=== PATIENT | female | born 1945 | race Caucasian/White ===

== ENCOUNTER → 2017-08-27 09:22 | Outpatient (CLI) | payer MEDICARE, OTHER, SELFPAY ==
--- NOTE | 2017-08-27 09:33 | RAD_ITS ---
STUDY: XR SPINE ENTIRE THORACIC T LUMBAR (W SKULL, CERVICAL AND SACRAL SPINE IF PERFORMED) REASON FOR EXAM: Female, 72 years old. Scoliosis TECHNIQUE: Radiological exam, spine, entire thoracic and lumbar, including skull, cervical and sacral spine if performed (eg, scoliosis evaluation); 2 or 3 views. COMPARISON: None. FINDINGS: There is a 59.5 degree dextroscoliosis of the thoracic spine with the apex of the convexity at the T9 level. There is a 38 degree levo scoliosis of the lumbar spine with the apex of the convexity at the L3-4 level. Normal kyphosis of the thoracic spine. Normal thoracic vertebrae and endplates. Normal disc space heights of the thoracic spine. There are internal fixation rods of the thoracic to upper lumbar region. Normal lordosis of the lumbar spine. There are degenerative changes of the lumbar spine. Normal disc space heights of the lumbar spine. There are calcified plaques of the abdominal aorta. RAD/Scoliosis 1 view IMPRESSION: Thoracolumbar scoliosis as detailed above. Orthopedic fixation devices seen from the thoracic to upper lumbar region. Electronically Signed: Hector Gonzalez MD at 17:10 EDT , Service support ,
== END ==
PROVIDERS: Family Provider Family Medicine; PCP Family Medicine; Visit Provider Family Medicine
DX: M41.9 Scoliosis, unspecified (principal)
CPT/HCPCS: 72081

== ENCOUNTER → 2017-10-24 16:15 | Outpatient (CLI) | payer MEDICARE, OTHER, SELFPAY ==
--- NOTE | 2017-10-24 16:15 | DT_ITS ---
This patient was seen during an EMR downtime October 22, 2017 - October 29, 2017. This patient may have a combination of paper and electronic documentation or all paper documentation. All documentation is viewable within the e-chart portion of [facility] for each patient visit.
[2017-10-28 15:37] LABS: Anion Gap 8 (5-15); BUN 18 mg/dL (7-18); BUN/Creat Ratio 27.7 RATIO (10-20); Calcium,Total 8.1 mg/dL (8.5-10.1); Chloride 106 mmol/L (98-107); Cholesterol 162 mg/dL (200); Creatinine, Serum 0.65 mg/dL (0.55-1.02); EST Glomerular Filtration Rate 96 mL/min (>60); Est Glom Filt Rate - Afr Amer 116 mL/min (>60); Glucose 100 mg/dL (74-106); High Density Lipoprotein 62 mg/dL; Potassium 3.9 mmol/L (3.5-5.1); Sodium Level 143 mmol/L (136-145); Triglycerides 136 mg/dL; Very Low Density Lipoprotein 27 mg/dL (5-40)
[2017-10-29 12:17] LABS: Vitamin D,25 Hydroxy 22.5 ng/mL (29.95-100.01)
== END ==
PROVIDERS: Family Provider Family Medicine; PCP Family Medicine; Visit Provider Family Medicine
DX: M85.80 Other specified disorders of bone density and structure, unspecified site (principal); Z13.220 Encounter for screening for lipoid disorders
CPT/HCPCS: 36415; 80048; 80061; 82306

== ENCOUNTER → 2017-10-29 15:46 | Outpatient (CLI) | payer MEDICARE, OTHER, SELFPAY ==
--- NOTE | 2017-10-29 15:46 | DT_ITS ---
This patient was seen during an EMR downtime October 22, 2017 - October 29, 2017. This patient may have a combination of paper and electronic documentation or all paper documentation. All documentation is viewable within the e-chart portion of [facility] for each patient visit.
[2017-10-29 18:02] LABS: PTHIN 66.3 pg/mL (18.4-80.1)
== END ==
PROVIDERS: Family Provider Family Medicine; PCP Family Medicine; Visit Provider Family Medicine
DX: E83.51 Hypocalcemia (principal)
CPT/HCPCS: 36415; 82330; 83970

== ENCOUNTER → 2017-11-13 12:49 | Outpatient (CLI) | payer MEDICARE, OTHER, SELFPAY ==
--- NOTE | 2017-11-13 12:53 | BI_ITS ---
MAMMOGRAPHY - BILATERAL SCREENING REASON FOR EXAM: Female, 72 years old. Routine annual screening examination. PERTINENT HISTORY: Sister with breast cancer. Left breast tenderness for one month. TECHNIQUE: Digital bilateral breast henry (3D mammographic acquisition) in the CC and MLO projections. 2-D mediolateral oblique (MLO) and craniocaudad (CC) views of both breasts were obtained. CAD: Full Field Digital Mammography with Computer Added Detection was performed. COMPARISON: Comparison is made with prior study August 08, 2016 and December 10, 2013. FINDINGS: Breast Composition: There are scattered areas of fibroglandular density. There are no dominant masses or suspicious calcifications. No other significant abnormalities are identified. There has been no significant change since the prior study. BI/SCREENING MAMM (CAD), BILAT IMPRESSION: Stable bilateral screening mammogram. Yearly follow-up mammogram recommended. (A) ASSESSMENT CATEGORY: BIRADS Category 1: Negative. A letter regarding these results will be sent to the patient by the facility within 30 days. Approximately 10% of breast cancers are not detected by mammography. A normal mammogram should not delay biopsy of a clinically suspicious abnormality. [id number] Electronically Signed: Sabino Garcia MD at 14:15 EDT Tel [phone], Service support ,
== END ==
PROVIDERS: Family Provider Family Medicine; PCP Family Medicine; Visit Provider Obstetrics & Gynecology
DX: Z12.31 Encounter for screening mammogram for malignant neoplasm of breast (principal)
CPT/HCPCS: 77063; 77067

== ENCOUNTER → 2019-03-25 14:33 | Outpatient (CLI) | payer MEDICARE, OTHER, SELFPAY ==
--- NOTE | 2019-03-25 14:36 | BI_ITS ---
MAMMOGRAPHY - BILATERAL SCREENING REASON FOR EXAM: Female, 73 years old. Routine annual screening examination. PERTINENT HISTORY: Sister with breast cancer. TECHNIQUE: Digital bilateral breast mattie (3D mammographic acquisition) in the CC and MLO projections. 2-D mediolateral oblique (MLO) and craniocaudad (CC) views of both breasts were obtained. CAD: Full Field Digital Mammography with Computer Added Detection was performed. COMPARISON: Comparison is made with prior study dated November 13, 2017 and August 08, 2016. FINDINGS: Breast Composition: There are scattered areas of fibroglandular density. There are no dominant masses or suspicious calcifications. No other significant abnormalities are identified. There has been no significant change since the prior study. BI/SCREEN MAMM (CAD) W/MATTIE BILAT IMPRESSION: Stable bilateral screening mammogram. Yearly follow-up mammogram recommended. (A) ASSESSMENT CATEGORY: BIRADS Category 1: Negative. A letter regarding these results will be sent to the patient by the facility within 30 days. Approximately 10% of breast cancers are not detected by mammography. A normal mammogram should not delay biopsy of a clinically suspicious abnormality. [id number] Electronically Signed: Sabino Garcia, at 15:44 EST , Service support ,
--- NOTE | 2019-03-25 14:37 | BD_ITS ---
STUDY: DUAL ENERGY X-RAY ABSORPTIOMETRY / DXA REASON FOR EXAM: Female, 73 years old. The patient is postmenopausal. Loss of height. TECHNIQUE: Bone Mineral Density (BMD) measurements of left forearm and bilateral hips were obtained. History of prior Kaufman rods fixation for scoliosis. COMPARISON: Comparison is made with prior examination dated August 15, 2016. FINDINGS: Left Femur Total: g/cm2 (0.862) / T-score (-1.2) / Z-score (0.4) Left Femoral Neck: g/cm2 (0.804) / T-score (-1.7) / Z-score (0.1) Right Femur Total: g/cm2 (0.897) / T-score (-0.9) / Z-score (0.7) Right Femoral Neck: g/cm2 (0.866) / T-score (-1.2) / Z-score (0.5) Left Forearm: g/cm2 (0.813) / T-score (-0.7) / Z-score (1.2) The T-Scores on the most recent prior examination were: Left Femur Total: which represents a worsening of 3.9%. Right Femur Total: which represents an improvement of 3.1%. BD/Dexa Bone Density Study IMPRESSION: The patient is considered osteopenic as outlined below according to World [employer] Organization (WHO) criteria with a moderate fracture risk. There has been no change of bone density since the previous examination. Reference Information: The T-score is the number of standard deviations above or below the standard which is normal for young adults at their peak bone mineral density. The World Health Organization (WHO) interprets the T-scores as follows: Above -1 Normal bone density Between -1 and -2.5 Osteopenia Equal to / or below -2.5 Osteoporosis As a practical clinical guideline, osteopenia may be graded as follows: Mild -1 through -1.5 Moderate -1.6 through -2.0 Severe -2.1 through -2.4 The Z-score is the number of standard deviations above or below age-matched controls. A Z-score of less than -1.5 would be considered abnormal. References: 1. NIH Osteoporosis and Related Bone Diseases http://www.osteo.org 2. International Society for Clinical Densitometry http://www.iscd.org 3. National Osteoporosis Foundation http://www.nof.org Electronically Signed: Sabino Garcia, at 9:31 EST , Service support ,
== END ==
PROVIDERS: Family Provider Family Medicine; PCP Family Medicine; Referring Provider Family Medicine; Visit Provider Family Medicine
DX: Z12.31 Encounter for screening mammogram for malignant neoplasm of breast (principal); Z78.0 Asymptomatic menopausal state
CPT/HCPCS: 77063; 77067; 77080

== ENCOUNTER 2019-05-21 21:50 | Emergency (ER) | payer MEDICARE, OTHER, SELFPAY ==
[2019-05-21 21:51] VITALS: BP 156/92; PULSE 96; RESP 20; TEMP 37.4; O2SAT 95; BMI 35.2
--- NOTE | 2019-05-21 22:37 | ED.RN ---
per md pt is not septic.
--- NOTE | 2019-05-21 22:40 | ED.DCSUM_ITS ---
History of Present Illness Chief Complaint: Cough Informant: Patient Narrative: Stated for the last 2 days she has had a cough. It is been dry. She has had a runny nose. Denies any other symptoms. She has occasional wheezing. She has a history of asthma. Positive sick contacts. No fevers or chills. No flulike symptoms otherwise. She has been using Advair and started this just a few weeks ago for asthma. She does not have an albuterol inhaler. Currently she does not have any major abnormalities. She recently did start lisinopril. She is unsure if she is having RADHA inhibitor induced cough. Past Medical History - Allergies and Home Meds Allergies/Adverse Reactions: Allergies No Known Allergies Allergy (Verified 05/21/19 21:50) Primary Care Physician: Marquis Oneal MD [Primary Care Provider] - Prior records reviewed: Yes Past Medical History: - - Asthma Surgical History: noncontributory Lives: With Family Smoking Status: Never smoker Alcohol: None Drugs: None Review of Systems General: Denies: Chills, Fever, Sweats Eyes: Denies: Visual changes - bilaterally, Diplopia ENT: Reports: Rhinorrhea. Denies: Sore throat Cardiovascular: Denies: Chest pain, Palpitations Respiratory: Reports: Cough. Denies: Dyspnea, Dyspnea on exertion Gastrointestinal: Denies: Abdominal pain, Nausea, Vomiting, Diarrhea, Melena, Hematochezia Genitourinary: Denies: Dysuria, Hematuria, Frequency Musculoskeletal: Denies: Back pain, Extremity Pain Skin: Denies: Rash, Wounds Neurological: Denies: Headache, Weakness, Numbness Physical Exam Vital Signs/Narrative: Vital Signs Temp Pulse Resp BP Pulse Ox 05/21/19 21:51 99.4 F H 96 20 H 156/92 H 95 General: Well nourished, Well developed, No Acute Distress Head: Normocephalic, Atraumatic Eyes: Perrl, EOMI ENT: Moist mucous membranes, No rhinorrhea Neck: Supple, Nontender Cardiovascular: Regular rate, Regular rhythm, No murmurs Respiratory: No distress, CTA bilaterally, Chest nontender Abdomen: Soft, Nontender, Nondistended, Normal bowel sounds Back: Nontender, Normal Inspection Extremities: Nontender, No edema Skin: Normal color, No rash Neurological: Alert, Oriented x3, Cranial nerves II-XII grossly intact, Normal Strength, Normal Sensation Psychological: Normal affect, Normal Mood Diagnostic/Tx/Re-eval - Medical Decision Making Resting comfortably with a normal exam. She was given albuterol inhaler to use at home as needed. Given prednisone to use for suspected asthma exacerbation likely secondary to upper respiratory infection. I do not feel she has pneumonia or the flu or RSV. She is nontoxic. She will follow-up as an outpatient. ED Disposition - Plan for ED Patient: Disposition: Home or Assisted Living Diagnosis: Asthma Instructions: ASTHMA, Acute (Adult) Prescriptions: predniSONE tablet 40 mg PO DAILY #10 tab Transmission Status: Pending to [facility]/pharmacy #[id number] Referrals: Marquis Oneal MD [Primary Care Provider] -
[2019-05-21] MEDS: predniSONE 20 MG Tablet 40 MG PO (22:59)
[2019-05-21 23:18] VITALS: PULSE 95; RESP 18; O2SAT 99
== END 2019-05-21 23:18 | disposition home or self-care (01) ==
LOC: ED 22:54
PROVIDERS: Emergency Provider Emergency Medicine; Family Provider Family Medicine; PCP Family Medicine
DX: J45.909 Unspecified asthma, uncomplicated (principal); Z79.899 Other long term (current) drug therapy
CPT/HCPCS: 99283

== ENCOUNTER → 2019-12-09 11:31 | Outpatient (CLI) | payer MEDICARE, OTHER, SELFPAY ==
[2019-12-09 15:51] LABS: Anion Gap 3 (5-15); BUN 16 mg/dL (7-18); Calcium,Total 8.7 mg/dL (8.5-10.1); Chloride 108 mmol/L (98-107); Creatinine, Serum 0.67 mg/dL (0.55-1.02); EST Glomerular Filtration Rate 92 mL/min (>60); Est Glom Filt Rate - Afr Amer 112 mL/min (>60); Glucose 108 mg/dL (74-106); Potassium 4.1 mmol/L (3.5-5.1); Sodium Level 141 mmol/L (136-145)
== END ==
PROVIDERS: Nurse Practitioner Family; PCP Family Medicine; Referring Provider Family Medicine; Visit Provider Family Medicine
DX: I10 Essential (primary) hypertension (principal)
CPT/HCPCS: 36415; 80048

== ENCOUNTER → 2020-01-06 11:24 | Outpatient (CLI) | payer MEDICARE, OTHER, SELFPAY ==
[2020-01-06 13:22] LABS: Vitamin D,25 Hydroxy 38.2 ng/mL
[2020-01-06 13:25] LABS: Anion Gap 2 (5-15); BUN 15 mg/dL (7-18); BUN/Creat Ratio 19.8 RATIO (10-20); Chloride 108 mmol/L (98-107); Cholesterol 174 mg/dL (200); Creatinine, Serum 0.76 mg/dL (0.55-1.02); EST Glomerular Filtration Rate 80 mL/min (>60); Est Glom Filt Rate - Afr Amer 96 mL/min (>60); Glucose 99 mg/dL (74-106); High Density Lipoprotein 70 mg/dL; Potassium 3.9 mmol/L (3.5-5.1); Sodium Level 141 mmol/L (136-145); Thyroid Stim Hormone (TSH) 1.21 uIU/mL (0.358-3.74); Triglycerides 75 mg/dL; Very Low Density Lipoprotein 15 mg/dL (5-40)
== END ==
PROVIDERS: PCP Family Medicine; Referring Provider Family Medicine; Visit Provider Family Medicine
DX: I10 Essential (primary) hypertension (principal); M85.80 Other specified disorders of bone density and structure, unspecified site
CPT/HCPCS: 36415; 80048; 80061; 82306; 84443

== ENCOUNTER → 2020-02-17 10:50 | Outpatient (CLI) | payer MEDICARE, OTHER, SELFPAY | PROVIDERS: PCP Family Medicine; Referring Provider Internal Medicine Pulmonary Disease; Visit Provider Internal Medicine Pulmonary Disease | DX: R05 Cough (principal) | CPT/HCPCS: 87635; C9803; U0003 ==

== ENCOUNTER → 2020-03-08 10:22 | Outpatient (CLI) | payer MEDICARE, OTHER, SELFPAY ==
[2020-03-10 04:07] LABS: Alternaria alternata <0.10 kU/L (Class 0); Aspergillus fumigatus <0.10 kU/L (Class 0); Bahia Grass <0.10 kU/L (Class 0); Bermuda Grass <0.10 kU/L (Class 0); Bluegrass, Kentucky <0.10 kU/L (Class 0); Cat Hair/Dander, Standard <0.10 kU/L (Class 0); Cedar, Mountain <0.10 kU/L (Class 0); Cladosporium herbarum <0.10 kU/L (Class 0); Cockroach, American <0.10 kU/L (Class 0); D farinae Mite <0.10 kU/L (Class 0); D pteronyssinus <0.10 kU/L (Class 0); Dog Epithelia <0.10 kU/L (Class 0); Elm, American White <0.10 kU/L (Class 0); Hazelnut Tree <0.10 kU/L (Class 0); Hickory, White <0.10 kU/L (Class 0); Johnson Grass <0.10 kU/L (Class 0); Maple/Box Elder <0.10 kU/L (Class 0); Mucor racemosus <0.10 kU/L (Class 0); Mugwort <0.10 kU/L (Class 0); Mulberry, White <0.10 kU/L (Class 0); Oak, White <0.10 kU/L (Class 0); Penicillium chrysogen <0.10 kU/L (Class 0); Pigweed, Rough <0.10 kU/L (Class 0); Plantain, English <0.10 kU/L (Class 0); Ragweed, Short/Common <0.10 kU/L (Class 0); Sheep Sorrel(Dock) <0.10 kU/L (Class 0); Stemphylium herbarum <0.10 kU/L (Class 0); Sweet Gum <0.10 kU/L (Class 0); Sycamore, American <0.10 kU/L (Class 0)
[2020-03-10 12:21] LABS: Nettle <0.10 kU/L (Class 0)
== END ==
PROVIDERS: Internal Medicine Pulmonary Disease
DX: T78.40XA Allergy, unspecified, initial encounter (principal); J45.909 Unspecified asthma, uncomplicated
CPT/HCPCS: 36415; 86003

== ENCOUNTER → 2020-04-06 13:01 | Outpatient (CLI) | payer MEDICARE, OTHER, SELFPAY ==
[2020-03-08 09:08] VITALS: BMI 34.9
--- NOTE | 2020-04-06 13:03 | ECHOD_ITS ---
Reason For Study: SOB Procedure This was a 2D Doppler, Color Flow transthoracic echocardiogram. The study was technically difficult. Exam performed in department. Left Ventricle Normal LV size. Left ventricular systolic function is normal. The estimated ejection fraction is 65 %. Diastolic function is indeterminate. No regional wall motion abnormalities noted. Right Ventricle Normal RV size. Normal systolic function. Atria Normal left atrium. Normal right atrium. No doppler evidence for ASD. Mitral Valve There is no mitral annular calcification. Normal mitral valve. Trivial mitral valve insufficiency. Tricuspid Valve The tricuspid valve is not well visualized. Aortic Valve Trisinus/trileaflet aortic valve. Mild focal aortic valve calcification. Pulmonic Valve The pulmonic valve is not well visualized. Great Vessels Normal sized aortic root. Pericardium/Pleural No pericardial effusion. MMode/2D Measurements & Calculations LVIDd: 4.0 cm IVSd: 1.0 cm Ao root diam: 2.7 cm LVIDs: 2.3 cm LVPWd: 0.99 cm RVDd: 2.7 cm FS: 42.9 % LAV(MOD-bp): 43.0 ml LA A4 area: 17.0 cm2 LA dimension(2D): 3.5 cm LAV(MOD-bp) Indexed: 23.9 ml/m2 LAV(MOD-sp2): 43.2 ml LAV(MOD-sp4): 43.7 ml RA A4 area: 9.1 cm2 Time Measurements MV dec time: 0.28 sec Doppler Measurements & Calculations MV E max roberto: 59.8 cm/sec Lat Peak E' Roberto: 7.1 cm/sec Med Peak E' Roberto: 7.0 cm/sec MV A max roberto: 93.7 cm/sec E/E' lat: 8.5 E/E' med: 8.6 MV E/A: 0.64 Ao V2 max: 127.2 cm/sec LV V1 max: 119.0 cm/sec PA V2 max: 105.1 cm/sec Ao max P.5 mmHg LV V1 max P.7 mmHg Interpretation Summary The study was technically difficult. Left ventricular systolic function is normal. The estimated ejection fraction is 65 %. Trivial mitral valve insufficiency. Mild focal aortic valve calcification. Diastolic function is indeterminate. Ordering Physician: Marquis Oneal Referring Physician: Marquis Oneal Performed By: Cande Banegas, CORINE, RVT
== END ==
PROVIDERS: PCP Family Medicine; Referring Provider Family Medicine; Visit Provider Family Medicine
DX: R06.02 Shortness of breath (principal); R05 Cough
CPT/HCPCS: 93306

== ENCOUNTER → 2020-04-08 15:38 | Outpatient (CLI) | payer MEDICARE, OTHER, SELFPAY ==
[2020-03-08 09:08] VITALS: BMI 34.9
== END ==
PROVIDERS: PCP Family Medicine; Visit Provider Family Medicine
DX: Z20.828 Contact with and (suspected) exposure to other viral communicable diseases (principal)
CPT/HCPCS: 87635; U0003

== ENCOUNTER → 2020-04-09 10:49 | Outpatient (CLI) | payer MEDICARE, OTHER, SELFPAY ==
[2020-03-08 09:08] VITALS: BMI 34.9
--- NOTE | 2020-04-09 10:57 | RAD_ITS ---
STUDY: X-RAY CHEST REASON FOR EXAM: Female, 74 years old. COVID, SOB, COUGH TECHNIQUE: PA and lateral views of the chest. COMPARISON: Comparison is made with prior study dated 09/22/2013. FINDINGS: Focal infiltrate in the lingular segment of the left upper lobe. There is no demonstrated pleural abnormality. Normal size heart. Normal mediastinum and orestes. Normal visualized pulmonary arteries. Normal visualized aortic arch and descending thoracic aorta. There is a marked dextroscoliosis of the thoracic spine. Prior KAHN zulma fixation. Normal visualized ribs, clavicles, and shoulders. Status post cholecystectomy. RAD/Chest PA and Lateral IMPRESSION: Focal infiltrate in the lingular segment of the left upper lobe. Dextroscoliosis with KAHN zulma fixation. Electronically Signed: Sabino Garcia, at 11:10 EST , Service support ,
== END ==
LOC: RAD.FUTURE 10:54 → RAD 13:01
PROVIDERS: PCP Family Medicine; Referring Provider Internal Medicine Pulmonary Disease; Visit Provider Internal Medicine Pulmonary Disease
DX: U07.1 COVID-19 (principal)
CPT/HCPCS: 71046

== ENCOUNTER 2020-04-09 19:38 | Inpatient (IN) | payer MEDICARE, OTHER, SELFPAY ==
[2020-03-08 09:08] VITALS: BMI 34.9
[2020-04-09] VITALS (7 sets, daily range): BP systolic 116–148; BP diastolic 53–71; PULSE 85–95; RESP 18–34; TEMP 36.5–38.1; O2SAT 88–96; BMI 35.1; BMI 35.2
--- NOTE | 2020-04-09 20:08 | EKG12_ITS ---
Test Reason : DYSRHYTHMIA Blood Pressure : / mmHG Vent. Rate : 089 BPM Atrial Rate : 089 BPM P-R Int : 120 ms QRS Dur : 082 ms QT Int : 332 ms P-R-T Axes : 052 056 060 degrees QTc Int : 403 ms Normal sinus rhythm Possible Left atrial enlargement Borderline ECG Confirmed by JOSE MARTIN TINSLEY, DOUG ([id number]), editor department CAPRICE BENAVIDES ([id number]) on 04/12/2020 9:39:35 AM Referred By: TL Confirmed By:DOUG PHILIPPE MD
--- NOTE | 2020-04-09 20:40 | RAD_ITS ---
STUDY: X-RAY CHEST REASON FOR EXAM: Female, 74 years old. COUGH X 3 MONTHS,CHEST X-RAY AND COVID TEST.PT C/O PULSE 88 PERCENT AND INCREASED SOB AND FEVER 102.0 TECHNIQUE: Frontal view of the chest COMPARISON: Earlier same day FINDINGS: Allowing for differences in technique left lower lung zone pneumonia is stable.. There is no demonstrated pleural abnormality. Heart size cannot be reliably evaluated due to suboptimal patient positioning. Normal mediastinum and orestes. Normal visualized pulmonary arteries. Normal visualized aortic arch and descending thoracic aorta. There are long segment thoracic spinal fixation rods with laminar hooks and moderate dextroscoliosis. Otherwise skeletal structures are unremarkable. There is no demonstrated abnormality of the visualized soft tissue structures of the upper abdomen. Cholecystectomy clips are in place. RAD/Chest 1 View (Portable) IMPRESSION: Stable left lower lung pneumonia. Electronically Signed: Nelly Dahl, at 21:20 EST Tel , Service support ,
[2020-04-09 21:07] LABS: Absolute Lymphocyte Count 1.17 X10^3/uL (0.83-4.51); Absolute Neutrophil Count 6.4 X10^3/uL (2.0-7.7); Basophil# 0.01 X10^3/uL; Basophil% 0.1 % (0-1); Hematocrit 39.7 % (37-47); Hemoglobin 12.6 g/dL (12.0-15.0); Lymphocyte # 1.17 X10^3/ul (4.0); Lymphocyte % 13.6 % (19-41); Mean Corp Hgb Conc 31.7 g/dL (32-36); Mean Corpuscular Hgb 28.2 pg (27.0-32.0); Mean Corpuscular Volume 88.8 fL (81-99); Mean Platelet Vol. 10.7 fl (6.2-12.0); Monocyte% 11.7 % (0-10); NRBC Flagged by Analyzer 0 % (0-5); Neutrophil # 6.38 X10^3/uL (2.7-7.7); Neutrophil % 74.4 % (47-70); Platelet Count 237 K/mm3 (150-450); RBC Distribution Width CV 14.3 % (11.6-14.6); RBC Distribution Width SD 46.1 fl (35.1-43.9); Red Blood Count 4.47 M/mm3 (4.2-5.4); White Blood Count 8.6 K/mm3 (4.4-11.0)
[2020-04-09 21:09] LABS: Lactic Acid 1.3 mmol/L (0.4-1.9)
[2020-04-09 21:11] LABS: ALB/GLOB Ratio 0.9 RATIO (0.9-2.4); AST(SGOT) 25 U/L (15-37); Alanine Aminotransfer ALT/SGPT 31 U/L (13-56); Albumin, Serum 3.2 g/dL (3.2-5.0); Alkaline Phosphatase 85 U/L (45-117); Anion Gap 5 (5-15); BUN 19 mg/dL (7-18); Calcium,Total 8.2 mg/dL (8.5-10.1); Chloride 104 mmol/L (98-107); Creatinine, Serum 0.79 mg/dL (0.55-1.02); EST Glomerular Filtration Rate 76 mL/min (>60); Est Glom Filt Rate - Afr Amer 92 mL/min (>60); Estimated Creatinine Clearance 40.22 ml/min; Globulin 3.4 g/dL (2.2-4.2); Glucose 116 mg/dL (74-106); Potassium 4.4 mmol/L (3.5-5.1); Protein, Total 6.6 g/dL (6.4-8.2); Sodium Level 137 mmol/L (136-145)
--- NOTE | 2020-04-09 21:29 | ED.DCSUM_ITS ---
History of Present Illness Chief Complaint: Shortness of Breath Informant: Patient Onset: Weeks - 3 Narrative: Patient reports cough x3 months., last 2 days noted fevers myalgias. No loss of taste or smell. No vomiting or diarrhea. Increasing cough, she is followed by Dr. Hassan. She states she is being treated for asthma. She did finish steroids. She states had a outpatient chest x-ray this morning that noted pneumonia. She states antibiotics were called into the pharmacy that she has not picked up. Denies any tobacco history. Denies any Covid exposures. She states yesterday had outpatient Covid test that is pending. has similar symptoms. Prior similar symptoms: No Past Medical History - Allergies and Home Meds Allergies/Adverse Reactions: Allergies No Known Allergies Allergy (Verified 04/09/20 19:42) Primary Care Physician: Marquis Oneal MD [Primary Care Provider] - Past Medical History: - - Asthma, hypertension Surgical History: noncontributory Smoking Status: Never smoker Review of Systems General: Reports: Fever. Denies: Chills, Sweats Eyes: Denies: Visual changes - bilaterally, Diplopia ENT: Denies: Rhinorrhea, Sore throat Cardiovascular: Denies: Chest pain, Palpitations Respiratory: Reports: Dyspnea, Cough. Denies: Dyspnea on exertion Gastrointestinal: Denies: Abdominal pain, Nausea, Vomiting, Diarrhea, Melena, Hematochezia Genitourinary: Denies: Dysuria, Hematuria, Frequency Musculoskeletal: Denies: Back pain, Extremity Pain Skin: Denies: Rash, Wounds Neurological: Denies: Headache, Weakness, Numbness Physical Exam Vital Signs/Narrative: Vital Signs Temp Pulse Resp BP Pulse Ox 04/09/20 20:59 94 26 H 04/09/20 20:29 98.6 F 91 32 H 141/58 H 88 04/09/20 19:40 97.7 F L 93 18 148/71 H 93 Inital Vital Signs reviewed: Yes General: Well nourished, Well developed, - - Intermittent coughing during exam Head: Normocephalic, Atraumatic Eyes: Perrl, EOMI ENT: Moist mucous membranes, No rhinorrhea Neck: Supple, Nontender Cardiovascular: Regular rate, Regular rhythm, No murmurs Respiratory: No distress, Chest nontender, Decreased Air Movement Abdomen: Soft, Nontender, Nondistended, Normal bowel sounds Back: Nontender, Normal Inspection Extremities: Nontender, No edema Skin: Normal color, No rash Neurological: Alert, Oriented x3, Cranial nerves II-XII grossly intact, Normal Strength, Normal Sensation Psychological: Normal affect, Normal Mood Diagnostic/Tx/Re-eval Clinical Impression(s) from Imaging Studies Chest X-Ray 04/09/20 20:40 IMPRESSION: Stable left lower lung pneumonia. Electronically Signed: Nelly Dahl, at 21:20 EST Tel , Service support , Abnormal Lab Results 04/09/20 04/09/20 04/09/20 20:30 20:30 20:30 WBC 8.6 RBC 4.47 Hgb 12.6 Hct 39.7 MCV 88.8 MCH 28.2 MCHC 31.7 L RDW Std Deviation 46.1 H RDW Coeff of Sofía 14.3 Plt Count 237 MPV 10.7 Immature Gran % (Auto) 0.200 Neut % (Auto) 74.4 H Lymph % (Auto) 13.6 L Owen % (Auto) 11.7 H Eos % (Auto) 0.0 Baso % (Auto) 0.1 Absolute Neuts (auto) 6.4 Absolute Lymphs (auto) 1.17 Nucleated RBC % 0 Sodium 137 Potassium 4.4 Chloride 104 Carbon Dioxide 28.0 Anion Gap 5 BUN 19 H Creatinine 0.79 Estim Creat Clear Calc 40.22 Est GFR (MDRD) Af Amer 92 Est GFR (MDRD) Non-Af 76 BUN/Creatinine Ratio 24.0 H Glucose 116 H Lactic Acid 1.3 Calcium 8.2 L Total Bilirubin 0.30 AST 25 ALT 31 Alkaline Phosphatase 85 Total Protein 6.6 Albumin 3.2 Globulin 3.4 Albumin/Globulin Ratio 0.9 COVID-19 (ANGELINA) 04/09/20 20:51 WBC RBC Hgb Hct MCV MCH MCHC RDW Std Deviation RDW Coeff of Sofía Plt Count MPV Immature Gran % (Auto) Neut % (Auto) Lymph % (Auto) Owen % (Auto) Eos % (Auto) Baso % (Auto) Absolute Neuts (auto) Absolute Lymphs (auto) Nucleated RBC % Sodium Potassium Chloride Carbon Dioxide Anion Gap BUN Creatinine Estim Creat Clear Calc Est GFR (MDRD) Af Amer Est GFR (MDRD) Non-Af BUN/Creatinine Ratio Glucose Lactic Acid Calcium Total Bilirubin AST ALT Alkaline Phosphatase Total Protein Albumin Globulin Albumin/Globulin Ratio COVID-19 (ANGELINA) Positive - EKG Initial EKG Interpretation: Sinus Rhythm - Sinus rate of 89, no ST or T wave changes. - Medical Decision Making Patient nontoxic, 93% on room air on arrival. Reported pneumonia as an outpatient. Asthma history no tobacco history. Given MDI treatment in ED with improvement of symptoms. Chest x-ray confirms a stable pneumonia left base. White count normal. EKG sinus rhythm. During monitor her oxygen did go down to 88%. Awaiting Covid results at this time. She stable on oxygen. Cultures are in the lab. Her lactic acid was normal. Patient's Covid test returned positive. Healthy patient dy with asthma and hypertension. No tobacco history, she is currently on 3 L of oxygen. Given dexamethasone and Omnicef for treatment. [facility] protocol for approval oxygen due to positive Covid for home use along with outpatient treatment. First dose is given the ED. Prescriptions were written. Strict return precautions. Patient is being discharged under pandemic conditions under declared global, national and state disaster activation, with limited medical resources. Patient and community understands this. Results discussed in layman's terms to the patient satisfaction. All questions answered in layman's terms. Patient understands importance of follow-up care as directed. Patient has been instructed to return to the ED immediately if new symptoms, problems, or questi ons occur. We mutually agree with the plan of disposition. The patient understand that they may call or return with any questions or concerns at any time. ED Disposition - Plan for ED Patient: Disposition: Home or Assisted Living Diagnosis: COVID-19 virus infection, Pneumonia, Hypoxia Instructions: Treating Pneumonia, Coronavirus Disease 2019 (COVID-19) Prescriptions: Dexamethasone 6 mg PO DAILY #9 tab Transmission Status: Pending to [facility] Cefdinir [Omnicef [equiv]] 300 mg PO Q12H 7 Days #13 cap Transmission Status: Pending to [facility] Referrals: Marquis Oneal MD [Primary Care Provider] - Kingston Hassan MD [STAFF PHYSICIAN] - 1 Week
[2020-04-09 22:09] LABS: Probe Check PASS; Specimen Processing Control PASS
--- NOTE | 2020-04-09 22:38 | CM.ED ---
SOCIAL WORK Informant: Dr. Moon Reason for Consult: Discharge Planning/COVID-19 positive-home O2 Updated by Dr. Moon patient needing home O2 set up. Dr. Moon patient is COVID-19 positive with pneumonia. Spoke with patient to review home O2 check list. Patient stating does not really feel comfortable going home after speaking with . Dr. Moon and nurse updated. Dr. Moon to [facility] hospitalist. Plan: Anticipate admission aZk Sutton MSW, LIFESTYLE CONSULTANT
--- NOTE | 2020-04-09 22:53 | PCM.HP.STD ---
Problem List (1) COVID-19 virus infection Status: Acute (2) Pneumonia Status: Acute Qualifiers: Pneumonia type: due to unspecified organism Laterality: unspecified laterality Lung location: unspecified part of lung Qualified Code(s): J18.9 - Pneumonia, unspecified organism (3) Hypoxia Status: Acute (4) Seasonal allergies Status: Chronic (5) Scoliosis Status: Resolved Qualifiers: Scoliosis type: thoracogenic Spinal region: thoracolumbar Qualified Code(s): M41.35 - Thoracogenic scoliosis, thoracolumbar region (6) Asthma Status: Chronic Qualifiers: Asthma severity: moderate Asthma persistence: persistent Asthma complication type: uncomplicated Qualified Code(s): J45.40 - Moderate persistent asthma, uncomplicated (7) HTN (hypertension) Status: Chronic Qualifiers: Hypertension type: essential hypertension Qualified Code(s): I10 - Essential (primary) hypertension History of Present Illness Date of Admission: 04/09/20 Chief Complaint: Increased cough, dyspnea with hypoxia, febrile. The patient is a 74 y/o F w/ PMHx: Obesity, Moderate Persistent Asthma, HTN, Allergic Rhinitis who presents to the [facility] ED on 04/09/20 with history of fevers, body aches, cough and dyspnea x 2 days without nausea, emesis, diarrhea, alteration to sense of taste/smell with recent administration of steroid taper with recent outpatient CXR per her Pulmonary physician, not improving with no specific wheezing, primarily harsh ongoing coughing prompting ED evaluation. She notes that her had a fever, fatigue and headaches for 1 to 2 days but since has improved. Their son who lives with them had sore throat and fatigue x 2 days the week prior and lives with them. Work-up in the ED included T 99.2, heart rate 91, BP 141/58, respiratory rate 32, 88% on room air with improvement to 92% on 3 L nasal cannula with respiratory rate 31, CBC with WC 8.6, hemoglobin 12.6, platelet 237 without marked shift, CMP with BUN/creatinine 19/0.79, glucose 116, lactic acid 1.3, Covid positive, respiratory viral panel pending, blood culture x2 pending per ED, chest x-ray with stable left lower lung pneumonia. In the ED patient administered Decadron 6 mg p.o. x1 as well as Rocephin and azithromycin. Past Medical History Past Medical History (Chronic Problems): Chronic Problems (Last Updated 03/08/20 @ 09:09 by Miranda Blair) HTN (hypertension) (Chronic) Seasonal allergies (Chronic) Asthma (Chronic) Medical History: Medical History (Last Updated 03/08/20 @ 09:09 by Miranda Blair) Seasonal allergies (Acute) J30.2 Asthma (Acute) J45.909 Allergies No Known Allergies Allergy (Verified 04/09/20 19:42) Home Medications: Ambulatory Orders Medication Instructions Recorded albuterol sulfate 90 mcg/actuation 1 puff INHALATION Q6H 06/16/17 aerosol inhaler losartan 100 mg tablet 100 mg PO DAILY 03/08/20 montelukast 10 mg tablet 10 mg PO DAILY 03/08/20 triamcinolone acetonide 55 mcg 1 spray INTRANASAL BID ml 03/08/20 nasal spray aerosol Albuterol Aerosols [Ventolin 2.5 mg INHALATION BID 04/09/20 Aerosols] Budesonide Aerosol [Pulmicort 0.5 mg INHALATION BID 04/09/20 Aerosol] Cefdinir [Omnicef [equiv]] 300 mg PO Q12H 7 Days #13 cap 04/09/20 Dexamethasone 6 mg PO DAILY #9 tab 04/09/20 Prednisone 20 mg PO DAILY 04/09/20 Surgical History: Surgical History (Last Updated 03/08/20 @ 09:09 by Miranda Blair) History of appendectomy (Resolved) Z98.890, Z90.49 History of cholecystectomy (Resolved) Z98.890, Z90.49 Scoliosis (Resolved) M41.9 Surgical History: noncontributory, - - Intervention for scoliosis with Kaufman zulma, cholecystectomy, appendectomy. 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 Smoking Status: Never smoker Tobacco Use: Non-smoker Alcohol: Occasional Drugs: None - *Family History Maternal Family History: Family History (Last Reviewed 03/08/20 @ 09:10 by Miranda Blair) Sister Breast cancer Hypertension Brother Allergies Thyroid disorder Hypertension History Items: Pulmonary Disease - Patient with a maternal family history of chronic COPD with mother with significant tobacco use concurrent history. Paternal Family History: Family History (Last Reviewed 03/08/20 @ 09:10 by Miranda Blair) Sister Breast cancer Hypertension Brother Allergies Thyroid disorder Hypertension History Items: Heart Disease, - - Patient notes paternal family history of sudden at age 53, suspicious for cardiac disease etiology. Review of Systems Constitutional: Reports: Anorexia, Chills, Fever, Malaise, Weakness, Fatigue. Denies: Weight Change HEENT: Denies: Head Aches, Sinus Congestion, Sinus Drainage Cardiovascular: Denies: Chest Pain, Palpitations Respiratory: Reports: Cough, Shortness of Breath, Shortness of breath at rest, Shortness of breath upon exertion. Denies: Sputum production, Wheezing Gastrointestinal: Denies: Abdominal Pain, Nausea, Vomiting Genitourinary: Denies: Dysuria Musculoskeletal: Reports: Back Pain, Joint Pain. Denies: Joint Tenderness Skin: Denies: Rash, Wounds Neurological: Denies: Numbness, Tingling, Focal weakness Psychiatric: Denies: Anxiety, Depression, Homicidal Ideations, Suicidal Ideations Hematologic/ Lymphatic: Denies: Easy Bruising, Easy Bleeding VTE Information - Inpt Only VTE Present on Admission: No VTE Mechan Device Prophylaxis: SCD's VTE Pharm Prophylaxis ordered?: Yes Patient Problems: Active and Suspected Problems (Last Updated 03/08/20 @ 09:09 by Miranda Blair) COVID-19 virus infection (Acute) Pneumonia (Acute) Hypoxia (Acute) Subjective: Seated upright in the ED bed, fatigued appearing otherwise no obvious distress, with evaluation does have significant coughing. Objective: Physical Examination: General: awake, alert, oriented x 3 and cooperative, seated upright in the ED bed, fatigued and ill-appearing. Skin: normal color, turgor, no icterus, cyanosis. HEENT: AT/NC, EOMI, PERRLA, dry MM, no carotid bruits or JVD noted. Lungs: Diminished breath sounds, greater bases, left greater than right, mildly coarse at bases, no obvious rales, and occasional very distant end expiratory wheeze but only with coughing fits. Heart: Regular rate and rhythm; no gallop, rub audible. Abdomen: soft, obese, NTTP, ND, mildly hyperactive BS, no HSM. Extremities: no cyanosis, clubbing, or edema. Neurological: patient awake, alert, oriented as noted; cognitive function baseline intact; pupils equally reactive to light and accomodation; cranial nerves II-XII grossly normal, moving all 4 extremities, no focal deficits, strength moderately to severely globally decreased secondary to acute presentation. Psychiatric: affect appears fatigued, ill, no acute evidence of depressive or anxiety feelings. - Physical Exam Vitals/I&O's: Vital Signs Temp Pulse Resp BP Pulse Ox 99.2 F H 90 31 H 116/53 L 92 04/09/20 22:00 04/09/20 22:00 04/09/20 22:00 04/09/20 22:00 04/09/20 22:00 Oxygen Flow Rate (L/min) 3 Oxygen Delivery Method Nasal Cannula Weight: 192 lb Body Mass Index (BMI) 35.1 Laboratory Results 04/09/20 20:30: WBC 8.6, RBC 4.47, Hgb 12.6, Hct 39.7, MCV 88.8, MCH 28.2, MCHC 31.7 L, RDW Std Deviation 46.1 H, RDW Coeff of Sofía 14.3, Plt Count 237, MPV 10.7, Immature Gran % (Auto) 0.200, Neut % (Auto) 74.4 H, Lymph % (Auto) 13.6 L, Bee % (Auto) 11.7 H, Eos % (Auto) 0.0, Baso % (Auto) 0.1, Absolute Neuts (auto) 6.4, Absolute Lymphs (auto) 1.17, Nucleated RBC % 0 04/09/20 20:30: Sodium 137, Potassium 4.4, Chloride 104, Carbon Dioxide 28.0, Anion Gap 5, BUN 19 H, Creatinine 0.79, Estim Creat Clear Calc 40.22, Est GFR (MDRD) Af Amer 92, Est GFR (MDRD) Non-Af 76, BUN/Creatinine Ratio 24.0 H, Glucose 116 H, Calcium 8.2 L, Total Bilirubin 0.30, AST 25, ALT 31, Alkaline Phosphatase 85, Total Protein 6.6, Albumin 3.2, Globulin 3.4, Albumin/Globulin Ratio 0.9 04/09/20 20:30: Lactic Acid 1.3 04/09/20 20:51: COVID-19 (ANGELINA) Positive Current Medications Dexamethasone (Dexamethasone 4 Mg Tablet) 6 mg PO X1 ONE Stop: 04/10/20 22:25 Azithromycin 500 mg/ Dextrose 255 mls @ 250 mls/hr IV X1 ONE Stop: 04/09/20 23:43 Ceftriaxone Sodium (Rocephin) 1 gm in 50 mls @ 100 mls/hr IV X1 ONE Stop: 04/09/20 23:11 Assessment/Plan All Active Problems (Last Updated 03/08/20 @ 09:09 by Miranda Blair) COVID-19 virus infection (Acute) Pneumonia (Acute) Hypoxia (Acute) History of appendectomy (Resolved) History of cholecystectomy (Resolved) Scoliosis (Resolved) The patient is a 74 y/o F w/ PMHx: Obesity, Moderate Persistent Asthma, HTN, Allergic Rhinitis who presents to the [facility] ED on 04/09/20 with history of fevers, body aches, cough and dyspnea x 2 days without nausea, emesis, diarrhea, alteration to sense of taste/smell with recent administration of steroid taper with recent outpatient CXR per her Pulmonary physician, not improving with no specific wheezing, primarily harsh ongoing coughing. 1. Acute Dyspnea, Cough, Fever with Acute Hypoxia secondary to Pneumonia secondary to Suspected Acute Viral Syndrome, COVID-19: We will admit to the Covid unit, will maintain on oxygen with wean as tolerated to room air, continue home inhalers and as needed albuterol, HOB, IS parameters, pending respiratory viral panel per ED, will obtain procalcitonin, CRP, CPK, Ferritin, LDH, D-dimer, continue supportive care including q 2 hour turning including prone given no prone bed availability and judicious hydration, closely monitor for worsening status for ARDS and multiorgan failure, maintain on IV Decadron, infectious disease consulted. Given patient underlying history of asthma will consult Dr. Miranda per discussion with patient and family. Will obtain T+S. 2. Chronic moderate persistent asthma: We will continue patient scheduled albuterol and budesonide regimen. 3. Scoliosis: Patient with dextroscoliosis with prior intervention with Kaufman zulma fixation, encourage positional changes, fall precautions. 4. Allergic rhinitis: We will continue patient home montelukast and triamcinolone regimen. 5. Hypertension: Continue home regimen including losartan with hold parameters, PRN hydralazine. 6. Obesity: Weight loss and lifestyle changes encouraged. 7. DVT prophylaxis: SCDs, Lovenox. 8. CODE status: Patient HCPOA is her and living will is currently in place. Discussed CODE status at length including difference between FULL code, DNR-CCA and DNR-CC status. Following discussions about the differences in these status, requested Full Code status. Advanced Care Planning Face to Face Time: 16 minutes. Upon admission did discuss patient with her daughter per her request, Veronica Junior who is a therapist at the [facility]. Inpatient E&M: 83461 Init Hosp L3 Procedures: 88840 Advncd Care Plan 30 Min
[2020-04-09] MEDS: Ceftriaxone 1 GM/50 ML BAG IV (23:16)
[2020-04-09] MEDS: dexAMETHasone 4 MG Tablet 6 MG PO (23:33)
[2020-04-10] VITALS (9 sets, daily range): BP systolic 115–128; BP diastolic 57–64; PULSE 66–84; RESP 16–24; TEMP 35.6–37.1; O2SAT 94–95
--- NOTE | 2020-04-10 00:05 | ED.RN ---
QUEENIE sanders made aware that zithromax needed to be hung when the cipro finished. zithromax was given to rn.
[2020-04-10 00:53] LABS: BNP,B-Type NATRIURETIC PEPTIDE 42.9 pg/mL (0-100); Procalcitonin 0.15 ng/mL (0.00-0.09)
[2020-04-10 01:41] LABS: D-Dimer Quantitative (DVT/PE) 0.29 FEU/ug/m (0.27-0.49)
[2020-04-10 03:50] LABS: Ferritin 207 ng/mL (8-252); LDH 198 U/L (84-246); Magnesium 1.9 mg/dL (1.6-2.6)
[2020-04-10 07:48] LABS: Absolute Lymphocyte Count 0.65 X10^3/uL (0.83-4.51); Absolute Neutrophil Count 4.4 X10^3/uL (2.0-7.7); Basophil# 0.01 X10^3/uL; Basophil% 0.2 % (0-1); Hematocrit 38.7 % (37-47); Hemoglobin 12.1 g/dL (12.0-15.0); Lymphocyte # 0.65 X10^3/ul (4.0); Lymphocyte % 11.9 % (19-41); Mean Corp Hgb Conc 31.3 g/dL (32-36); Mean Corpuscular Hgb 27.9 pg (27.0-32.0); Mean Corpuscular Volume 89.4 fL (81-99); Mean Platelet Vol. 10.8 fl (6.2-12.0); Monocyte# 0.39 X10^3/uL; Monocyte% 7.1 % (0-10); NRBC Flagged by Analyzer 0 % (0-5); Neutrophil # 4.41 X10^3/uL (2.7-7.7); Neutrophil % 80.4 % (47-70); Platelet Count 216 K/mm3 (150-450); RBC Distribution Width CV 14.2 % (11.6-14.6); RBC Distribution Width SD 46.6 fl (35.1-43.9); Red Blood Count 4.33 M/mm3 (4.2-5.4); White Blood Count 5.5 K/mm3 (4.4-11.0)
--- NOTE | 2020-04-10 07:48 | CON.PCM_ITS ---
Reason for Consult Date of Consultation: 04/10/20 Reason for Consultation: Acute respiratory insufficiency secondary to COVID-19 pneumonia History of Present Illness: The patient is a 74-year-old female, with a history as outlined below, who presented to the emergency department on April 09 with worsening cough, fevers and myalgias. The patient is followed by Dr. Hassan due to a history of asthma. The patient has a longstanding history of a nonproductive cough of several years duration. The cough itself has not changed dramatically. The patient did report some fevers, chills and malaise, which initially began 3 days ago. The patient does report that her son was home last Sunday and did report feeling fatigued. Outside of this, the patient denies any sick contact exposures. She denies loss of taste or smell. On presentation to the emergency department, the patient was noted to be afebrile and hemodynamically stable. Laboratory evaluation revealed a normal white blood cell count. D-dimer was within normal limits. Chemistry profile was unremarkable. Liver function was normal. Lactate was within normal limits. Procalcitonin was 0.15. Coronavirus PCR was positive. Chest x-ray revealed a left lower lobe pneumonia. The patient was started on Decadron and admitted to the coronavirus cohort unit for further management. Past Medical History Past Medical History (Chronic Problems): Chronic Problems (Last Updated 03/08/20 @ 09:09 by Miranda Blair) HTN (hypertension) (Chronic) Seasonal allergies (Chronic) Asthma (Chronic) Medical History: Medical History (Last Updated 03/08/20 @ 09:09 by Miranda Blair) Seasonal allergies (Chronic) J30.2 Asthma (Chronic) J45.909 Allergies No Known Allergies Allergy (Verified 04/09/20 19:42) Home Medications: Ambulatory Orders Medication Instructions Recorded albuterol sulfate 90 mcg/actuation 1 puff INHALATION Q6H 06/16/17 aerosol inhaler losartan 100 mg tablet 100 mg PO DAILY 03/08/20 montelukast 10 mg tablet 10 mg PO DAILY 03/08/20 triamcinolone acetonide 55 mcg 1 spray INTRANASAL BID ml 03/08/20 nasal spray aerosol Albuterol Aerosols [Ventolin 2.5 mg INHALATION BID 04/09/20 Aerosols] Budesonide Aerosol [Pulmicort 0.5 mg INHALATION BID 04/09/20 Aerosol] Cefdinir [Omnicef [equiv]] 300 mg PO Q12H 7 Days #13 cap 04/09/20 Dexamethasone 6 mg PO DAILY #9 tab 04/09/20 Prednisone 20 mg PO DAILY 04/09/20 Surgical History: Surgical History (Last Updated 03/08/20 @ 09:09 by Miranda Blair) History of appendectomy (Resolved) Z98.890, Z90.49 History of cholecystectomy (Resolved) Z98.890, Z90.49 Scoliosis (Resolved) M41.9 Surgical History: noncontributory, - - Intervention for scoliosis with Kaufman zulma, cholecystectomy, appendectomy. 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 Smoking Status: Never smoker Tobacco Use: Non-smoker Alcohol: Occasional Drugs: None - *Family History Maternal Family History: Family History (Last Reviewed 03/08/20 @ 09:10 by Miranda Blair) Sister Breast cancer Hypertension Brother Allergies Thyroid disorder Hypertension History Items: Pulmonary Disease - Patient with a maternal family history of chronic COPD with mother with significant tobacco use concurrent history. Paternal Family History: Family History (Last Reviewed 03/08/20 @ 09:10 by Miranda Blair) Sister Breast cancer Hypertension Brother Allergies Thyroid disorder Hypertension History Items: Heart Disease, - - Patient notes paternal family history of sudden at age 53, suspicious for cardiac disease etiology. Review of Systems Constitutional: Reports: Chills, Fever, Malaise, Fatigue Eyes: Denies: Blurred vision, Double vision HEENT: Denies: Head Aches, Sinus Congestion, Sinus Drainage Cardiovascular: Denies: Chest Pain, Palpitations Respiratory: Reports: Cough Gastrointestinal: Denies: Abdominal Pain, Nausea, Vomiting Genitourinary: Denies: Dysuria Musculoskeletal: Denies: Joint Pain, Joint Tenderness Skin: Denies: Rash, Wounds Neurological: Denies: Numbness, Tingling, Focal weakness Psychiatric: Denies: Anxiety, Depression, Homicidal Ideations, Suicidal Ideations Hematologic/ Lymphatic: Denies: Easy Bruising, Easy Bleeding Patient Problems: Active and Suspected Problems (Last Updated 03/08/20 @ 09:09 by Miranda Blair) COVID-19 virus infection (Acute) Pneumonia (Acute) Hypoxia (Acute) Objective: The patient's most recent lab work, culture data and imaging studies have all been personally reviewed. Coronavirus PCR was positive on April 09. Strep and urine Legionella antigens were negative. Respiratory viral panel was negative. - Physical Exam Vitals/I&O's: Vital Signs Temp Pulse Resp BP Pulse Ox 98.6 F 76 16 117/57 L 94 04/10/20 05:28 04/10/20 05:28 04/10/20 05:28 04/10/20 05:28 04/10/20 05:28 Oxygen Flow Rate (L/min) 3 Oxygen Delivery Method Nasal Cannula Weight: 190 lb 14.725 oz Body Mass Index (BMI) 35.2 Intake and Output for Last 24 Hours 04/08/20 04/09/20 04/10/20 23:59 23:59 23:59 Intake Total 50 / 50 255 / 255 Output Total 0 / 0 Balance 50 / 50 255 / 255 General: Alert, Oriented x3, Cooperative, No apparent distress HEENT: Atraumatic, PERRLA, Normocephalic Oral: Moist Mucosa, No Gingival or Mucosal Lesions/ Ulcerations Neck: Supple, No Nodes, Trachea Midline Lungs: No rhonchi, No wheeze, No rales, - - Frequent paroxysms of coughing Cardiovascular: Regular rate, Regular Rhythm Abdomen: Bowel Sounds Present, Soft, Non Tender, Obese Extremities: No clubbing, No cyanosis, No edema Skin: No breakdown Musculoskeletal: No Tenderness to Palpation of Joints or Extremities, No Muscle Wasting Lymphatic: No Cervical, Supraclavicular, or Inguinal Adenopathy Neurological: Cranial nerves II-XII grossly intact, Neuro grossly intact Psych/Mental Status: Alert and oriented to time, place, person, mood and affect Labs (Last 48 Hours) 04/09/20 04/09/20 04/09/20 20:30 20:30 20:30 WBC 8.6 RBC 4.47 Hgb 12.6 Hct 39.7 MCV 88.8 MCH 28.2 MCHC 31.7 L RDW Std Deviation 46.1 H RDW Coeff of Sofía 14.3 Plt Count 237 MPV 10.7 Immature Gran % (Auto) 0.200 Neut % (Auto) 74.4 H Lymph % (Auto) 13.6 L [place] % (Auto) 11.7 H Eos % (Auto) 0.0 Baso % (Auto) 0.1 Absolute Neuts (auto) 6.4 Absolute Lymphs (auto) 1.17 Nucleated RBC % 0 D-Dimer Quant (PE/DVT) Sodium 137 Potassium 4.4 Chloride 104 Carbon Dioxide 28.0 Anion Gap 5 BUN 19 H Creatinine 0.79 Estim Creat Clear Calc 40.22 Est GFR (MDRD) Af Amer 92 Est GFR (MDRD) Non-Af 76 BUN/Creatinine Ratio 24.0 H Glucose 116 H Lactic Acid 1.3 Calcium 8.2 L Magnesium Ferritin Total Bilirubin 0.30 AST 25 ALT 31 Alkaline Phosphatase 85 Lactate Dehydrogenase C-React Prot Ext Range B-Natriuretic Peptide Total Protein 6.6 Albumin 3.2 Globulin 3.4 Albumin/Globulin Ratio 0.9 Procalcitonin COVID-19 (ANGELINA) Blood Type Antibody Screen 04/09/20 04/09/20 04/09/20 20:30 20:30 20:30 WBC RBC Hgb Hct MCV MCH MCHC RDW Std Deviation RDW Coeff of Sofía Plt Count MPV Immature Gran % (Auto) Neut % (Auto) Lymph % (Auto) [place] % (Auto) Eos % (Auto) Baso % (Auto) Absolute Neuts (auto) Absolute Lymphs (auto) Nucleated RBC % D-Dimer Quant (PE/DVT) Sodium Potassium Chloride Carbon Dioxide Anion Gap BUN Creatinine Estim Creat Clear Calc Est GFR (MDRD) Af Amer Est GFR (MDRD) Non-Af BUN/Creatinine Ratio Glucose Lactic Acid Calcium Magnesium 1.9 Ferritin 207 Total Bilirubin AST ALT Alkaline Phosphatase Lactate Dehydrogenase 198 C-React Prot Ext Range 63.50 H B-Natriuretic Peptide 42.9 Total Protein Albumin Globulin Albumin/Globulin Ratio Procalcitonin 0.15 H COVID-19 (ANGELINA) Blood Type Antibody Screen 04/09/20 04/10/20 04/10/20 20:51 00:50 00:50 WBC RBC Hgb Hct MCV MCH MCHC RDW Std Deviation RDW Coeff of Sofía Plt Count MPV Immature Gran % (Auto) Neut % (Auto) Lymph % (Auto) [place] % (Auto) Eos % (Auto) Baso % (Auto) Absolute Neuts (auto) Absolute Lymphs (auto) Nucleated RBC % D-Dimer Quant (PE/DVT) 0.29 Sodium Potassium Chloride Carbon Dioxide Anion Gap BUN Creatinine Estim Creat Clear Calc Est GFR (MDRD) Af Amer Est GFR (MDRD) Non-Af BUN/Creatinine Ratio Glucose Lactic Acid Calcium Magnesium Ferritin Total Bilirubin AST ALT Alkaline Phosphatase Lactate Dehydrogenase C-React Prot Ext Range B-Natriuretic Peptide Total Protein Albumin Globulin Albumin/Globulin Ratio Procalcitonin COVID-19 (ANGELINA) Positive Blood Type O POSITIVE Antibody Screen NEGATIVE 04/10/20 04/10/20 05:55 05:55 WBC 5.5 RBC 4.33 Hgb 12.1 Hct 38.7 MCV 89.4 MCH 27.9 MCHC 31.3 L RDW Std Deviation 46.6 H RDW Coeff of Sofía 14.2 Plt Count 216 MPV 10.8 Immature Gran % (Auto) 0.400 Neut % (Auto) 80.4 H Lymph % (Auto) 11.9 L [place] % (Auto) 7.1 Eos % (Auto) 0.0 Baso % (Auto) 0.2 Absolute Neuts (auto) 4.4 Absolute Lymphs (auto) 0.65 L Nucleated RBC % 0 D-Dimer Quant (PE/DVT) Sodium Pending Potassium Pending Chloride Pending Carbon Dioxide Pending Anion Gap Pending BUN Pending Creatinine Pending Estim Creat Clear Calc Est GFR (MDRD) Af Amer Pending Est GFR (MDRD) Non-Af Pending BUN/Creatinine Ratio Pending Glucose Pending Lactic Acid Calcium Pending Magnesium Ferritin Total Bilirubin Pending AST Pending ALT Pending Alkaline Phosphatase Pending Lactate Dehydrogenase C-React Prot Ext Range B-Natriuretic Peptide Total Protein Pending Albumin Pending Globulin Albumin/Globulin Ratio Procalcitonin COVID-19 (ANGELINA) Blood Type Antibody Screen Microbiology 04/10/20 05:58 Urine, Clean Catch Legionella Antigen - Final 04/10/20 05:58 Urine, Clean Catch Streptococcus pneumoniae Antigen (M - Final 04/09/20 20:51 Mucosa - Nose Respiratory Panel (PCR) - Final Clinical Impression(s) from Imaging Studies Chest X-Ray 04/09/20 20:40 IMPRESSION: Stable left lower lung pneumonia. Electronically Signed: Nelly Dahl, at 21:20 EST Tel , Service support , Current Medications Acetaminophen (Acetaminophen 325 Mg Tablet) 650 mg PO Q6H PRN PRN PRN Reason: Pain Score 1-10/Temp > 100.7 F Al Hydroxide/Mg Hydroxide (Mag Hydrox/Al Hydrox/Simeth 30 Ml Udc) 30 ml PO Q6H PRN PRN PRN Reason: Gastric Burning Albuterol Sulfate (Albuterol 2.5 Mg/3 Ml Vial.Neb.) 2.5 mg INHALATION BID REPLACED BY [facility] Albuterol Sulfate (Albuterol Ih 8.5 Gm (Proair) Inhaler (200 Puffs)) 2 puff INHALATION Q4H PRN PRN PRN Reason: dyspnea, wheezing Budesonide (Budesonide Respules 0.5 Mg/2 Ml Ampul.Neb.) 0.5 mg INHALATION BID REPLACED BY [facility] Dexamethasone (Dexamethasone 4 Mg Tablet) 6 mg PO X1 ONE Stop: 04/10/20 22:25 Last Admin: 04/09/20 23:33 Dose: 6 mg Documented by: Dexamethasone Sodium Phosphate (Dexamethasone 10 Mg/Ml Vial) 6 mg IV DAILY REPLACED BY [facility] Enoxaparin Sodium (Enoxaparin 30 Mg/0.3 Ml Syringe) 30 mg SC BID REPLACED BY [facility] Fluticasone Propionate (Fluticasone 0.05% 1 [place] Nasal.Sry) 1 spray NASAL BID REPLACED BY [facility] Guaifenesin (Guaifenesin 10 Ml Udc (200mg/10ml)) 20 ml PO Q4H PRN PRN PRN Reason: COUGH Hydralazine HCl (Hydralazine 20 Mg/Ml Vial) 10 mg IV Q4H PRN PRN PRN Reason: SBP > 160 Sodium Chloride () 250 mls @ 15 mls/hr IV .[id number] PRN PRN Reason: Saline Flush Losartan Potassium (Losartan Potassium 100 Mg Tablet) 100 mg PO DAILY REPLACED BY [facility] Magnesium Hydroxide (Magnesium Hydroxide 30 Ml Udc) 30 ml PO DAILY PRN PRN PRN Reason: Constipation Melatonin (Melatonin 3 Mg Tablet) 3 mg PO QHS PRN PRN PRN Reason: INSOMNIA Montelukast Sodium (Montelukast 10 Mg Tablet) 10 mg PO DAILY REPLACED BY [facility] Morphine Sulfate (Morphine 2 Mg/Ml Syringe) 2 mg IV Q3H PRN PRN PRN Reason: Pain Score 6-10 Nitroglycerin (Nitroglycerin (Inpatient Use) 0.4 Mg Tab.Subl) 0.4 mg SUBLINGUAL Q5M PRN PRN Reason: CARDIAC/CHEST PAIN Ondansetron HCl (Ondansetron 4 Mg/2 Ml Vial) 4 mg IV Q8H PRN PRN PRN Reason: NAUSEA/VOMITING Oxycodone HCl (Oxycodone 5 Mg Tablet) 5 mg PO Q4H PRN PRN PRN Reason: Pain Score 4-5 Prochlorperazine Edisylate (Prochlorperazine 10 Mg/2 Ml Vial) 5 mg IV Q4H PRN PRN PRN Reason: Breakthrough nausea/vomiting Psyllium Hydrophilic Mucilloid (Psyllium 1 Packet) 1 packet PO DAILY PRN PRN PRN Reason: Constipation Senna/Docusate Sodium (Senna/Docusate Sodium 1 Tablet) 2 tablet PO BID PRN PRN PRN Reason: Constipation Sodium Chloride (0.9% Saline Lock 10 Ml Syringe) 10 - 40 ml IV UD PRN PRN Reason: SALINE FLUSH Throat Lozenges (Benzocaine/Menthol 1 Lozenge) 1 lozenge MUCOUS MEM Q2H PRN PRN PRN Reason: SORE THROAT Assessment/Plan All Active Problems (Last Updated 03/08/20 @ 09:09 by Miranda Blair) COVID-19 virus infection (Acute) Pneumonia (Acute) Hypoxia (Acute) History of appendectomy (Resolved) History of cholecystectomy (Resolved) Scoliosis (Resolved) RECOMMENDATIONS: 1. Continue Decadron 6 mg daily x10 days. 2. Start remdesivir today and monitor liver/renal function daily. 3. Consent was obtained for convalescent plasma. 4. Wean supplemental oxygen to maintain saturations at or above 90%. 5. Encourage incentive spirometer use and mobilize patient as tolerated. 6. Continue bronchodilator therapy. IMPRESSIONS: 1. Acute hypoxemic respiratory insufficiency secondary to COVID-19 pneumonia Given that the patient's symptoms began 3 days ago, we will plan to start her on remdesivir and convalescent plasma. The patient will be continued on Decadron as ordered with plans to complete a 10-day treatment course. Supplemental oxygen will be weaned to maintain saturations at or above 90%. Encourage incentive spirometer use and mobilize patient as tolerated. Continue baseline bronchodilator therapy. Reviewed EUA and risks/benefits of convalescent plasma. Verbal consent was obtained from the patient. 2. Obesity/hypertension/asthma Complicates care, management, recovery and prognosis. Continue supportive measures as noted above. This note was generated with [email or web address] dictation software. It may contain incorrect words, spelling, and punctuation that were not noted in checking the note before signing. Inpatient E&M: 60814 Init Hosp L3
[2020-04-10 08:23] LABS: ALB/GLOB Ratio 0.8 RATIO (0.9-2.4); AST(SGOT) 20 U/L (15-37); Alanine Aminotransfer ALT/SGPT 28 U/L (13-56); Albumin, Serum 2.9 g/dL (3.2-5.0); Alkaline Phosphatase 75 U/L (45-117); Anion Gap 6 (5-15); BUN 15 mg/dL (7-18); BUN/Creat Ratio 23.5 RATIO (10-20); Calcium,Total 8.1 mg/dL (8.5-10.1); Chloride 103 mmol/L (98-107); Creatinine, Serum 0.64 mg/dL (0.55-1.02); EST Glomerular Filtration Rate 97 mL/min (>60); Est Glom Filt Rate - Afr Amer 117 mL/min (>60); Estimated Creatinine Clearance 40.22 ml/min; Globulin 3.6 g/dL (2.2-4.2); Glucose 176 mg/dL (74-106); Potassium 4.2 mmol/L (3.5-5.1); Protein, Total 6.5 g/dL (6.4-8.2); Sodium Level 137 mmol/L (136-145)
[2020-04-10] MEDS: Albuterol 2.5 MG/3 ML VIAL.NEB. INHALATION ×2 (10:00→19:31)
[2020-04-10] MEDS: Budesonide Respules 0.5 MG/2 ML AMPUL.NEB. INHALATION ×2 (10:00→19:31)
[2020-04-10] MEDS: Montelukast 10 MG Tablet PO (10:55)
[2020-04-10] MEDS: Enoxaparin 30 MG/0.3 ML Syringe SC ×2 (10:55→21:24)
[2020-04-10] MEDS: dexAMETHasone 10 MG/ML Vial 6 MG IV (10:56)
[2020-04-10] MEDS: Losartan Potassium 100 MG Tablet PO (10:56)
[2020-04-10] MEDS: Fluticasone 0.05% 1 SPRAY NASAL.SRY NASAL ×2 (10:56→21:24)
--- NOTE | 2020-04-10 14:43 | CM.UR ---
RN CM Assessment Spoke with patient via phone. Introduced role of RN CM to patient. Patient is alert, oriented and able to participate in RN CM Assessment. Care providers, pharmacy, and demographics verified. Admit Dx: Covid pneumonia Barriers/Issues: None PCP: Dr. Oneal Specialists: Dr. Hassan. Plans to change to Dr. Ott Preferred Pharmacy: [facility] Insurance: MCR/aetna suppl Rx Benefit: yes LNOK: , Maz[place]. LW/HPOA: states has both. Aware they are not on file. States Mazin is HPOA Living Arrangements: Lives with in 1 story home with 2 steps to enter. Denies problems with accessibility. ADL?s: Independent with ADLs in and out of home. Transportation: Patient drives self DME: States her [id number] lived with them for the last couple years she was alive. Still has all her medical equipment. Has a nebulizer from [facility]. Would like o2 from there, if necessary. HHC: None SNF: None Goal: Home DC PLAN: Home, possibly with oxygen. Domenico Tyler RN, CCM.
--- NOTE | 2020-04-10 15:00 | PN_ITS ---
Patient Problems: Active and Suspected Problems (Last Updated 03/08/20 @ 09:09 by Miranda Blair) COVID-19 virus infection (Acute) Pneumonia (Acute) Hypoxia (Acute) Subjective: Doing well, no issues overnight. Maintaining oxygen sats at 3 L Vitals/I&O's: Vital Signs Temp Pulse Resp BP Pulse Ox 98.7 F 66 18 125/59 H 95 04/10/20 12:57 04/10/20 12:57 04/10/20 12:57 04/10/20 12:57 04/10/20 12:57 Oxygen Flow Rate (L/min) 3 Oxygen Delivery Method Nasal Cannula Weight: 190 lb 14.725 oz Body Mass Index (BMI) 35.2 Intake and Output for Last 24 Hours 04/08/20 04/09/20 04/10/20 23:59 23:59 23:59 Intake Total 50 / 50 409 / 409 Output Total 0 / 0 Balance 50 / 50 409 / 409 General: Alert, Oriented x3, Cooperative, No apparent distress HEENT: Atraumatic, PERRLA, EOMI, Normocephalic Oral: Moist Mucosa Neck: Supple, No JVD Lungs: Normal air movement, No rhonchi, No wheeze, No rales, Diminished Cardiovascular: Regular rate, Regular Rhythm, Normal S1, Normal S2, No murmurs Abdomen: Soft, Non Tender, Non-Distended, No Hepato-splenomegaly Extremities: No edema, Capillary Refill Less than 3 Seconds Skin: No rashes, No breakdown Neurological: Neuro grossly intact, Sensory exam intact to light touch and pain Psych/Mental Status: Normal Affect, Appropriate Microbiology Past 72 Hours 04/10/20 05:58 Urine, Clean Catch Legionella Antigen - Final 04/10/20 05:58 Urine, Clean Catch Streptococcus pneumoniae Antigen (M - Final 04/09/20 20:51 Mucosa - Nose Respiratory Panel (PCR) - Final Laboratory Results 04/09/20 20:30: WBC 8.6, RBC 4.47, Hgb 12.6, Hct 39.7, MCV 88.8, MCH 28.2, MCHC 31.7 L, RDW Std Deviation 46.1 H, RDW Coeff of Sofía 14.3, Plt Count 237, MPV 10.7, Immature Gran % (Auto) 0.200, Neut % (Auto) 74.4 H, Lymph % (Auto) 13.6 L, [place] % (Auto) 11.7 H, Eos % (Auto) 0.0, Baso % (Auto) 0.1, Absolute Neuts (auto) 6.4, Absolute Lymphs (auto) 1.17, Nucleated RBC % 0 04/09/20 20:30: Sodium 137, Potassium 4.4, Chloride 104, Carbon Dioxide 28.0, Anion Gap 5, BUN 19 H, Creatinine 0.79, Estim Creat Clear Calc 40.22, Est GFR (MDRD) Af Amer 92, Est GFR (MDRD) Non-Af 76, BUN/Creatinine Ratio 24.0 H, Glucose 116 H, Calcium 8.2 L, Total Bilirubin 0.30, AST 25, ALT 31, Alkaline Phosphatase 85, Total Protein 6.6, Albumin 3.2, Globulin 3.4, Albumin/Globulin Ratio 0.9 04/09/20 20:30: Lactic Acid 1.3 04/09/20 20:30: Magnesium 1.9, Ferritin 207, Lactate Dehydrogenase 198, C-React Prot Ext Range 63.50 H 04/09/20 20:30: B-Natriuretic Peptide 42.9 04/09/20 20:30: Procalcitonin 0.15 H 04/09/20 20:51: COVID-19 (ANGELINA) Positive 04/10/20 00:50: D-Dimer Quant (PE/DVT) 0.29 04/10/20 00:50: Blood Type O POSITIVE, Antibody Screen NEGATIVE 04/10/20 05:55: WBC 5.5, RBC 4.33, Hgb 12.1, Hct 38.7, MCV 89.4, MCH 27.9, MCHC 31.3 L, RDW Std Deviation 46.6 H, RDW Coeff of Sofía 14.2, Plt Count 216, MPV 10.8, Immature Gran % (Auto) 0.400, Neut % (Auto) 80.4 H, Lymph % (Auto) 11.9 L, [place] % (Auto) 7.1, Eos % (Auto) 0.0, Baso % (Auto) 0.2, Absolute Neuts (auto) 4.4, Absolute Lymphs (auto) 0.65 L, Nucleated RBC % 0 04/10/20 05:55: Sodium 137, Potassium 4.2, Chloride 103, Carbon Dioxide 28.0, Anion Gap 6, BUN 15, Creatinine 0.64, Estim Creat Clear Calc 40.22, Est GFR (MDRD) Af Amer 117, Est GFR (MDRD) Non-Af 97, BUN/Creatinine Ratio 23.5 H, Glucose 176 H, Calcium 8.1 L, Total Bilirubin 0.20, AST 20, ALT 28, Alkaline Phosphatase 75, Total Protein 6.5, Albumin 2.9 L, Globulin 3.6, Albumin/Globulin Ratio 0.8 L 04/10/20 05:55: Alkaline Phosphatase Cancelled Current Medications Acetaminophen (Acetaminophen 325 Mg Tablet) 650 mg PO Q6H PRN PRN PRN Reason: Pain Score 1-10/Temp > 100.7 F Al Hydroxide/Mg Hydroxide (Mag Hydrox/Al Hydrox/Simeth 30 Ml Udc) 30 ml PO Q6H PRN PRN PRN Reason: Gastric Burning Albuterol Sulfate (Albuterol 2.5 Mg/3 Ml Vial.Neb.) 2.5 mg INHALATION BID [facility] Last Admin: 04/10/20 10:00 Dose: 2.5 mg Documented by: Albuterol Sulfate (Albuterol Ih 8.5 Gm (Proair) Inhaler (200 Puffs)) 2 puff INHALATION Q4H PRN PRN PRN Reason: dyspnea, wheezing Budesonide (Budesonide Respules 0.5 Mg/2 Ml Ampul.Neb.) 0.5 mg INHALATION BID [facility] Last Admin: 04/10/20 10:00 Dose: 0.5 mg Documented by: Dexamethasone (Dexamethasone 4 Mg Tablet) 6 mg PO X1 ONE Stop: 04/10/20 22:25 Last Admin: 04/09/20 23:33 Dose: 6 mg Documented by: Dexamethasone Sodium Phosphate (Dexamethasone 10 Mg/Ml Vial) 6 mg IV DAILY [facility] Last Admin: 04/10/20 10:56 Dose: 6 mg Documented by: Enoxaparin Sodium (Enoxaparin 30 Mg/0.3 Ml Syringe) 30 mg SC BID [facility] Last Admin: 04/10/20 10:55 Dose: 30 mg Documented by: Fluticasone Propionate (Fluticasone 0.05% 1 [place] Nasal.Sry) 1 spray NASAL BID [facility] Last Admin: 04/10/20 10:56 Dose: 1 spray Documented by: Guaifenesin (Guaifenesin 10 Ml Udc (200mg/10ml)) 20 ml PO Q4H PRN PRN PRN Reason: COUGH Hydralazine HCl (Hydralazine 20 Mg/Ml Vial) 10 mg IV Q4H PRN PRN PRN Reason: SBP > 160 Sodium Chloride () 250 mls @ 15 mls/hr IV .[id number] PRN PRN Reason: Saline Flush Remdesivir 100 mg/ Sodium (Chloride) 250 mls @ 125 mls/hr IV DAILY [facility] Stop: 04/14/20 11:59 Losartan Potassium (Losartan Potassium 100 Mg Tablet) 100 mg PO DAILY [facility] Last Admin: 04/10/20 10:56 Dose: 100 mg Documented by: Magnesium Hydroxide (Magnesium Hydroxide 30 Ml Udc) 30 ml PO DAILY PRN PRN PRN Reason: Constipation Melatonin (Melatonin 3 Mg Tablet) 3 mg PO QHS PRN PRN PRN Reason: INSOMNIA Montelukast Sodium (Montelukast 10 Mg Tablet) 10 mg PO DAILY [facility] Last Admin: 04/10/20 10:55 Dose: 10 mg Documented by: Nitroglycerin (Nitroglycerin (Inpatient Use) 0.4 Mg Tab.Subl) 0.4 mg SUBLINGUAL Q5M PRN PRN Reason: CARDIAC/CHEST PAIN Ondansetron HCl (Ondansetron 4 Mg/2 Ml Vial) 4 mg IV Q8H PRN PRN PRN Reason: NAUSEA/VOMITING Prochlorperazine Edisylate (Prochlorperazine 10 Mg/2 Ml Vial) 5 mg IV Q4H PRN PRN PRN Reason: Breakthrough nausea/vomiting Psyllium Hydrophilic Mucilloid (Psyllium 1 Packet) 1 packet PO DAILY PRN PRN PRN Reason: Constipation Senna/Docusate Sodium (Senna/Docusate Sodium 1 Tablet) 2 tablet PO BID PRN PRN PRN Reason: Constipation Sodium Chloride (0.9% Saline Lock 10 Ml Syringe) 10 - 40 ml IV UD PRN PRN Reason: SALINE FLUSH Throat Lozenges (Benzocaine/Menthol 1 Lozenge) 1 lozenge MUCOUS MEM Q2H PRN PRN PRN Reason: SORE THROAT STROKE Vital Signs/Narrative: Vital Signs Temp Pulse Resp BP Pulse Ox 04/10/20 12:57 98.7 F 66 18 125/59 H 95 04/10/20 12:42 96.1 F L 67 18 115/64 94 04/10/20 11:05 18 Medical Necessity - Tobacco Use Smoking Status: Never smoker Tobacco Use: Non-smoker Assessment/Plan All Active Problems (Last Updated 03/08/20 @ 09:09 by Miranda Blair) COVID-19 virus infection (Acute) Pneumonia (Acute) Hypoxia (Acute) History of appendectomy (Resolved) History of cholecystectomy (Resolved) Scoliosis (Resolved) 1. Acute hypoxic respiratory failure secondary to COVID-19 pneumonia/chronic moderate persistent asthma -She received her convalescent plasma today, will continue with remdesivir and Decadron -Encourage incentive spirometer -Continue with her albuterol and her Pulmicort -Appreciate pulmonology and ID assistance 2. HTN -Blood pressure is stable -Continue with her losartan DVT: Lovenox Inpatient E&M: 71086 Subs Hosp L2
[2020-04-11] VITALS (8 sets, daily range): BP systolic 122–144; BP diastolic 54–66; PULSE 67–77; RESP 18–22; TEMP 36.5–37.3; O2SAT 93–95
[2020-04-11] MEDS: guaiFENesin 10 ML UDC (200MG/10ML) 20 ML PO ×2 (03:05→21:19)
[2020-04-11] MEDS: BENZOCAINE/MENTHOL 1 LOZENGE MUCOUS MEM ×2 (03:05→21:19)
--- NOTE | 2020-04-11 05:56 | PCM.PN.PUL ---
Patient Problems: Active and Suspected Problems (Last Updated 03/08/20 @ 09:09 by Miranda Blair) COVID-19 virus infection (Acute) Pneumonia (Acute) Hypoxia (Acute) Subjective: The patient was seen and examined at the bedside this morning. Events from the last 24 hours have been reviewed. The patient is currently afebrile, hemodynamically stable and maintaining appropriate oxygen saturations on 3 L/min via nasal cannula. The patient did receive convalescent plasma last night. She remains on remdesivir and Decadron. The patient does report the continued presence of malaise and fatigue. She does continue to have a nonproductive cough. However, the cough is chronic in nature and preceded her Covid diagnosis. She did report to me this morning that it is her intention to permanently transition her pulmonary care to Dr. Ott for further work-up of her chronic cough complaints. Objective: The patient's most recent lab work, culture data and imaging studies have all been personally reviewed. Coronavirus PCR was positive on April 09. - Physical Exam Vitals/I&O's: Vital Signs Temp Pulse Resp BP Pulse Ox 98.1 F 67 18 122/66 H 93 04/11/20 03:12 04/11/20 03:12 04/11/20 03:12 04/11/20 03:12 04/11/20 03:12 Oxygen Flow Rate (L/min) 3 Oxygen Delivery Method Nasal Cannula Weight: 190 lb 14.725 oz Body Mass Index (BMI) 35.2 Intake and Output for Last 24 Hours 04/09/20 04/10/20 04/11/20 23:59 23:59 23:59 Intake Total 50 / 50 659 / 1009 350 / 350 Output Total 0 / 0 Balance 50 / 50 659 / 1009 350 / 350 General: Alert, Oriented x3, Cooperative, No apparent distress, - - Sitting in bedside recliner. HEENT: Atraumatic, PERRLA, Normocephalic Oral: No Gingival or Mucosal Lesions/ Ulcerations Neck: Supple, No Nodes, Trachea Midline Lungs: No rhonchi, No wheeze, No rales, Diminished, - - Frequent paroxysms of coughing. No conversational dyspnea. No accessory muscle use. Cardiovascular: Regular rate, Regular Rhythm, Normal S1, Normal S2, No murmurs Abdomen: Bowel Sounds Present, Soft, Non Tender, Obese Extremities: No clubbing, No cyanosis, No edema Skin: No breakdown Musculoskeletal: No Tenderness to Palpation of Joints or Extremities, No Muscle Wasting Lymphatic: No Cervical, Supraclavicular, or Inguinal Adenopathy Neurological: Cranial nerves II-XII grossly intact, Neuro grossly intact Psych/Mental Status: Alert and oriented to time, place, person, mood and affect Labs (Last 48 Hours) 04/09/20 04/09/20 04/09/20 20:30 20:30 20:30 WBC 8.6 RBC 4.47 Hgb 12.6 Hct 39.7 MCV 88.8 MCH 28.2 MCHC 31.7 L RDW Std Deviation 46.1 H RDW Coeff of Sofía 14.3 Plt Count 237 MPV 10.7 Immature Gran % (Auto) 0.200 Neut % (Auto) 74.4 H Lymph % (Auto) 13.6 L [place] % (Auto) 11.7 H Eos % (Auto) 0.0 Baso % (Auto) 0.1 Absolute Neuts (auto) 6.4 Absolute Lymphs (auto) 1.17 Nucleated RBC % 0 D-Dimer Quant (PE/DVT) Sodium 137 Potassium 4.4 Chloride 104 Carbon Dioxide 28.0 Anion Gap 5 BUN 19 H Creatinine 0.79 Estim Creat Clear Calc 40.22 Est GFR (MDRD) Af Amer 92 Est GFR (MDRD) Non-Af 76 BUN/Creatinine Ratio 24.0 H Glucose 116 H Lactic Acid 1.3 Calcium 8.2 L Magnesium Ferritin Total Bilirubin 0.30 AST 25 ALT 31 Alkaline Phosphatase 85 Lactate Dehydrogenase C-React Prot Ext Range B-Natriuretic Peptide Total Protein 6.6 Albumin 3.2 Globulin 3.4 Albumin/Globulin Ratio 0.9 Procalcitonin COVID-19 (ANGELINA) Blood Type Antibody Screen 04/09/20 04/09/20 04/09/20 20:30 20:30 20:30 WBC RBC Hgb Hct MCV MCH MCHC RDW Std Deviation RDW Coeff of Sofía Plt Count MPV Immature Gran % (Auto) Neut % (Auto) Lymph % (Auto) [place] % (Auto) Eos % (Auto) Baso % (Auto) Absolute Neuts (auto) Absolute Lymphs (auto) Nucleated RBC % D-Dimer Quant (PE/DVT) Sodium Potassium Chloride Carbon Dioxide Anion Gap BUN Creatinine Estim Creat Clear Calc Est GFR (MDRD) Af Amer Est GFR (MDRD) Non-Af BUN/Creatinine Ratio Glucose Lactic Acid Calcium Magnesium 1.9 Ferritin 207 Total Bilirubin AST ALT Alkaline Phosphatase Lactate Dehydrogenase 198 C-React Prot Ext Range 63.50 H B-Natriuretic Peptide 42.9 Total Protein Albumin Globulin Albumin/Globulin Ratio Procalcitonin 0.15 H COVID-19 (ANGELINA) Blood Type Antibody Screen 04/09/20 04/10/20 04/10/20 20:51 00:50 00:50 WBC RBC Hgb Hct MCV MCH MCHC RDW Std Deviation RDW Coeff of Sofía Plt Count MPV Immature Gran % (Auto) Neut % (Auto) Lymph % (Auto) [place] % (Auto) Eos % (Auto) Baso % (Auto) Absolute Neuts (auto) Absolute Lymphs (auto) Nucleated RBC % D-Dimer Quant (PE/DVT) 0.29 Sodium Potassium Chloride Carbon Dioxide Anion Gap BUN Creatinine Estim Creat Clear Calc Est GFR (MDRD) Af Amer Est GFR (MDRD) Non-Af BUN/Creatinine Ratio Glucose Lactic Acid Calcium Magnesium Ferritin Total Bilirubin AST ALT Alkaline Phosphatase Lactate Dehydrogenase C-React Prot Ext Range B-Natriuretic Peptide Total Protein Albumin Globulin Albumin/Globulin Ratio Procalcitonin COVID-19 (ANGELINA) Positive Blood Type O POSITIVE Antibody Screen NEGATIVE 04/10/20 04/10/20 04/10/20 05:55 05:55 05:55 WBC 5.5 RBC 4.33 Hgb 12.1 Hct 38.7 MCV 89.4 MCH 27.9 MCHC 31.3 L RDW Std Deviation 46.6 H RDW Coeff of Sofía 14.2 Plt Count 216 MPV 10.8 Immature Gran % (Auto) 0.400 Neut % (Auto) 80.4 H Lymph % (Auto) 11.9 L [place] % (Auto) 7.1 Eos % (Auto) 0.0 Baso % (Auto) 0.2 Absolute Neuts (auto) 4.4 Absolute Lymphs (auto) 0.65 L Nucleated RBC % 0 D-Dimer Quant (PE/DVT) Sodium 137 Potassium 4.2 Chloride 103 Carbon Dioxide 28.0 Anion Gap 6 BUN 15 Creatinine 0.64 Estim Creat Clear Calc 40.22 Est GFR (MDRD) Af Amer 117 Est GFR (MDRD) Non-Af 97 BUN/Creatinine Ratio 23.5 H Glucose 176 H Lactic Acid Calcium 8.1 L Magnesium Ferritin Total Bilirubin 0.20 AST 20 ALT 28 Alkaline Phosphatase 75 Cancelled Lactate Dehydrogenase C-React Prot Ext Range B-Natriuretic Peptide Total Protein 6.5 Albumin 2.9 L Globulin 3.6 Albumin/Globulin Ratio 0.8 L Procalcitonin COVID-19 (ANGELINA) Blood Type Antibody Screen 04/11/20 04/11/20 06:30 06:30 WBC 8.7 RBC 4.44 Hgb 12.5 Hct 39.5 MCV 89.0 MCH 28.2 MCHC 31.6 L RDW Std Deviation 45.7 H RDW Coeff of Sof[place] 14.0 Plt Count 216 MPV 10.4 Immature Gran % (Auto) Neut % (Auto) Lymph % (Auto) [place] % (Auto) Eos % (Auto) Baso % (Auto) Absolute Neuts (auto) Absolute Lymphs (auto) Nucleated RBC % D-Dimer Quant (PE/DVT) Sodium 140 Potassium 4.6 Chloride 106 Carbon Dioxide 30.0 Anion Gap 4 L BUN 17 Creatinine 0.67 Estim Creat Clear Calc 40.22 Est GFR (MDRD) Af Amer 111 Est GFR (MDRD) Non-Af 92 BUN/Creatinine Ratio 25.3 H Glucose 115 H Lactic Acid Calcium 8.4 L Magnesium Ferritin Total Bilirubin 0.20 AST 19 ALT 28 Alkaline Phosphatase 77 Lactate Dehydrogenase C-React Prot Ext Range B-Natriuretic Peptide Total Protein 7.0 Albumin 3.0 L Globulin 4.0 Albumin/Globulin Ratio 0.8 L Procalcitonin COVID-19 (ANGELINA) Blood Type Antibody Screen Microbiology 04/10/20 05:58 Urine, Clean Catch Legionella Antigen - Final 04/10/20 05:58 Urine, Clean Catch Streptococcus pneumoniae Antigen (M - Final 04/09/20 20:51 Mucosa - Nose Respiratory Panel (PCR) - Final Clinical Impression(s) from Imaging Studies Chest X-Ray 04/09/20 20:40 IMPRESSION: Stable left lower lung pneumonia. Electronically Signed: Nelly Dahl, at 21:20 EST Tel , Service support , Current Medications Acetaminophen (Acetaminophen 325 Mg Tablet) 650 mg PO Q6H PRN PRN PRN Reason: Pain Score 1-10/Temp > 100.7 F Al Hydroxide/Mg Hydroxide (Mag Hydrox/Al Hydrox/Simeth 30 Ml Udc) 30 ml PO Q6H PRN PRN PRN Reason: Gastric Burning Albuterol Sulfate (Albuterol 2.5 Mg/3 Ml Vial.Neb.) 2.5 mg INHALATION BID [facility] Last Admin: 04/10/20 19:31 Dose: 2.5 mg Documented by: Albuterol Sulfate (Albuterol Ih 8.5 Gm (Proair) Inhaler (200 Puffs)) 2 puff INHALATION Q4H PRN PRN PRN Reason: dyspnea, wheezing Budesonide (Budesonide Respules 0.5 Mg/2 Ml Ampul.Neb.) 0.5 mg INHALATION BID [facility] Last Admin: 04/10/20 19:31 Dose: 0.5 mg Documented by: Dexamethasone Sodium Phosphate (Dexamethasone 10 Mg/Ml Vial) 6 mg IV DAILY [facility] Last Admin: 04/10/20 10:56 Dose: 6 mg Documented by: Enoxaparin Sodium (Enoxaparin 30 Mg/0.3 Ml Syringe) 30 mg SC BID [facility] Last Admin: 04/10/20 21:24 Dose: 30 mg Documented by: Fluticasone Propionate (Fluticasone 0.05% 1 [place] Nasal.Sry) 1 spray NASAL BID [facility] Last Admin: 04/10/20 21:24 Dose: 1 spray Documented by: Guaifenesin (Guaifenesin 10 Ml Udc (200mg/10ml)) 20 ml PO Q4H PRN PRN PRN Reason: COUGH Last Admin: 04/11/20 03:05 Dose: 20 ml Documented by: Hydralazine HCl (Hydralazine 20 Mg/Ml Vial) 10 mg IV Q4H PRN PRN PRN Reason: SBP > 160 Sodium Chloride () 250 mls @ 15 mls/hr IV .[id number] PRN PRN Reason: Saline Flush Remdesivir 100 mg/ Sodium (Chloride) 250 mls @ 125 mls/hr IV DAILY [facility] Stop: 04/14/20 11:59 Losartan Potassium (Losartan Potassium 100 Mg Tablet) 100 mg PO DAILY [facility] Last Admin: 04/10/20 10:56 Dose: 100 mg Documented by: Magnesium Hydroxide (Magnesium Hydroxide 30 Ml Udc) 30 ml PO DAILY PRN PRN PRN Reason: Constipation Melatonin (Melatonin 3 Mg Tablet) 3 mg PO QHS PRN PRN PRN Reason: INSOMNIA Montelukast Sodium (Montelukast 10 Mg Tablet) 10 mg PO DAILY [facility] Last Admin: 04/10/20 10:55 Dose: 10 mg Documented by: Nitroglycerin (Nitroglycerin (Inpatient Use) 0.4 Mg Tab.Subl) 0.4 mg SUBLINGUAL Q5M PRN PRN Reason: CARDIAC/CHEST PAIN Ondansetron HCl (Ondansetron 4 Mg/2 Ml Vial) 4 mg IV Q8H PRN PRN PRN Reason: NAUSEA/VOMITING Prochlorperazine Edisylate (Prochlorperazine 10 Mg/2 Ml Vial) 5 mg IV Q4H PRN PRN PRN Reason: Breakthrough nausea/vomiting Psyllium Hydrophilic Mucilloid (Psyllium 1 Packet) 1 packet PO DAILY PRN PRN PRN Reason: Constipation Senna/Docusate Sodium (Senna/Docusate Sodium 1 Tablet) 2 tablet PO BID PRN PRN PRN Reason: Constipation Sodium Chloride (0.9% Saline Lock 10 Ml Syringe) 10 - 40 ml IV UD PRN PRN Reason: SALINE FLUSH Throat Lozenges (Benzocaine/Menthol 1 Lozenge) 1 lozenge MUCOUS MEM Q2H PRN PRN PRN Reason: SORE THROAT Last Admin: 04/11/20 03:05 Dose: 1 lozenge Documented by: Medical Necessity - Tobacco Use Smoking Status: Never smoker Tobacco Use: Non-smoker Assessment/Plan All Active Problems (Last Updated 03/08/20 @ 09:09 by Miranda Blair) COVID-19 virus infection (Acute) Pneumonia (Acute) Hypoxia (Acute) History of appendectomy (Resolved) History of cholecystectomy (Resolved) Scoliosis (Resolved) RECOMMENDATIONS: 1. Continue Decadron 6 mg daily x10 days. 2. Continue remdesivir and monitor liver/renal function closely. 3. Wean supplemental oxygen to maintain saturations at or above 90%. 4. Encourage incentive spirometer use and mobilize patient as tolerated. 5. Continue bronchodilator therapy. IMPRESSIONS: 1. Acute hypoxemic respiratory insufficiency secondary to COVID-19 pneumonia Given that the patient's symptoms began 3 days prior to presentation, she was treated with convalescent plasma and started on remdesivir. Liver and renal function are stable. Plan to continue Decadron 6 mg daily x10 days. D-dimer was within normal limits. Continue to wean supplemental oxygen to maintain saturations at or above 90%. Encourage incentive spirometer use and mobilize patient as tolerated. Continue baseline bronchodilator therapy. 2. Obesity/hypertension/asthma Complicates care, management, recovery and prognosis. Continue supportive measures as noted above. This note was generated with [employer] dictation software. It may contain incorrect words, spelling, and punctuation that were not noted in checking the note before signing. Inpatient E&M: 84411 Subs Hosp L2
[2020-04-11 06:59] LABS: Hematocrit 39.5 % (37-47); Hemoglobin 12.5 g/dL (12.0-15.0); Mean Corp Hgb Conc 31.6 g/dL (32-36); Mean Corpuscular Hgb 28.2 pg (27.0-32.0); Mean Platelet Vol. 10.4 fl (6.2-12.0); Platelet Count 216 K/mm3 (150-450); RBC Distribution Width SD 45.7 fl (35.1-43.9); Red Blood Count 4.44 M/mm3 (4.2-5.4); White Blood Count 8.7 K/mm3 (4.4-11.0)
[2020-04-11 07:31] LABS: ALB/GLOB Ratio 0.8 RATIO (0.9-2.4); AST(SGOT) 19 U/L (15-37); Alanine Aminotransfer ALT/SGPT 28 U/L (13-56); Alkaline Phosphatase 77 U/L (45-117); Anion Gap 4 (5-15); BUN 17 mg/dL (7-18); BUN/Creat Ratio 25.3 RATIO (10-20); Calcium,Total 8.4 mg/dL (8.5-10.1); Chloride 106 mmol/L (98-107); Creatinine, Serum 0.67 mg/dL (0.55-1.02); EST Glomerular Filtration Rate 92 mL/min (>60); Est Glom Filt Rate - Afr Amer 111 mL/min (>60); Estimated Creatinine Clearance 40.22 ml/min; Glucose 115 mg/dL (74-106); Potassium 4.6 mmol/L (3.5-5.1); Sodium Level 140 mmol/L (136-145)
[2020-04-11] MEDS: Albuterol 2.5 MG/3 ML VIAL.NEB. INHALATION ×2 (09:11→19:22)
[2020-04-11] MEDS: Budesonide Respules 0.5 MG/2 ML AMPUL.NEB. INHALATION ×2 (09:11→19:22)
[2020-04-11] MEDS: Enoxaparin 30 MG/0.3 ML Syringe SC ×2 (10:10→21:18)
[2020-04-11] MEDS: Fluticasone 0.05% 1 SPRAY NASAL.SRY NASAL ×2 (10:11→21:19)
[2020-04-11] MEDS: Montelukast 10 MG Tablet PO (10:11)
[2020-04-11] MEDS: dexAMETHasone 10 MG/ML Vial 6 MG IV (10:11)
[2020-04-11] MEDS: Losartan Potassium 100 MG Tablet PO (10:11)
--- NOTE | 2020-04-11 10:27 | PCM.PN.HOSP ---
Patient Problems: Active and Suspected Problems (Last Updated 03/08/20 @ 09:09 by Miranda Blair) COVID-19 virus infection (Acute) Pneumonia (Acute) Hypoxia (Acute) Subjective: She is worried about the fact that she has had a chronic cough and now that she has Covid and was can have when she goes home. She is doing okay with maintaining her oxygen sats on 3 L. She did receive convalescent plasma as well as remdesivir Vitals/I&O's: Vital Signs Temp Pulse Resp BP Pulse Ox 98.9 F 77 18 126/54 H 95 04/11/20 09:59 04/11/20 09:59 04/11/20 09:59 04/11/20 09:59 04/11/20 09:59 Oxygen Flow Rate (L/min) 3 Oxygen Delivery Method Nasal Cannula Weight: 186 lb 1 oz Body Mass Index (BMI) 35.2 Intake and Output for Last 24 Hours 04/09/20 04/10/20 04/11/20 23:59 23:59 23:59 Intake Total 50 / 50 659 / 1009 700 / 700 Output Total 0 / 0 Balance 50 / 50 659 / 1009 700 / 700 General: Alert, Oriented x3, Cooperative, No apparent distress HEENT: Atraumatic, PERRLA, EOMI, Normocephalic Oral: Moist Mucosa Neck: Supple, No JVD Lungs: Normal air movement, No rhonchi, No wheeze, No rales, Diminished Cardiovascular: Regular rate, Regular Rhythm, Normal S1, Normal S2, No murmurs Abdomen: Soft, Non Tender, Non-Distended, No Hepato-splenomegaly Extremities: No edema, Capillary Refill Less than 3 Seconds Skin: No rashes, No breakdown Neurological: Neuro grossly intact, Sensory exam intact to light touch and pain Psych/Mental Status: Normal Affect, Appropriate Microbiology Past 72 Hours 04/10/20 05:58 Urine, Clean Catch Legionella Antigen - Final 04/10/20 05:58 Urine, Clean Catch Streptococcus pneumoniae Antigen (M - Final 04/09/20 20:51 Mucosa - Nose Respiratory Panel (PCR) - Final Laboratory Results 04/10/20 05:55: Alkaline Phosphatase Cancelled 04/11/20 06:30: WBC 8.7, RBC 4.44, Hgb 12.5, Hct 39.5, MCV 89.0, MCH 28.2, MCHC 31.6 L, RDW Std Deviation 45.7 H, RDW Coeff of Sofía 14.0, Plt Count 216, MPV 10.4 04/11/20 06:30: Sodium 140, Potassium 4.6, Chloride 106, Carbon Dioxide 30.0, Anion Gap 4 L, BUN 17, Creatinine 0.67, Estim Creat Clear Calc 40.22, Est GFR (MDRD) Af Amer 111, Est GFR (MDRD) Non-Af 92, BUN/Creatinine Ratio 25.3 H, Glucose 115 H, Calcium 8.4 L, Total Bilirubin 0.20, AST 19, ALT 28, Alkaline Phosphatase 77, Total Protein 7.0, Albumin 3.0 L, Globulin 4.0, Albumin/Globulin Ratio 0.8 L Current Medications Acetaminophen (Acetaminophen 325 Mg Tablet) 650 mg PO Q6H PRN PRN PRN Reason: Pain Score 1-10/Temp > 100.7 F Al Hydroxide/Mg Hydroxide (Mag Hydrox/Al Hydrox/Simeth 30 Ml Udc) 30 ml PO Q6H PRN PRN PRN Reason: Gastric Burning Albuterol Sulfate (Albuterol 2.5 Mg/3 Ml Vial.Neb.) 2.5 mg INHALATION BID [facility] Last Admin: 04/11/20 09:11 Dose: 2.5 mg Documented by: Albuterol Sulfate (Albuterol Ih 8.5 Gm (Proair) Inhaler (200 Puffs)) 2 puff INHALATION Q4H PRN PRN PRN Reason: dyspnea, wheezing Budesonide (Budesonide Respules 0.5 Mg/2 Ml Ampul.Neb.) 0.5 mg INHALATION BID [facility] Last Admin: 04/11/20 09:11 Dose: 0.5 mg Documented by: Dexamethasone Sodium Phosphate (Dexamethasone 10 Mg/Ml Vial) 6 mg IV DAILY [facility] Last Admin: 04/11/20 10:11 Dose: 6 mg Documented by: Enoxaparin Sodium (Enoxaparin 30 Mg/0.3 Ml Syringe) 30 mg SC BID [facility] Last Admin: 04/11/20 10:10 Dose: 30 mg Documented by: Fluticasone Propionate (Fluticasone 0.05% 1 [place] Nasal.Sry) 1 spray NASAL BID [facility] Last Admin: 04/11/20 10:11 Dose: 1 spray Documented by: Guaifenesin (Guaifenesin 10 Ml Udc (200mg/10ml)) 20 ml PO Q4H PRN PRN PRN Reason: COUGH Last Admin: 04/11/20 03:05 Dose: 20 ml Documented by: Hydralazine HCl (Hydralazine 20 Mg/Ml Vial) 10 mg IV Q4H PRN PRN PRN Reason: SBP > 160 Sodium Chloride () 250 mls @ 15 mls/hr IV .[id number] PRN PRN Reason: Saline Flush Remdesivir 100 mg/ Sodium (Chloride) 250 mls @ 125 mls/hr IV DAILY [facility] Stop: 04/14/20 11:59 Last Admin: 04/11/20 10:10 Dose: 125 mls/hr Documented by: Losartan Potassium (Losartan Potassium 100 Mg Tablet) 100 mg PO DAILY [facility] Last Admin: 04/11/20 10:11 Dose: 100 mg Documented by: Magnesium Hydroxide (Magnesium Hydroxide 30 Ml Udc) 30 ml PO DAILY PRN PRN PRN Reason: Constipation Melatonin (Melatonin 3 Mg Tablet) 3 mg PO QHS PRN PRN PRN Reason: INSOMNIA Montelukast Sodium (Montelukast 10 Mg Tablet) 10 mg PO DAILY [facility] Last Admin: 04/11/20 10:11 Dose: 10 mg Documented by: Nitroglycerin (Nitroglycerin (Inpatient Use) 0.4 Mg Tab.Subl) 0.4 mg SUBLINGUAL Q5M PRN PRN Reason: CARDIAC/CHEST PAIN Ondansetron HCl (Ondansetron 4 Mg/2 Ml Vial) 4 mg IV Q8H PRN PRN PRN Reason: NAUSEA/VOMITING Prochlorperazine Edisylate (Prochlorperazine 10 Mg/2 Ml Vial) 5 mg IV Q4H PRN PRN PRN Reason: Breakthrough nausea/vomiting Psyllium Hydrophilic Mucilloid (Psyllium 1 Packet) 1 packet PO DAILY PRN PRN PRN Reason: Constipation Senna/Docusate Sodium (Senna/Docusate Sodium 1 Tablet) 2 tablet PO BID PRN PRN PRN Reason: Constipation Sodium Chloride (0.9% Saline Lock 10 Ml Syringe) 10 - 40 ml IV UD PRN PRN Reason: SALINE FLUSH Throat Lozenges (Benzocaine/Menthol 1 Lozenge) 1 lozenge MUCOUS MEM Q2H PRN PRN PRN Reason: SORE THROAT Last Admin: 04/11/20 03:05 Dose: 1 lozenge Documented by: STROKE Vital Signs/Narrative: Vital Signs Temp Pulse Resp BP Pulse Ox 04/11/20 09:59 98.9 F 77 18 126/54 H 95 04/11/20 09:12 75 20 H 04/11/20 08:03 93 Medical Necessity - Tobacco Use Smoking Status: Never smoker Tobacco Use: Non-smoker Assessment/Plan All Active Problems (Last Updated 03/08/20 @ 09:09 by Miranda Blair) COVID-19 virus infection (Acute) Pneumonia (Acute) Hypoxia (Acute) History of appendectomy (Resolved) History of cholecystectomy (Resolved) Scoliosis (Resolved) 1. Acute hypoxic respiratory failure secondary to COVID-19 pneumonia/chronic moderate persistent asthma -She received her convalescent plasma 04/11/2020, will continue with remdesivir and Decadron -Encourage incentive spirometer -Continue with her albuterol and her Pulmicort -Appreciate pulmonology and ID assistance 2. HTN -Blood pressure is stable -Continue with her losartan DVT: Lovenox Inpatient E&M: 64675 Subs Hosp L2
[2020-04-12] VITALS (9 sets, daily range): BP systolic 119–130; BP diastolic 56–64; PULSE 60–68; RESP 16–24; TEMP 36.4–37; O2SAT 92–96
[2020-04-12 06:37] LABS: ALB/GLOB Ratio 0.6 RATIO (0.9-2.4); AST(SGOT) 25 U/L (15-37); Alanine Aminotransfer ALT/SGPT 30 U/L (13-56); Albumin, Serum 2.4 g/dL (3.2-5.0); Alkaline Phosphatase 68 U/L (45-117); Anion Gap 6 (5-15); BUN 18 mg/dL (7-18); BUN/Creat Ratio 33.3 RATIO (10-20); Calcium,Total 8.1 mg/dL (8.5-10.1); Chloride 108 mmol/L (98-107); Creatinine, Serum 0.54 mg/dL (0.55-1.02); EST Glomerular Filtration Rate 118 mL/min (>60); Est Glom Filt Rate - Afr Amer 143 mL/min (>60); Estimated Creatinine Clearance 40.22 ml/min; Glucose 106 mg/dL (74-106); Potassium 4.2 mmol/L (3.5-5.1); Protein, Total 6.4 g/dL (6.4-8.2); Sodium Level 138 mmol/L (136-145)
[2020-04-12] MEDS: Albuterol 2.5 MG/3 ML VIAL.NEB. INHALATION ×2 (06:52→20:38)
[2020-04-12] MEDS: Budesonide Respules 0.5 MG/2 ML AMPUL.NEB. INHALATION ×2 (06:52→20:38)
[2020-04-12] MEDS: Losartan Potassium 100 MG Tablet PO (08:57)
[2020-04-12] MEDS: Montelukast 10 MG Tablet PO (08:57)
[2020-04-12] MEDS: Enoxaparin 30 MG/0.3 ML Syringe SC ×2 (08:57→21:01)
[2020-04-12] MEDS: Fluticasone 0.05% 1 SPRAY NASAL.SRY NASAL ×2 (08:57→21:00)
[2020-04-12] MEDS: 0.9% Saline Lock 10 ML Syringe IV ×2 (08:59→10:51)
[2020-04-12] MEDS: dexAMETHasone 10 MG/ML Vial 6 MG IV (08:59)
[2020-04-12] MEDS: BENZOCAINE/MENTHOL 1 LOZENGE MUCOUS MEM ×3 (10:53→16:51)
[2020-04-12] MEDS: guaiFENesin 10 ML UDC (200MG/10ML) 20 ML PO (10:53)
--- NOTE | 2020-04-12 15:56 | PN_ITS ---
Patient Problems: Active and Suspected Problems (Last Updated 03/08/20 @ 09:09 by Miranda Blair) COVID-19 virus infection (Acute) Pneumonia (Acute) Hypoxia (Acute) Subjective: Patient did well overnight. Patient continues to have a nonproductive cough, but feels this is much improved compared to previous. Patient has remained af ebrile, but is still requiring minimal nasal cannula oxygen to maintain saturations. Objective: Outside records from Dr. Hassan's office were reviewed. Patient had a negative RAST study. Patient also had pulmonary function test showing a mild restrictive ventilatory defect with significant reduction compared to February with a decrease in FVC by 16%, FEV1 by 16% and TLC by 13%. - Physical Exam Vitals/I&O's: Vital Signs Temp Pulse Resp BP Pulse Ox 36.4 C L 66 20 H 119/56 L 94 04/12/20 12:28 04/12/20 12:28 04/12/20 12:28 04/12/20 12:28 04/12/20 12:28 Oxygen Flow Rate (L/min) 2 Oxygen Delivery Method Nasal Cannula Weight: 86.319 kg Body Mass Index (BMI) 35.2 Intake and Output for Last 24 Hours 04/10/20 04/11/20 04/12/20 23:59 23:59 23:59 Intake Total 659 / 1009 950 / 950 1335 / 1335 Output Total 0 / 0 Balance 659 / 1009 950 / 950 1335 / 1335 General: Alert, Oriented x3, Cooperative, No apparent distress, Well developed, Well nourished HEENT: Atraumatic, PERRLA, EOMI, Normocephalic, - - No scleral icterus or i njection noted Oral: Moist Mucosa, No Gingival or Mucosal Lesions/ Ulcerations Neck: Supple, No JVD, No Nodes, Trachea Midline Lungs: No rhonchi, No wheeze, No rales, Diminished Cardiovascular: Regular rate, Regular Rhythm, Normal S1, Normal S2, No murmurs, No rub noted, No Gallop Abdomen: Bowel Sounds Present, Soft, Non Tender, Non-Distended Extremities: No clubbing, No cyanosis, Edema - Trace Skin: No rashes, No breakdown Musculoskeletal: No Tenderness to Palpation of Joints or Extremities Lymphatic: No Cervical, Supraclavicular, or Inguinal Adenopathy Neurological: Cranial nerves II-XII grossly intact, Neuro grossly intact, Motor Exam 5/5 strength throughout Psych/Mental Status: Alert and oriented to time, place, person, mood and affect Microbiology Past 72 Hours 04/11/20 03:05 Sputum, Expectorated/Coughed Gram Stain - Final 04/11/20 03:05 Sputum, Expectorated/Coughed Respiratory Culture - Final 04/10/20 05:58 Urine, Clean Catch Legionella Antigen - Final 04/10/20 05:58 Urine, Clean Catch Streptococcus pneumoniae Antigen (M - Final 04/09/20 20:51 Mucosa - Nose Respiratory Panel (PCR) - Final Laboratory Results 04/12/20 04:54: Sodium 138, Potassium 4.2, Chloride 108 H, Carbon Dioxide 24.0, Anion Gap 6, BUN 18, Creatinine 0.54 L, Estim Creat Clear Calc 40.22, Est GFR (MDRD) Af Amer 143, Est GFR (MDRD) Non-Af 118, BUN/Creatinine Ratio 33.3 H, Glucose 106, Calcium 8.1 L, Total Bilirubin 0.40, AST 25, ALT 30, Alkaline Phosphatase 68, Total Protein 6.4, Albumin 2.4 L, Globulin 4.0, Albumin/Globulin Ratio 0.6 L Current Medications Acetaminophen (Acetaminophen 325 Mg Tablet) 650 mg PO Q6H PRN PRN PRN Reason: Pain Score 1-10/Temp > 100.7 F Al Hydroxide/Mg Hydroxide (Mag Hydrox/Al Hydrox/Simeth 30 Ml Udc) 30 ml PO Q6H PRN PRN PRN Reason: Gastric Burning Albuterol Sulfate (Albuterol 2.5 Mg/3 Ml Vial.Neb.) 2.5 mg INHALATION BID [facility] Last Admin: 04/12/20 06:52 Dose: 2.5 mg Documented by: Albuterol Sulfate (Albuterol Ih 8.5 Gm (Proair) Inhaler (200 Puffs)) 2 puff INHALATION Q4H PRN PRN PRN Reason: dyspnea, wheezing Last Admin: 04/12/20 08:58 Dose: 2 puff Documented by: Budesonide (Budesonide Respules 0.5 Mg/2 Ml Ampul.Neb.) 0.5 mg INHALATION BID [facility] Last Admin: 04/12/20 06:52 Dose: 0.5 mg Documented by: Dexamethasone Sodium Phosphate (Dexamethasone 10 Mg/Ml Vial) 6 mg IV DAILY [facility] Last Admin: 04/12/20 08:59 Dose: 6 mg Documented by: Enoxaparin Sodium (Enoxaparin 30 Mg/0.3 Ml Syringe) 30 mg SC BID [facility] Last Admin: 04/12/20 08:57 Dose: 30 mg Documented by: Fluticasone Propionate (Fluticasone 0.05% 1 [place] Nasal.Sry) 1 spray NASAL BID [facility] Last Admin: 04/12/20 08:57 Dose: 1 spray Documented by: Guaifenesin (Guaifenesin 10 Ml Udc (200mg/10ml)) 20 ml PO Q4H PRN PRN PRN Reason: COUGH Last Admin: 04/12/20 10:53 Dose: 20 ml Documented by: Hydralazine HCl (Hydralazine 20 Mg/Ml Vial) 10 mg IV Q4H PRN PRN PRN Reason: SBP > 160 Sodium Chloride () 250 mls @ 15 mls/hr IV .[id number] PRN PRN Reason: Saline Flush Remdesivir 100 mg/ Sodium (Chloride) 250 mls @ 125 mls/hr IV DAILY [facility] Stop: 04/14/20 11:59 Last Infusion: 04/12/20 12:50 Dose: Infused Documented by: Losartan Potassium (Losartan Potassium 100 Mg Tablet) 100 mg PO DAILY [facility] Last Admin: 04/12/20 08:57 Dose: 100 mg Documented by: Magnesium Hydroxide (Magnesium Hydroxide 30 Ml Udc) 30 ml PO DAILY PRN PRN PRN Reason: Constipation Melatonin (Melatonin 3 Mg Tablet) 3 mg PO QHS PRN PRN PRN Reason: INSOMNIA Montelukast Sodium (Montelukast 10 Mg Tablet) 10 mg PO DAILY [facility] Last Admin: 04/12/20 08:57 Dose: 10 mg Documented by: Nitroglycerin (Nitroglycerin (Inpatient Use) 0.4 Mg Tab.Subl) 0.4 mg SUBLINGUAL Q5M PRN PRN Reason: CARDIAC/CHEST PAIN Ondansetron HCl (Ondansetron 4 Mg/2 Ml Vial) 4 mg IV Q8H PRN PRN PRN Reason: NAUSEA/VOMITING Prochlorperazine Edisylate (Prochlorperazine 10 Mg/2 Ml Vial) 5 mg IV Q4H PRN PRN PRN Reason: Breakthrough nausea/vomiting Psyllium Hydrophilic Mucilloid (Psyllium 1 Packet) 1 packet PO DAILY PRN PRN PRN Reason: Constipation Senna/Docusate Sodium (Senna/Docusate Sodium 1 Tablet) 2 tablet PO BID PRN PRN PRN Reason: Constipation Sodium Chloride (0.9% Saline Lock 10 Ml Syringe) 10 - 40 ml IV UD PRN PRN Reason: SALINE FLUSH Last Admin: 04/12/20 10:51 Dose: 10 ml Documented by: Throat Lozenges (Benzocaine/Menthol 1 Lozenge) 1 lozenge MUCOUS MEM Q2H PRN PRN PRN Reason: SORE THROAT Last Admin: 04/12/20 13:52 Dose: 1 lozenge Documented by: Medical Necessity - Tobacco Use Smoking Status: Never smoker Tobacco Use: Non-smoker Assessment/Plan All Active Problems (Last Updated 03/08/20 @ 09:09 by Miranda Blair) COVID-19 virus infection (Acute) Pneumonia (Acute) Hypoxia (Acute) History of appendectomy (Resolved) History of cholecystectomy (Resolved) Scoliosis (Resolved) RECOMMENDATIONS: 1. Continue Decadron 6 mg daily x10 days. 2. Continue remdesivir and monitor liver/renal function closely. 3. Wean supplemental oxygen to maintain saturations at or above 90%. Walking oximetry prior to discharge 4. Encourage incentive spirometer use and mobilize patient as tolerated. 5. Continue bronchodilator therapy. 6. Outpatient work-up for cough and shortness of breath IMPRESSIONS: 1. Acute hypoxemic respiratory insufficiency secondary to COVID-19 pneumonia Given that the patient's symptoms began 3 days prior to presentation, she was treated with convalescent plasma and started on remdesivir. Liver and renal function are stable. Plan to continue Decadron 6 mg daily x10 days. D-dimer was within normal limits. Continue to wean supplemental oxygen to maintain saturations at or above 90%. Encourage incentive spirometer use and mobilize patient as tolerated. Continue baseline bronchodilator therapy. Anticipate outpatient work-up for decreasing TLC. Differential would include interstitial lung disease, worsening kyphoscoliosis and tracheobronchomalacia. Patient's echocardiogram was not suggestive of an etiology. 2. Obesity/hypertension/asthma Complicates care, management, recovery and prognosis. Continue supportive measures as noted above. Inpatient E&M: 49357 Subs Hosp L2
--- NOTE | 2020-04-12 17:05 | PN_ITS ---
Patient Problems: Active and Suspected Problems (Last Updated 03/08/20 @ 09:09 by Miranda Blair) COVID-19 virus infection (Acute) Pneumonia (Acute) Hypoxia (Acute) Reason for Visit: COVID 19 Subjective: Has been having chronic cough for months. Was seeing Dr. Hassan as outpatient. States that she was never been formally diagnosed with dementia but when she recently started getting sick with Covid told her that she had severe asthma. Vitals/I&O's: Vital Signs Temp Pulse Resp BP Pulse Ox 37.0 C 65 18 130/64 H 92 04/12/20 16:49 04/12/20 16:49 04/12/20 16:49 04/12/20 16:49 04/12/20 16:49 Oxygen Flow Rate (L/min) 4 Oxygen Delivery Method Nasal Cannula Weight: 86.319 kg Body Mass Index (BMI) 35.2 Intake and Output for Last 24 Hours 04/10/20 04/11/20 04/12/20 23:59 23:59 23:59 Intake Total 659 / 1009 950 / 950 1335 / 1335 Output Total 0 / 0 Balance 659 / 1009 950 / 950 1335 / 1335 General: Alert, No apparent distress, - - paroxysms of cough. HEENT: Atraumatic, Normocephalic Oral: Moist Mucosa, No Gingival or Mucosal Lesions/ Ulcerations Neck: No Nodes, Thyroid Normal Size and Texture Lungs: Normal air movement, - - bibasilar crackles. Cardiovascular: Regular rate, Regular Rhythm, Normal S1, Normal S2, No murmurs Abdomen: Bowel Sounds Present, Soft, Non Tender, Non-Distended, No Hepato- splenomegaly Extremities: No edema, No Calf Tenderness Skin: No rashes, No breakdown Psych/Mental Status: Appropriate, Anxious Microbiology Past 72 Hours 04/11/20 03:05 Sputum, Expectorated/Coughed Gram Stain - Final 04/11/20 03:05 Sputum, Expectorated/Coughed Respiratory Culture - Final 04/10/20 05:58 Urine, Clean Catch Legionella Antigen - Final 04/10/20 05:58 Urine, Clean Catch Streptococcus pneumoniae Antigen (M - Final 04/09/20 20:51 Mucosa - Nose Respiratory Panel (PCR) - Final Laboratory Results 04/12/20 04:54: Sodium 138, Potassium 4.2, Chloride 108 H, Carbon Dioxide 24.0, Anion Gap 6, BUN 18, Creatinine 0.54 L, Estim Creat Clear Calc 40.22, Est GFR (MDRD) Af Amer 143, Est GFR (MDRD) Non-Af 118, BUN/Creatinine Ratio 33.3 H, Glucose 106, Calcium 8.1 L, Total Bilirubin 0.40, AST 25, ALT 30, Alkaline Phosphatase 68, Total Protein 6.4, Albumin 2.4 L, Globulin 4.0, Albumin/Globulin Ratio 0.6 L Current Medications Acetaminophen (Acetaminophen 325 Mg Tablet) 650 mg PO Q6H PRN PRN PRN Reason: Pain Score 1-10/Temp > 100.7 F Al Hydroxide/Mg Hydroxide (Mag Hydrox/Al Hydrox/Simeth 30 Ml Udc) 30 ml PO Q6H PRN PRN PRN Reason: Gastric Burning Albuterol Sulfate (Albuterol 2.5 Mg/3 Ml Vial.Neb.) 2.5 mg INHALATION BID [facility] Last Admin: 04/12/20 06:52 Dose: 2.5 mg Documented by: Albuterol Sulfate (Albuterol Ih 8.5 Gm (Proair) Inhaler (200 Puffs)) 2 puff INHALATION Q4H PRN PRN PRN Reason: dyspnea, wheezing Last Admin: 04/12/20 08:58 Dose: 2 puff Documented by: Budesonide (Budesonide Respules 0.5 Mg/2 Ml Ampul.Neb.) 0.5 mg INHALATION BID [facility] Last Admin: 04/12/20 06:52 Dose: 0.5 mg Documented by: Dexamethasone Sodium Phosphate (Dexamethasone 10 Mg/Ml Vial) 6 mg IV DAILY [facility] Last Admin: 04/12/20 08:59 Dose: 6 mg Documented by: Enoxaparin Sodium (Enoxaparin 30 Mg/0.3 Ml Syringe) 30 mg SC BID [facility] Last Admin: 04/12/20 08:57 Dose: 30 mg Documented by: Fluticasone Propionate (Fluticasone 0.05% 1 [place] Nasal.Sry) 1 spray NASAL BID [facility] Last Admin: 04/12/20 08:57 Dose: 1 spray Documented by: Guaifenesin (Guaifenesin 10 Ml Udc (200mg/10ml)) 20 ml PO Q4H PRN PRN PRN Reason: COUGH Last Admin: 04/12/20 10:53 Dose: 20 ml Documented by: Hydralazine HCl (Hydralazine 20 Mg/Ml Vial) 10 mg IV Q4H PRN PRN PRN Reason: SBP > 160 Sodium Chloride () 250 mls @ 15 mls/hr IV .[id number] PRN PRN Reason: Saline Flush Remdesivir 100 mg/ Sodium (Chloride) 250 mls @ 125 mls/hr IV DAILY [facility] Stop: 04/14/20 11:59 Last Infusion: 04/12/20 12:50 Dose: Infused Documented by: Losartan Potassium (Losartan Potassium 100 Mg Tablet) 100 mg PO DAILY [facility] Last Admin: 04/12/20 08:57 Dose: 100 mg Documented by: Magnesium Hydroxide (Magnesium Hydroxide 30 Ml Udc) 30 ml PO DAILY PRN PRN PRN Reason: Constipation Melatonin (Melatonin 3 Mg Tablet) 3 mg PO QHS PRN PRN PRN Reason: INSOMNIA Montelukast Sodium (Montelukast 10 Mg Tablet) 10 mg PO DAILY [facility] Last Admin: 04/12/20 08:57 Dose: 10 mg Documented by: Nitroglycerin (Nitroglycerin (Inpatient Use) 0.4 Mg Tab.Subl) 0.4 mg SUBLINGUAL Q5M PRN PRN Reason: CARDIAC/CHEST PAIN Ondansetron HCl (Ondansetron 4 Mg/2 Ml Vial) 4 mg IV Q8H PRN PRN PRN Reason: NAUSEA/VOMITING Prochlorperazine Edisylate (Prochlorperazine 10 Mg/2 Ml Vial) 5 mg IV Q4H PRN PRN PRN Reason: Breakthrough nausea/vomiting Psyllium Hydrophilic Mucilloid (Psyllium 1 Packet) 1 packet PO DAILY PRN PRN PRN Reason: Constipation Senna/Docusate Sodium (Senna/Docusate Sodium 1 Tablet) 2 tablet PO BID PRN PRN PRN Reason: Constipation Sodium Chloride (0.9% Saline Lock 10 Ml Syringe) 10 - 40 ml IV UD PRN PRN Reason: SALINE FLUSH Last Admin: 04/12/20 10:51 Dose: 10 ml Documented by: Throat Lozenges (Benzocaine/Menthol 1 Lozenge) 1 lozenge MUCOUS MEM Q2H PRN PRN PRN Reason: SORE THROAT Last Admin: 04/12/20 16:51 Dose: 1 lozenge Documented by: STROKE Vital Signs/Narrative: Vital Signs Temp Pulse Resp BP Pulse Ox 04/12/20 16:49 37.0 C 65 18 130/64 H 92 Medical Necessity - Tobacco Use Smoking Status: Never smoker Tobacco Use: Non-smoker Assessment/Plan All Active Problems (Last Updated 03/08/20 @ 09:09 by Miranda Blair) COVID-19 virus infection (Acute) Pneumonia (Acute) Hypoxia (Acute) History of appendectomy (Resolved) History of cholecystectomy (Resolved) Scoliosis (Resolved) 1. acute COVID-19 pneumonia on dexamethasone, remdesivir, convalescent plasma 2. chronic cough. has been ongoing for months. has been evaluated by pulm as outpt. pt to follow up with new pulmonologists as outpt. states that it is better now then previously. DC losartan (had been on lisinopril previously, but stopped due to cough) 3. HTN: stable now. Monitor off losartan. consider amlopidine if worse 4. VTE prophylaxis: enoxaparin. Inpatient E&M: 55930 Subs Hosp L2
--- NOTE | 2020-04-12 20:33 | PCM.HP.ID ---
Problem List (1) COVID-19 virus infection Status: Acute Reason for Consult: covid Consulted by: Dr. Castellano History of Present Illness: The patient is a 74 year old F with sx starting 04/06 with fever, chills, cough, change in taste/smell, mild headache. is also sick, covid (+). Came to ED 04/09, hypoxic, mild fever. Admitted on dex, remdesivir, and plasma given 04/10. Feeling better. Full ROS performed and neg except as noted above. - Medical History Past Medical History (Chronic Problems): Chronic Problems (Last Updated 03/08/20 @ 09:09 by Miranda Blair) HTN (hypertension) (Chronic) Seasonal allergies (Chronic) Asthma (Chronic) Allergies/Adverse Reactions: Allergies No Known Allergies Allergy (Verified 04/09/20 19:42) Home Medications: Ambulatory Orders Medication Instructions Recorded albuterol sulfate 90 mcg/actuation 1 puff INHALATION Q6H 06/16/17 aerosol inhaler losartan 100 mg tablet 100 mg PO DAILY 03/08/20 montelukast 10 mg tablet 10 mg PO DAILY 03/08/20 triamcinolone acetonide 55 mcg 1 spray INTRANASAL BID ml 03/08/20 nasal spray aerosol Albuterol Aerosols [Ventolin 2.5 mg INHALATION BID 04/09/20 Aerosols] Budesonide Aerosol [Pulmicort 0.5 mg INHALATION BID 04/09/20 Aerosol] Cefdinir [Omnicef [equiv]] 300 mg PO Q12H 7 Days #13 cap 04/09/20 Dexamethasone 6 mg PO DAILY #9 tab 04/09/20 Prednisone 20 mg PO DAILY 04/09/20 - Social History Tobacco Use: non-smoker Vital Signs Temp Pulse Resp BP Pulse Ox 98.6 F 65 18 130/64 H 92 04/12/20 16:49 04/12/20 16:49 04/12/20 16:49 04/12/20 16:49 04/12/20 16:49 Oxygen Flow Rate (L/min) 4 Oxygen Delivery Method Nasal Cannula Weight: 86.319 kg Body Mass Index (BMI) 35.2 Microbiology Past 72 Hours 04/11/20 03:05 Gram Stain - Final Sputum, Expectorated/Coughed Respiratory Culture - Final 04/10/20 05:58 Legionella Antigen - Final Urine, Clean Catch Streptococcus pneumoniae Antigen (M - Final 04/09/20 20:51 Respiratory Panel (PCR) - Final Mucosa - Nose Laboratory Tests Past 24 Hrs 04/12/20 04:54 Sodium 138 Potassium 4.2 Chloride 108 H Carbon Dioxide 24.0 Anion Gap 6 BUN 18 Creatinine 0.54 L Estim Creat Clear Calc 40.22 Est GFR (MDRD) Af Amer 143 Est GFR (MDRD) Non-Af 118 BUN/Creatinine Ratio 33.3 H Glucose 106 Calcium 8.1 L Total Bilirubin 0.40 AST 25 ALT 30 Alkaline Phosphatase 68 Total Protein 6.4 Albumin 2.4 L Globulin 4.0 Albumin/Globulin Ratio 0.6 L - Other Studies Radiology: [] reviewed Other Studies: [] Route of nutrition/ use of supplements: [] Nutritional Intake: [] IV Site: [] Jade Catheter: [] - Physical Exam General: Alert, Oriented x3, Cooperative, No apparent distress HEENT: Atraumatic, PERRLA, EOMI Neck: Supple, No Nodes Lungs: Clear to auscultation, Diminished Cardiovascular: Regular rate, Regular Rhythm Abdomen: Soft, Non Tender, Non-Distended Extremities: No edema Skin: No rashes IV Site: Peripheral, without redness Musculoskeletal: No Tenderness to Palpation of Joints or Extremities Neurological: Cranial nerves II-XII grossly intact - Assessment/Plan Antibiotics: [] Assessment/Plan: [] Active and Suspected Problems (Last Updated 03/08/20 @ 09:09 by Miranda Blair) COVID-19 virus infection (Acute) Pneumonia (Acute) Hypoxia (Acute) covid - on dex, will change to po. Cont remdesivir, following labs. Got plasma 04/10. Sx started 04/06. also with covid, at home. On 2L. Given improvement in symptoms and low O2 reqs, may be able to go home soon and quarantine for total 3 weeks from symptoms start. Will follow as needed, thank you, d/w Dr. Ott.
[2020-04-12] MEDS: MELATONIN 3 MG TABLET PO (23:38)
[2020-04-13] VITALS (12 sets, daily range): BP systolic 121–139; BP diastolic 59–70; PULSE 59–82; RESP 12–23; TEMP 36.2–37.2; O2SAT 92–97
[2020-04-13] MEDS: Acetaminophen 325 MG Tablet 650 MG PO (03:38)
[2020-04-13 06:57] LABS: Absolute Lymphocyte Count 1.69 X10^3/uL (0.83-4.51); Absolute Neutrophil Count 1.8 X10^3/uL (2.0-7.7); Basophil# 0.01 X10^3/uL; Basophil% 0.2 % (0-1); Hematocrit 37.6 % (37-47); Hemoglobin 11.7 g/dL (12.0-15.0); Lymphocyte # 1.69 X10^3/ul (4.0); Mean Corp Hgb Conc 31.1 g/dL (32-36); Mean Corpuscular Hgb 28.1 pg (27.0-32.0); Mean Corpuscular Volume 90.2 fL (81-99); Mean Platelet Vol. 10.8 fl (6.2-12.0); Monocyte# 0.66 X10^3/uL; Monocyte% 15.6 % (0-10); NRBC Flagged by Analyzer 0 % (0-5); Neutrophil # 1.82 X10^3/uL (2.7-7.7); Neutrophil % 43.3 % (47-70); Platelet Count 226 K/mm3 (150-450); RBC Distribution Width SD 46.6 fl (35.1-43.9); Red Blood Count 4.17 M/mm3 (4.2-5.4); White Blood Count 4.2 K/mm3 (4.4-11.0)
[2020-04-13] MEDS: Budesonide Respules 0.5 MG/2 ML AMPUL.NEB. INHALATION ×3 (07:12→19:17)
[2020-04-13] MEDS: Albuterol 2.5 MG/3 ML VIAL.NEB. INHALATION ×2 (07:16→19:17)
[2020-04-13 07:23] LABS: AST(SGOT) 22 U/L (15-37); Alanine Aminotransfer ALT/SGPT 45 U/L (13-56); Albumin, Serum 2.8 g/dL (3.2-5.0); Alkaline Phosphatase 69 U/L (45-117); Anion Gap 4 (5-15); BUN 23 mg/dL (7-18); BUN/Creat Ratio 36.7 RATIO (10-20); Chloride 108 mmol/L (98-107); Creatinine, Serum 0.63 mg/dL (0.55-1.02); EST Glomerular Filtration Rate 99 mL/min (>60); Est Glom Filt Rate - Afr Amer 120 mL/min (>60); Estimated Creatinine Clearance 40.22 ml/min; Globulin 2.9 g/dL (2.2-4.2); Glucose 112 mg/dL (74-106); Potassium 4.5 mmol/L (3.5-5.1); Protein, Total 5.7 g/dL (6.4-8.2); Sodium Level 142 mmol/L (136-145)
[2020-04-13] MEDS: Enoxaparin 30 MG/0.3 ML Syringe SC ×2 (08:30→21:17)
[2020-04-13] MEDS: Montelukast 10 MG Tablet PO (08:30)
[2020-04-13] MEDS: Fluticasone 0.05% 1 SPRAY NASAL.SRY NASAL ×2 (08:30→21:17)
--- NOTE | 2020-04-13 08:58 | PN_ITS ---
Patient Problems: Active and Suspected Problems (Last Updated 03/08/20 @ 09:09 by Miranda Blair) COVID-19 virus infection (Acute) Pneumonia (Acute) Hypoxia (Acute) Subjective: Patient did okay overnight. Patient did go as high as 4 to 5 L nasal cannula to maintain saturations. Patient reports a wet, but nonproductive cough. Patient is not reporting any chest pain and does have dyspnea on exertion. No fevers have been reported. Patient did have Cozaar discontinued, but reports no subjective change in cough. - Physical Exam Vitals/I&O's: Vital Signs Temp Pulse Resp BP Pulse Ox 37.2 C 61 16 128/68 H 92 04/13/20 08:28 04/13/20 08:28 04/13/20 08:28 04/13/20 08:28 04/13/20 08:28 Oxygen Flow Rate (L/min) 3 Oxygen Delivery Method Nasal Cannula Weight: 86.319 kg Body Mass Index (BMI) 35.2 Intake and Output for Last 24 Hours 04/11/20 04/12/20 04/13/20 23:59 23:59 23:59 Intake Total 950 / 950 1735 / 1735 300 / 300 Balance 950 / 950 1735 / 1735 300 / 300 General: Alert, Oriented x3, Cooperative, - - Slight conversational dyspnea. Obese. HEENT: Atraumatic, PERRLA, EOMI, Normocephalic, - - No scleral icterus or injection noted Oral: Moist Mucosa, No Gingival or Mucosal Lesions/ Ulcerations Neck: Supple, No JVD, No Nodes, Trachea Midline Lungs: No wheeze, No rales, Diminished, Rhonchi - Improved with coughing, - - No dullness to percussion Cardiovascular: Regular rate, Regular Rhythm, Normal S1, Normal S2, No murmurs, No rub noted, No Gallop Abdomen: Bowel Sounds Present, Soft, Non Tender, Non-Distended, Obese Extremities: No clubbing, No cyanosis, No edema, - - Legs elevated prior to evaluation Skin: - - No change compared to previous Musculoskeletal: No Tenderness to Palpation of Joints or Extremities Lymphatic: No Cervical, Supraclavicular, or Inguinal Adenopathy Neurological: Cranial nerves II-XII grossly intact, Neuro grossly intact, Motor Exam 5/5 strength throughout Psych/Mental Status: Alert and oriented to time, place, person, mood and affect Microbiology Past 72 Hours 04/09/20 20:30 Blood Culture (Wb) - Anticubital Left Blood Culture - Prelim inary No growth in 48 hours. 04/09/20 20:35 Blood Culture (Wb) - Anticubital Right Blood Culture - Preliminary No growth in 48 hours. 04/11/20 03:05 Sputum, Expectorated/Coughed Gram Stain - Final 04/11/20 03:05 Sputum, Expectorated/Coughed Respiratory Culture - Final 04/10/20 05:58 Urine, Clean Catch Legionella Antigen - Final 04/10/20 05:58 Urine, Clean Catch Streptococcus pneumoniae Antigen (M - Final Laboratory Results 04/13/20 06:26: WBC 4.2 L, RBC 4.17 L, Hgb 11.7 L, Hct 37.6, MCV 90.2, MCH 28.1, MCHC 31.1 L, RDW Std Deviation 46.6 H, RDW Coeff of Sofía 14.0, Plt Count 226, MPV 10.8, Immature Gran % (Auto) 0.900, Neut % (Auto) 43.3 L, Lymph % (Auto) 40.0, [place] % (Auto) 15.6 H, Eos % (Auto) 0.0, Baso % (Auto) 0.2, Absolute Neuts (auto) 1.8 L, Absolute Lymphs (auto) 1.69, Nucleated RBC % 0 04/13/20 06:26: Sodium 142, Potassium 4.5, Chloride 108 H, Carbon Dioxide 30.0, Anion Gap 4 L, BUN 23 H, Creatinine 0.63, Estim Creat Clear Calc 40.22, Est GFR (MDRD) Af Amer 120, Est GFR (MDRD) Non-Af 99, BUN/Creatinine Ratio 36.7 H, Glucose 112 H, Calcium 8.0 L, Total Bilirubin 0.20, AST 22, ALT 45, Alkaline Phosphatase 69, Total Protein 5.7 L, Albumin 2.8 L, Globulin 2.9, Albumin/Globulin Ratio 1.0 Current Medications Acetaminophen (Acetaminophen 325 Mg Tablet) 650 mg PO Q6H PRN PRN PRN Reason: Pain Score 1-10/Temp > 100.7 F Last Admin: 04/13/20 03:38 Dose: 650 mg Documented by: Al Hydroxide/Mg Hydroxide (Mag Hydrox/Al Hydrox/Simeth 30 Ml Udc) 30 ml PO Q6H PRN PRN PRN Reason: Gastric Burning Albuterol Sulfate (Albuterol Ih 8.5 Gm (Proair) Inhaler (200 Puffs)) 2 puff INHALATION Q4H PRN PRN PRN Reason: dyspnea, wheezing Last Admin: 04/13/20 08:31 Dose: 2 puff Documented by: Albuterol Sulfate (Albuterol 2.5 Mg/3 Ml Vial.Neb.) 2.5 mg INHALATION BID.RT [facility] Last Admin: 04/13/20 07:16 Dose: 2.5 mg Documented by: Budesonide (Budesonide Respules 0.5 Mg/2 Ml Ampul.Neb.) 0.5 mg INHALATION BID.RT [facility] Last Admin: 04/13/20 07:16 Dose: 0.5 mg Documented by: Dexamethasone Sodium Phosphate (Dexamethasone 10 Mg/Ml Vial) 6 mg IV DAILY [facility] Last Admin: 04/12/20 08:59 Dose: 6 mg Documented by: Enoxaparin Sodium (Enoxaparin 30 Mg/0.3 Ml Syringe) 30 mg SC BID [facility] Last Admin: 04/13/20 08:30 Dose: 30 mg Documented by: Fluticasone Propionate (Fluticasone 0.05% 1 [place] Nasal.Sry) 1 spray NASAL BID [facility] Last Admin: 04/13/20 08:30 Dose: 1 spray Documented by: Guaifenesin (Guaifenesin 10 Ml Udc (200mg/10ml)) 20 ml PO Q4H PRN PRN PRN Reason: COUGH Last Admin: 04/12/20 10:53 Dose: 20 ml Documented by: Hydralazine HCl (Hydralazine 20 Mg/Ml Vial) 10 mg IV Q4H PRN PRN PRN Reason: SBP > 160 Sodium Chloride () 250 mls @ 15 mls/hr IV .[id number] PRN PRN Reason: Saline Flush Remdesivir 100 mg/ Sodium (Chloride) 250 mls @ 125 mls/hr IV DAILY [facility] Stop: 04/14/20 11:59 Last Infusion: 04/12/20 12:50 Dose: Infused Documented by: Magnesium Hydroxide (Magnesium Hydroxide 30 Ml Udc) 30 ml PO DAILY PRN PRN PRN Reason: Constipation Melatonin (Melatonin 3 Mg Tablet) 3 mg PO QHS PRN PRN PRN Reason: INSOMNIA Last Admin: 04/12/20 23:38 Dose: 3 mg Documented by: Montelukast Sodium (Montelukast 10 Mg Tablet) 10 mg PO DAILY [facility] Last Admin: 04/13/20 08:30 Dose: 10 mg Documented by: Nitroglycerin (Nitroglycerin (Inpatient Use) 0.4 Mg Tab.Subl) 0.4 mg SUBLINGUAL Q5M PRN PRN Reason: CARDIAC/CHEST PAIN Ondansetron HCl (Ondansetron 4 Mg/2 Ml Vial) 4 mg IV Q8H PRN PRN PRN Reason: NAUSEA/VOMITING Prochlorperazine Edisylate (Prochlorperazine 10 Mg/2 Ml Vial) 5 mg IV Q4H PRN PRN PRN Reason: Breakthrough nausea/vomiting Psyllium Hydrophilic Mucilloid (Psyllium 1 Packet) 1 packet PO DAILY PRN PRN PRN Reason: Constipation Senna/Docusate Sodium (Senna/Docusate Sodium 1 Tablet) 2 tablet PO BID PRN PRN PRN Reason: Constipation Sodium Chloride (0.9% Saline Lock 10 Ml Syringe) 10 - 40 ml IV UD PRN PRN Reason: SALINE FLUSH Last Admin: 04/12/20 10:51 Dose: 10 ml Documented by: Throat Lozenges (Benzocaine/Menthol 1 Lozenge) 1 lozenge MUCOUS MEM Q2H PRN PRN PRN Reason: SORE THROAT Last Admin: 04/12/20 16:51 Dose: 1 lozenge Documented by: Medical Necessity - Tobacco Use Smoking Status: Never smoker Tobacco Use: Non-smoker Assessment/Plan All Active Problems (Last Updated 03/08/20 @ 09:09 by Miranda Blair) COVID-19 virus infection (Acute) Pneumonia (Acute) Hypoxia (Acute) History of appendectomy (Resolved) History of cholecystectomy (Resolved) Scoliosis (Resolved) RECOMMENDATIONS: 1. Continue Decadron 6 mg daily x10 days. 2. Continue remdesivir and monitor liver/renal function closely. 3. Wean supplemental oxygen to maintain saturations at or above 90%. Walking oximetry prior to discharge 4. Encourage incentive spirometer use and mobilize patient as tolerated. 5. Continue bronchodilator therapy. Add Acapella and scheduled mucolytic for pulmonary toileting 6. Outpatient work-up for cough and shortness of breath 7. Possibly add antihypertensive prior to discharge to replace Cozaar IMPRESSIONS: 1. Acute hypoxemic respiratory insufficiency secondary to COVID-19 pneumonia Given that the patient's symptoms began 3 days prior to presentation, she was treated with convalescent plasma and started on remdesivir. Liver and renal function are stable. Plan to continue Decadron 6 mg daily x10 days. D-dimer was within normal limits. Continue to wean supplemental oxygen to maintain saturations at or above 90%. Encourage incentive spirometer use and mobilize patient as tolerated. Continue baseline bronchodilator therapy. Anticipate outpatient work-up for decreasing TLC. Differential would include interstitial lung disease, worsening kyphoscoliosis and tracheobronchomalacia. Patient's echocardiogram was not suggestive of an etiology. Patient does appear to have significant secretions that may be leading to worsening oxygenation. Will i nitiate patient on aggressive pulmonary toileting protocol. 2. Obesity/hypertension/asthma Complicates care, management, recovery and prognosis. Continue supportive measures as noted above. Patient reports some concerns with discontinuation of Cozaar. Patient states that she does have highly variable blood pressures. Ensured the patient that we can monitor through the day and initiate a substitute medication if clinically indicated. Inpatient E&M: [id number] [facility] L[facility]
[2020-04-13] MEDS: guaiFENesin 600 MG Tablet PO ×2 (10:25→21:17)
[2020-04-13] MEDS: dexAMETHasone 10 MG/ML Vial 6 MG IV (10:25)
[2020-04-13] MEDS: 0.9% Saline Lock 10 ML Syringe IV (10:28)
--- NOTE | 2020-04-13 11:30 | PCM.PN.HOSP ---
Patient Problems: Active and Suspected Problems (Last Updated 03/08/20 @ 09:09 by Miranda Blair) COVID-19 virus infection (Acute) Pneumonia (Acute) Hypoxia (Acute) Reason for Visit: COVID-19 Subjective: Breathing well with oxygen. Still coughing. Vitals/I&O's: Vital Signs Temp Pulse Resp BP Pulse Ox 37.2 C 61 16 128/68 H 92 04/13/20 08:28 04/13/20 08:28 04/13/20 08:28 04/13/20 08:28 04/13/20 08:28 Oxygen Flow Rate (L/min) 3 Oxygen Delivery Method Nasal Cannula Weight: 86.319 kg Body Mass Index (BMI) 35.2 Intake and Output for Last 24 Hours 04/11/20 04/12/20 04/13/20 23:59 23:59 23:59 Intake Total 950 / 950 1735 / 1735 300 / 300 Balance 950 / 950 1735 / 1735 300 / 300 General: Alert, No apparent distress, - - decreased paroxysms of cough while I was in the room. HEENT: Atraumatic, Normocephalic Oral: Moist Mucosa, No Gingival or Mucosal Lesions/ Ulcerations Neck: No Nodes, Thyroid Normal Size and Texture Lungs: Clear to auscultation, Normal air movement, No rhonchi, No wheeze, No rales Cardiovascular: Regular rate, Regular Rhythm, Normal S1, Normal S2, No murmurs Abdomen: Bowel Sounds Present, Soft, Non Tender, Non-Distended, No Hepato-splenomegaly Extremities: No edema, No Calf Tenderness Skin: No rashes, No breakdown Psych/Mental Status: Normal Affect, Appropriate Microbiology Past 72 Hours 04/09/20 20:30 Blood Culture (Wb) - Anticubital Left Blood Culture - Preliminary No growth in 48 hours. 04/09/20 20:35 Blood Culture (Wb) - Anticubital Right Blood Culture - Preliminary No growth in 48 hours. 04/11/20 03:05 Sputum, Expectorated/Coughed Gram Stain - Final 04/11/20 03:05 Sputum, Expectorated/Coughed Respiratory Culture - Final 04/10/20 05:58 Urine, Clean Catch Legionella Antigen - Final 04/10/20 05:58 Urine, Clean Catch Streptococcus pneumoniae Antigen (M - Final Laboratory Results 04/13/20 06:26: WBC 4.2 L, RBC 4.17 L, Hgb 11.7 L, Hct 37.6, MCV 90.2, MCH 28.1, MCHC 31.1 L, RDW Std Deviation 46.6 H, RDW Coeff of Sofía 14.0, Plt Count 226, MPV 10.8, Immature Gran % (Auto) 0.900, Neut % (Auto) 43.3 L, Lymph % (Auto) 40.0, [place] % (Auto) 15.6 H, Eos % (Auto) 0.0, Baso % (Auto) 0.2, Absolute Neuts (auto) 1.8 L, Absolute Lymphs (auto) 1.69, Nucleated RBC % 0 04/13/20 06:26: Sodium 142, Potassium 4.5, Chloride 108 H, Carbon Dioxide 30.0, Anion Gap 4 L, BUN 23 H, Creatinine 0.63, Estim Creat Clear Calc 40.22, Est GFR (MDRD) Af Amer 120, Est GFR (MDRD) Non-Af 99, BUN/Creatinine Ratio 36.7 H, Glucose 112 H, Calcium 8.0 L, Total Bilirubin 0.20, AST 22, ALT 45, Alkaline Phosphatase 69, Total Protein 5.7 L, Albumin 2.8 L, Globulin 2.9, Albumin/Globulin Ratio 1.0 Current Medications Acetaminophen (Acetaminophen 325 Mg Tablet) 650 mg PO Q6H PRN PRN PRN Reason: Pain Score 1-10/Temp > 100.7 F Last Admin: 04/13/20 03:38 Dose: 650 mg Documented by: Al Hydroxide/Mg Hydroxide (Mag Hydrox/Al Hydrox/Simeth 30 Ml Udc) 30 ml PO Q6H PRN PRN PRN Reason: Gastric Burning Albuterol Sulfate (Albuterol Ih 8.5 Gm (Proair) Inhaler (200 Puffs)) 2 puff INHALATION Q4H PRN PRN PRN Reason: dyspnea, wheezing Last Admin: 04/13/20 08:31 Dose: 2 puff Documented by: Albuterol Sulfate (Albuterol 2.5 Mg/3 Ml Vial.Neb.) 2.5 mg INHALATION BID.RT [facility] Last Admin: 04/13/20 07:16 Dose: 2.5 mg Documented by: Budesonide (Budesonide Respules 0.5 Mg/2 Ml Ampul.Neb.) 0.5 mg INHALATION BID.RT [facility] Last Admin: 04/13/20 07:16 Dose: 0.5 mg Documented by: Dexamethasone Sodium Phosphate (Dexamethasone 10 Mg/Ml Vial) 6 mg IV DAILY [facility] Last Admin: 04/13/20 10:25 Dose: 6 mg Documented by: Enoxaparin Sodium (Enoxaparin 30 Mg/0.3 Ml Syringe) 30 mg SC BID [facility] Last Admin: 04/13/20 08:30 Dose: 30 mg Documented by: Fluticasone Propionate (Fluticasone 0.05% 1 [place] Nasal.Sry) 1 spray NASAL BID [facility] Last Admin: 04/13/20 08:30 Dose: 1 spray Documented by: Guaifenesin (Guaifenesin 600 Mg Tablet) 600 mg PO BID [facility] Last Admin: 04/13/20 10:25 Dose: 600 mg Documented by: Hydralazine HCl (Hydralazine 20 Mg/Ml Vial) 10 mg IV Q4H PRN PRN PRN Reason: SBP > 160 Sodium Chloride () 250 mls @ 15 mls/hr IV .[id number] PRN PRN Reason: Saline Flush Remdesivir 100 mg/ Sodium (Chloride) 250 mls @ 125 mls/hr IV DAILY [facility] Stop: 04/14/20 11:59 Last Admin: 04/13/20 10:24 Dose: 125 mls/hr Documented by: Magnesium Hydroxide (Magnesium Hydroxide 30 Ml Udc) 30 ml PO DAILY PRN PRN PRN Reason: Constipation Melatonin (Melatonin 3 Mg Tablet) 3 mg PO QHS PRN PRN PRN Reason: INSOMNIA Last Admin: 04/12/20 23:38 Dose: 3 mg Documented by: Nitroglycerin (Nitroglycerin (Inpatient Use) 0.4 Mg Tab.Subl) 0.4 mg SUBLINGUAL Q5M PRN PRN Reason: CARDIAC/CHEST PAIN Ondansetron HCl (Ondansetron 4 Mg/2 Ml Vial) 4 mg IV Q8H PRN PRN PRN Reason: NAUSEA/VOMITING Prochlorperazine Edisylate (Prochlorperazine 10 Mg/2 Ml Vial) 5 mg IV Q4H PRN PRN PRN Reason: Breakthrough nausea/vomiting Psyllium Hydrophilic Mucilloid (Psyllium 1 Packet) 1 packet PO DAILY PRN PRN PRN Reason: Constipation Senna/Docusate Sodium (Senna/Docusate Sodium 1 Tablet) 2 tablet PO BID PRN PRN PRN Reason: Constipation Sodium Chloride (0.9% Saline Lock 10 Ml Syringe) 10 - 40 ml IV UD PRN PRN Reason: SALINE FLUSH Last Admin: 04/13/20 10:28 Dose: 10 ml Documented by: Throat Lozenges (Benzocaine/Menthol 1 Lozenge) 1 lozenge MUCOUS MEM Q2H PRN PRN PRN Reason: SORE THROAT Last Admin: 04/12/20 16:51 Dose: 1 lozenge Documented by: STROKE Vital Signs/Narrative: Vital Signs Temp Pulse Resp BP Pulse Ox 04/13/20 08:28 37.2 C 61 16 128/68 H 92 Medical Necessity - Tobacco Use Smoking Status: Never smoker Tobacco Use: Non-smoker Assessment/Plan All Active Problems (Last Updated 03/08/20 @ 09:09 by Miranda Blair) COVID-19 virus infection (Acute) Pneumonia (Acute) Hypoxia (Acute) History of appendectomy (Resolved) History of cholecystectomy (Resolved) Scoliosis (Resolved) 1. acute COVID-19 pneumonia on dexamethasone, remdesivir, convalescent plasma 2. chronic cough. has been ongoing for months. has been evaluated by pulm as outpt. pt to follow up with new pulmonologists as outpt. states that it is better now then previously. DC losartan (had been on lisinopril previously, but stopped due to cough) 3. HTN: stable now. Monitor off losartan. consider amlopidine if worse 4. VTE prophylaxis: enoxaparin. Anticipate discharge in next 24-48h if improving. May need ambulatory pulse ox. Inpatient E&M: [id number] [facility]s Hosp L2
[2020-04-14] MEDS: MELATONIN 3 MG TABLET PO
[2020-04-14 00:02] VITALS: O2SAT 93
[2020-04-14 03:20] VITALS: BP 131/63; PULSE 56; RESP 18; TEMP 36.5; O2SAT 96
[2020-04-14] MEDS: 0.9% Saline Lock 10 ML Syringe IV ×3 (03:27→08:43)
[2020-04-14] MEDS: Budesonide Respules 0.5 MG/2 ML AMPUL.NEB. INHALATION (07:34)
[2020-04-14] MEDS: Albuterol 2.5 MG/3 ML VIAL.NEB. INHALATION (07:34)
[2020-04-14 07:35] VITALS: PULSE 75; RESP 18; O2SAT 97
[2020-04-14 07:41] LABS: Anion Gap 5 (5-15); BUN 19 mg/dL (7-18); BUN/Creat Ratio 32.3 RATIO (10-20); Calcium,Total 8.2 mg/dL (8.5-10.1); Chloride 107 mmol/L (98-107); Creatinine, Serum 0.59 mg/dL (0.55-1.02); EST Glomerular Filtration Rate 107 mL/min (>60); Est Glom Filt Rate - Afr Amer 129 mL/min (>60); Estimated Creatinine Clearance 40.22 ml/min; Glucose 122 mg/dL (74-106); Potassium 4.3 mmol/L (3.5-5.1); Sodium Level 141 mmol/L (136-145)
[2020-04-14] MEDS: dexAMETHasone 10 MG/ML Vial 6 MG IV (08:02)
[2020-04-14] MEDS: Enoxaparin 30 MG/0.3 ML Syringe SC (08:02)
[2020-04-14] MEDS: guaiFENesin 600 MG Tablet PO (08:02)
[2020-04-14] MEDS: Fluticasone 0.05% 1 SPRAY NASAL.SRY NASAL (08:03)
[2020-04-14 08:12] VITALS: O2SAT 88; O2SAT 90; O2SAT 92
[2020-04-14 08:15] VITALS: BP 131/61; PULSE 57; RESP 16; TEMP 36.8; O2SAT 94
[2020-04-14] MEDS: Furosemide 20 MG/2 ML VIAL IV (08:44)
--- NOTE | 2020-04-14 09:08 | PN_ITS ---
Patient Problems: Active and Suspected Problems (Last Updated 03/08/20 @ 09:09 by Miranda Blair) COVID-19 virus infection (Acute) Pneumonia (Acute) Hypoxia (Acute) Subjective: Patient is doing okay. Patient did report good response to initiation of pulmonary toileting measures. Patient did require increased oxygen overnight, but feels subjectively unchanged compared to previous. Objective: Patient noted to be 88% with ambulation and should be on 2 L nasal cannula with all exertion on discharge - Physical Exam Vitals/I&O's: Vital Signs Temp Pulse Resp BP Pulse Ox 36.8 C 57 L 16 131/61 H 94 04/14/20 08:15 04/14/20 08:15 04/14/20 08:15 04/14/20 08:15 04/14/20 08:15 Oxygen Flow Rate (L/min) [ 2 AMBULATION with Oxygen] Oxygen Flow Rate (L/min) 2 Oxygen Delivery Method Nasal Cannula Weight: 85.6 kg Body Mass Index (BMI) 35.2 Intake and Output for Last 24 Hours 04/12/20 04/13/20 04/14/20 23:59 23:59 23:59 Intake Total 1735 / 1735 1460 / 1460 400 / 400 Balance 1735 / 1735 1460 / 1460 400 / 400 General: Alert, Oriented x3, Cooperative, No apparent distress, - - Obese. Mild conversational dyspnea. Sporadic nonproductive, dry cough HEENT: Atraumatic, PERRLA, EOMI, Normocephalic, - - No scleral icterus or injection noted Oral: Moist Mucosa, No Gingival or Mucosal Lesions/ Ulcerations Neck: Supple, No JVD, No Nodes, Trachea Midline Lungs: No rhonchi, No wheeze, No rales, Diminished, - - Symmetric expansion. No dullness to percussion. Cardiovascular: Regular rate, Regular Rhythm, Normal S1, Normal S2, No murmurs, No rub noted, No Gallop Abdomen: Bowel Sounds Present, Soft, Non Tender, Non-Distended, Obese Extremities: No clubbing, No cyanosis, Edema - Trace lower extremity Skin: No rashes, No breakdown Musculoskeletal: No Tenderness to Palpation of Joints or Extremities Lymphatic: No Cervical, Supraclavicular, or Inguinal Adenopathy Neurological: Cranial nerves II-XII grossly intact, Neuro grossly intact, Motor Exam 5/5 strength throughout Psych/Mental Status: Alert and oriented to time, place, person, mood and affect Microbiology Past 72 Hours 04/09/20 20:30 Blood Culture (Wb) - Anticubital Left Blood Culture - Preliminary No growth in 48 hours. 04/09/20 20:35 Blood Culture (Wb) - Anticubital Right Blood Culture - Preliminary No growth in 48 hours. 04/11/20 03:05 Sputum, Expectorated/Coughed Gram Stain - Final 04/11/20 03:05 Sputum, Expectorated/Coughed Respiratory Culture - Final Laboratory Results 04/14/20 06:15: Sodium 141, Potassium 4.3, Chloride 107, Carbon Dioxide 29.0, Anion Gap 5, BUN 19 H, Creatinine 0.59, Estim Creat Clear Calc 40.22, Est GFR (MDRD) Af Amer 129, Est GFR (MDRD) Non-Af 107, BUN/Creatinine Ratio 32.3 H, Glucose 122 H, Calcium 8.2 L Current Medications Acetaminophen (Acetaminophen 325 Mg Tablet) 650 mg PO Q6H PRN PRN PRN Reason: Pain Score 1-10/Temp > 100.7 F Last Admin: 04/13/20 03:38 Dose: 650 mg Documented by: Al Hydroxide/Mg Hydroxide (Mag Hydrox/Al Hydrox/Simeth 30 Ml Udc) 30 ml PO Q6H PRN PRN PRN Reason: Gastric Burning Albuterol Sulfate (Albuterol Ih 8.5 Gm (Proair) Inhaler (200 Puffs)) 2 puff INHALATION Q4H PRN PRN PRN Reason: dyspnea, wheezing Last Admin: 04/13/20 08:31 Dose: 2 puff Documented by: Albuterol Sulfate (Albuterol 2.5 Mg/3 Ml Vial.Neb.) 2.5 mg INHALATION BID.RT [facility] Last Admin: 04/14/20 07:34 Dose: 2.5 mg Documented by: Budesonide (Budesonide Respules 0.5 Mg/2 Ml Ampul.Neb.) 0.5 mg INHALATION BID.RT [facility] Last Admin: 04/14/20 07:34 Dose: 0.5 mg Documented by: Dexamethasone Sodium Phosphate (Dexamethasone 10 Mg/Ml Vial) 6 mg IV DAILY [facility] Last Admin: 04/14/20 08:02 Dose: 6 mg Documented by: Enoxaparin Sodium (Enoxaparin 30 Mg/0.3 Ml Syringe) 30 mg SC BID [facility] Last Admin: 04/14/20 08:02 Dose: 30 mg Documented by: Fluticasone Propionate (Fluticasone 0.05% 1 [place] Nasal.Sry) 1 spray NASAL BID [facility] Last Admin: 04/14/20 08:03 Dose: 1 spray Documented by: Guaifenesin (Guaifenesin 600 Mg Tablet) 600 mg PO BID [facility] Last Admin: 04/14/20 08:02 Dose: 600 mg Documented by: Hydralazine HCl (Hydralazine 20 Mg/Ml Vial) 10 mg IV Q4H PRN PRN PRN Reason: SBP > 160 Sodium Chloride () 250 mls @ 15 mls/hr IV .[id number] PRN PRN Reason: Saline Flush Remdesivir 100 mg/ Sodium (Chloride) 250 mls @ 125 mls/hr IV DAILY [facility] Stop: 04/14/20 11:59 Last Infusion: 04/13/20 12:24 Dose: Infused Documented by: Magnesium Hydroxide (Magnesium Hydroxide 30 Ml Udc) 30 ml PO DAILY PRN PRN PRN Reason: Constipation Melatonin (Melatonin 3 Mg Tablet) 3 mg PO QHS PRN PRN PRN Reason: INSOMNIA Last Admin: 04/14/20 00:00 Dose: 3 mg Documented by: Nitroglycerin (Nitroglycerin (Inpatient Use) 0.4 Mg Tab.Subl) 0.4 mg SUBLINGUAL Q5M PRN PRN Reason: CARDIAC/CHEST PAIN Ondansetron HCl (Ondansetron 4 Mg/2 Ml Vial) 4 mg IV Q8H PRN PRN PRN Reason: NAUSEA/VOMITING Prochlorperazine Edisylate (Prochlorperazine 10 Mg/2 Ml Vial) 5 mg IV Q4H PRN PRN PRN Reason: Breakthrough nausea/vomiting Psyllium Hydrophilic Mucilloid (Psyllium 1 Packet) 1 packet PO DAILY PRN PRN PRN Reason: Constipation Senna/Docusate Sodium (Senna/Docusate Sodium 1 Tablet) 2 tablet PO BID PRN PRN PRN Reason: Constipation Sodium Chloride (0.9% Saline Lock 10 Ml Syringe) 10 - 40 ml IV UD PRN PRN Reason: SALINE FLUSH Last Admin: 04/14/20 08:43 Dose: 10 ml Documented by: Throat Lozenges (Benzocaine/Menthol 1 Lozenge) 1 lozenge MUCOUS MEM Q2H PRN PRN PRN Reason: SORE THROAT Last Admin: 04/12/20 16:51 Dose: 1 lozenge Documented by: Medical Necessity - Tobacco Use Smoking Status: Never smoker Tobacco Use: Non-smoker Assessment/Plan All Active Problems (Last Updated 03/08/20 @ 09:09 by Miranda Blair) COVID-19 virus infection (Acute) Pneumonia (Acute) Hypoxia (Acute) History of appendectomy (Resolved) History of cholecystectomy (Resolved) Scoliosis (Resolved) RECOMMENDATIONS: 1. Continue Decadron 6 mg daily x10 days. Remaining doses can be given p.o. if discharged 2. Complete remdesivir course today 3. Wean supplemental oxygen to maintain saturations at or above 90%. 4. Encourage incentive spirometer and Acapella use and mobilize patient as tolerated. 5. Continue bronchodilator therapy. Patient should continue Mucinex on discharge 6. Outpatient work-up for cough and shortness of breath 7. Consider initiation of hydrochlorothiazide for blood pressure control 8. Potential discharge later today after dosing of remdesivir IMPRESSIONS: 1. Acute hypoxemic respiratory insufficiency secondary to COVID-19 pneumonia Given that the patient's symptoms began 3 days prior to presentation, she was treated with convalescent plasma and started on remdesivir. Liver and renal function are stable. Plan to continue Decadron 6 mg daily x10 days. D-dimer was within normal limits. Continue to wean supplemental oxygen to maintain saturations at or above 90%. Encourage incentive spirometer use and mobilize patient as tolerated. Continue baseline bronchodilator therapy. Patient responded well to pulmonary toileting measures. Last dose of remdesivir should be today. Patient should complete 10 days of Decadron and this can be given p.o. if patient is discharged later today. Patient's oxygen is much improved, but she will still require this on discharge. Patient would need to follow-up in our office in 3 to 4 weeks for testing as previously described. Patient will be given a diuretic challenge today. Will reevaluate Pulmicort as an outpatient. 2. Obesity/hypertension/asthma Complicates care, management, recovery and prognosis. Continue supportive measures as noted above. Patient reports some concerns with discontinuation of Cozaar. Patient may benefit from initiation of hydrochlorothiazide for blood pressure control. Would avoid beta-bessie for now until respiratory status improves. Inpatient E&M: [id number] Subs Hosp L2
--- NOTE | 2020-04-14 11:24 | CASEMGMT ---
QUEENIE CM Note: home oxygen testing completed and patient will need home oxygen set up and portable tank delivered to [facility]. Call to [facility] to update and portable tank will be brought to hospital. -Call to patient's room and updated via phone. Her is home and can accept delivery, but he is covid positive so he is quarantining also. No other concerns re: dc. Patient has family/friends who can bring groceries, etc until isolation is complete. -Pharmacy meds to [facility]. Diana FANGN RN ACM
--- NOTE | 2020-04-14 11:50 | DCINST_ITS ---
- Discharge Diagnoses Current Active Problems: Current Active and Chronic Problems (Last Updated 03/08/20 @ 09:09 by Miranda Blair) COVID-19 virus infection (Acute) Pneumonia (Acute) Hypoxia (Acute) HTN (hypertension) (Chronic) Seasonal allergies (Chronic) Asthma (Chronic) You will use the following diet at home:: No restrictions Your food should be the consistency of: Regular Discharge Activity: Return to Normal Activity Call your doctor if you observe: Fever of 101 or Higher, Shortness of breath Instructions: Coronavirus Disease 2019 (COVID-19), Treating Pneumonia Additional Instructions: Self isolate for at least 21 days since symptoms began or the first postive COVID-19 test AND at least one day (24 hours) have passed since resolution of fever without the use of fever-reducing agents AND improvement of symptoms (e.g., cough, shortness of breath) When around people in the same room, wear a face mask. Individuals also in the room should wear a mask. If possible, use a different bathroom and bedroom. Perform adequate hand hygiene. Avoid sharing dishes, glasses, etc. Family members with close contact with you and/or postive for COVID-19 should follow these instructions. Allergies/Adverse Reactions: Allergies No Known Allergies Allergy (Verified 04/09/20 19:42) Medications to take at Discharge albuterol sulfate 90 mcg/actuation aerosol inhaler 1 puff INHALATION Q6H 06/16/17 losartan 100 mg tablet 100 mg PO DAILY 03/08/20 montelukast 10 mg tablet 10 mg PO DAILY 03/08/20 triamcinolone acetonide 55 mcg nasal spray aerosol 1 spray INTRANASAL BID ml 03/08/20 Albuterol Aerosols [Ventolin Aerosols] 2.5 mg INHALATION BID 04/09/20 Budesonide Aerosol [Pulmicort Respules] 0.5 mg INHALATION BID 04/09/20 Codeine Phosphate/Guaifenesin [Guaifenesin-Codeine Syrup] 10 ml PO Q6H PRN 7 Days #250 ml 04/14/20 Dexamethasone 6 mg PO DAILY #4 tab 04/14/20 Guaifenesin [Mucinex] 600 mg PO BID #14 tab 04/14/20 The following prescriptions were given: Dexamethasone 6 mg PO DAILY #4 tab Transmission Status: Pending to [facility] Codeine Phosphate/Guaifenesin [Guaifenesin-Codeine Syrup] 10 ml PO Q6H PRN 7 Days #250 ml PRN Reason: coughing fit Transmission Status: Sent to [facility] Guaifenesin [Mucinex] 600 mg PO BID #14 tab Transmission Status: Pending to [facility] Primary Care Physician: Marquis Oneal MD [Primary Care Provider] - Within 2 Weeks Test Results: Test results from this visit will be discussed in further detail at your follow- up appointment, if applicable. Please Follow Up With: Shawn Ott MD When: 4-6 weeks Proposed Discharge Date: 04/14/20
--- NOTE | 2020-04-14 11:51 | DS.PCM_ITS ---
Discharge Date and Diagnosis - Problem List Patient Problems: Active and Suspected Problems (Last Updated 03/08/20 @ 09:09 by Miranda Blair) COVID-19 virus infection (Acute) Hypoxia (Acute) Date of Admission: 04/09/20 Date of Discharge: 04/14/20 - Primary Discharge Diagnosis Acute Problems: Active Problems (Last Updated 03/08/20 @ 09:09 by Miranda Blair) COVID-19 virus infection (Acute) Pneumonia (Acute) Hypoxia (Acute) - Secondary Discharge Diagnosis Chronic Problems: Chronic Problems (Last Updated 03/08/20 @ 09:09 by Mirandaemily Blair) HTN (hypertension) (Chronic) Seasonal allergies (Chronic) Asthma (Chronic) Hospital Course and Treatment Imaging Results: Clinical Impression(s) from Imaging Studies Chest X-Ray 04/09/20 20:40 IMPRESSION: Stable left lower lung pneumonia. Electronically Signed: Nelly Hesham, at 21:20 EST Tel , Service support , Jose: JESSICA Ott: ARYAN Operations: None Procedures: None Summary of Care Provided: The patient is a 74 year old F presents with increased cough and shortness of breath. Patient was positive for COVID-19 and was started on dexamethasone. Factious disease was consulted and patient was subsequent started on remdesivir. Patient pleaded 5-day course of remdesivir in the hospital. Patient is completed 6 of 10 days of dexamethasone while in the hospital and will have 4 more days of oral dexamethasone upon discharge. Patient has had hypoxic respiratory insufficiency and she was initially 88% on room air when she presented. Today patient is 88% on room air with activity but 90% at rest. Patient will require oxygen with activity. Patient was given structures regards to quarantining and isolation from 3 weeks from the onset of her symptoms. Patient has been complaining of a chronic cough has been ongoing for months, prior to Covid. Patient was seen in consultation by Dr. Ott pulmonology and will follow up with him as outpatient in regards to further work-up for this cough. Because of the cough, patient was on losartan. Is unclear if that is a contributing factor but I told the patient that it is best to remove it as cough can be a side effect though unlikely with the medication. Patient also given prescription for guaifenesin with codeine to help with her coughing fits. Patient blood pressure has remained stable after discontinuing the losartan so no other antihypertensives has been started. Patient had been on lisinopril in the past but was stopped due to her cough. Lisinopril should not be resumed. [] Patient Problems: Active and Suspected Problems (Last Updated 03/08/20 @ 09:09 by Miranda Blair) COVID-19 virus infection (Acute) Hypoxia (Acute) - Physical Exam Vitals/I&O's: Vital Signs Temp Pulse Resp BP Pulse Ox 36.8 C 57 L 16 131/61 H 94 04/14/20 08:15 04/14/20 08:15 04/14/20 08:15 04/14/20 08:15 04/14/20 08:15 Oxygen Flow Rate (L/min) [ 2 AMBULATION with Oxygen] Oxygen Flow Rate (L/min) 2 Oxygen Delivery Method Nasal Cannula Weight: 85.6 kg Body Mass Index (BMI) 35.2 Intake and Output for Last 24 Hours 04/12/20 04/13/20 04/14/20 23:59 23:59 23:59 Intake Total 1735 / 1735 1460 / 1460 400 / 400 Balance 1735 / 1735 1460 / 1460 400 / 400 General: Alert, No apparent distress HEENT: Atraumatic, Normocephalic Oral: Moist Mucosa, No Gingival or Mucosal Lesions/ Ulcerations Neck: No Nodes, Thyroid Normal Size and Texture Lungs: - - bibasilar crackles Cardiovascular: Regular rate, Regular Rhythm, Normal S1, Normal S2, No murmurs Abdomen: Bowel Sounds Present, Soft, Non Tender, Non-Distended Extremities: No edema, No Calf Tenderness Psych/Mental Status: Normal Affect, Appropriate Microbiology Past 72 Hours 04/09/20 20:30 Blood Culture (Wb) - Anticubital Left Blood Culture - Preliminary No growth in 48 hours. 04/09/20 20:35 Blood Culture (Wb) - Anticubital Right Blood Culture - Preliminary No growth in 48 hours. 04/11/20 03:05 Sputum, Expectorated/Coughed Gram Stain - Final 04/11/20 03:05 Sputum, Expectorated/Coughed Respiratory Culture - Final Laboratory Results 04/14/20 06:15: Sodium 141, Potassium 4.3, Chloride 107, Carbon Dioxide 29.0, Anion Gap 5, BUN 19 H, Creatinine 0.59, Estim Creat Clear Calc 40.22, Est GFR (MDRD) Af Amer 129, Est GFR (MDRD) Non-Af 107, BUN/Creatinine Ratio 32.3 H, Glucose 122 H, Calcium 8.2 L Current Medications Acetaminophen (Acetaminophen 325 Mg Tablet) 650 mg PO Q6H PRN PRN PRN Reason: Pain Score 1-10/Temp > 100.7 F Last Admin: 04/13/20 03:38 Dose: 650 mg Documented by: Al Hydroxide/Mg Hydroxide (Mag Hydrox/Al Hydrox/Simeth 30 Ml Udc) 30 ml PO Q6H PRN PRN PRN Reason: Gastric Burning Albuterol Sulfate (Albuterol Ih 8.5 Gm (Proair) Inhaler (200 Puffs)) 2 puff INHALATION Q4H PRN PRN PRN Reason: dyspnea, wheezing Last Admin: 04/13/20 08:31 Dose: 2 puff Documented by: Albuterol Sulfate (Albuterol 2.5 Mg/3 Ml Vial.Neb.) 2.5 mg INHALATION BID.RT [facility] Last Admin: 04/14/20 07:34 Dose: 2.5 mg Documented by: Budesonide (Budesonide Respules 0.5 Mg/2 Ml Ampul.Neb.) 0.5 mg INHALATION BID.RT [facility] Last Admin: 04/14/20 07:34 Dose: 0.5 mg Documented by: Dexamethasone Sodium Phosphate (Dexamethasone 10 Mg/Ml Vial) 6 mg IV DAILY [facility] Last Admin: 04/14/20 08:02 Dose: 6 mg Documented by: Enoxaparin Sodium (Enoxaparin 30 Mg/0.3 Ml Syringe) 30 mg SC BID [facility] Last Admin: 04/14/20 08:02 Dose: 30 mg Documented by: Fluticasone Propionate (Fluticasone 0.05% 1 [place] Nasal.Sry) 1 spray NASAL BID [facility] Last Admin: 04/14/20 08:03 Dose: 1 spray Documented by: Guaifenesin (Guaifenesin 600 Mg Tablet) 600 mg PO BID [facility] Last Admin: 04/14/20 08:02 Dose: 600 mg Documented by: Hydralazine HCl (Hydralazine 20 Mg/Ml Vial) 10 mg IV Q4H PRN PRN PRN Reason: SBP > 160 Sodium Chloride () 250 mls @ 15 mls/hr IV .[id number] PRN PRN Reason: Saline Flush Remdesivir 100 mg/ Sodium (Chloride) 250 mls @ 125 mls/hr IV DAILY ELVA Stop: 04/14/20 11:59 Last Admin: 04/14/20 09:49 Dose: 125 mls/hr Documented by: Magnesium Hydroxide (Magnesium Hydroxide 30 Ml Udc) 30 ml PO DAILY PRN PRN PRN Reason: Constipation Melatonin (Melatonin 3 Mg Tablet) 3 mg PO QHS PRN PRN PRN Reason: INSOMNIA Last Admin: 04/14/20 00:00 Dose: 3 mg Documented by: Nitroglycerin (Nitroglycerin (Inpatient Use) 0.4 Mg Tab.Subl) 0.4 mg SUBLINGUAL Q5M PRN PRN Reason: CARDIAC/CHEST PAIN Ondansetron HCl (Ondansetron 4 Mg/2 Ml Vial) 4 mg IV Q8H PRN PRN PRN Reason: NAUSEA/VOMITING Prochlorperazine Edisylate (Prochlorperazine 10 Mg/2 Ml Vial) 5 mg IV Q4H PRN PRN PRN Reason: Breakthrough nausea/vomiting Psyllium Hydrophilic Mucilloid (Psyllium 1 Packet) 1 packet PO DAILY PRN PRN PRN Reason: Constipation Senna/Docusate Sodium (Senna/Docusate Sodium 1 Tablet) 2 tablet PO BID PRN PRN PRN Reason: Constipation Sodium Chloride (0.9% Saline Lock 10 Ml Syringe) 10 - 40 ml IV UD PRN PRN Reason: SALINE FLUSH Last Admin: 04/14/20 08:43 Dose: 10 ml Documented by: Throat Lozenges (Benzocaine/Menthol 1 Lozenge) 1 lozenge MUCOUS MEM Q2H PRN PRN PRN Reason: SORE THROAT Last Admin: 04/12/20 16:51 Dose: 1 lozenge Documented by: Discharge Diet: No Restrictions Discharge Activity: Return to Normal Activity Call your doctor if you observe: Fever of 101 or Higher, Shortness of breath Home Medications: Medications to take at Discharge albuterol sulfate 90 mcg/actuation aerosol inhaler 1 puff INHALATION Q6H 06/16/17 losartan 100 mg tablet 100 mg PO DAILY 03/08/20 montelukast 10 mg tablet 10 mg PO DAILY 03/08/20 triamcinolone acetonide 55 mcg nasal spray aerosol 1 spray INTRANASAL BID ml 03/08/20 Albuterol Aerosols [Ventolin Aerosols] 2.5 mg INHALATION BID 04/09/20 Budesonide Aerosol [Pulmicort Respules] 0.5 mg INHALATION BID 04/09/20 Codeine Phosphate/Guaifenesin [Guaifenesin-Codeine Syrup] 10 ml PO Q6H PRN 7 Days #250 ml 04/14/20 Dexamethasone 6 mg PO DAILY #4 tab 04/14/20 Guaifenesin [Mucinex] 600 mg PO BID #14 tab 04/14/20 Following Prescriptions Were Given to Patient: Dexamethasone 6 mg PO DAILY #4 tab Transmission Status: Pending to [facility] Codeine Phosphate/Guaifenesin [Guaifenesin-Codeine Syrup] 10 ml PO Q6H PRN 7 Days #250 ml PRN Reason: coughing fit Transmission Status: Sent to [facility] Guaifenesin [Mucinex] 600 mg PO BID #14 tab Transmission Status: Pending to [facility] Primary Care Physician: Marquis Oneal MD [Primary Care Provider] - Within 2 Weeks Please Follow Up With: Shawn Ott MD When: 4-6 weeks Patient Instructions: Coronavirus Disease 2019 (COVID-19), Treating Pneumonia Disposition: Home Minutes spent on discharge:: 32 Patient Condition:: Fair Medical Necessity - Tobacco Use Smoking Status: Never smoker Tobacco Use: Non-smoker Meaningful Use Info Meaningful Use Diagnoses (Choose all that apply): None applicable Inpatient E&M: 69688 Disch Hosp
--- NOTE | 2020-04-16 16:50 | CASEMGMT ---
QUEENIE JULIEN Discharge Follow-up Phone Call: BRIGHTSridevi: Raissa Strata: 3 Call Date: 04/16/20 Discharge Date: 04/14/20 Time of Call: 1650 Duration: 5 min Admitting Diagnosis: Covid QUEENIE JULIEN completed follow-up phone call after recent hospitalization. Patient states she is doing better everyday, continues to wear her oxygen and is isolating at home. Patient was able to fill prescriptions without any issues. Patient had no questions or concerns regarding discharge instructions. Patient states she has follow-up appts scheduled.
== END 2020-04-14 15:20 | disposition home or self-care (01) | DRG 177 ==
LOC: ED 23:22 → MS2 23:25
PROVIDERS: Family Medicine; Internal Medicine Critical Care Medicine; Admitting Provider Family Medicine; Emergency Provider Emergency Medicine; PCP Family Medicine
DX: U07.1 COVID-19 (principal); J12.89 Other viral pneumonia; I10 Essential (primary) hypertension; J45.40 Moderate persistent asthma, uncomplicated; E66.9 Obesity, unspecified; Z68.35 Body mass index [BMI] 35.0-35.9, adult; M41.35 Thoracogenic scoliosis, thoracolumbar region; R09.02 Hypoxemia
CPT/HCPCS: 36415; 71045; 71046; 80048; 80053; 82728; 83605; 83615; 83735; 83880; 84145; 85025; 85027; 85379; 86140; 86850; 86900; 86901; 87040; 87070; 87205; 87449; 87633; 87635; 93005; 93306; 94640; 94667; 94668; 94762; 97162; 97166; 97530; 99285; J7040; J7050; A4216; J1940; U0002; U0003

== ENCOUNTER → 2020-05-11 09:38 | Outpatient (CLI) | payer MEDICARE, OTHER, SELFPAY ==
[2020-05-11 10:40] LABS: CRP, High Sensitivity Cardiac 9.98 mg/L; Rheumatoid Factor < 10.0 IU/mL (<15)
[2020-05-12 16:21] LABS: ANTINUCLEAR ANTIBODIES DIRECT Negative (Negative)
[2020-05-13 03:07] LABS: Cytoplasmic Ab (C-ANCA) <1:20 titer (Neg:<1:20)
[2020-05-13 08:19] LABS: CCP IgG Antibodies 5 units (0-19); Perinuclear Ab (P-ANCA) <1:20 titer (Neg:<1:20)
== END ==
PROVIDERS: PCP Family Medicine; Referring Provider Nurse Practitioner Acute Care; Visit Provider Nurse Practitioner Acute Care
DX: R06.02 Shortness of breath (principal); I10 Essential (primary) hypertension
CPT/HCPCS: 36415; 86038; 86141; 86200; 86225; 86235; 86256; 86431

== ENCOUNTER → 2020-06-07 10:36 | Outpatient (CLI) | payer MEDICARE, OTHER, SELFPAY ==
--- NOTE | 2020-06-07 15:15 | PFTCOMP ---
COMPLETE PULMONARY FUNCTION TEST INTERPRETATION Brief HPI: Patient is a 74 year old female, currently under the care of myself, who presents to [facility] for complete pulmonary function tests secondary to diagnosis of asthma. Respiratory therapist reports good effort and reproducible results. Interpretation: Forced expiration spirometry shows a mild large airways obstructive ventilatory defect with an FEV1 of 78% predicted. There is no significant bronchodilator response by strict ATS criteria. Spirograms are of good quality and plateau normally. The respiratory flow volume loop shows a normal pattern. Lung volumes by body plethysmography show a normal total lung capacity at 4.11 L, 93% predicted. FRC and RV are elevated out of proportion. Lung volume measurements are consistent with air-trapping. Diffusion capacity by carbon monoxide is decreased at 61% predicted. The airway resistance is normal. No previous pulmonary function tests were available for review. Impression: Irreversible mild large airways obstructive ventilatory defect with a symmetric reduction diffusing capacity, resulting in air trapping.
== END ==
PROVIDERS: PCP Family Medicine; Referring Provider Nurse Practitioner Acute Care; Visit Provider Nurse Practitioner Acute Care
DX: J45.909 Unspecified asthma, uncomplicated (principal)
CPT/HCPCS: 94060; 94726; 94729

== ENCOUNTER → 2020-06-14 13:47 | Outpatient (CLI) | payer MEDICARE, OTHER, SELFPAY ==
[2020-04-09 23:43] VITALS: BMI 35.2
--- NOTE | 2020-06-14 13:49 | CT_ITS ---
STUDY: CT CHEST WITHOUT CONTRAST REASON FOR EXAM: Female, 74 years old. SOB, COUGH,X YRS. RADIATION DOSAGE (If Supplied By Facility): CTDIvol = ( 13.35 ) mGy, DLP = ( 468.29 ) mGycm TECHNIQUE: Transaxial imaging was performed without the administration of intravenous contrast material. Multiplanar coronal and sagittal images were reformatted. Individualized dose optimization techniques were used for this CT. COMPARISON: None. FINDINGS: There are multiple focal areas of groundglass appearance scattered throughout both the upper and lower lobes. If the patient has a history of Covid exposure, this may represent changes related to Covid 19.Clinical correlation is recommended. There is no demonstrated pleural abnormality. There are calcifications of the coronary arteries. There are multiple small lymph nodes within the mediastinum, which are normal in size and morphology most compatible with reactive lymph hyperplasia. Normal hilar regions. Normal unenhanced pulmonary arteries. Normal aorta arch and descending thoracic aorta. Moderate degree of dextroscoliosis. The patient is status post KAHN zulma fixation of the thoracic spine. Fatty infiltration of the liver. There is a 2.4 cm x 2.3 cm hypodense nodule in the right lobe of the liver suggestive of a cyst. The patient is status post cholecystectomy. CT/Chest without Contrast IMPRESSION: Multiple focal areas of groundglass appearance scattered throughout both the upper and lower lobes as described. This may represent changes secondary to Covid 19. Electronically Signed: Sabino Garcia MD at 14:41 EST , Service support ,
== END ==
PROVIDERS: PCP Family Medicine; Referring Provider Nurse Practitioner Acute Care; Visit Provider Nurse Practitioner Acute Care
DX: R06.02 Shortness of breath (principal); R05 Cough
CPT/HCPCS: 71250

== ENCOUNTER → 2020-07-27 11:43 | Outpatient (CLI) | payer MEDICARE, OTHER, SELFPAY ==
[2020-06-21 11:16] VITALS: BMI 34.7
[2020-07-27 11:56] LABS: Hemoglobin 13.4 g/dL (12.0-15.0); Mean Corp Hgb Conc 31.9 g/dL (32-36); Mean Corpuscular Hgb 28.3 pg (27.0-32.0); Mean Corpuscular Volume 88.6 fL (81-99); Mean Platelet Vol. 10.2 fl (6.2-12.0); Platelet Count 298 K/mm3 (150-450); RBC Distribution Width CV 13.6 % (11.6-14.6); RBC Distribution Width SD 43.9 fl (35.1-43.9); Red Blood Count 4.74 M/mm3 (4.2-5.4)
[2020-07-27 12:07] LABS: Anion Gap 5 (5-15); BUN 16 mg/dL (7-18); BUN/Creat Ratio 19.3 RATIO (10-20); Calcium,Total 9.1 mg/dL (8.5-10.1); Chloride 106 mmol/L (98-107); Creatinine, Serum 0.83 mg/dL (0.55-1.02); EST Glomerular Filtration Rate 72 mL/min (>60); Est Glom Filt Rate - Afr Amer 87 mL/min (>60); Glucose 127 mg/dL (74-106); Sodium Level 142 mmol/L (136-145)
[2020-07-27 12:09] LABS: BNP,B-Type NATRIURETIC PEPTIDE 42.5 pg/mL (0-100)
[2020-07-27 13:21] LABS: Absolute Lymphocyte Count 2.33 X10^3/uL (0.83-4.51); Absolute Neutrophil Count 3.6 X10^3/uL (2.0-7.7); Basophil# 0.09 X10^3/uL; Basophil% 1.3 % (0-1); Eosinophil# 0.18 X10^3/uL; Eosinophils% 2.5 % (0-5); Lymphocyte # 2.33 X10^3/ul (4.0); Monocyte# 0.81 X10^3/uL; Monocyte% 11.5 % (0-10); NRBC Flagged by Analyzer 0 % (0-5); Neutrophil # 3.63 X10^3/uL (2.7-7.7); Neutrophil % 51.4 % (47-70)
== END ==
PROVIDERS: PCP Family Medicine; Referring Provider Nurse Practitioner Acute Care; Visit Provider Nurse Practitioner Acute Care
DX: R05 Cough (principal); R06.02 Shortness of breath
CPT/HCPCS: 36415; 80048; 83880; 85025; 85027

== ENCOUNTER → 2020-08-16 12:19 | Outpatient (CLI) | payer MEDICARE, OTHER, SELFPAY ==
[2020-06-21 11:16] VITALS: BMI 34.7
--- NOTE | 2020-08-16 12:22 | BI_ITS ---
MAMMOGRAPHY - BILATERAL SCREENING REASON FOR EXAM: Female, 74 years old. Routine annual screening examination. PERTINENT HISTORY: Sister with breast cancer. TECHNIQUE: Digital bilateral breast mattie (3D mammographic acquisition) in the CC and MLO projections. 2-D mediolateral oblique (MLO) and craniocaudad (CC) views of both breasts were obtained. CAD: Full Field Digital Mammography with Computer Added Detection was performed. COMPARISON: Comparison is made with prior study dated 03/25/2019 and 11/13/2017. FINDINGS: Breast Composition: The breasts are almost entirely fatty. There are no dominant masses or suspicious calcifications. No other significant abnormalities are identified. There has been no significant change since the prior study. BI/SCRN MAMM (CAD)W/MATTIE BILAT IMPRESSION: Stable bilateral screening mammogram. Yearly follow-up mammogram recommended. (A) ASSESSMENT CATEGORY: BIRADS Category 1: Negative. A letter regarding these results will be sent to the patient by the facility within 30 days. Approximately 10% of breast cancers are not detected by mammography. A normal mammogram should not delay biopsy of a clinically suspicious abnormality. [id number] Electronically Signed: Sabino Garcia MD at 13:38 EDT , Service support ,
== END ==
PROVIDERS: PCP Family Medicine; Referring Provider Family Medicine; Visit Provider Family Medicine
DX: Z12.31 Encounter for screening mammogram for malignant neoplasm of breast (principal)
CPT/HCPCS: 77063; 77067

== ENCOUNTER → 2020-10-19 07:19 | Outpatient (CLI) | payer MEDICARE, OTHER, SELFPAY ==
[2020-06-21 11:16] VITALS: BMI 34.7
--- NOTE | 2020-10-19 07:22 | CT_ITS ---
STUDY: CT CHEST WITHOUT CONTRAST REASON FOR EXAM: Female, 75 years old. Follow up [facility] RADIATION DOSAGE (If Supplied By Facility): CTDIvol = ( 15.36 ) mGy, DLP = ( 479.66 ) mGycm TECHNIQUE: Transaxial imaging was performed without the administration of intravenous contrast material. Multiplanar coronal and sagittal images were reformatted. Individualized dose optimization techniques were used for this CT. COMPARISON: Comparison is made with prior examination dated 06/14/2020. FINDINGS: The previously seen areas of groundglass appearance have resolved. There is no demonstrated pleural abnormality. There are calcifications of the coronary arteries. There are multiple small lymph nodes within the mediastinum, which are normal in size and morphology most compatible with reactive lymph hyperplasia. Normal hilar regions. Normal unenhanced pulmonary arteries. Normal aorta arch and descending thoracic aorta. There are multi-level degenerative changes of the thoracic spine. Dextroconvex scoliosis. Multilevel KAHN zulma and screw fixation device. There is no demonstrated abnormality of the visualized upper abdomen. CT/Chest without Contrast IMPRESSION: The previously seen multiple areas of groundglass appearance involving both lungs has resolved. No new abnormality is seen. Electronically Signed: Sabino Garcia MD at 13:57 EDT , Service support ,
== END ==
PROVIDERS: PCP Family Medicine; Referring Provider Internal Medicine Critical Care Medicine; Visit Provider Internal Medicine Critical Care Medicine
DX: R91.8 Other nonspecific abnormal finding of lung field (principal)
CPT/HCPCS: 71250

== ENCOUNTER → 2021-02-15 06:32 | Outpatient (CLI) | payer MEDICARE, OTHER, SELFPAY ==
--- NOTE | 2021-02-15 19:46 | STRESSREP ---
Stress Test Report Date: 02-15-2021 Procedure: Exercise tolerance test/imaging study Indications: Cough: COVID-19: Hypertension: Family history of sudden cardiac Consent: Per the patient Procedure: The patient exercised on a Shawn protocol for 4 minutes and 30 completing Stage I and 1 minute and 30 seconds of Stage II achieving a peak heart rate of 120 bpm (85% predicted maximal heart rate) with a peak blood pressure 194/74 mmHg and a peak MET capacity of 7 METs. The baseline ECG demonstrated sinus rhythm. The peak exercise ECG demonstrated somatic/motion artifact with no obvious ECG changes. There was an isolated PVC during exercise. The functional capacity was considered decreased. There was no complaint of chest discomfort during exercise or recovery. The examination was discontinued secondary to dyspnea. Impression: 1. Technically adequate (percent predicted maximal heart rate greater than 85%) exercise tolerance test 2. Peak exercise ECG with somatic/motion artifact with no obvious ECG changes 3. There was an isolated PVC during exercise 4. Nuclear images pending Myocardial perfusion imaging study: Technique: The patient was injected with 11.6 mCi of technetium 99m Cardiolite and subsequently rest SPECT Cardiolite nuclear imaging was obtained in the horizontal long, vertical long, and short axis views. The patient exercised on a Shawn protocol for 4 minutes and 30 completing Stage I and 1 minute and 30 seconds of Stage II achieving a peak heart rate of 120 bpm (85% predicted maximal heart rate) with a peak blood pressure 194/74 mmHg and a peak MET capacity of 7 METs. The patient was injected with 33.0 mCi of technetium 99m Cardiolite and subsequently stress SPECT Cardiolite nuclear imaging was obtained in the horizontal long, vertical long, and short axis views. A gated Cardiolite study at peak stress was obtained. Interpretation: Rest and stress SPECT Cardiolite nuclear imaging status post realignment, normalization, and attenuation correction, demonstrates the appearance of relative uniform tracer uptake and myocardial perfusion appearing within normal limits. There is end systolic thickening and brightening. The gated Cardiolite study demonstrates myocardial thickening and inward wall motion. The reported LVEF is 86%. Impression: 1. Rest and stress SPECT Cardiolite nuclear imaging demonstrate relative uniform tracer uptake and myocardial perfusion appearing within normal limits. 2. The gated Cardiolite study reports an LVEF of 860%. This note was generated with [employer] software. It may contain incorrect words, spelling, and punctuation that were not noted in checking the note before signing.
== END ==
PROVIDERS: PCP Family Medicine; Referring Provider Internal Medicine Cardiovascular Disease; Visit Provider Internal Medicine Cardiovascular Disease
DX: I10 Essential (primary) hypertension (principal); R05 Cough; M41.35 Thoracogenic scoliosis, thoracolumbar region; Z82.41 Family history of sudden cardiac death; R06.09 Other forms of dyspnea
CPT/HCPCS: 78452; 93017; A9500; A4216

== ENCOUNTER → 2021-05-11 18:05 | Outpatient (CLI) | payer MEDICARE, OTHER, SELFPAY | PROVIDERS: PCP Family Medicine; Referring Provider Registered Nurse; Visit Provider Registered Nurse | DX: J98.8 Other specified respiratory disorders (principal) | CPT/HCPCS: 87633; 87635; U0005; U0003 ==

== ENCOUNTER 2021-05-15 10:03 | Emergency (ER) | payer MEDICARE, OTHER, SELFPAY ==
[2021-05-15 10:04] VITALS: BP 165/74; PULSE 87; RESP 14; TEMP 36.1; O2SAT 97; BMI 33.8
[2021-05-15 10:19] VITALS: BP 152/80; PULSE 80; RESP 19; RESP 24; TEMP 36.6; O2SAT 100; O2SAT 99
--- NOTE | 2021-05-15 10:21 | RAD_ITS ---
STUDY: X-RAY CHEST REASON FOR EXAM: Female, 75 years old. cough TECHNIQUE: Single AP portable view of the chest. COMPARISON: 04/09/2020 FINDINGS: The lungs are clear and expanded. There is no demonstrated pleural abnormality. Normal size heart. Normal mediastinum and orestes. Normal visualized pulmonary arteries. Normal visualized aortic arch and descending thoracic aorta. Severe dextroscoliosis of the thoracic spine with spinal rods. Normal visualized ribs, clavicles, and shoulders. There is no demonstrated abnormality of the visualized soft tissue structures of the upper abdomen. RAD/Chest 1 View (Portable) IMPRESSION: No active disease. Electronically Signed: Julian Novoa MD at 11:00 EST Tel , Service support ,
--- NOTE | 2021-05-15 10:23 | EX.ED.VIS.UR ---
HPI HPI - URI History of Present Illness Chief Complaint: Cough Informant: patient Onset/Context/Timing Onset: Today and Yesterday Context: Gradual Onset Timing: Continuous Current Severity: Mild Maximum Severity: Mild Associated Symptoms Associated Symptoms: Positive for Productive Cough; Negative for Nausea, Vomiting, Diarrhea, Shortness of Breath and Chest Pain Narrative Narrative: 75-year-old female who had Covid in 2019. Also has pneumonia that year. States for the last 2 years she has had a chronic cough that cannot determine why she has it. She was taken off an RADHA inhibitor and did not change her cough. Says I am last several days cough has become productive of clear sputum. No fever or chills. States she really did not feel bad. She had negative Covid test several days ago. Today she was seen at the urgent care who wanted her to have a chest x-ray and sent her into the emergency department. She denies any hemoptysis. She has a pulse ox at home and says her sats have been good and have not dropped below 90. Prior similar symptoms: Yes Recent Illness/Hospitalization: No ROS ROS ED ROS Narrative Cough. Review of Systems ROS Unobtainable: Denies due to encephalopathy Constitutional Constitutional ED: Denies chills or fever(s) Eyes Eyes: Denies change in vision ENT ENT ED: Denies ear pain or sore throat Cardiovascular Cardiovascular: Denies chest pain Respiratory/Chest Respiratory/Chest: Reports cough and sputum; Denies dyspnea Gastrointestinal Gastrointestinal: Denies abdominal pain, diarrhea, nausea or vomiting Genitourinary Genitourinary ED: Denies dysuria Musculoskeletal Musculoskeletal: Denies myalgias Integumentary Denies rash Neurologic Neurologic: Denies headache(s) Psychiatric Psychiatric: Denies depression Endocrine Endocrinology: Denies polyuria Hematologic/Lymphatic Hematologic/Lymphatic: Denies easy bruising Allergic/Immunologic Allergic/Immunologic ED: Denies urticaria PFSH PFSH Medical History Alcohol use Asthma Cardiology follow-up encounter Chronic cough COVID-19 virus infection (03/2020) Essential hypertension Family history of sudden cardiac GERD (gastroesophageal reflux disease) History of carcinoma History of echocardiogram History of stress test Hypertension Hypoxia Obesity Pneumonia Post-menopausal Scoliosis Seasonal allergies Wears glasses Home Medications triamcinolone acetonide 55 mcg nasal spray aerosol 1 spray INTRANASAL BID PRN ml 03/08/20 [History Last Taken Unknown] aspirin 81 mg tablet,delayed release 81 mg PO DAILY 05/11/20 [History Last Taken Unknown] brinzolamide 1 %-brimonidine 0.2 % eye drops,suspension 1 drp OPHTHALMIC BID ml 06/21/20 [History Last Taken Unknown] timolol maleate 0.5 % eye drops 1 drp OPHTHALMIC (EYE) BID ml 01/27/21 [History Last Taken Unknown] amlodipine 10 mg tablet 10 mg PO DAILY #90 tab 02/18/21 [Rx Last Taken Unknown] ascorbic acid (vitamin C) [Vitamin C] 500 mg PO DAILY 05/12/21 [History Last Taken Unknown] calcium carb-D3-mag ox-zinc ox [Robbie Mag Zinc Plus D3] 1 tab PO DAILY 05/12/21 [History Last Taken Unknown] cholecalciferol (vitamin D3) [Vitamin D3] 25 mcg PO DAILY 05/12/21 [History Last Taken Unknown] Allergy/AdvReac Type Severity Reaction Status Date / Time adhesive tape Allergy itching, Verified 05/15/21 10:04 redness Family History Sister Breast cancer Hypertension Brother Allergies Thyroid disorder Hypertension Father Sudden cardiac , Onset Age: 51 Surgical History History of appendectomy History of back surgery History of bunionectomy of both great toes History of cholecystectomy Social History Smoking Status: Never smoker alcohol intake: never EXAM Physical Exam Narrative Exam Narrative: 75-year-old female no acute distress vital signs stable afebrile. Pulse ox 97% on room air no signs hypoxia. HEENT exam unremarkable. Moist mucous membranes. Neck nontender no JVD. No lymphadenopathy. Lungs clear to auscultation. Heart regular rhythm. Abdomen soft nontender. Moving all 4 extremities nontender no edema. Const Vital Signs: 05/15/21 10:04 05/15/21 10:19 Temperature 97 F L 97.8 F Temperature Source Temporal Temporal Pulse Rate 87 80 Respiratory Rate 14 19 H Respiratory Effort Short of Breath Respiratory Pattern Normal Blood Pressure 165/74 H 152/80 H Blood Pressure Mean 104 104 Pulse Ox 97 99 Oxygen Delivery Method Room Air Room Air Positive well nourished and well developed; Negative for cachectic or contractures General Appearance ED: well developed and NAD; Negative for cachectic, contractures, cyanotic, diaphoretic or pallor Nutritional Appearance: Negative for cachectic HEENT Reports moist mucous membranes normocephalic and atraumatic External Ear: external ears normal Eyes PERRL and EOMs intact bilaterally Neck no lymphadenopathy, supple, no meningeal signs and no JVD General: Negative for anterior neck swelling Resp normal respiratory effort and clear to auscultation bilaterally Auscultation: Negative for rales, rhonchi or wheezes Cardio S1 normal heart sound, S2 normal heart sound and no murmurs Rate: regular rate Rhythm: regular rhythm GI non-tender, non-distended and no masses Auscultation: normoactive bowel sounds Palpation: soft; Negative for tender or guarding Back/Spine no CVA tenderness and normal ROM General Back: Negative for CVA tenderness Cervical Spine: Negative for cervical spine tenderness Extremity normal to inspection and full ROM General Extremety ED: Negative for cyanosis or tenderness General Extremity: Negative for cyanosis Neuro oriented x3 Sensorium / Orientation: alert, oriented to person, oriented to place and oriented to time; Negative for orientation impaired, lethargic or stuporous Motor Exam: strength 5/5 throughout; Negative for general weakness or strength abnormal Psych mental status grossly normal Mood & Affect: Negative for depressed or tearful Skin General Skin Exam: Negative for jaundice or pallor Lesions: no lesions Rashes: no rashes and No rashes noted MDM MDM MDM Narrative Medical decision making narrative: Sensory of how the cough rule out pneumonia chest x-ray being obtained. She already had a recent negative Covid test. Radiography Diagnostic Testing: Clinical Impression(s) from Imaging Studies Chest X-Ray 05/15/21 10:21 IMPRESSION: No active disease. Electronically Signed: Julian Novoa MD at 11:00 EST Tel , Service support , Chest x-ray, portable, single view interpreted myself shows no acute abnormality. Normal cardiac silhouette mediastinum. No infiltrates. Prior thoracic spine rods in place. Discharge Plan Triage Chief Complaint: Cough ED Provider: Micha Pacheco Dx/Rx/DC Orders Clinical Impression: Viral URI, Chronic coughing Instructions: ED URI, Viral, No Abx (Adult) Prescriptions: No Action triamcinolone acetonide [Nasacort] 55 mcg aerosol,spray 1 spray INTRANASAL BID PRN (Reason: ALLERGIES) RF: 0 aspirin [Adult Low Dose Aspirin] 81 mg tablet,delayed release (DR/EC) 81 mg PO DAILY RF: 0 Simbrinza 1-0.2 % drops,suspension 1 drp OPHTHALMIC BID RF: 0 timolol maleate 0.5 % drops 1 drp ophthalmic (eye) BID RF: 0 ascorbic acid (vitamin C) [Vitamin C] 500 mg Tablet 500 mg PO DAILY RF: 0 cholecalciferol (vitamin D3) [Vitamin D3] 25 mcg (1,000 unit) Capsule 25 mcg PO DAILY RF: 0 Robbie Mag Zinc Plus D3 333 mg-133 unit -133 mg-5 mg Tablet 1 tab PO DAILY RF: 0 amlodipine 10 mg tablet 10 mg PO DAILY Qty: 90 RF: 3 Primary Care Provider: Marquis Oneal Referrals: Marquis Oneal MD [Primary Care Provider] - 1 Week if not improving Activity Restrictions/Additional Instructions: Plenty of fluids and rest. Follow-up with your doctor if not improving. Return if feeling a lot worse. Disposition Disposition: Home, Self Care
[2021-05-15 11:21] VITALS: BP 137/56; PULSE 86; RESP 16; O2SAT 100
== END 2021-05-15 11:25 | disposition home or self-care (01) ==
LOC: ED 10:42
PROVIDERS: Emergency Provider Emergency Medicine; PCP Family Medicine
DX: J06.9 Acute upper respiratory infection, unspecified (principal); R05.9 Cough, unspecified; I10 Essential (primary) hypertension; Z79.82 Long term (current) use of aspirin; Z79.899 Other long term (current) drug therapy; Z86.16 Personal history of COVID-19
CPT/HCPCS: 71045; 99282

== ENCOUNTER 2021-05-27 06:21 | Day surgery (SDC) | payer MEDICARE, SELFPAY ==
[2021-05-27 06:48] VITALS: BP 135/50; PULSE 69; RESP 18; TEMP 36; O2SAT 99; BMI 32.8
[2021-05-27] MEDS: Lactated Ringers 1,000 ML 15 ML IV (07:00)
--- NOTE | 2021-05-27 07:22 | HP.PCM_ITS ---
HPI - General HPI Narrative MARITZA JOSEPH, is a 75 F who presents for screening colonoscopy. Patient had her last colonoscopy about 10 years ago and believes there were polyps. The patient reports no blood in her stool or abdominal pain. She denies family history of colon cancer. [facility], [facility] Medical History Alcohol use Asthma Cardiology follow-up encounter Chronic cough COVID-19 virus infection (03/2020) Essential hypertension Family history of sudden cardiac GERD (gastroesophageal reflux disease) History of carcinoma History of echocardiogram History of stress test Hypertension Hypoxia Obesity Pneumonia Post-menopausal Scoliosis Seasonal allergies Wears glasses Home Medications triamcinolone acetonide 55 mcg nasal spray aerosol 1 spray INTRANASAL BID PRN ml 03/08/20 [History Last Taken Unknown] aspirin 81 mg tablet,delayed release 81 mg PO DAILY 05/11/20 [History Last Taken 05/21/21] brinzolamide 1 %-brimonidine 0.2 % eye drops,suspension 1 drp OPHTHALMIC BID ml 06/21/20 [History Last Taken Unknown] timolol maleate 0.5 % eye drops 1 drp OPHTHALMIC (EYE) BID ml 01/27/21 [History Last Taken Unknown] ascorbic acid (vitamin C) [Vitamin C] 500 mg PO DAILY 05/12/21 [History Last Taken Unknown] calcium carb-D3-mag ox-zinc ox [Robbie Mag Zinc Plus D3] 1 tab PO DAILY 05/12/21 [History Last Taken Unknown] cholecalciferol (vitamin D3) [Vitamin D3] 25 mcg PO DAILY 05/12/21 [History Last Taken Unknown] amlodipine 10 mg PO QHS 05/27/21 [History Last Taken Unknown] Allergy/AdvReac Type Severity Reaction Status Date / Time adhesive tape Allergy itching, Verified 05/27/21 06:45 redness Family History Sister Breast cancer Hypertension Brother Allergies Thyroid disorder Hypertension Father Sudden cardiac , Onset Age: 51 Surgical History History of appendectomy History of back surgery History of bunionectomy of both great toes History of cholecystectomy Social History Smoking Status: Never smoker alcohol intake: never Past Medical/Surgical History Planned Operation Planned Operative Procedure/s: COLONOSCOPY Previous Hospitalizations/Surgeries HX Hospitalizations: Yes (03/2020 COVID) HX of Surgeries: appendectomy, cholecystectomy, zulma placement for scoliosis Any Problems With Anesthesia: No You/Your Family Experience Fever (Hyperthermia) With Anes: No Cholinesterase deficiency: No Cardiovascular Hx Chest Pain within Last 2 months: No Hx of Irregular Heartbeat and/or Afib: No Hx Heart Attack: No Hx Hypertension: Yes (CONTROLLED ON MED) Hx Cardiac Surgery/Stents/Etc.: No Hx Pain in Legs when Walking/Leg Cramps: No Respiratory Hx Chronic Obstructive Pulmonary Disease (COPD): No Hx Asthma: Yes Hx Emphysema: No Hx Sleep Apnea: No Hx Respiratory Tract Infection/Cold (presently): Yes (COLD, COUGH, NO FEVER) Do You Snore Loudly (louder than talking or can be heard): Yes Do You Often Feel Tired/ Fatigued/ Sleepy Dring Daytime?: No Has Anyone Observed You Stop Breathing During Sleep?: No Result (for STOP score): Positive Hx Smoking: No Smoking Status: Never smoker Gastrointestinal Hx Gastrointestinal Bleed: No Hx Ulcer: No Hx Unplanned Weight Loss of 20#: No Neurological Hx Seizures: No Hx Multiple Sclerosis: No Hx Parkinson's Disease: No Hx Back Injury/Pain: Yes (back surgury) Does patient have nerve stimulator: No Blood Disorder Hx Hepatitis: No Hx Cirrhosis: No Hx Anemia: No Hx Blood Disorders: No Genitourinary Hx Renal Disease: No Hx Dialysis: No Musculoskeletal Hx Arthritis: No Hx Rheumatoid Arthritis: No Endocrine Hx Diabetes: No Thyroid Disease: No Psycho/Social Hx Substance Use: No Hx Alcohol Use: No Hx Anxiety: No Hx Depression: No Hx Dementia: No Miscellaneous Hx Cancer: Yes (Squamous cell carcinoma Facial) Recent Exposure to Contagious Disease: No Allergies adhesive tape Allergy (Verified 05/27/21 06:45) itching, redness Maternal: Family History Sister Breast cancer Hypertension Brother Allergies Thyroid disorder Hypertension Father Sudden cardiac , Onset Age: 51 Pulmonary Disease (Patient with a maternal family history of chronic COPD with mother with significant tobacco use concurrent history.) Paternal: Family History Sister Breast cancer Hypertension Brother Allergies Thyroid disorder Hypertension Father Sudden cardiac , Onset Age: 51 Heart Disease and - (Patient notes paternal family history of sudden at age 53, suspicious for cardiac disease etiology.) Discharge Is Pt Admitted From a Fpc, or a Senior Living: No After D/C, Where Do you Plan to Go: Return Home From the PAT History Number of Risk Factors: 1 Vital Signs Vital Signs Vital Signs: 05/27/21 06:47 05/27/21 06:48 Temperature 96.8 F L Temperature Source Temporal Pulse Rate 69 Respiratory Rate 18 Respiratory Pattern Normal Blood Pressure 135/50 H Blood Pressure Mean 78 Blood Pressure Source Monitor Blood Pressure Position Semi-Fowlers Blood Pressure Location Right Arm Pulse Ox 99 Oxygen Delivery Method Room Air Weight Weight: 179 lb 6.4 oz Body Mass Index (BMI) 32.8 Physical Exam Const alert and oriented x3 Resp normal respiratory effort and normal air movement Cardio regular rate and regular rhythm GI soft to palpation, non-tender and non-distended Assessment & Plan Assessment/Plan (1) Screen for colon cancer: PLAN: I explained endoscopy in detail to the patient. I explained the risks including but not limited to stroke or heart attack with anesthesia, perforation of the GI tract, bleeding, infection. I explained that any of these could necessitate further emergency surgery. The patient understands and all questions were answered sufficiently. The patient wishes to proceed with procedure. Segun Cordova MD Pager: [facility] [address] [place] [address], [address] [place] [address] Office: Surgery Risks - Colonoscopy Risks Include but are not Limited To: Risks include but are not limited to: Bleeding, perforation requiring further surgery, inability to complete colonoscopy requiring barium enema.
[2021-05-27 07:50] VITALS: BP 103/47; BP 135/50; PULSE 69; RESP 14; TEMP 36.3; O2SAT 96
--- NOTE | 2021-05-27 07:53 | OP.COLON_ITS ---
Patient Name: Selma Linda Procedure Date: 05/27/2021 7:26 AM Date of : 1945 Age: 75 Procedure: Colonoscopy Indications: Screening for colorectal malignant neoplasm Providers: Segun Cordova MD Referring MD: Marquis Oneal Medicines: Monitored Anesthesia Care Patient Profile: This is a 75 year old female. Refer to note in patient chart for documentation of history and physical. Last Colonoscopy: 10 years ago. Complications: No immediate complications. Procedure: Pre-Anesthesia Assessment: - Prior to the procedure, a History and Physical was performed, and patient medications and allergies were reviewed. The patient's tolerance of previous anesthesia was also reviewed. The risks and benefits of the procedure and the sedation options and risks were discussed with the patient. All questions were answered, and informed consent was obtained. Prior Anticoagulants: The patient has taken no previous anticoagulant or antiplatelet agents. After reviewing the risks and benefits, the patient was deemed in satisfactory condition to undergo the procedure. After I obtained informed consent, the scope was passed under direct vision. Throughout the procedure, the patient's blood pressure, pulse, and oxygen saturations were monitored continuously. The Colonoscope was introduced through the anus and advanced to the cecum, identified by appendiceal orifice and ileocecal valve. The colonoscopy was performed without difficulty. The patient tolerated the procedure well. The quality of the bowel preparation was good. Scope In: 7:35:17 AM Scope Withdrawal Time 0 hours 6 minutes 45 seconds Scope Out: 7:47:28 AM Total Procedure Duration Time 0 hours 12 minutes 11 seconds Findings: The entire examined colon appeared normal on direct and retroflexion views. Impression: - The entire examined colon is normal on direct and retroflexion views. - No specimens collected. Recommendation: - Discharge patient to home. - Resume previous diet. - Continue present medications. - Repeat colonoscopy in 10 years for screening purposes. Procedure Code(s): --- Professional --- 45031, Colonoscopy, flexible; diagnostic, including collection of specimen(s) by brushing or washing, when performed (separate procedure) Diagnosis Code(s): --- Professional --- Z12.11, Encounter for screening for malignant neoplasm of colon CPT copyright 2017 [employer]. All rights reserved. The codes documented in this report are preliminary and upon mineral ore processing labourer review may be revised to meet current compliance requirements. Segun Cordova MD 05/27/2021 7:53:36 AM This report has been signed electronically. Number of Addenda: 0 Note Initiated On: 05/27/2021 7:26 AM
[2021-05-27 07:55] VITALS: BP 107/51; BP 135/50; PULSE 67; RESP 16; O2SAT 97
--- NOTE | 2021-05-27 07:55 | OP.CCLET_ITS ---
05/27/2021 Marquis Oneal [address] [place] [address] Re : Colonoscopy procedure for Selma Linda Dear Dr. Oneal This procedure was performed on Thursday, May 27, 2021. My impressions and recommendations are as follows: Impressions : - The entire examined colon is normal on direct and retroflexion views. - No specimens collected. Recommendations : - Discharge patient to home. - Resume previous diet. - Continue present medications. - Repeat colonoscopy in 10 years for screening purposes. My findings are described in the full procedure note, which is enclosed. If I can be of further assistance, please feel free to contact me at Doctor phone number(s): , Work: . Sincerely, Segun Cordova MD 05/27/2021 7:53:36 AM This report has been signed electronically.
[2021-05-27 08:00] VITALS: BP 118/52; BP 135/50; PULSE 74; RESP 16; O2SAT 97
[2021-05-27 08:08] VITALS: BP 116/58; BP 135/50; PULSE 65; RESP 16; TEMP 35.9; O2SAT 99
[2021-05-27 08:18] VITALS: BP 135/50
== END 2021-05-27 23:59 | disposition home or self-care (01) ==
LOC: EN 06:22 → AC 06:22
PROVIDERS: PCP Family Medicine; Referring Provider Family Medicine; Visit Provider Surgery
PROC: 0DJD8ZZ Inspection of Lower Intestinal Tract, Via Natural or Artificial Opening Endoscopic (ICD-10-PCS; CPT 45378; principal; 2021-05-27 07:25)
DX: Z12.11 Encounter for screening for malignant neoplasm of colon (principal); I10 Essential (primary) hypertension; J45.909 Unspecified asthma, uncomplicated; Z86.16 Personal history of COVID-19; K21.9 Gastro-esophageal reflux disease without esophagitis; Z87.01 Personal history of pneumonia (recurrent); M41.9 Scoliosis, unspecified; Z78.0 Asymptomatic menopausal state; E66.9 Obesity, unspecified; Z79.82 Long term (current) use of aspirin; Z79.899 Other long term (current) drug therapy; Z90.49 Acquired absence of other specified parts of digestive tract; Z68.32 Body mass index [BMI] 32.0-32.9, adult
CPT/HCPCS: 87426; C9803; J7120; J2405

== ENCOUNTER → 2022-01-20 | Outpatient (CLI) | payer MEDICARE, SELFPAY | END | disposition home or self-care (01) | LOC: LABSPEC 15:21 | PROVIDERS: PCP Family Medicine; Referring Provider Family Medicine; Visit Provider Family Medicine | DX: R93.89 Abnormal findings on diagnostic imaging of other specified body structures (principal); N39.0 Urinary tract infection, site not specified | CPT/HCPCS: 87077; 87086; 87088; 87186 ==

== ENCOUNTER → 2022-04-24 | Outpatient (CLI) | payer MEDICARE, SELFPAY ==
[2022-04-24 18:03] LABS: Vitamin D,25 Hydroxy 35.9 ng/mL
[2022-04-24 18:05] LABS: Anion Gap 6 (5-15); BUN 26 mg/dL (7-18); BUN/Creat Ratio 41.8 RATIO (10-20); Calcium,Total 8.9 mg/dL (8.5-10.1); Chloride 103 mmol/L (98-107); Creatinine, Serum 0.62 mg/dL (0.55-1.02); EST Glomerular Filtration Rate 100 mL/min (>60); Est Glom Filt Rate - Afr Amer 120 mL/min (>60); Glucose 84 mg/dL (74-106); Potassium 4.3 mmol/L (3.5-5.1); Sodium Level 139 mmol/L (136-145)
[2022-04-28 06:08] LABS: Beef <0.10 kU/L (Class 0); Corn <0.10 kU/L (Class 0); Egg, Whole <0.10 kU/L (Class 0); Milk (Cow) <0.10 kU/L (Class 0); Peanut <0.10 kU/L (Class 0); Pork <0.10 kU/L (Class 0); Soybean <0.10 kU/L (Class 0); Wheat <0.10 kU/L (Class 0)
[2022-04-28 13:35] LABS: Chocolate <0.10 kU/L (Class 0)
== END | disposition home or self-care (01) ==
LOC: MFPLAB 14:45
PROVIDERS: PCP Family Medicine; Visit Provider Family Medicine
DX: M85.80 Other specified disorders of bone density and structure, unspecified site (principal); R05.3 Chronic cough; T78.40XA Allergy, unspecified, initial encounter; I10 Essential (primary) hypertension
CPT/HCPCS: 36415; 80048; 82306; 86003; 86005

== ENCOUNTER → 2022-08-11 | Outpatient (CLI) | payer MEDICARE, SELFPAY ==
--- NOTE | 2022-08-11 13:56 | BI_ITS ---
MAMMOGRAPHY - BILATERAL SCREENING REASON FOR EXAM: Female, 76 years old. Routine annual screening examination. PERTINENT HISTORY: Sister with breast cancer. TECHNIQUE: Digital bilateral breast mattie (3D mammographic acquisition) in the CC and MLO projections. 2-D mediolateral oblique (MLO) and craniocaudad (CC) views of both breasts were obtained. CAD: Full Field Digital Mammography with Computer Added Detection was performed. COMPARISON: Comparison is made with prior study dated August 16, 2020 and March 25, 2019. FINDINGS: Breast Composition: The breasts are almost entirely fatty. There are no dominant masses or suspicious calcifications. No other significant abnormalities are identified. There has been no significant change since the prior study. BI/SCRN MAMM (CAD)W/MATTIE BILAT IMPRESSION: Stable bilateral screening mammogram. Yearly follow-up mammogram recommended. (A) ASSESSMENT CATEGORY: BIRADS Category 1: Negative. A letter regarding these results will be sent to the patient by the facility within 30 days. Approximately 10% of breast cancers are not detected by mammography. A normal mammogram should not delay biopsy of a clinically suspicious abnormality. [id number] Electronically Signed: Sabino Garcia MD at 15:31 EDT ,
== END | disposition home or self-care (01) ==
PROVIDERS: PCP Family Medicine; Referring Provider Family Medicine; Visit Provider Family Medicine
DX: Z12.31 Encounter for screening mammogram for malignant neoplasm of breast (principal)
CPT/HCPCS: 77063; 77067

== ENCOUNTER → 2023-01-23 | Outpatient (CLI) | payer MEDICARE, SELFPAY | END | disposition home or self-care (01) | LOC: LABSPEC 15:07 | PROVIDERS: PCP Family Medicine; Referring Provider Family Medicine; Visit Provider Family Medicine | DX: N39.0 Urinary tract infection, site not specified (principal) | CPT/HCPCS: 87077; 87086; 87088; 87186 ==

== ENCOUNTER → 2023-04-25 | Outpatient (CLI) | payer MEDICARE, SELFPAY ==
--- NOTE | 2023-04-25 14:51 | RAD_ITS ---
INDICATION: POST NASAL DRIP EXAMINATION/TECHNIQUE: X-RAY - XR Sinuses Paranasal Min 3 Views COMPARISON: No relevant prior comparison study available FINDINGS: There is no significant mucosal thickening. There are no air-fluid levels. The regional bones are grossly intact. RAD/Sinuses min 3 Views IMPRESSION: The paranasal sinuses appear clear. Electronically Signed: Nelson Gamboa MD at 16:46 EST ,
== END | disposition home or self-care (01) ==
PROVIDERS: PCP Family Medicine; Referring Provider Family Medicine; Visit Provider Family Medicine
DX: R09.82 Postnasal drip (principal)
CPT/HCPCS: 70220

== ENCOUNTER → 2023-04-30 | Outpatient (CLI) | payer MEDICARE, SELFPAY ==
[2023-04-30 12:35] LABS: Anion Gap 4 (5-15); BUN 22 mg/dL (7-18); BUN/Creat Ratio 31.2 RATIO (10-20); Calcium,Total 9.2 mg/dL (8.5-10.1); Chloride 108 mmol/L (98-107); Cholesterol 197 mg/dL (200); Creatinine, Serum 0.71 mg/dL (0.55-1.02); EST Glomerular Filtration Rate 86 mL/min (>60); Est Glom Filt Rate - Afr Amer 104 mL/min (>60); Glucose 109 mg/dL (74-106); High Density Lipoprotein 80 mg/dL; Sodium Level 142 mmol/L (136-145); Thyroid Stim Hormone (TSH) 1.48 uIU/mL (0.358-3.74); Triglycerides 95 mg/dL; Very Low Density Lipoprotein 19 mg/dL (5-40)
[2023-04-30 13:03] LABS: Hemoglobin A1c 5.6 % (3.8-5.6)
== END | disposition home or self-care (01) ==
LOC: MFPLAB 09:54
PROVIDERS: PCP Family Medicine; Visit Provider Family Medicine
DX: Z00.00 Encounter for general adult medical examination without abnormal findings (principal); M85.80 Other specified disorders of bone density and structure, unspecified site; I10 Essential (primary) hypertension; Z13.1 Encounter for screening for diabetes mellitus; Z79.899 Other long term (current) drug therapy
CPT/HCPCS: 36415; 80048; 80061; 83036; 84443

== ENCOUNTER → 2023-05-03 | Outpatient (CLI) | payer MEDICARE, SELFPAY ==
--- NOTE | 2023-05-03 13:00 | BD_ITS ---
STUDY: DUAL ENERGY X-RAY ABSORPTIOMETRY / DXA REASON FOR EXAM: Female, 77 years old. 627.8Menopausal postmenopausal BONE DENSITY REASON FOR EXAM TECHNIQUE: Bone Mineral Density (BMD) measurements of left forearm and bilateral hips were obtained. COMPARISON: Comparison is made with prior study dated March 25, 2019. FINDINGS: Left Femur Total: g/cm2 (0.821) / T-score (-1.0) / Z-score (0.8) Left Femoral Neck: g/cm2 (0.675) / T-score (-1.6) / Z-score (0.5) Right Femur Total: g/cm2 (0.767) / T-score (-1.4) / Z-score (0.4) Right Femoral Neck: g/cm2 (0.629) / T-score (-2.0) / Z-score (0.1) Left Forearm: g/cm2 (0.548) / T-score (-0.6) / Z-score (1.9) The T-Scores on the most recent prior examination were: Left Femur Total: which represents an improvement of 2.6%. Right Femur Total: which represents a worsening of 8%. BD/Dexa Bone Density Study IMPRESSION: The patient is considered osteopenic as outlined below according to World [employer] Organization (WHO) criteria with a moderate fracture risk. There has been worsening of bone density since the previous examination. Reference Information: The T-score is the number of standard deviations above or below the standard which is normal for young adults at their peak bone mineral density. The World Health Organization (WHO) interprets the T-scores as follows: Above -1 Normal bone density Between -1 and -2.5 Osteopenia Equal to / or below -2.5 Osteoporosis As a practical clinical guideline, osteopenia may be graded as follows: Mild -1 through -1.5 Moderate -1.6 through -2.0 Severe -2.1 through -2.4 The Z-score is the number of standard deviations above or below age-matched controls. A Z-score of less than -1.5 would be considered abnormal. References: 1. NIH Osteoporosis and Related Bone Diseases www osteo.org 2. International Society for Clinical Densitometry www iscd.org 3. National Osteoporosis Foundation www nof.org Electronically Signed: Sabino Garcia MD at 10:41 EST ,
== END | disposition home or self-care (01) ==
PROVIDERS: PCP Family Medicine; Referring Provider Family Medicine; Visit Provider Family Medicine
DX: M81.0 Age-related osteoporosis without current pathological fracture (principal)
CPT/HCPCS: 77080

== ENCOUNTER 2023-06-28 07:28 | Inpatient (IN) | payer MEDICARE, SELFPAY ==
[2023-06-28] VITALS (7 sets, daily range): BP systolic 134–160; BP diastolic 62–70; PULSE 56–62; RESP 16–18; TEMP 36.4–36.8; O2SAT 88–95; BMI 32.8; BMI 32.4
--- NOTE | 2023-06-28 07:53 | CT_ITS ---
STUDY: CTA CHEST REASON FOR EXAM: Female, 77 years old. Sob, hypoxia, nml CXR, recent covid - eval for PE RADIATION DOSAGE (If Supplied By Facility): CTDIvol = ( 10.90 ) mGy, DLP = ( 386.40 ) mGycm TECHNIQUE: The examination was performed with the intravenous administration of IV 100mL Isovue-370. Post-processing of the angiographic images was performed, with multiplanar reformation and 3D reconstruction. Individualized dose optimization techniques were used for this CT. COMPARISON: Comparison made with prior chest radiograph done earlier this morning as well as prior CT scan dated October 19, 2020. FINDINGS: Normal enhancement of the main pulmonary artery and right and left pulmonary arteries. Normal enhancement of the bilateral peripheral pulmonary arteries. There is no demonstrated pulmonary embolism. Normal thoracic aorta and visualized great vessels. There is no demonstrated aortic dissection. There are calcifications of the coronary arteries. Normal mediastinum. Normal hilar regions. Normal visualized trachea and bronchi. Volume loss in the right hemithorax. There is consolidation in the right lower lobe with the partial collapse. Follow-up is recommended. Normal pleura. Normal chest wall structures. Dextroscoliosis. The patient is status post aberrant and zulma fixation of the thoracic vertebrae. There is a 2.6 m cyst in the posterior right lobe of the liver. The patient is status post cholecystectomy. Small hiatal hernia. CT/CTA Chest W/WO Contrast IMPRESSION: Consolidation in the right lower lobe with volume loss in the right hemithorax. Hepatic cyst. Prior cholecystectomy. Electronically Signed: Sabino Garcia MD at 9:28 EST ,
--- NOTE | 2023-06-28 07:54 | EDS_ITS ---
HPI History of Present Illness Chief Complaint: Shortness of Breath Informant: patient Narrative Narrative: Patient has a chronic cough. She also has severe scoliosis. She has seen pulmonology and not given a good reason for the chronic cough, she thinks it is related to her thoracic scoliosis that was repaired when she was 17 years old with fusion and hardware. She states 3 weeks ago she had COVID, she states it was relatively mild and she recovered uneventfully. About a week ago she had a lot of postnasal drip and drainage without any facial pain or pressure or fever/chills, and her cough worsened and was very barky. She did a telehealth evaluation and was prescribed antibiotics and steroids and she states these really seem to help. However for the past 4 or 5 days she has been dyspneic with very light exertion, and some with lying down but without any edema and when she uses her 's oxygen she can lie down without any shortness of breath. She has been checking her pulse oximetry and she has been in the 80s at rest at times worse when she tries to walk. This led to her using the oxygen at home. She has had no leg pain or swelling, and has no history of DVT or PE and takes no anticoagulants, that she is here because of concern for pulmonary embolism since she had a chest x-ray yesterday that was negative for pneumonia. No chest pain, palpitations, syncope/near-syncope. [facility] Medical History Alcohol use Asthma Cardiology follow-up encounter Chronic cough COVID-19 virus infection (03/2020) Essential hypertension Family history of sudden cardiac GERD (gastroesophageal reflux disease) History of carcinoma History of echocardiogram History of stress test Hypertension Hypoxia Obesity Pneumonia Post-menopausal Scoliosis Seasonal allergies Wears glasses Home Medications triamcinolone acetonide 55 mcg nasal spray aerosol (Nasacort) 1 spray intranasal BID PRN ALLERGIES 03/08/20 [History Last Taken Unknown] aspirin 81 mg tablet,delayed release (Adult Low Dose Aspirin) 81 mg PO DAILY 05/11/20 [History Last Taken 05/21/21] brinzolamide 1 %-brimonidine 0.2 % eye drops,suspension (Simbrinza) 1 drp ophthalmic (eye) BID 06/21/20 [History Last Taken Unknown] timolol maleate 0.5 % eye drops 1 drp ophthalmic (eye) BID 01/27/21 [History Last Taken Unknown] ascorbic acid (vitamin C) 500 mg tablet (Vitamin C) 500 mg PO DAILY 05/12/21 [History Last Taken Unknown] calcium carb 333 mg-vit D3 133 unit-mag ox 133 mg-zinc oxide 5 mg tab (Robbie Mag Zinc Plus D3) 1 tab PO DAILY 05/12/21 [History Last Taken Unknown] cholecalciferol (vitamin D3) 25 mcg (1,000 unit) capsule (Vitamin D3) 25 mcg PO DAILY 05/12/21 [History Last Taken Unknown] amlodipine 10 mg tablet 10 mg PO QHS 05/27/21 [History Last Taken Unknown] Allergy/AdvReac Type Severity Reaction Status Date / Time adhesive tape Allergy itching, Verified 06/28/23 07:31 redness Family History Sister Breast cancer Hypertension Brother Allergies Thyroid disorder Hypertension Father Sudden cardiac , Onset Age: 51 Surgical History History of appendectomy History of back surgery History of bunionectomy of both great toes History of cholecystectomy Social History Smoking Status: Never smoker alcohol intake: never ROS ROS ED Constitutional Constitutional ED: Denies chills or fever(s) Eyes Eyes: Denies change in vision or diplopia ENT ENT ED: Denies rhinorrhea or sore throat Cardiovascular Cardiovascular: Denies chest pain, leg edema, leg ulcers or palpitations Respiratory/Chest Respiratory/Chest: Reports cough, dyspnea and sputum Gastrointestinal Gastrointestinal: Denies abdominal pain, diarrhea, nausea or vomiting Genitourinary Genitourinary ED: Denies dysuria or hematuria Musculoskeletal Musculoskeletal: Denies back pain or neck pain Integumentary Denies abscess or rash Neurologic Neurologic: Denies headache(s), paresthesias or weakness Psychiatric Psychiatric: Denies anxiety or suicidal thoughts EXAM Physical Exam Const Vital Signs: 06/28/23 07:29 06/28/23 07:33 06/28/23 07:29 Temperature 98.2 F Temperature Source Temporal Pulse Rate 58 L Respiratory Rate 18 Respiratory Effort Normal Respiratory Depth Normal Respiratory Pattern Normal Blood Pressure 160/68 H Blood Pressure Mean 98 Pulse Ox 88 92 Oxygen Delivery Method Room Air Room Air Room Air Oxygen Flow Rate (L/min) 06/28/23 08:15 Temperature Temperature Source Pulse Rate Respiratory Rate Respiratory Effort Respiratory Depth Respiratory Pattern Blood Pressure Blood Pressure Mean Pulse Ox Oxygen Delivery Method Nasal Cannula Oxygen Flow Rate (L/min) 2 Positive well nourished and well developed General Appearance ED: well developed and NAD HEENT Reports moist mucous membranes normocephalic and atraumatic Eyes PERRL and EOMs intact bilaterally Neck full ROM, supple and no JVD Chest Wall Chest Narrative: Nontender Resp normal respiratory effort and clear to auscultation bilaterally Resp Narrative: Lungs are clear and in no distress but somewhat limited by severity of her scoliosis. Cardio regular rate, regular rhythm and no murmurs GI non-tender and non-distended Auscultation: normoactive bowel sounds Palpation: soft Back/Spine no CVA tenderness Back/Spine Narrative: Severe thoracic scoliosis curve. Well-healed midline surgical incision. General Back: other FROM Extremity normal to inspection General Extremety ED: Negative for edema, pulses abnormal or tenderness General Extremity: Negative for edema or pulses abnormal Neuro oriented x3, CN's II-XII intact bilaterally and no sensory deficits noted Sensorium / Orientation: awake and alert Motor Exam: strength 5/5 throughout Skin no rashes or lesions noted and no wounds MDM MDM MDM Narrative Medical decision making narrative: Given high risk for PE here since she recently had COVID, CTA was performed skipping D-dimer. It shows no pulmonary embolus, but does show a right lower lobe consolidation/pneumonia that is likely responsible for her symptoms and hypoxemia. Antibiotic started, the rest of her labs noted and look good as do her EKG and cardiac enzymes and BNP ruling out acute decompensated congestive heart failure, and plan will be for admission. Lab Data Attestation: I reviewed the patient's lab results. Labs: Laboratory Results - last 24 hr 06/28/23 08:10 WBC 7.0 RBC 4.61 Hgb 13.3 Hct 40.0 MCV 86.8 MCH 28.9 MCHC 33.3 RDW Std Deviation 42.1 RDW Coeff of Sofía 13.2 Plt Count 256 MPV 10.6 Immature Gran % (Auto) 1.100 H Neut % (Auto) 55.8 Lymph % (Auto) 32.9 [place] % (Auto) 9.6 Eos % (Auto) 0.0 Baso % (Auto) 0.6 Absolute Neuts (auto) 3.9 Absolute Lymphs (auto) 2.29 Nucleated RBC % 0 Sodium 138 Potassium 4.2 Chloride 106 Carbon Dioxide 29.0 Anion Gap 3 L BUN 22 H Creatinine 0.67 Estim Creat Clear Calc 60.07 Est GFR (MDRD) Af Amer 109 Est GFR (MDRD) Non-Af 90 BUN/Creatinine Ratio 32.6 H Glucose 129 H Calcium 9.1 Troponin I High Sens 6 B-Natriuretic Peptide 40.9 Radiography Diagnostic Testing: Clinical Impression(s) from Imaging Studies Chest CTA 06/28/23 07:53 IMPRESSION: Consolidation in the right lower lobe with volume loss in the right hemithorax. Hepatic cyst. Prior cholecystectomy. Electronically Signed: Sabino Garcia MD at 9:28 EST , Rhythm Strip Rhythm Strip: Sinus Rhythm Rate: 62 Ectopy: None EKG Initial EKG: Attestation: I personally reviewed and interpreted this EKG as follows: Interpretation: Sinus Rhythm and No Acute Injury Pattern Comments: nml EKG Management Discussion w/another healthcare provider: Hospitalist Discharge Plan Triage Chief Complaint: Shortness of Breath ED Provider: Jake Carmona Dx/Rx/DC Orders Clinical Impression: Hypoxemia, Pneumonia Prescriptions: No Action triamcinolone acetonide [Nasacort] 55 mcg aerosol,spray 1 spray INTRANASAL BID PRN (Reason: ALLERGIES) Rx Instructions: administer into each nostril aspirin [Adult Low Dose Aspirin] 81 mg tablet,delayed release (DR/EC) 81 mg PO DAILY Simbrinza 1-0.2 % drops,suspension 1 drp OPHTHALMIC BID timolol maleate 0.5 % drops 1 drp ophthalmic (eye) BID Patient Comments: INSTILL 1 DROP INTO BOTH EYES TWICE A DAY ascorbic acid (vitamin C) [Vitamin C] 500 mg Tablet 500 mg PO DAILY cholecalciferol (vitamin D3) [Vitamin D3] 25 mcg (1,000 unit) Capsule 25 mcg PO DAILY Robbie Mag Zinc Plus D3 333 mg-133 unit -133 mg-5 mg Tablet 1 tab PO DAILY amlodipine 10 mg tablet 10 mg PO QHS Primary Care Provider: Marquis Oneal Referrals: Marquis Oneal MD [Primary Care Provider] - Disposition Disposition: Acute Care Hospital [facility]
[2023-06-28 08:20] LABS: Absolute Lymphocyte Count 2.29 X10^3/uL (0.83-4.51); Absolute Neutrophil Count 3.9 X10^3/uL (2.0-7.7); Basophil# 0.04 X10^3/uL; Basophil% 0.6 % (0-1); Hemoglobin 13.3 g/dL (12.0-15.0); Lymphocyte # 2.29 X10^3/ul (0.83-4.51); Lymphocyte % 32.9 % (19-41); Mean Corp Hgb Conc 33.3 g/dL (32-36); Mean Corpuscular Hgb 28.9 pg (27.0-32.0); Mean Corpuscular Volume 86.8 fL (81-99); Mean Platelet Vol. 10.6 fl (6.2-12.0); Monocyte# 0.67 X10^3/uL; Monocyte% 9.6 % (0-10); NRBC Flagged by Analyzer 0 % (0-5); Neutrophil # 3.89 X10^3/uL (2.7-7.7); Neutrophil % 55.8 % (47-70); POSITIVE MORPHOLOGY YES; Platelet Count 256 K/mm3 (150-450); RBC Distribution Width CV 13.2 % (11.6-14.6); RBC Distribution Width SD 42.1 fl (35.1-43.9); Red Blood Count 4.61 M/mm3 (4.2-5.4)
[2023-06-28 08:23] LABS: Differential Indicated SCAN CRITERIA MET
[2023-06-28 08:40] LABS: Anion Gap 3 (5-15); BUN 22 mg/dL (7-18); BUN/Creat Ratio 32.6 RATIO (10-20); Calcium,Total 9.1 mg/dL (8.5-10.1); Chloride 106 mmol/L (98-107); Creatinine, Serum 0.67 mg/dL (0.55-1.02); EST Glomerular Filtration Rate 90 mL/min (>60); Est Glom Filt Rate - Afr Amer 109 mL/min (>60); Estimated Creatinine Clearance 60.07 ml/min; Glucose 129 mg/dL (74-106); Potassium 4.2 mmol/L (3.5-5.1); Sodium Level 138 mmol/L (136-145); Troponin-I HS 6 pg/mL (3.0-54.0)
[2023-06-28 08:58] LABS: BNP,B-Type NATRIURETIC PEPTIDE 40.9 pg/mL (0-100)
[2023-06-28 09:47] LABS: Reactive Lymphocyte 1+
--- NOTE | 2023-06-28 09:52 | PCM.HP.STD ---
HPI - General General Date of Admission: 06/28/23 Date of Service: 06/28/23 Chief Complaint: Worsening shortness of breath HPI Narrative MARITZA JOSEPH, is a 77 F who presented to [facility] ED on 06/28/2023 with worsening shortness of breath. Patient seen at bedside on the floor shortly after arriving over from the ED. Patient was sitting up comfortably at the edge of the bed, conversing normally, no acute distress. She was breathing comfortably on 2 L nasal cannula. Patient states she began to have upper respiratory symptoms about 3 weeks ago and took a home COVID test at that time that was positive. She had fairly mild symptoms that resolved on their own initially. However, around 1 week ago she began to notice some upper airway tightness with wheezing. She was prescribed steroids, antibiotics and albuterol inhaler at that time and had fairly good relief of symptoms. However, she has noticed worsening shortness of breath with exertion over the past 3 to 4 days. Patient has had to wear oxygen in the past after a COVID infection about 2 to 3 years ago, but she only required oxygen for a few days after the admission and then was able to come off without issue. She has a pulse oximeter at home and noted that her oxygen saturations especially with exertion were dropping to the mid to low 80s. Her wears oxygen at night, and she wore her 's oxygen for a time and noticed that her oxygen saturations improved and she felt less shortness of breath with exertion. She had a chest x-ray done yesterday because she was concerned for pneumonia, and she was told that this was negative. However, her daughter who works in healthcare was concerned that she may have a PE due to her recent COVID, so patient came in for further evaluation. CTA chest was negative for PE but did show a possible right lower lobe pneumonia. Patient reports a fairly significant cough but states this is a dry cough. Denies any fevers or chills. Denies any significant upper respiratory symptoms. Denies any chest pain. Denies any abdominal pain or nausea/vomiting. She otherwise denies any other acute concerns this time. [facility] Medical History Alcohol use Asthma Cardiology follow-up encounter Chronic cough COVID-19 virus infection (03/2020) Essential hypertension Family history of sudden cardiac GERD (gastroesophageal reflux disease) History of carcinoma History of echocardiogram History of stress test Hypertension Hypoxia Obesity Pneumonia Post-menopausal Scoliosis Seasonal allergies Wears glasses Home Medications triamcinolone acetonide 55 mcg nasal spray aerosol (Nasacort) 1 spray intranasal BID PRN ALLERGIES 03/08/20 [History Last Taken Unknown] timolol maleate 0.5 % eye drops 1 drp ophthalmic (eye) BID GLAUCOMA 01/27/21 [History Last Taken 06/28/23] ascorbic acid (vitamin C) 500 mg tablet (Vitamin C) 500 mg PO DAILY SUPPLEMENT 05/12/21 [History Last Taken 06/27/23] calcium carb 333 mg-vit D3 133 unit-mag ox 133 mg-zinc oxide 5 mg tab (Robbie Mag Zinc Plus D3) 1 tab PO DAILY SUPPLEMENT 05/12/21 [History Last Taken 06/27/23] cholecalciferol (vitamin D3) 25 mcg (1,000 unit) capsule (Vitamin D3) 25 mcg PO DAILY SUPPLEMENT 05/12/21 [History Last Taken 06/27/23] amlodipine 10 mg tablet 10 mg PO QHS BLOOD PRESSURE 05/27/21 [History Last Taken 06/27/23] azithromycin 250 mg tablet 250 mg PO DAILY ANTIBIOTIC 06/28/23 [History Last Taken 06/27/23] budesonide-formoterol HFA 160 mcg-4.5 mcg/actuation aerosol inhaler 2 puff inhalation BID ASTHMA 06/28/23 [History Last Taken 06/27/23] dexamethasone 6 mg tablet 6 mg PO DAILY COUGH 06/28/23 [History Last Taken 06/27/23] ipratropium bromide 42 mcg (0.06 %) nasal spray 2 spray intranasal TID PRN RUNNY NOSE 06/28/23 [History Last Taken Unknown] Allergy/AdvReac Type Severity Reaction Status Date / Time adhesive tape Allergy itching, Verified 06/28/23 07:31 redness Family History Sister Breast cancer Hypertension Brother Allergies Thyroid disorder Hypertension Father Sudden cardiac , Onset Age: 51 Surgical History History of appendectomy History of back surgery History of bunionectomy of both great toes History of cholecystectomy Social History Smoking Status: Never smoker alcohol intake: never ROS Constitutional Constitutional: Denies change in weight, chills, fatigue, fever(s) or weakness Eyes Eyes: Denies change in vision ENT HEENT: Denies nasal congestion, nasal discharge, post nasal drip, sinus pressure or sore throat Cardiovascular Cardiovascular: Denies chest pain, edema, lightheadedness or palpitations Respiratory/Chest Respiratory/Chest: Reports cough and shortness of breath with exertion; Denies productive cough, shortness of breath at rest or wheezing Gastrointestinal Gastrointestinal: Denies abdominal pain, constipation, diarrhea, nausea or vomiting Genitourinary Genitourinary: Denies dysuria Musculoskeletal Musculoskeletal: Denies arthralgias or back pain Neurologic Neurologic: Denies dizziness, focal weakness or headache(s) Vital Signs Vital Signs Vital Signs: 06/28/23 07:29 06/28/23 07:33 06/28/23 07:29 Temperature 98.2 F Temperature Source Temporal Pulse Rate 58 L Respiratory Rate 18 Respiratory Effort Normal Respiratory Depth Normal Respiratory Pattern Normal Blood Pressure 160/68 H Blood Pressure Mean 98 Pulse Ox 88 92 Oxygen Delivery Method Room Air Room Air Room Air Oxygen Flow Rate (L/min) 06/28/23 08:15 Temperature Temperature Source Pulse Rate Respiratory Rate Respiratory Effort Respiratory Depth Respiratory Pattern Blood Pressure Blood Pressure Mean Pulse Ox Oxygen Delivery Method Nasal Cannula Oxygen Flow Rate (L/min) 2 Weight Weight: 81.4 kg Body Mass Index (BMI) 32.8 Physical Exam Const alert, oriented x3, no apparent distress and average body habitus Constitutional Narrative: Pleasant elderly female, obese, sitting up comfortably in bed, conversing normally, no acute distress. General Appearance: cooperative and comfortable HEENT normocephalic, head/scalp atraumatic, hearing grossly normal bilaterally, nasal mucous membranes and turbinates normal and moist oral mucous membranes Eyes PERRL, EOMs intact bilaterally and conjunctivae normal Neck full ROM, no lymphadenopathy and supple Lymph Lymphatic: no lymphadenopathy noted Chest inspection of chest normal Resp normal respiratory effort, normal air movement, no use of accessory muscles and clear to auscultation bilaterally Resp Narrative: Breathing comfortably on 2 L nasal cannula. Good air movement throughout in left lung, mildly diminished air movement in right lung but patient notably has significant scoliosis and lung sounds are shifted and somewhat difficult to auscultate. No wheezing or crackles noted. Cardio regular rate, regular rhythm, no murmurs and peripheral pulses 2+ throughout GI normal to inspection, nondistended, normoactive bowel sounds, soft to palpation, non-tender and non-distended Back/Spine Back/Spine Narrative: Severe scoliosis noted. Good range of motion throughout. No tenderness on palpation. Extremity normal to inspection, full ROM and no pedal edema Skin no rashes or lesions noted Neuro moves all extremities and no focal motor deficits Speech: speech normal Psych mental status grossly normal Results Lab / Micro Data 06/28/23 08:10 06/28/23 08:10 Labs: Laboratory Results - last 24 hr 06/28/23 08:10: WBC 7.0, RBC 4.61, Hgb 13.3, Hct 40.0, MCV 86.8, MCH 28.9, MCHC 33.3, RDW Std Deviation 42.1, RDW Coeff of Sofía 13.2, Plt Count 256, MPV 10.6, Immature Gran % (Auto) 1.100 H, Neut % (Auto) 55.8, Lymph % (Auto) 32.9, [place] % (Auto) 9.6, Eos % (Auto) 0.0, Baso % (Auto) 0.6, Absolute Neuts (auto) 3.9, Absolute Lymphs (auto) 2.29, Nucleated RBC % 0, Reactive Lymphocytes 1+, Sodium 138, Potassium 4.2, Chloride 106, Carbon Dioxide 29.0, Anion Gap 3 L, BUN 22 H, Creatinine 0.67, Estim Creat Clear Calc 60.07, Est GFR (MDRD) Af Amer 109, Est GFR (MDRD) Non-Af 90, BUN/Creatinine Ratio 32.6 H, Glucose 129 H, Calcium 9.1, Troponin I High Sens 6, B-Natriuretic Peptide 40.9 Rhythm Strip Rhythm Strip: Sinus Rhythm Rate: 62 Ectopy: None Imaging Radiology Impression Chest CTA 06/28/23 07:53 IMPRESSION: Consolidation in the right lower lobe with volume loss in the right hemithorax. Hepatic cyst. Prior cholecystectomy. Electronically Signed: Sabino Garcia MD at 9:28 EST , Assessment & Plan Assessment/Plan (1) Pneumonia: (2) Hypoxemia: (3) Scoliosis: QUALIFIERS: Scoliosis type: thoracogenic Spinal region: thoracolumbar Qualified Code(s): M41.35 - Thoracogenic scoliosis, thoracolumbar region PLAN: Plan Patient is a 77-year-old female who presented to [facility] ED on 06/28/2023 with worsening shortness of breath on exertion. 1. Suspected mild continued acquired pneumonia with unknown organism with mild hypoxia; suspected chronic restrictive lung disease secondary to severe scoliosis Hemodynamically stable, afebrile on admission. WBC count normal. Home COVID diagnosis 3 weeks ago, continued mild to moderate nonproductive cough. CTA chest on admit showed no PE, consolidation in the right lower lobe with volume loss in right hemithorax concerning for possible pneumonia; patient notably has severe scoliosis with diminished lung volumes, specifically on the right side. Urine antigens negative. Respiratory PCR panel pending. ? Admit under inpatient status to PCU. Pulmonology consulted per patient request, notably has seen Dr. Ott in the office in the past, last visit back in 2020. Will treat with Azithromycin and Zosyn for now. Wean supplemental oxygen as able. Will need home O2 evaluation prior to discharge. Chronic medical conditions: ? Obesity: BMI 32 on admit. Complicates hospital course, care and prognosis. ? Hypertension: Continue home amlodipine. ? Glaucoma: Continue home eyedrops. DVT prophylaxis: Lovenox CODE STATUS: Full code, verified Expected disposition: Home, 2 to 3 days Total clinical time spent by myself addressing the patient's medical issues, reviewing all the data, and collaborating with patient's care team: 55 minutes. Charges/Coding Visit Charges Inpatient E&M: 94530 Init Hosp L2
--- NOTE | 2023-06-28 10:52 | ED.RN ---
PT ANTIBIOTICS NOT HUN G DUE TO DEPATMENTAL ACTIVITY
[2023-06-28] MEDS: Piperacil/Tazobactam 4.5 GM in 0.9% Normal Saline (100mL MB+) 100 ML IV (11:50)
[2023-06-28] MEDS: Aspirin E.C. 81 MG Tablet PO (12:02)
[2023-06-28] MEDS: Azithromycin 500 MG in Dextrose 5%-Water (250mL Bag) 250 ML 250 MG IV (12:37)
[2023-06-28] MEDS: amLODIPine 10 MG Tablet PO (22:52)
[2023-06-28] MEDS: Timolol 0.5% 5ML OPTH.BTL 1 DRP OPHTHALMIC (22:53)
[2023-06-28] MEDS: MELATONIN 3 MG TABLET PO (22:53)
[2023-06-28] MEDS: Piperacil/Tazobactam 3.375 GM in 0.9% Normal Saline (50mL MB+) 50 ML IV (22:53)
[2023-06-29 04:30] VITALS: BP 133/66; PULSE 63; RESP 16; TEMP 36.7; O2SAT 95
[2023-06-29] MEDS: Piperacil/Tazobactam 3.375 GM in 0.9% Normal Saline (50mL MB+) 50 ML IV (06:10)
[2023-06-29 06:29] LABS: Hematocrit 38.6 % (37-47); Hemoglobin 12.8 g/dL (12.0-15.0); Mean Corp Hgb Conc 33.2 g/dL (32-36); Mean Corpuscular Hgb 28.8 pg (27.0-32.0); Mean Corpuscular Volume 86.7 fL (81-99); Mean Platelet Vol. 10.5 fl (6.2-12.0); Platelet Count 268 K/mm3 (150-450); RBC Distribution Width CV 13.2 % (11.6-14.6); Red Blood Count 4.45 M/mm3 (4.2-5.4); White Blood Count 8.6 K/mm3 (4.4-11.0)
--- NOTE | 2023-06-29 06:38 | EX.PCM.CONCC ---
Assessment & Plan Assessment/Plan (1) Hypoxemia: PLAN: Plan RECOMMENDATIONS: 1. Supplemental oxygen to maintain saturations at or above 90%. 2. Empiric antibiotics. Recommend transitioning to Levaquin to complete 7 days of therapy, at discharge. 3. Perform walking oximetry study prior to consideration for discharge home. 4. Continue aggressive bronchopulmonary hygiene. 5. Follow-up in the pulmonary medicine office in 2 weeks. Recommend follow-up chest imaging in 6 to 8 weeks. 6. Recommend outpatient ENT referral for chronic postnasal drip symptoms. 7. Will sign off. Please call with any additional questions. IMPRESSIONS: 1. Cough, shortness of breath and hypoxemia The patient was diagnosed with COVID-19 3 weeks ago and has had lingering symptoms with hypoxemia. Pulmonary embolism has been ruled out. It does appear that the patient has a right lower lobe consolidation with volume loss in the setting of significant scoliosis. At this time, I agree with continuing broad-spectrum empiric antibiotics to complete 7 days of therapy. Continue aggressive bronchopulmonary hygiene with PAP and incentive spirometry. Continue supplemental oxygen to maintain saturations at or above 90%. Perform walking oximetry study prior to consideration for discharge home. Ideally, the patient to be transition to Levaquin at discharge to complete her 7 days of therapy. I would recommend that she follow-up in the pulmonary medicine office in 2 weeks, with tentative plans to repeat imaging in 6 to 8 weeks to document resolution of the right lower lobe findings. 2. Obesity/hypertension/glaucoma/chronic cough Complicates care, management, recovery and prognosis. Continue home medications as indicated. This note was generated with WHOOP dictation software. It may contain incorrect words, spelling, and punctuation that were not noted in checking the note before signing. HPI Consult Data Date of Consult: 06/29/23 HPI Narrative Reason for Consultation: Hypoxemia HPI Narrative: The patient is a 77-year-old female, with a history as outlined below, who presented to the emergency department on June 28 with cough and hypoxemia. The patient was seen in the pulmonary medicine office in [address] Ott following a bout of COVID-19. The patient reported that approximately 3 weeks ago she was diagnosed with COVID-19, but never required hospitalization or Paxlovid. Approximately 1 week ago, she was placed on azithromycin and some prednisone over concerns for an underlying pneumonia by an outside provider. Despite this, the patient has continued to experience a barky cough and has been documenting low oxygen levels at home. On presentation to the emergency department, the patient was documented to be afebrile and hemodynamically stable. She was initially saturating 88% on room air. Initial laboratory evaluation revealed a normal white blood cell count. Chemistry profile was unrevealing. Sputum culture was obtained. Respiratory viral panel was negative. CTA chest showed no evidence for pulmonary embolism, but did reveal a right lower lobe consolidation with volume loss on account of her scoliosis. The patient was placed on antibiotics and supplemental oxygen. She was admitted to the progressive care unit for further management. Of note, the patient has been experiencing a chronic cough for nearly a decade. I suspect this is likely secondary to an upper airway cough syndrome in the setting of postnasal drip. I did recommend to the patient that she seek expert consultation from an ENT provider upon discharge from the hospital. [facility] Medical History Alcohol use Asthma Cardiology follow-up encounter Chronic cough COVID-19 virus infection (03/2020) Essential hypertension Family history of sudden cardiac GERD (gastroesophageal reflux disease) History of carcinoma History of echocardiogram History of stress test Hypertension Hypoxia Obesity Pneumonia Post-menopausal Scoliosis Seasonal allergies Wears glasses Home Medications triamcinolone acetonide 55 mcg nasal spray aerosol (Nasacort) 1 spray intranasal BID PRN ALLERGIES 03/08/20 [History Last Taken Unknown] timolol maleate 0.5 % eye drops 1 drp ophthalmic (eye) BID GLAUCOMA 01/27/21 [History Last Taken 06/28/23] ascorbic acid (vitamin C) 500 mg tablet (Vitamin C) 500 mg PO DAILY SUPPLEMENT 05/12/21 [History Last Taken 06/27/23] calcium carb 333 mg-vit D3 133 unit-mag ox 133 mg-zinc oxide 5 mg tab (Robbie Mag Zinc Plus D3) 1 tab PO DAILY SUPPLEMENT 05/12/21 [History Last Taken 06/27/23] cholecalciferol (vitamin D3) 25 mcg (1,000 unit) capsule (Vitamin D3) 25 mcg PO DAILY SUPPLEMENT 05/12/21 [History Last Taken 06/27/23] amlodipine 10 mg tablet 10 mg PO QHS BLOOD PRESSURE 05/27/21 [History Last Taken 06/27/23] azithromycin 250 mg tablet 250 mg PO DAILY ANTIBIOTIC 06/28/23 [History Last Taken 06/27/23] budesonide-formoterol HFA 160 mcg-4.5 mcg/actuation aerosol inhaler 2 puff inhalation BID ASTHMA 06/28/23 [History Last Taken 06/27/23] dexamethasone 6 mg tablet 6 mg PO DAILY COUGH 06/28/23 [History Last Taken 06/27/23] ipratropium bromide 42 mcg (0.06 %) nasal spray 2 spray intranasal TID PRN RUNNY NOSE 06/28/23 [History Last Taken Unknown] Allergy/AdvReac Type Severity Reaction Status Date / Time adhesive tape Allergy itching, Verified 06/28/23 07:31 redness Family History Sister Breast cancer Hypertension Brother Allergies Thyroid disorder Hypertension Father Sudden cardiac , Onset Age: 51 Surgical History History of appendectomy History of back surgery History of bunionectomy of both great toes History of cholecystectomy Social History Smoking Status: Never smoker alcohol intake: never ROS ROS Narrative 10 systems were reviewed with pertinent positives as noted in the HPI above. Physical Exam Const alert and no apparent distress General Appearance: cooperative HEENT normocephalic, head/scalp atraumatic and moist oral mucous membranes Eyes PERRL, EOMs intact bilaterally and conjunctivae normal Neck supple General: trachea midline Chest inspection of chest normal Resp normal respiratory effort Resp Narrative: Diminished air movement the right lung base. Cardio regular rate and regular rhythm GI normal to inspection, nondistended, normoactive bowel sounds Back/Spine Back/Spine Narrative: Kyphoscoliosis noted. Extremity no clubbing, cyanosis or edema Skin no rashes or lesions noted Neuro CN's II-XII intact bilaterally, moves all extremities and no focal motor deficits Psych cooperative and affect normal Lab / Micro Data 06/29/23 06:10 06/29/23 06:10 Labs: Laboratory Results - last 24 hr 06/28/23 08:10: WBC 7.0, RBC 4.61, Hgb 13.3, Hct 40.0, MCV 86.8, MCH 28.9, MCHC 33.3, RDW Std Deviation 42.1, RDW Coeff of Sofía 13.2, Plt Count 256, MPV 10.6, Immature Gran % (Auto) 1.100 H, Neut % (Auto) 55.8, Lymph % (Auto) 32.9, [place] % (Auto) 9.6, Eos % (Auto) 0.0, Baso % (Auto) 0.6, Absolute Neuts (auto) 3.9, Absolute Lymphs (auto) 2.29, Nucleated RBC % 0, Reactive Lymphocytes 1+, Sodium 138, Potassium 4.2, Chloride 106, Carbon Dioxide 29.0, Anion Gap 3 L, BUN 22 H, Creatinine 0.67, Estim Creat Clear Calc 60.07, Est GFR (MDRD) Af Amer 109, Est GFR (MDRD) Non-Af 90, BUN/Creatinine Ratio 32.6 H, Glucose 129 H, Calcium 9.1, Troponin I High Sens 6, B-Natriuretic Peptide 40.9 06/29/23 06:10: WBC 8.6, RBC 4.45, Hgb 12.8, Hct 38.6, MCV 86.7, MCH 28.8, MCHC 33.2, RDW Std Deviation 42.0, RDW Coeff of Sofía 13.2, Plt Count 268, MPV 10.5 Micro: Microbiology 06/28/23 11:15 Mucosa - Nasopharyngeal Respiratory Panel (PCR) - Final 06/28/23 14:16 Urine, Clean Catch Streptococcus pneumoniae Antigen (M - Final 06/28/23 14:16 Urine, Clean Catch Legionella Antigen - Final Rhythm Strip Rhythm Strip: Sinus Rhythm Rate: 62 Ectopy: None Imaging Radiology Impression Chest CTA 06/28/23 07:53 IMPRESSION: Consolidation in the right lower lobe with volume loss in the right hemithorax. Hepatic cyst. Prior cholecystectomy. Electronically Signed: Sabino Garcia MD at 9:28 EST , Charges/Coding Visit Charges Inpatient E&M: 36934 Init Hosp L3
[2023-06-29 07:16] LABS: Anion Gap 5 (5-15); BUN 16 mg/dL (7-18); BUN/Creat Ratio 22.3 RATIO (10-20); Calcium,Total 8.6 mg/dL (8.5-10.1); Chloride 107 mmol/L (98-107); Creatinine, Serum 0.72 mg/dL (0.55-1.02); EST Glomerular Filtration Rate 84 mL/min (>60); Est Glom Filt Rate - Afr Amer 102 mL/min (>60); Estimated Creatinine Clearance 59.72 ml/min; Glucose 101 mg/dL (74-106); Potassium 4.2 mmol/L (3.5-5.1); Sodium Level 141 mmol/L (136-145)
[2023-06-29 08:47] VITALS: O2SAT 96
[2023-06-29 09:41] VITALS: BP 117/52; PULSE 65; RESP 16; TEMP 36.6; O2SAT 93
[2023-06-29] MEDS: Aspirin E.C. 81 MG Tablet PO (09:47)
[2023-06-29] MEDS: Timolol 0.5% 5ML OPTH.BTL 1 DRP OPHTHALMIC (09:47)
[2023-06-29] MEDS: Enoxaparin 40 MG/0.4 ML Syringe SC (09:47)
--- NOTE | 2023-06-29 10:00 | CASEMGMT ---
Addendum entered by Precious Gaona 06/29/23 12:59: Pt qualifies for 2L of oxygen with exertion. Referral sent to [facility] [place] via careport at this time. Original Note: QUEENIE JULIEN Assessment: Face to Face with pt for initial transition planning/care coordination assessment. QUEENIE JULIEN introduced self and role at [facility], pt voices understanding and consents to assessment. Pt is A&O x4 and answers all questions appropriately at this time. Pt sitting up in chair with oxygen on in no distress. Care providers, pharmacy, and demographics verified/updated. Admitting Dx:CAP with hypoxia PCP:Kimmy Specialists:Tru, pulm; Gita, eyes; Santos, derm; Art, OR; Mary Ellen, retina specialist Preferred Pharmacy:[facility] Insurance:[employer] [facility] Prescription Benefit: yes LNOK:Mazin Linda, ; Faviola Junior, dtr Living Arrangements: Pt lives with in a single story home with 2 steps to enter. Pt reports she is I in ADL's and denies concerns at home. Transportation: Pt drives self and denies concerns with transportation. DME:Pt does not use AD but has walkers, BSC available to her. She has a pox. HHC/SNF:Denies hx of Pt states no concerns with going home at time of dc. Discussed should pt need oxygen upon dc who she would prefer for her company. Provided pt with a local in network list of DME companies, pt chose [employer]. Green sheet on chart for oxygen. Pt did ask if massages are covered by insurances, she is aware that typically this is not. Pt states no further concerns/needs. CM to follow. Advised pt to ask CM if any further question/concerns/needs arise, voices understanding. Pt Goal:Home Plan:Home, green sheet for oxygen
[2023-06-29] MEDS: Azithromycin 500 MG in Dextrose 5%-Water (250mL Bag) 250 ML 250 MG IV (11:15)
--- NOTE | 2023-06-29 12:27 | DCINST_ITS ---
Discharge Instructions Diet Discharge Diet: No restrictions Activity Discharge Activity: No Restrictions Weight Bearing Status: Full weight bearing Follow Up Care Test Results: Test results from this visit will be discussed in further detail at your follow- up appointment, if applicable. Discharge Plan Admission Admit Date/Time: 06/28/23 09:58 Primary Reason for Your Visit: shortness of breath Attending Provider: Thomas Champagne Primary Care Provider: Marquis Oneal Instructions Additional Instructions / Restrictions: Please take 5 more days of Levaquin to complete a 7-day course of antibiotics. Use the rescue albuterol inhaler as needed. Follow-up with the lung doctor as discussed with him. Discharge Orders/Prescriptions Prescriptions: New levofloxacin 750 mg tablet 750 mg PO DAILY 5 Days Qty: 5 0RF albuterol sulfate 90 mcg/actuation HFA aerosol inhaler 1 inh inhalation Q6H PRN (Reason: shortness of breath or wheezing) Qty: 8.5 1RF Continued triamcinolone acetonide [Nasacort] 55 mcg aerosol,spray 1 spray INTRANASAL BID PRN (Reason: ALLERGIES) timolol maleate 0.5 % drops 1 drp ophthalmic (eye) BID Rx Instructions: INSTILL 1 DROP INTO BOTH EYES TWICE A DAY ascorbic acid (vitamin C) [Vitamin C] 500 mg Tablet 500 mg PO DAILY cholecalciferol (vitamin D3) [Vitamin D3] 25 mcg (1,000 unit) Capsule 25 mcg PO DAILY Robbie Mag Zinc Plus D3 333 mg-133 unit -133 mg-5 mg Tablet 1 tab PO DAILY amlodipine 10 mg tablet 10 mg PO QHS budesonide-formoterol 160-4.5 mcg/actuation HFA aerosol inhaler 2 puff INHALATION BID ipratropium bromide 42 mcg (0.06 %) spray,non-aerosol 2 spray INTRANASAL TID PRN (Reason: RUNNY NOSE ) Discontinued azithromycin 250 mg tablet 250 mg PO DAILY Patient Comments: PT HAS TWO DAYS LEFT OF THIS ANTIBIOTIC (06/28/23 AND 06/29/23) Rx Instructions: TAKE TWO TABLETS BY MOUTH (500MG) ON DAY ONE THEN TAKE ONE TABLET ONCE DAILY THEREAFTER FOR FOUR DAYS. START DATE: 06/25/23 END DATE: 06/29/23 dexamethasone 6 mg tablet 6 mg PO DAILY Patient Comments: PT HAS TWO DAYS LEFT OF THIS ANTIBIOTIC (06/28/23 AND 06/29/23) Rx Instructions: TAKR ONE TABLET BY MOUTH ONCE DAILY FOR SIX DAYS. START DATE: 06/24/23 END DATE: 06/29/23 Referrals / Follow Up: Marquis Oneal MD [Primary Care Provider] - Disposition Disposition (needs filled in before D/C Order can be placed): Home, Self Care
--- NOTE | 2023-06-29 12:33 | DS.PCM_ITS ---
Providers Date of Admission: 06/28/23 Date of Discharge: 06/29/23 Primary Care Physician: Dr. Marquis Oneal MD Consultations 06/28/23 15:10 Consult: [employer] Team Lead / Pulmonary Medicine Routine Consulting Provider: Intensivists/Pulmonary Med Reason for Consult: per pt request; severe scoliosis, px w/ SOB and hypoxia w/ possible pna EMERGENT Consult: No MD Notified: Yes Date Notified: 06/28/23 Time Notified: 15:10 Method of Notification: Text Reason For Visit: CAP WITH HYPOXIA Diagnosis Discharge Diagnosis (1) Hypoxemia: Status: Acute Code(s): R09.02 - Hypoxemia Medications at Discharge Home Medications triamcinolone acetonide 55 mcg nasal spray aerosol (Nasacort) 1 spray intranasal BID PRN ALLERGIES 03/08/20 timolol maleate 0.5 % eye drops 1 drp ophthalmic (eye) BID GLAUCOMA 01/27/21 ascorbic acid (vitamin C) 500 mg tablet (Vitamin C) 500 mg PO DAILY SUPPLEMENT 05/12/21 calcium carb 333 mg-vit D3 133 unit-mag ox 133 mg-zinc oxide 5 mg tab (Robbie Mag Zinc Plus D3) 1 tab PO DAILY SUPPLEMENT 05/12/21 cholecalciferol (vitamin D3) 25 mcg (1,000 unit) capsule (Vitamin D3) 25 mcg PO DAILY SUPPLEMENT 05/12/21 amlodipine 10 mg tablet 10 mg PO QHS BLOOD PRESSURE 05/27/21 budesonide-formoterol HFA 160 mcg-4.5 mcg/actuation aerosol inhaler 2 puff inhalation BID ASTHMA 06/28/23 ipratropium bromide 42 mcg (0.06 %) nasal spray 2 spray intranasal TID PRN RUNNY NOSE 06/28/23 albuterol sulfate 90 mcg/actuation aerosol inhaler 1 inh inhalation Q6H PRN shortness of breath or wheezing #8.5 grams 06/29/23 levofloxacin 750 mg tablet 750 mg PO DAILY 5 days #5 tabs 06/29/23 Hospital Course Operations None Procedures - (Chest x-ray, CTA chest) Summary of Care Provided Minutes Spent on Discharge: 35 Hospital Course: Patient is a 77-year-old female who presented to [facility] [place] ED on 06/28/2023 with worsening shortness of breath on exertion. Short hospital course as noted below. Patient discharged home in stable condition on 2/9. 1. Suspected mild continued acquired pneumonia with unknown organism with mild hypoxia; suspected chronic restrictive lung disease secondary to severe scoliosis Hemodynamically stable, afebrile on admission. WBC count normal. Home COVID diagnosis 3 weeks ago, continued mild to moderate nonproductive cough. CTA chest on admit showed no PE, consolidation in the right lower lobe with volume loss in right hemithorax concerning for possible pneumonia; patient notably has severe scoliosis with diminished lung volumes, specifically on the right side. Urine antigens negative. Respiratory PCR panel negative. ? Pulmonology evaluated. Agreed with CT scan interpretation of right lower lobe consolidation concerning for pneumonia. Treated with IV vancomycin and Zosyn while inpatient, discharged on p.o. Levaquin with plan to complete 7-day course of antibiotics. Also treated with aggressive bronchopulmonary hygiene with Incentive spirometry while inpatient. Patient qualified for 2 L home O2 prior to discharge. Notably, patient is ambulatory at home and in the community. Patient also was admitted under inpatient care but achieved a quicker than expected recovery from her pneumonia and was stable for discharge home with supplemental oxygen on hospital day 2. Will plan to follow-up with pulmonary medicine in the office about 2 weeks after discharge. Chronic medical conditions: ? Obesity: BMI 32 on admit. Complicates hospital course, care and prognosis. ? Hypertension: Continue home amlodipine. ? Glaucoma: Continue home eyedrops. Total clinical time spent by myself addressing the patient's discharge needs: 35 minutes. Physical Exam Const alert, oriented x3, no apparent distress and average body habitus Constitutional Narrative: Pleasant elderly female, obese, sitting up comfortably in bed, conversing normally, no acute distress. General Appearance: cooperative and comfortable HEENT normocephalic, head/scalp atraumatic, hearing grossly normal bilaterally, nasal mucous membranes and turbinates normal and moist oral mucous membranes Eyes PERRL, EOMs intact bilaterally and conjunctivae normal Neck full ROM, no lymphadenopathy and supple Lymph Lymphatic: no lymphadenopathy noted Chest inspection of chest normal Resp normal respiratory effort, normal air movement, no use of accessory muscles and clear to auscultation bilaterally Resp Narrative: Breathing comfortably on 2 L nasal cannula. Good air movement throughout in left lung, mildly diminished air movement in right lung but patient notably has significant scoliosis and lung sounds are shifted and somewhat difficult to auscultate. No wheezing or crackles noted. Cardio regular rate, regular rhythm, no murmurs and peripheral pulses 2+ throughout GI normal to inspection, nondistended, normoactive bowel sounds, soft to palpation, non-tender and non-distended Back/Spine Back/Spine Narrative: Severe scoliosis noted. Good range of motion throughout. No tenderness on palpation. Extremity normal to inspection, full ROM and no pedal edema Skin no rashes or lesions noted Neuro moves all extremities and no focal motor deficits Speech: speech normal Psych mental status grossly normal Weight / BMI Weight Weight: 80.513 kg Body Mass Index (BMI) 32.4 ABG / Lab / Microbiology Data 06/29/23 06:10 06/29/23 06:10 Laboratory: Laboratory Results - last 24 hr 06/29/23 06:10: WBC 8.6, RBC 4.45, Hgb 12.8, Hct 38.6, MCV 86.7, MCH 28.8, MCHC 33.2, RDW Std Deviation 42.0, RDW Coeff of Sofía 13.2, Plt Count 268, MPV 10.5, Sodium 141, Potassium 4.2, Chloride 107, Carbon Dioxide 29.0, Anion Gap 5, BUN 16, Creatinine 0.72, Estim Creat Clear Calc 59.72, Est GFR (MDRD) Af Amer 102, Est GFR (MDRD) Non-Af 84, BUN/Creatinine Ratio 22.3 H, Glucose 101, Calcium 8.6 Microbiology: Microbiology 06/29/23 03:00 Sputum, Expectorated/Coughed Gram Stain - Final 06/28/23 11:15 Mucosa - Nasopharyngeal Respiratory Panel (PCR) - Final 06/28/23 14:16 Urine, Clean Catch Streptococcus pneumoniae Antigen (M - Final 06/28/23 14:16 Urine, Clean Catch Legionella Antigen - Final D/C Instructions Discharge Diet: No restrictions Weight Bearing Status: Full weight bearing Meaningful Use Info Meaningful Use Diagnoses (Choose all that apply): None applicable Discharge Plan Admission Admit Date/Time: 06/28/23 09:58 Primary Reason for Your Visit: shortness of breath Attending Provider: Thomas Champagne Primary Care Provider: Marquis Oneal Instructions Additional Instructions / Restrictions: Please take 5 more days of Levaquin to complete a 7-day course of antibiotics. Use the rescue albuterol inhaler as needed. Follow-up with the lung doctor as discussed with him. Discharge Orders/Prescriptions Prescriptions: New levofloxacin 750 mg tablet 750 mg PO DAILY 5 Days Qty: 5 0RF albuterol sulfate 90 mcg/actuation HFA aerosol inhaler 1 inh inhalation Q6H PRN (Reason: shortness of breath or wheezing) Qty: 8.5 1RF Continued triamcinolone acetonide [Nasacort] 55 mcg aerosol,spray 1 spray INTRANASAL BID PRN (Reason: ALLERGIES) timolol maleate 0.5 % drops 1 drp ophthalmic (eye) BID Rx Instructions: INSTILL 1 DROP INTO BOTH EYES TWICE A DAY ascorbic acid (vitamin C) [Vitamin C] 500 mg Tablet 500 mg PO DAILY cholecalciferol (vitamin D3) [Vitamin D3] 25 mcg (1,000 unit) Capsule 25 mcg PO DAILY Robbie Mag Zinc Plus D3 333 mg-133 unit -133 mg-5 mg Tablet 1 tab PO DAILY amlodipine 10 mg tablet 10 mg PO QHS budesonide-formoterol 160-4.5 mcg/actuation HFA aerosol inhaler 2 puff INHALATION BID ipratropium bromide 42 mcg (0.06 %) spray,non-aerosol 2 spray INTRANASAL TID PRN (Reason: RUNNY NOSE ) Discontinued azithromycin 250 mg tablet 250 mg PO DAILY Patient Comments: PT HAS TWO DAYS LEFT OF THIS ANTIBIOTIC (06/28/23 AND 06/29/23) Rx Instructions: TAKE TWO TABLETS BY MOUTH (500MG) ON DAY ONE THEN TAKE ONE TABLET ONCE DAILY THEREAFTER FOR FOUR DAYS. START DATE: 06/25/23 END DATE: 06/29/23 dexamethasone 6 mg tablet 6 mg PO DAILY Patient Comments: PT HAS TWO DAYS LEFT OF THIS ANTIBIOTIC (06/28/23 AND 06/29/23) Rx Instructions: TAKR ONE TABLET BY MOUTH ONCE DAILY FOR SIX DAYS. START DATE: 06/24/23 END DATE: 06/29/23 Referrals / Follow Up: Marquis Oneal MD [Primary Care Provider] - Disposition Disposition (needs filled in before D/C Order can be placed): Home, Self Care Charges/Coding Visit Charges Inpatient E&M: 46222 Disch Hosp >30min
[2023-06-29 12:37] VITALS: O2SAT 86; O2SAT 89; O2SAT 91
[2023-06-29 13:23] VITALS: BP 127/61; PULSE 65; RESP 16; TEMP 36.5; O2SAT 93
--- NOTE | 2023-06-29 15:44 | CHAPLAIN ---
Type of Pastoral Visit _x__ Initial Visit ___ Follow-up Visit ___ On-call Visit ___ General Patient Visit ___ Spiritual Assessment ___ Family Conference ___ Bereavement ___ Rapid Response ___ Code Blue ___ Other (describe below) Pastoral Care Referral From _x__ Patient ___ Family ___ Nurse ___ Physician ___ [employer] Worker ___ Health Promotion Manager ___ Other (describe below) Sacrament/Intervention ___ Active listening ___ Anointing ___ Voodoo ___ Bereavement ___ Communion ___ Salima exploration ___ ___ Life review ___ Prayer ___ Reconciliation ___ Sacrament of Sick __x_ Supportive presence ___ Wedding ___ Other (describe below) Pastoral Comments entering the room this vegetable canner discovered that patient was being discharged; brief offer of presence and support; pt is pleased to be going home and indicates no further concerns of needs for support; spouse is with her at this time
== END 2023-06-29 13:57 | disposition home or self-care (01) | DRG 195 ==
LOC: ED 10:06 → PCU 10:15
PROVIDERS: Admitting Provider Hospitalist; Emergency Provider Emergency Medicine; PCP Family Medicine; Visit Provider Hospitalist
DX: J18.9 Pneumonia, unspecified organism (principal); M41.35 Thoracogenic scoliosis, thoracolumbar region; I10 Essential (primary) hypertension; E66.9 Obesity, unspecified; Z68.32 Body mass index [BMI] 32.0-32.9, adult; R09.02 Hypoxemia; H40.9 Unspecified glaucoma; Z86.16 Personal history of COVID-19; Z79.899 Other long term (current) drug therapy
CPT/HCPCS: 36415; 71275; 80048; 83880; 84484; 85025; 85027; 87070; 87205; 87449; 87633; 93005; 94668; 94762; 99285; Q9967; A4216

== ENCOUNTER 2023-07-01 08:52 | Emergency (ER) | payer MEDICARE, SELFPAY ==
[2023-07-01 08:53] VITALS: BP 151/127; PULSE 105; RESP 22; TEMP 519.4; TEMP 967; O2SAT 92; BMI 32.7
--- NOTE | 2023-07-01 09:00 | EKG12_ITS ---
Test Reason : SOB Blood Pressure : / mmHG Vent. Rate : 089 BPM Atrial Rate : 089 BPM P-R Int : 120 ms QRS Dur : 074 ms QT Int : 342 ms P-R-T Axes : 064 065 054 degrees QTc Int : 416 ms Normal sinus rhythm Baseline artifact Probably Normal Confirmed by Allan Whitlock ([id number]), television news video editor CAPRICE BENAVIDES ([id number]) on 07/03/2023 9:19:29 AM Referred By: Confirmed By:Allan Whitlock
[2023-07-01 09:23] VITALS: BP 160/64
--- NOTE | 2023-07-01 09:25 | EX.ED.VIS.UR ---
HPI HPI - URI History of Present Illness Chief Complaint: Shortness of Breath Detail of Chief Complaint: Acute on chronic cough. Being treated for pneumonia. Informant: patient, spouse/S.O. and family Onset/Context/Timing Onset: Days Context: Gradual Onset Timing: Continuous Current Severity: Moderate Maximum Severity: Moderate Narrative Narrative: 77-year-old female history of hypertension. Was diagnosed on [place] was admitted to the hospital last week with right lower lobe pneumonia. No overnight Had been on Zithromax was changed to relieve chest x-ray was unremarkable CTA showed no pneumonia. Currently she is still on Levaquin. She has a history of chronic cough its gotten worse over the last few days. She has had for 10 years without any specific cause. There is a questionable history of whether or not she has asthma or just bronchospasm. Prior similar symptoms: Yes Recent Illness/Hospitalization: Yes ROS ROS ED ROS Narrative Acute on chronic cough. History of asthma. No hemoptysis. No chest pain. Review of Systems ROS Unobtainable: Denies due to encephalopathy Constitutional Constitutional ED: Denies chills or fever(s) Eyes Eyes: Denies blurry vision ENT ENT ED: Denies ear pain Cardiovascular Cardiovascular: Denies chest pain Respiratory/Chest Respiratory/Chest: Reports cough and dyspnea Gastrointestinal Gastrointestinal: Denies abdominal pain, constipation, diarrhea, melena, nausea or vomiting Genitourinary Genitourinary ED: Denies dysuria or hematuria Musculoskeletal Musculoskeletal: Denies arthralgias Integumentary Denies abscess Neurologic Neurologic: Denies headache(s) Psychiatric Psychiatric: Denies anxiety Endocrine Endocrinology: Denies cold intolerance Hematologic/Lymphatic Hematologic/Lymphatic: Denies easy bleeding Allergic/Immunologic Allergic/Immunologic ED: Denies mouth swelling, tongue swelling or urticaria [facility] Medical History Alcohol use Asthma Cardiology follow-up encounter Chronic cough COVID-19 virus infection (03/2020) Essential hypertension Family history of sudden cardiac GERD (gastroesophageal reflux disease) History of carcinoma History of echocardiogram History of stress test Hypertension Hypoxia Obesity Pneumonia Post-menopausal Scoliosis Seasonal allergies Wears glasses Home Medications triamcinolone acetonide 55 mcg nasal spray aerosol (Nasacort) 1 spray intranasal BID PRN ALLERGIES 03/08/20 [History Last Taken Unknown] timolol maleate 0.5 % eye drops 1 drp ophthalmic (eye) BID GLAUCOMA 01/27/21 [History Last Taken 06/28/23] ascorbic acid (vitamin C) 500 mg tablet (Vitamin C) 500 mg PO DAILY SUPPLEMENT 05/12/21 [History Last Taken 06/27/23] calcium carb 333 mg-vit D3 133 unit-mag ox 133 mg-zinc oxide 5 mg tab (Robbie Mag Zinc Plus D3) 1 tab PO DAILY SUPPLEMENT 05/12/21 [History Last Taken 06/27/23] cholecalciferol (vitamin D3) 25 mcg (1,000 unit) capsule (Vitamin D3) 25 mcg PO DAILY SUPPLEMENT 05/12/21 [History Last Taken 06/27/23] amlodipine 10 mg tablet 10 mg PO QHS BLOOD PRESSURE 05/27/21 [History Last Taken 06/27/23] budesonide-formoterol HFA 160 mcg-4.5 mcg/actuation aerosol inhaler 2 puff inhalation BID ASTHMA 06/28/23 [History Last Taken 06/27/23] ipratropium bromide 42 mcg (0.06 %) nasal spray 2 spray intranasal TID PRN RUNNY NOSE 06/28/23 [History Last Taken Unknown] albuterol sulfate 90 mcg/actuation aerosol inhaler 1 inh inhalation Q6H PRN shortness of breath or wheezing #8.5 grams 06/29/23 [Rx Last Taken Unknown] levofloxacin 750 mg tablet 750 mg PO DAILY 5 days #5 tabs 06/29/23 [Rx Last Taken Unknown] albuterol sulfate 2.5 mg/3 mL (0.083 %) solution for nebulization 2.5 mg (3 mL) inhalation Q4H PRN #25 vials 07/01/23 [Rx Last Taken Unknown] hydrocodone-homatropine 5 mg-1.5 mg/5 mL (5 mL) oral syrup (Hycodan) 5 ml PO Q6H 5 days #100 mL 07/01/23 [Rx Last Taken Unknown] prednisone 20 mg tablet 40 mg (2 x 20 mg) PO DAILY 7 days #14 tabs 07/01/23 [Rx Last Taken Unknown] Allergy/AdvReac Type Severity Reaction Status Date / Time adhesive tape Allergy itching, Verified 07/01/23 08:53 redness Family History Sister Breast cancer Hypertension Brother Allergies Thyroid disorder Hypertension Father Sudden cardiac , Onset Age: 51 Surgical History History of appendectomy History of back surgery History of bunionectomy of both great toes History of cholecystectomy Social History Smoking Status: Never smoker alcohol intake: never EXAM Physical Exam Narrative Exam Narrative: Well-appearing 77-year-old female. Vital signs stable afebrile. Initial blood pressure elevated 151/127 that will be rechecked I did that secondary to all her coughing. HEENT exam unremarkable. Moist with members. Neck nontender no lymphadenopathy. Lungs coarse breath sounds bilaterally. No rales or rhonchi. Few scattered wheezes. Heart regular rhythm rate about 100 no murmur. Chest wall nontender. Abdomen soft nontender. Moving all 4 extremities. Calves are nontender without edema or cords. Neurologically she is awake and alert with no focal motor deficits. Normal motor strength both upper and lower extremities. Answering questions and following commands. Const Vital Signs: 07/01/23 08:53 07/01/23 09:23 07/01/23 09:31 Temperature 967 F H Temperature Source Temporal Pulse Rate 105 H Respiratory Rate 22 H Respiratory Effort Short of Breath Respiratory Pattern Normal Blood Pressure 151/127 H 160/64 H Blood Pressure Mean 135 96 Pulse Ox 92 Oxygen Delivery Method Nasal Cannula Nasal Cannula Oxygen Flow Rate (L/min) 2 2 07/01/23 09:30 07/01/23 10:00 Temperature Temperature Source Pulse Rate 75 68 Respiratory Rate 16 16 Respiratory Effort Respiratory Pattern Blood Pressure 132/65 H Blood Pressure Mean 87 Pulse Ox 98 Oxygen Delivery Method Room Air Oxygen Flow Rate (L/min) Positive well nourished and well developed; Negative for cachectic or contractures General Appearance ED: well developed and NAD; Negative for cachectic, contractures, cyanotic, diaphoretic or pallor Nutritional Appearance: Negative for cachectic HEENT Reports moist mucous membranes; Denies dry mucous membranes normocephalic and atraumatic; Negative for scalp tenderness Mouth ED: No dry mucous membranes Mouth: No dry mucous membranes Teeth and Gingiva: Negative for caries Throat: posterior oropharynx normal Eyes PERRL and EOMs intact bilaterally General Eye ED: Negative for pale conjunctiva or scleral icterus Neck no lymphadenopathy, supple, no meningeal signs and no JVD General: Negative for anterior neck swelling or lymphadenopathy Resp normal respiratory effort and No clear to auscultation bilaterally Auscultation: wheezes; Negative for rales or rhonchi Cardio S1 normal heart sound, S2 normal heart sound and no murmurs Rate: regular rate; Negative for bradycardia or tachycardic Rhythm: regular rhythm; Negative for abnormal rhythm GI non-tender, non-distended and no masses Inspection: Negative for abdominal distention Auscultation: normoactive bowel sounds Palpation: soft; Negative for tender or guarding Back/Spine no CVA tenderness and normal ROM General Back: Negative for CVA tenderness Cervical Spine: Negative for cervical spine tenderness Thoracic Spine / Upper Back: Negative for thoracic spinal tenderness Lumbar Spine / Lower Back: Negative for lumbar spinal tenderness Sacrum: Negative for tenderness Extremity normal to inspection and full ROM General Extremety ED: Negative for cyanosis, tenderness or other findings General Extremity: Negative for cyanosis or other findings Neuro oriented x3 and CN's II-XII intact bilaterally Sensorium / Orientation: alert, oriented to person, oriented to place and oriented to time; Negative for orientation impaired or lethargic Motor Exam: strength 5/5 throughout Psych mental status grossly normal Appearance: Negative for other Attitude: No agitated Mood & Affect: Negative for depressed, anxious or tearful Skin General Skin Exam: Negative for jaundice or pallor Lesions: no lesions Rashes: no rashes Trauma: Negative for abrasion or laceration MDM MDM MDM Narrative Medical decision making narrative: 77-year-old female recent pneumonia and hospitalization overnight. On Levaquin. Acute on chronic cough that she has had for years. She will be treated with a DuoNeb aerosol for her wheezing also p.o. prednisone. Codeine cough syrup for the cough. Number to obtain a chest x-ray to see if there is any significant change in the pneumonia or any development of any pleural effusion. She had recent labs are unremarkable. I do not think she needs any lab work today. Repeat exam patient is doing much better 10:55 AM. She will be discharged home. Prescription for prednisone. Continue her Levaquin. Prescription for a nebulizer with albuterol and Hycodan cough syrup. History & Record Review Discussion w/independent historian: Patient Additional record(s) reviewed:: Prior inpatient record, Prior outpatient record, Prior ED visit and Prior labs Radiography Chest X-Ray - ED: 2 View, Read by ED Physician, Normal, Heart, Mediastinum, Bony Structures and Right Infiltrate Diagnostic Testing: Clinical Impression(s) from Imaging Studies Chest X-Ray 07/01/23 09:45 IMPRESSION: Mildly decreased right lower lobe pneumonia. Electronically Signed: Rosie Ramos MD at 10:17 EST , Chest x-ray portable single view interpreted by myself and the radiologist shows streaky infiltrate in right lower lobe consistent with right lower lobe pneumonia. There is no effusion. It looks similar to yesterday's chest x-ray. She also has large thoracic rods in her spine. There is a chronic. Rhythm Strip Rhythm Strip: Sinus Rhythm Rate: 89 Ectopy: None EKG Initial EKG: Attestation: I personally reviewed and interpreted this EKG as follows: Interpretation: Sinus Rhythm and No Acute Injury Pattern Comments: Normal sinus rhythm rate of 89 no acute signs of TX or ischemia. Discharge Plan Triage Chief Complaint: Shortness of Breath ED Provider: Micha Pacheco Dx/Rx/DC Orders Clinical Impression: Bronchospasm, Cough, Pneumonia Instructions: ED Pneumonia (Adult) Prescriptions: New albuterol sulfate 2.5 mg /3 mL (0.083 %) solution for nebulization 2.5 mg inhalation Q4H PRN Qty: 25 0RF Rx Instructions: Use q4 hours and PRN for wheezing prednisone 20 mg tablet 40 mg PO DAILY 7 Days Qty: 14 0RF hydrocodone-homatropine [Hycodan] 5-1.5 mg/5 mL (5 mL) syrup 5 ml PO Q6H 5 Days Qty: 100 0RF No Action triamcinolone acetonide [Nasacort] 55 mcg aerosol,spray 1 spray INTRANASAL BID PRN (Reason: ALLERGIES) timolol maleate 0.5 % drops 1 drp ophthalmic (eye) BID Rx Instructions: INSTILL 1 DROP INTO BOTH EYES TWICE A DAY ascorbic acid (vitamin C) [Vitamin C] 500 mg Tablet 500 mg PO DAILY cholecalciferol (vitamin D3) [Vitamin D3] 25 mcg (1,000 unit) Capsule 25 mcg PO DAILY Robbie Mag Zinc Plus D3 333 mg-133 unit -133 mg-5 mg Tablet 1 tab PO DAILY amlodipine 10 mg tablet 10 mg PO QHS budesonide-formoterol 160-4.5 mcg/actuation HFA aerosol inhaler 2 puff INHALATION BID ipratropium bromide 42 mcg (0.06 %) spray,non-aerosol 2 spray INTRANASAL TID PRN (Reason: RUNNY NOSE ) levofloxacin 750 mg tablet 750 mg PO DAILY 5 Days Qty: 5 0RF albuterol sulfate 90 mcg/actuation HFA aerosol inhaler 1 inh inhalation Q6H PRN (Reason: shortness of breath or wheezing) Qty: 8.5 1RF Primary Care Provider: Marquis Oneal Referrals: Marquis Oneal MD [Primary Care Provider] - 1 Week if not improving Activity Restrictions/Additional Instructions: Prednisone 40 mg a day for the next 7 days. Hycodan cough syrup to help with the cough. Do not drive with it. It does have codeine in it. Nebulizer with albuterol. As needed. Follow-up with your doctor to ensure you are improving. Plenty of fluids and rest. Finish your antibiotic prescription of Levaquin. Disposition Disposition: Home, Self Care
[2023-07-01] MEDS: predniSONE 20 MG Tablet 40 MG PO (09:28)
[2023-07-01] MEDS: Ipratropium/Albuterol Sulfate 3 ML AMPUL.NEB INHALATION (09:28)
[2023-07-01 09:30] VITALS: PULSE 75; RESP 16
--- NOTE | 2023-07-01 09:45 | RAD_ITS ---
HISTORY: cough. RLL Pneumonia hx. TECHNIQUE: XR Chest 2 Views. COMPARISON: 06/27/2023. FINDINGS: CARDIOMEDIASTINAL BORDERS: Cardiac silhouette within normal limits in size. Tortuosity and calcification of the aorta again noted. LUNGS: Decreased right basilar opacity. PLEURA: Trace right pleural effusion again seen. OSSEOUS STRUCTURES: Moderate scoliosis with spinal fixation hardware. RAD/Chest PA and Lateral IMPRESSION: Mildly decreased right lower lobe pneumonia. Electronically Signed: Rosie Ramos MD at 10:17 EST ,
[2023-07-01 10:00] VITALS: BP 132/65; PULSE 68; RESP 16; O2SAT 98
[2023-07-01] MEDS: Albuterol 2.5 MG/3 ML VIAL.NEB. INHALATION (11:05)
[2023-07-01 11:10] VITALS: PULSE 70; RESP 18
[2023-07-01 11:31] VITALS: BP 127/69; PULSE 70; RESP 18; TEMP 36.6; O2SAT 96
== END 2023-07-01 11:32 | disposition home or self-care (01) ==
PROVIDERS: Emergency Provider Emergency Medicine; PCP Family Medicine; Visit Provider Emergency Medicine
DX: J18.9 Pneumonia, unspecified organism (principal); Z86.16 Personal history of COVID-19
CPT/HCPCS: 71046; 93005; 94640; 99282; A4216

== ENCOUNTER → 2023-08-13 | Outpatient (CLI) | payer MEDICARE, SELFPAY ==
--- NOTE | 2023-08-13 13:03 | BI_ITS ---
MAMMOGRAPHY - BILATERAL SCREENING REASON FOR EXAM: Female, 77 years old. Routine annual screening examination. PERTINENT HISTORY: Sister with breast cancer. TECHNIQUE: Digital bilateral breast mattie (3D mammographic acquisition) in the CC and MLO projections. 2-D mediolateral oblique (MLO) and craniocaudad (CC) views of both breasts were obtained. CAD: Full Field Digital Mammography with Computer Added Detection was performed. COMPARISON: Comparison is made with prior study dated August 11, 2022 and August 16, 2020. FINDINGS: Breast Composition: The breasts are almost entirely fatty. There are no dominant masses or suspicious calcifications. No other significant abnormalities are identified. There has been no significant change since the prior study. BI/SCRN MAMM (CAD)W/MATTIE BILAT IMPRESSION: Stable bilateral screening mammogram. Yearly follow-up mammogram recommended. (A) ASSESSMENT CATEGORY: BIRADS Category 1: Negative. A letter regarding these results will be sent to the patient by the facility within 30 days. Approximately 10% of breast cancers are not detected by mammography. A normal mammogram should not delay biopsy of a clinically suspicious abnormality. [id number] Electronically Signed: Sabino Garcia MD at 15:02 EDT ,
== END | disposition home or self-care (01) ==
LOC: OPBI 13:03
PROVIDERS: PCP Family Medicine; Referring Provider Family Medicine; Visit Provider Family Medicine
DX: Z12.31 Encounter for screening mammogram for malignant neoplasm of breast (principal)
CPT/HCPCS: 77063; 77067

== ENCOUNTER → 2023-11-05 | Outpatient (CLI) | payer MEDICARE, SELFPAY ==
--- NOTE | 2023-11-05 13:01 | US_ITS ---
STUDY: THYROID ULTRASOUND REASON FOR EXAM: Female, 78 years old. Nodule noted on recent CT TECHNIQUE: Ultrasound evaluation of the thyroid was performed with real-time and static tirado-scale imaging. COMPARISON: No prior thyroid imaging FINDINGS: RIGHT LOBE: The right lobe of the thyroid gland measures 4.3 x 1.8 x 1.7 cm. There is a homogeneous echotexture. There is a solid hypoechoic 0.5 cm nodule This nodule is solid or almost completely solid, hypoechoic, [id number], smoothly marginated and contains no echogenic foci. TI-RADS points: 4. TI-RADS category: TR4. This nodule is moderately suspicious but no FNA or follow-up is necessary given the small size of this nodule. LEFT LOBE: The left lobe of the thyroid gland measures 4.3 x 2.1 x 2.5 cm. There is a homogeneous echotexture. There is a solid/cystic complex 2.4 x 1.2 x 1.2 cm nodule corresponding to the finding on CT. This nodule is mixed cystic and solid, hypoechoic, [id number], smoothly marginated and contains no echogenic foci. TI-RADS points: 3. 2 TI-RADS category: TR3. This nodule is mildly suspicious. Recommend follow-up thyroid ultrasounds at 1, 3 and 5 years. ISTHMUS: The isthmus measures 2 mm. The regional lymph nodes are normal largest measures 0.5 cm in short axis dimension. US/Thyroid IMPRESSION: Normal-sized thyroid gland with bilateral nodules. Categorization and follow-up as described above Electronically Signed: Derick Benson MD at 11:00 EDT ,
== END | disposition home or self-care (01) ==
PROVIDERS: PCP Family Medicine; Referring Provider Family Medicine; Visit Provider Family Medicine
DX: E04.1 Nontoxic single thyroid nodule (principal)
CPT/HCPCS: 76536

== ENCOUNTER → 2024-05-07 | Outpatient (CLI) | payer MEDICARE, SELFPAY ==
[2024-05-07 12:42] LABS: ALB/GLOB Ratio 0.9 RATIO (0.9-2.4); AST(SGOT) 20 U/L (15-37); Alanine Aminotransfer ALT/SGPT 29 U/L (13-56); Albumin, Serum 3.6 g/dL (3.2-5.0); Alkaline Phosphatase 98 U/L (45-117); Anion Gap 4 (5-15); BUN 16 mg/dL (7-18); BUN/Creat Ratio 22.4 RATIO (10-20); Calcium,Total 8.9 mg/dL (8.5-10.1); Chloride 108 mmol/L (98-107); Cholesterol 184 mg/dL (200); Creatinine, Serum 0.71 mg/dL (0.55-1.02); EST Glomerular Filtration Rate 85 mL/min (>60); Est Glom Filt Rate - Afr Amer 102 mL/min (>60); Globulin 3.8 g/dL (2.2-4.2); Glucose 108 mg/dL (74-106); High Density Lipoprotein 86 mg/dL; Potassium 3.6 mmol/L (3.5-5.1); Protein, Total 7.4 g/dL (6.4-8.2); Sodium Level 140 mmol/L (136-145); Triglycerides 84 mg/dL; Very Low Density Lipoprotein 17 mg/dL (5-40)
[2024-05-08 00:35] LABS: Vitamin D,25 Hydroxy 45.5 ng/mL
== END | disposition home or self-care (01) ==
LOC: MFPLAB 10:54
PROVIDERS: PCP Family Medicine; Referring Provider Family Medicine; Visit Provider Family Medicine
DX: Z00.00 Encounter for general adult medical examination without abnormal findings (principal); I10 Essential (primary) hypertension; M85.80 Other specified disorders of bone density and structure, unspecified site
CPT/HCPCS: 36415; 80053; 80061; 82306; 84443

== ENCOUNTER → 2024-06-19 | Outpatient (CLI) | payer MEDICARE, SELFPAY | END | disposition home or self-care (01) | PROVIDERS: PCP Family Medicine; Referring Provider Nurse Practitioner Family; Visit Provider Nurse Practitioner Family | DX: N39.0 Urinary tract infection, site not specified (principal) | CPT/HCPCS: 87077; 87086; 87088; 87186 ==

== ENCOUNTER → 2024-10-03 | Outpatient (CLI) | payer MEDICARE, SELFPAY ==
--- NOTE | 2024-10-03 09:02 | VDLE_ITS ---
Reason For Study Reason For Study: Venous insufficiency RIGHT LEFT CFV is compressible, spontaneous, phasic, competent CFV is compressible, spontaneous, phasic, competent, and demonstrates normal augmentation. and demonstrates normal augmentation. FV is compressible, spontaneous, phasic, competent FV is compressible, spontaneous, phasic, competent and demonstrates normal augmentation. and demonstrates normal augmentation. POP V is compressible, spontaneous, phasic, competent POP V is compressible, spontaneous, phasic, competent and demonstrates normal augmentation. and demonstrates normal augmentation. T/P Trunk is compressible. T/P Trunk is compressible. PTV is compressible. PTV is compressible. RT PerV is compressible. LT PerV is compressible. SFJ is competent and measures 0.46 cm. SFJ is competent and measures 0.45 cm. GSV proximal thigh measures 0.35 x 0.36 cm. GSV proximal thigh measures 0.29 x 0.29 cm. GSV above knee is competent. GSV above knee is competent. GSV at knee measures 0.32 x 0.34 cm. GSV at knee measures 0.19 x 0.21 cm. GSV below knee is INCOMPETENT for greater than 0.5 GSV below knee is INCOMPETENT for greater than 0.5 seconds. seconds. ASV proximal calf is INCOMPETENT for greater than 0.5 ASV proximal thigh is INCOMPETENT for greater than seconds and measures 0.13 x 0.14 cm. 0.5 seconds and measures 0.24 x 0.28 cm. SSV mid calf is competent and measures 0.18 x 0.14 SSV at junction is competent and measures 0.26 x 0.2 cm. cm. Procedure This is a venous duplex using B-mode, color flow and spectral Doppler. Exam performed in department. Patient was scanned in reverse Trendelenburg position during reflux assessment. VL/Venous Duplex US - Eduard Extrem Interpretation Summary Deep veins of the bilateral lower extremities are patent and compressible segme ntally. There is no evidence of bilateral lower extremities deep vein thrombosis. The bilateral great saphenous veins sanjay ear patent and compressible segmentally. Positive for reflux in the right great saphenous vein below the knee, accessory saphenous vein in calf. Positive for reflux in the left great saphenous vein below the knee, accessory saphenous vein in the thigh. Ordering Physician: Gus Spencer Referring Physician: Itz Oneal MD Performed By: Lora Arredondo RVT
== END | disposition home or self-care (01) ==
LOC: CVS 08:59
PROVIDERS: PCP Family Medicine; Referring Provider Podiatrist; Visit Provider Podiatrist
DX: I87.2 Venous insufficiency (chronic) (peripheral) (principal); M79.661 Pain in right lower leg; M79.662 Pain in left lower leg
CPT/HCPCS: 93970

== ENCOUNTER → 2024-10-08 | Outpatient (CLI) | payer MEDICARE, SELFPAY ==
--- NOTE | 2024-10-08 09:57 | NEURO ---
NCS and/or EMG Patient Report Ordering Doctor: Gus Spencer DATE OF SERVICE: 10/08/24 Selma presents with complaints of left ankle swelling and weakness. She also reports pain in the left buttock. Electrodiagnostic findings: Peroneal motor nerve demonstrates normal distal latency, amplitude and conduction velocity bilaterally. Normal tibial motor response bilaterally. Sensory responses are within normal limits. Normal peroneal and tibial F?waves. Normal H?reflex bilaterally. Needle EMG testing was performed the lower limbs. All muscles tested showed no evidence of denervation with normal motor unit action potentials. Electrodiagnostic impression: This is a normal electrodiagnostic study of the lower limbs. There is no electrodiagnostic evidence for peripheral neuropathy or lumbosacral radiculopathy. Multi Select Codes Neurology Neurology Interp Codes: 10409-46 Musc test done w/n test comp (interp) (2) and 19813-41 Nrv cndj test 9-10 studies (interp)
== END | disposition home or self-care (01) ==
LOC: PSN 07:02
PROVIDERS: PCP Family Medicine; Referring Provider Podiatrist; Visit Provider Podiatrist
DX: G62.9 Polyneuropathy, unspecified (principal); M25.372 Other instability, left ankle; M54.17 Radiculopathy, lumbosacral region
CPT/HCPCS: 95886; 95911

== ENCOUNTER → 2024-11-17 | Outpatient (CLI) | payer MEDICARE, SELFPAY ==
--- NOTE | 2024-11-17 16:20 | US_ITS ---
PROCEDURE: THYROID 11/17/2024 REASON FOR EXAM: L THYROID NODULE FU. INITIALLY SEEN ON CT AT [facility] 11/11. TECHNIQUE: THYROID COMPARISON: Thyroid ultrasound on 11/05/2023 FINDINGS: Right thyroid lobe size: 3.9 x 1.6 x 1.6 cm Left thyroid lobe size: 4.5 x 1.9 x 2.2 cm Isthmus: 0.3 cm Background parenchymal echotexture is heterogeneous Nodules: 1. Lobe: Right, Location: Mid, Size: 0.4 x 0.4 x 0.7 cm, Stability: Stable Composition: Solid or almost completely solid (+2) Echogenicity: Hypoechoic (+2) Margin: Ill-defined (+0) Shape: Wider than tall (+0) Echogenic Foci: None (+0) TI-RADS: 4 2. Lobe: Left, Location: Mid to upper, Size: 2.8 x 1.5 x 2.1 cm, Stability: Significant increase in size (a 20% or greater increase in at least two nodule dimensions and a minimum increase of 2 mm, or a 50% or greater increase in volume) Composition: Mixed cystic and solid (+1) Echogenicity: Hypoechoic (+2) Margin: Ill-defined (+0) Shape: Wider than tall (+0) Echogenic Foci: None (+0) TI-RADS: 3 3. Lobe: Isthmus, Location: N/a, Size: 0.8 x 0.4 x 0.7 cm, Stability: New Composition: Solid or almost completely solid (+2) Echogenicity: Hyper to Isoechoic (+1) Margin: Smooth (+0) Shape: Wider than tall (+0) Echogenic Foci: None (+0) TI-RADS: 3 US/Thyroid IMPRESSION: Multinodular thyroid, as detailed above. Consider FNA of the left thyroid lobe nodule (#2) per ACR TI-RADS guidelines. Reading Location: [facility]
== END | disposition home or self-care (01) ==
LOC: US 16:18
PROVIDERS: PCP Family Medicine; Referring Provider Family Medicine; Visit Provider Family Medicine
DX: E04.1 Nontoxic single thyroid nodule (principal)
CPT/HCPCS: 76536

== ENCOUNTER → 2025-01-27 | Outpatient (CLI) | payer MEDICARE, SELFPAY ==
[2025-01-27 19:19] LABS: Free T3 2.7 pg/mL (2.18-3.98)
--- OUTSIDE RECORDS SUMMARY | 2025-01-27 22:07 | XMS RPT_ITS | CCD ---
Author Organization [facility] Care Team Providers Care Property Administrator Name Role Phone Dr. Marquis Oneal Primary Care Provider Dr. Brock Valderrama Attending Provider [phone] Jake Carmona Emergency Provider Dr. Thomas Champagne Admit Provider Dr. Thomas Champagne Other Provider Dr. Charli Gonzalez Other Provider Dr. Shawn Osorio Other Provider Dr. Cecilio Miranda Attending Provider Dr. Cecilio Miranda Other Provider Dr. Sj Patel Other Provider [phone] Dr. Antonieta Lester Other Provider [phone] Dr. Eran Blancas Other Provider Dr. Lula Malcolm Other Provider Dr. Susie Steel Other Provider Unavailable Dr. Gallo Hays Other Provider Dr. Montrell Heredia Other Provider Dr. Ritesh Lassiter Other Provider Dr. Rd Mcgee Other Provider [phone] Dr. Thomas Champagne Attending Provider Dr. Marquis Oneal Primary Care Provider Dr. Brock Valderrama Attending Provider Dr. Jake Carmona Emergency Provider Dr. Thomas Champagne Admit Provider Dr. Thomas Champagne Referring Provider Dr. Thomas Champagne Other Provider Dr. Charli Gonzalez Other Provider [phone] Shawn Osorio Other Provider Dr. Cecilio Miranda Attending Provider Dr. Cecilio Miranda Other Provider Dr. Sj Patel Other Provider Dr. Antonieta Lester Other Provider [phone] Dr. Eran Blancas Other Provider Dr. Lula Malcolm Other Provider Dr. Susie Steel Other Provider Unavailable Dr. Gallo Hays Other Provider Dr. Montrell Heredia Other Provider Dr. Ritesh Lassiter Other Provider Dr. Rd Mcgee Other Provider Dr. Thomas Champagne Attending Provider Itz Oneal Primary Care Provider [facility] marielle PROVIDER, UNKNOWN Referring Unavailable Elva Goodman MD Unavailable Dr. Itz Oneal MD Primary Care Provider Debbie RECTANGULAR TANK COOPER-C, Erika Attending Provider Debbie RECTANGULAR TANK COOPER-C, Erika Referring Provider Tj PIERRE, Dr. Weber Attending Provider Tj PIERRE, Dr. Weber Referring Provider Dr. Navid Taylor MD Attending Provider Tj PIERRE, Dr. Weber Other Provider Jd TINSLEY, Dr. Brock Attending Provider LEANO, LADONNA Referring Unavailable LEANO, LADONNA Attending Unavailable SEABOLD, DENIA Referring Unavailable MINNIE UNGER Attending Unavailable SEABOLD, DENIA Referring Unavailable SEABOLD, DENIA Referring Unavailable SEABOLD, DENIA Referring Unavailable SEABOLD, DENIA Referring Unavailable SEABOLD, DENIA Referring Unavailable SEABOLD, DENIA Attending Unavailable LEANO, LADONAN Referring Unavailable MAYNOR GARAY Attending Unavailable LEANO, LADONNA Referring Unavailable LEANO, ELVA DOLL Attending Unavailable LEANO, LADONNA Attending Unavailable LEANO, LADONNA Referring Unavailable Kimmy TINSLEY, Dr. Mobley Primary Care Provider Kimmy TINSLEY, Dr. Mobley Attending Provider Kimmy TINSLEY, Dr. Mobley Referring Provider Itz Oneal Primary Care Unavailable Papanning, Gsu Referring Unavailable Papanning, Gus Attending Unavailable Itz Oneal Primary Care Unavailable Papanning, Gus Referring Unavailable Papanning, Gus Attending Unavailable Kimmy, Itz Attending Unavailable Kimmy, Itz Referring Unavailable Kimmy, Itz Primary Care Unavailable Kimmy, Itz Primary Care Unavailable Kimmy, Itz Attending Unavailable Kimmy, Itz Referring Unavailable Wunning, Gus Referring Unavailable Navid Taylor Attending Unavailable Kimmy, Itz Primary Care Unavailable Delmy Miles Attending Unavailable Itz Oneal Primary Care Unavailable Wunning, Gus Consulting Unavailable Wunning, Gus Referring Unavailable Sid Lewisin Attending Unavailable Debbie Erika Referring Unavailable Itz Oneal Primary Care Unavailable Allergies Allergy Classification Reported Allergen(s) Allergy Type Date of Onset Reaction(s) Facility (4 sources) Adhesive Tape; Translations: [adhesive tape] Allergy to substance 2 itching, redness [facility] (9 sources) Adhesive Tape-Silicones; Translations: [ADHESIVE TAPE-SILICONES] Drug Allergy 1 Itching [facility] Medications Current Medications Medication Drug Class(es) Dates Sig (Normalized) Sig (Original) albuterol 0.83 mg/ml inhalation solution (20 sources) beta2-Adrenergic Agonist Start: 07-01-2023 take 2.5 mg by inhalation every four hours as needed for wheezing Albuterol Sulfate 2.5 mg /3 mL (0.083 %) solution for nebulization Active 2.5 mg INHALATION EVERY 4 HOURS NEEDED 25 0 July 01, 2023 1:00am Use q4 hours and PRN for wheezing Start: 06-29-2023 Albuterol Sulf ate 90 mcg/actuation HFA aerosol inhaler Active 1 NMA INHALATION EVERY 6 HOURS as needed for shortness of breath or wheezing 8.5 1 June 29, 2023 1:00am Start: 06-29-2023 Albuterol Sulf ate Active 1 INH INHALATION EVERY 6 HOURS 8.June 29, 2023 1:00am Start: 04-09-2020 End: 01-26-2021 take 2.5 mg by inhalation twice daily Albuterol Sulfate 2.5 mg /3 mL (0.083 %) solution for nebulization Discontinued 2.5 mg INHALATION TWICE A DAY 180 6 May 11, 2020 11:57am January 26, 2021 7:42am COVID-19 Pneumonia, unspecified organism Moderate persistent asthma, uncomplicated Hypoxemia U07.1- COVID-19 J18.9 Pneumonia J45.40 Moderate Persistent Asthma R09.02 Hypoxemia Start: 06-16-2017 End: 01-26-2021 Albuterol Sulfate (Ventolin Hfa) 90 mcg/actuation HFA aerosol inhaler Discontinued 1 NMA INHALATION EVERY 6 HOURS June 16, 2017 1:00am January 26, 2021 7:42am Start: 06-16-2017 End: 01-26-2021 take 1 puff(s) by inhalation every six hours Albuterol Sulfate (Ventolin Hfa) 90 mcg/actuation HFA aerosol inhaler Discontinued 1 PUFF INHALATION EVERY 6 HOURS June 16, 2017 1:00am January 26, 2021 7:42am ascorbic acid 500 mg oral tablet (20 sources) Vitamin C Start: 05-12-2021 take 1 tablet by mouth once daily Ascorbic Acid (Vitamin C) (Vitamin C) 500 mg Tablet Active 500 mg PO DAILY May 12, 2021 1:00am SUPPLEMENT End: 04-08-2024 ascorbic acid-ascorbate sodi um 500 mg chew Take by mouth. 04/08/2024 Discontinued Budesonide-Formoterol (17 sources) Corticosteroid, beta2-Adrenergic Agonist Start: 06-28-2023 Budesonide-Formoterol 160-4.5 mcg/actuation HFA aerosol inhaler Active 2 NMA INHALATION TWICE A DAY June 28, 2023 1:00am ASTHMA Start: 06-28-2023 Budesonide-For moterol 160-4.5 mcg/actuation HFA aerosol inhaler Active 2 NMA INHALATION TWICE A DAY June 28, 2023 1:00am Start: 06-28-2023 take 1 puff(s) by in halation twice daily Budesonide-Formoterol Active 2 PUFF INHALATION TWICE A DAY June 28, 2023 1:00am Start: 06-28-2023 take 1 puff(s) by in halation twice daily Budesonide-Formoterol Active 2 PUFF INHALATION TWICE A DAY June 28, 2023 12:00am End: 04-08-2024 take 2 puff(s) by inhalation twice daily budesonide-formoterol (SYMBICORT) 160-4.5 mcg/actuation inhaler Inhale 2 Puffs as instructed two times a day. 04/08/2024 Discontinued take 2 puff(s) by in halation twice daily budesonide-formoterol (SYMBICORT) 160-4.5 mcg/actuation inhaler Inhale 2 Puffs as instructed two times a day. Active take 2 puff(s) by in halation twice daily budesonide-formoterol (SYMBICORT) 160-4.5 mcg/actuation inhaler Inhale 2 Puffs as instructed two times a day. 0 Active 120 actuat budesonide 0.16 mg/actuat / formoterol fumarate 0.0048 mg/actuat / glycopyrrolate 0.009 mg/actuat metered dose inhaler (18 sources) Corticosteroid, beta2-Adrenergic Agonist Start: 04-01-2024 take 2 puff(s) by inhalation twice daily svahkpfmqx-whjqddib-kaofpcjkhk (BREZTRI AEROSPHERE) 160-9-4.8 mcg/actuation HFA aerosol inhaler Indications: Persistent asthma without complication, unspecified asthma severity (HCC) , Chronic cough Inhale 2 Puffs as instructed two times a day. 1 Each 04/01/2024 Active calcium carb,gluc/mag gluc,ox (CALCIUM MAGNESIUM ORAL) (3 sources) take 1 tablet by mouth once daily calcium carb,gluc/mag gluc,ox (CALCIUM MAGNESIUM ORAL) Take 1 tablet by mouth once daily. 400MG Active Calcium Carb-D3-Mag Ox-Zinc Ox (13 sources) Vitamin D Start: 05-12-2021 Calcium Carb-D3-Mag Ox-Zinc Ox (Robbie Mag Zinc Plus D3) 333 mg-133 unit -133 mg-5 mg Tablet Active 1 {tbl} PO DAILY May 12, 2021 1:00am SUPPLEMENT Start: 05-12-2021 Calcium Carb-D 3-Mag Ox-Zinc Ox (Robbie Mag Zinc Plus D3) 333 mg-133 unit -133 mg-5 mg Tablet Active 1 {tbl} PO DAILY May 12, 2021 1:00am Start: 05-12-2021 take 1 tablet by phuong th once daily Calcium Carb-D3-Mag Ox-Zinc Ox (Robbie Mag Zinc Plus D3) 333 mg-133 unit -133 mg-5 mg Tablet Active 1 TABLET PO DAILY May 12, 2021 12:00am Start: 05-12-2021 take 1 tablet by phuong th once daily Calcium Carb-D3-Mag Ox-Zinc Ox (Robbie Mag Zinc Plus D3) 333 mg-133 unit -133 mg-5 mg Tablet Active 1 TABLET PO DAILY May 12, 2021 1:00am cetirizine hydrochloride 1 mg/ml oral solution (15 sources) Histamine-1 Receptor Antagonist cetirizine (ALLERGY RELIEF, CETIRIZINE,) 1 mg/mL syrup Take by mouth once daily. Active cholecalciferol 0.025 mg oral capsule (20 sources) Vitamin D Start: 021 take 1 capsule by mouth once daily Cholecalciferol (Vitamin D3) (Vitamin D3) 25 mcg (1,000 unit) Capsule Active 25 ug PO DAILY May 12, 2021 1:00am SUPPLEMENT take 1 tablet by mouth twice aguila ly Cholecalciferol, Vitamin D3, (VITAMIN D-3) 25 mcg (1,000 unit) chew Take 25 tablets by mouth two times a day. Active Hydrocodone-Homatropine (Hycodan) 5-1.5 mg/5 mL (5 mL) syrup (5 sources) Start: 07-01-2023 Hydrocodone-Ho matropine (Hycodan) 5-1.5 mg/5 mL (5 mL) syrup Active 5 mL PO EVERY 6 HOURS 100 5 0 July 01, 2023 Pneumonia Cough Pneumonia, unspecified organism Cough, unspecified Start: 07-01-2023 Hydrocodone-Ho matropine (Hycodan) 5-1.5 mg/5 mL (5 mL) syrup Active 5 mL PO EVERY 6 HOURS 100 5 July 01, 2023 Start: 07-01-2023 Hydrocodone-Ho matropine (Hycodan) 5-1.5 mg/5 mL (5 mL) syrup Active 5 ML PO EVERY 6 HOURS 100 5 July 01, 2023 ipratropium bromide 0.042 mg/actuat metered dose nasal spray (20 sources) Anticholinergic Start: 06-28-2023 Ipratropium Br omide 42 mcg (0.06 %) spray,non-aerosol Active 2 NMA INTRANASAL THREE TIMES A DAY as needed for RUNNY NOSE June 28, 2023 1:00am Start: 06-28-2023 Ipratropium Br omide Active 2 SPRAY INTRANASAL THREE TIMES A DAY June 28, 2023 1:00am Ipratropium Brom karen (ATROVENT) 21 mcg (0.03 %) nasal spray Indications: Chronic cough Use 2 Sprays in the nose every 12 hours. Active latanoprost 0.05 mg/ml ophthalmic solution (20 sources) Prostaglandin Analog Start: 04-15-2024 take 1 drop(s) into the eye(s) once daily latanoprost (XALATAN) 0.005 % ophthalmic solution Instill 1 drop into both eyes once a day 04/15/2024 Active Start: 05-11-2020 End: 06-21-2020 Latanoprost 0.005 % drops Di scontinued 1 NMA OPHTHALMIC DAILY May 11, 2020 1:00am June 21, 2020 12:09pm latanoprost 0.05 mg/ml / timolol 5 mg/ml ophthalmic solution (20 sources) Prostaglandin Analog, beta-Adrenergic Peterson timolol maleate/comfort noprost/PF (TIMOLOL-LATANOPROST,PF,) 0.5-0.005 % drop Use 1 Drop in eyes once daily. Active levoFLOXacin 750 mg oral tablet (5 sources) Quinolone Antimicrobial Start : 06-29 take 1 tablet by mouth once daily Levofloxacin 750 mg tablet Active 750 mg PO DAILY 5 5 0 June 29, 2023 1:00am Miscellaneous Medical Supply (2 sources) Start : 07-01 Miscellaneous Medical Supply Active 0 .Route 1 July 01, 2023 1:00am As directed Start: 07-01-2023 Miscellaneous Medical Supply Active 0 .Route 1 July 01, 2023 12:00am As directed Miscellaneous Medical Supply misc (3 sources) Start: 07-01-2023 Miscellaneous Medical Supply misc Active 0 .Route 1 0 July 01, 2023 1:00am Bronchospasm Acute bronchospasm As directed Start: 07-01-2023 Miscellaneous Medical Supply misc Active 0 .Route 1 July 01, 2023 1:00am As directed montelukast 10 mg oral tablet (20 sources) Leukotriene Receptor Antagonist Start: 10-12-2023 End: 09-29-2024 take 1 tablet by mouth once daily montelukast (SINGULAIR) 10 mg tablet Indications: Chronic cough , Persistent asthma without complication, unspecified asthma severity (HCC) , Allergic rhinitis, unspecified seasonality, unspecified trigger TAKE 1 TABLET BY MOUTH EVERY DAY 30 tablet 09/29/2024 Active Start: 03-08-2020 End: 05-11-2020 take 1 tablet by mouth once daily Montelukast (Singulair) 10 mg tablet Discontinued 10 mg PO DAILY March 08, 2020 12:00am May 11, 2020 9:55am Nebulizer Accessories ([employer] Choice Neb Kit-Adult) misc (5 sources) Start: 07-01-2023 Nebulizer Acce ssories ([place] Choice Neb Kit-Adult) misc Active 0 .Route 1 0 July 01, 2023 1:00am Bronchospasm Acute bronchospasm As directed Start: 07-01-2023 Nebulizer Acce ssories ([place] Choice Neb Kit-Adult) misc Active 0 .Route 1 July 01, 2023 1:00am As directed Start: 07-01-2023 Nebulizer Acce ssories ([place] Choice Neb Kit-Adult) misc Active 0 .Route July 01, 2023 12:00am As directed pantoprazole 40 mg delayed release oral tablet (15 sources) Proton Pump Inhibitor Start: 05-02-2024 End: 12-30-2024 take 1 tablet by mouth once daily at mealtime pantoprazole DR (PROTONIX) 40 mg tablet Indications: Chronic cough , Gastroesophageal reflux disease, unspecified whether esophagitis present TAKE 1 TABLET BY MOUTH EVERY DAY 30 to 60 minutes prior to first meal 30 tablet 12/30/2024 Active phenylephrine/diph enhydramine (ALLERGY AND SINUS RELIEF ORAL) (15 sources) take 1 tablet by mouth once daily phenylephrine/diphenhy dramine (ALLERGY AND SINUS RELIEF ORAL) Take 10 mg by mouth once daily. Curist Allergy Relief - Loratadine Tablets Active predniSONE 20 mg oral tablet (20 sources) Start: 07-01-2023 take 2 tablets by mouth once daily Prednisone 20 mg tablet Active 40 mg PO DAILY 14 7 0 July 01, 2023 1:00am Start: 07-01-2023 take 40 mg by mouth once daily Prednisone Active 40 MG PO DAILY 14 7 July 01, 2023 1:00am Start: 04-09-2020 End: 04-14-2020 take 1 tablet by mouth once daily Prednisone 20 MG tablet Discontinued 20 mg PO DAILY April 09, 2020 1:00am April 14, 2020 12:45pm Start: 05-21-2019 End: 03-08-2020 take 2 tablets by mouth once daily Prednisone 20 MG tablet Discontinued 40 mg PO DAILY 10 May 21, 2019 1:00am March 08, 2020 9:13am Start: 05-21-2019 End: 03-08-2020 take 40 mg by mouth once daily Prednisone Discontinued 40 MG PO DAILY May 21, 2019 1:00am March 08, 2020 9:13am Timolol Maleate (13 sources) beta-Adrenergic Peterson Start: 01-27-2021 take 1 drop(s) into the eye(s) twice daily Timolol Maleate 0.5 % drops Active 1 NMA OPHTHALMIC TWICE A DAY January 27, 2021 12:00am GLAUCOMA INSTILL 1 DROP INTO BOTH EYES TWICE A DAY Start: 01-27-2021 take 1 drop(s) into the eye(s) twice daily Timolol Maleate 0.5 % drops Active 1 NMA OPHTHALMIC TWICE A DAY January 27, 2021 12:00am INSTILL 1 DROP INTO BOTH EYES TWICE A DAY Start: 01-27-2021 take 1 drop(s) into the eye(s) twice daily Timolol Maleate Active 1 DRP OPHTHALMIC TWICE A DAY January 27, 2021 12:00am INSTILL 1 DROP INTO BOTH EYES TWICE A DAY Start: 01-27-2021 take 1 drop(s) into the eye(s) twice daily Timolol Maleate Active 1 DRP OPHTHALMIC TWICE A DAY January 26, 2021 11:00pm INSTILL 1 DROP INTO BOTH EYES TWICE A DAY Start: 01-27-2021 Timolol Maleat e Active 1 DRP OPHTHALMIC TWICE A DAY January 26, 2021 11:00pm triamcinolone acetonide 0.055 mg/actuat metered dose nasal spray (20 sources) Corticosteroid Start: 03-08-2020 Triamcinolone Acetonide (Nasacort) 55 mcg aerosol,spray Active 1 NMA INTRANASAL TWICE A DAY as needed for ALLERGIES March 08, 2020 12:00am Start: 03-08-2020 Triamcinolone Acetonide (Nasacort) 55 mcg aerosol,spray Active 1 SPRAY INTRANASAL TWICE A DAY March 08, 2020 12:00am triamcinolone ac etonide (NASACORT ALLERGY NASAL) Indications: Persistent asthma without complication, unspecified asthma severity (HCC) Use in the nose once daily. Active triamcinolone ac etonide (NASACORT ALLERGY NASAL) Indications: Persistent asthma without complication, unspecified asthma severity Use in the nose once daily. Active Completed/Discontinued Medications Medication Drug Class(es) Dates Sig (Normalized) Sig (Original) amLODIPine 10 mg oral tablet (20 sources) Dihydropyridine Calcium Channel Peterson Start: 02-02-2021 End: 05-27-2021 take 1 tablet by mouth once daily Amlodipine 10 mg tablet Discontinued 10 mg PO DAILY 90 3 February 18, 2021 1:50pm May 27, 2021 7:46am Start: 01-27-2021 End: 02-02-2021 take 1 tablet by mouth once daily Amlodipine 5 mg tablet Discontinued 5 mg PO DAILY 30 3 January 27, 2021 12:00am February 02, 2021 9:43am aspirin 81 mg delayed release oral tablet (13 sources) Platelet Aggregation Inhibitor, Nonsteroidal Anti-inflammatory Drug Start: 05-11-2020 End: 06-28-2023 Aspirin (Adult Low Dose Aspirin) 81 mg tablet,delayed release (DR/EC) Discontinued 81 mg PO DAILY May 11, 2020 1:00am June 28, 2023 11:06am [facility] azithromycin 250 mg oral tablet (6 sources) Macrolide Antimicrobial Start: 06-28-2023 End: 06-29-2023 Azithromycin 250 mg tablet Discontinued 250 mg PO DAILY June 28, 2023 1:00am June 29, 2023 1:28pm ANTIBIOTIC TAKE TWO TABLETS BY MOUTH (500MG) ON DAY ONE THEN TAKE ONE TABLET ONCE DAILY THEREAFTER FOR FOUR DAYS. START DATE: 06/25/23 END DATE: 06/29/23 brimonidine tartrate 2 mg/ml / brinzolamide 10 mg/ml ophthalmic suspension (13 sources) Carbonic Anhydrase Inhibitor, alpha-Adrenergic Agonist Start: 06-21-2020 End: 06-28-2023 Brinzolamide-Brimonid ine (Simbrinza) 1-0.2 % drops,suspension Discontinued 1 NMA OPHTHALMIC TWICE A DAY June 21, 2020 1:00am June 28, 2023 11:08am GLAUCOMA Start: 06-21-2020 End: 06-28-2023 Brinzolamide-Brimonidine (Si mbrinza) 1-0.2 % drops,suspension Discontinued 1 DRP OPHTHALMIC TWICE A DAY June 21, 2020 1:00am June 28, 2023 11:08am budesonide 0.25 mg/ml inhalation suspension (13 sources) Corticosteroid Start: 04-09-2020 End: 01-26-2021 take 0.5 mg by inhalation twice daily Budesonide 0.5 MG/2 ML suspension for nebulization Discontinued 0.5 mg INHALATION TWICE A DAY April 09, 2020 1:00am January 26, 2021 7:42am codeine phosphate 2 mg/ml / guaiFENesin 20 mg/ml oral solution (13 sources) Opioid Agonist Start: 04-14-2020 End: 04-21-2020 take 1 mL by mouth every six hours as needed Codeine-Guaifenesi n 473 ML liquid Discontinued 10 mL PO EVERY 6 HOURS as needed for coughing fit 250 7 0 April 14, 2020 12:45pm April 20, 2020 1:00am April 21, 2020 1:03am Start: 04-14-2020 End: 04-21-2020 take 1 mL by mouth every six hours Codeine-Guaifenesin Discontinued 10 ML PO EVERY 6 HOURS 250 April 14, 2020 12:45pm April 21, 2020 1:03am dexamethasone 6 mg oral tablet (19 sources) Corticosteroid Start: 06-28-2023 End: 06-29-2023 take 1 tablet by mouth once daily Dexamethasone 6 mg tablet Discontinued 6 mg PO DAILY June 28, 2023 1:00am June 29, 2023 1:28pm COUGH TAKR ONE TABLET BY MOUTH ONCE DAILY FOR SIX DAYS. START DATE: 06/24/23 END DATE: 06/29/23 Start: 04-14-2020 End: 01-26-2021 take 1 tablet by mouth once daily Dexamethasone 6 MG tablet Discontinued 6 mg PO DAILY 4 April 14, 2020 1:00am January 26, 2021 7:42am diphenhydrAMINE (3 sources) Histamine-1 Receptor Antagonist End: 05-02-2024 diphenhydramine HCl (ALLERGY RELIEF ORAL) Take by mouth. 05/02/2024 Discontinued (Course of therapy completed) diphenhydramine HCl (ALLERGY RELIEF ORAL) Take by mouth. Active 30 actuat fluticasone furoate 0.2 mg/actuat dry powder inhaler (10 sources) Corticosteroid Start: 10-12-2023 End: 05-02-2024 take 1 puff(s) by inhalation once daily fluticasone furoate (ARNUITY ELLIPTA) 200 mcg/actuation inhaler Indications: Chronic cough , Persistent asthma without complication, unspecified asthma severity , Allergic rhinitis, unspecified seasonality, unspecified trigger Inhale 1 Puff as instructed once daily. 1 Each 10/12/2023 05/02/2024 Discontinued (Course of therapy completed) 12 hr guaiFENesin 600 mg extended release oral tablet (13 sources) Start: 04-14-2020 End: 01-26-2021 take 1 tablet by mouth twice daily Guaifenesin 600 MG tablet Discontinued 600 mg PO TWICE A DAY 14 0 April 14, 2020 1:00am January 26, 2021 7:42am lisinopril 5 mg oral tablet (13 sources) Angiotensin Converting Enzyme Inhibitor Start: 05-21-2019 End: 03-08-2020 take 1 tablet by mouth once daily Lisinopril 5 MG tablet Discontinued 5 mg PO DAILY May 21, 2019 1:00am March 08, 2020 9:13am losartan potassium 100 mg oral tablet (20 sources) Angiotensin 2 Receptor Peterson Start: 01-27-2021 End: 03-11-2021 take 2 tablets by mouth once daily Losartan 100 mg tablet Discontinued 200 mg PO DAILY January 27, 2021 11:42am March 11, 2021 9:34am On Hold: Order Changed Start: 01-27-2021 End: 03-11-2021 take 200 mg by mouth once daily Losartan Discontinued 200 MG PO DAILY January 27, 2021 11:42am March 11, 2021 9:34am On Hold: Order Changed Start: 03-08-2020 End: 01-27-2021 take 1 tablet by mouth once daily Losartan 100 mg tablet Discontinued 100 mg PO DAILY March 08, 2020 12:00am January 27, 2021 11:42am Magnesium (6 sources) Start: 06-28-2023 End: 06-28-2023 take 2 tablets by mouth once daily Magnesium 200 mg tablet Discontinued 400 mg PO DAILY June 28, 2023 1:00am June 28, 2023 11:09am supplement Start: 06-28-2023 End: 06-28-2023 take 2 tablets by mouth once daily Magnesium 200 mg tablet Discontinued 400 mg PO DAILY June 28, 2023 1:00am June 28, 2023 11:09am Start: 06-28-2023 End: 06-28-2023 take 400 mg by mouth once daily Magnesium Discontinued 400 MG PO DAILY June 28, 2023 1:00am June 28, 2023 11:09am Start: 06-28-2023 End: 06-28-2023 take 400 mg by mouth once daily Magnesium Discontinued 400 MG PO DAILY June 28, 2023 12:00am June 28, 2023 10:09am Nebulizers (Aeroneb Go Nebulizer) misc (13 sources) Start: 06-16-2017 End: 06-18-2017 Nebulizers (Aeroneb Go Nebulizer) misc Discontinued 0 .ROUTE .MEDSUPPLY 1 June 16, 2017 1:00am June 18, 2017 11:01am As directed Start: 06-16-2017 End: 06-18-2017 Nebulizers (Aeroneb Go Nebul izer) misc Discontinued 0 .ROUTE .MEDSUPPLY June 16, 2017 12:00am June 18, 2017 10:01am As directed Start: 06-16-2017 End: 06-18-2017 Nebulizers (Aeroneb Go Nebul izer) mis Discontinued 0 .ROUTE .MEDSUPPLY June 16, 2017 1:00am June 18, 2017 11:01am As directed phenylephrine/acetaminophn/c pm (ALLERGY RELIEF,CHLORPHEN-ACET, ORAL) (3 sources) End: 05-02-2024 phenylephrine/acetaminophn/c pm (ALLERGY RELIEF,CHLORPHEN-ACET, ORAL) Take by mouth. 05/02/2024 Discontinued (Course of therapy completed) phenylephrine/ac etaminophn/cpm (ALLERGY RELIEF,CHLORPHEN-ACET, ORAL) Take by mouth. Active Problems Active Problems Problem Classification Problem Date Documented Date Episodic/Chronic Asthma (20 sources) Asthma; Translations: [Unspecified asthma, uncomplicated] Onset: 04-01-2024 05-12-2021 Chronic Comment on above: DR. OSORIO CLEARED P ER PT SHE DOESN'T HAVE, NO INHALERS Esophageal disorders (20 sources) Gastroesophageal reflux disease; Translations: [Gastro-esophageal reflux disease without esophagitis] Onset: 04-08-2024 Resolved: 04-08-2024 01-27-2021 Chronic Essential hypertension (20 sources) Essential hypertension; Translations: [Essential (primary) hypertension] Onset: 04-08-2024 Resolved: 04-08-2024 01-18-2021 Chronic Glaucoma (15 sources) Glaucoma; Translations: [Unspecified glaucoma] Onset: 04-08-2024 04-08-2024 Chronic Osteoporosis (15 sources) Osteoporosis; Translations: [Age-related osteoporosis without current pathological fracture] Onset: 05-08-2023 04-08-2024 Chronic Other acquired deformities (1 source) Scoliosis, unspecified; Translations: [Scoliosis [and kyphoscoliosis], idiopathic] 06-29-2023 Chronic Other acquired deformities (1 source) Scoliosis of cervical spine; Translations: [Scoliosis, unspecified] 09-18-2023 Chronic Other bone disease and musculoskeletal deformities (15 sources) Idiopathic kyphoscoliosis; Translations: [Other idiopathic scoliosis, site unspecified] Onset: 09-05-2005 04-08-2024 Chronic Other diseases of veins and lymphatics (1 source) Venous insufficiency (chronic) (peripheral); Translations: [Venous insufficiency (chronic) (peripheral)] Onset: 10-06-2024 Episodic Other ear and sense organ disorders (1 source) Impacted cerumen of bilateral ears; Translations: [Impacted cerumen, bilateral] 06-02-2024 Episodic Other lower respiratory disease (20 sources) Chronic cough; Translations: [Chronic cough] Onset: 10-04-2023 05-11-2020 Episodic Other lower respiratory disease (13 sources) Hypoxia; Translations: [Hypoxemia] 01-26-2021 Episodic Other lower respiratory disease (3 sources) Hypoxemia; Translations: [Hypoxemia] 06-28-2023 Episodic Other lower respiratory disease (5 sources) Cough; Translations: [Cough] 07-01-2023 Episodic Other lower respiratory disease (2 sources) Solitary nodule of lung; Translations: [Solitary pulmonary nodule] 10-18-2023 Episodic Other lower respiratory disease (3 sources) Nodule of lung; Translations: [Solitary pulmonary nodule] 05-01-2024 Episodic Other lower respiratory disease (2 sources) Solitary pulmonary nodule; Translations: [Solitary pulmonary nodule] Onset: 05-02-2024 Episodic Other nervous system disorders (1 source) Other hereditary and idiopathic neuropathies; Translations: [Other hereditary and idiopathic neuropathies] Onset: 11-17-2024 Chronic Other nervous system disorders (1 source) Polyneuropathy, unspecified; Translations: [Polyneuropathy, unspecified] Onset: 11-17-2024 Chronic Other screening for suspected conditions (not mental disorders or infectious disease) (20 sources) Patient encounter status; Translations: [Encounter for screening for malignant neoplasm of colon] 04-25-2021 Episodic Other upper respiratory disease (13 sources) Seasonal allergy; Translations: [Other seasonal allergic rhinitis] 04-09-2020 Chronic Other upper respiratory disease (3 sources) Allergic rhinitis; Translations: [Allergic rhinitis, unspecified] 10-12-2023 Chronic Other upper respiratory disease (1 source) Allergic rhinitis due to house dust mite; Translations: [Other allergic rhinitis] 06-17-2024 Chronic Other upper respiratory disease (1 source) Allergic rhinitis, unspecified; Translations: [Allergic rhinitis, unspecified seasonality, unspecified trigger] Onset: 04-08-2024 Chronic Other upper respiratory disease (2 sources) Dysphonia; Translations: [Dysphonia] 04-08-2024 Episodic Other upper respiratory disease (1 source) Change in voice; Translations: [Unspecified voice and resonance disorder] 05-02-2024 Episodic Other upper respiratory infections (14 sources) Viral upper respiratory tract infection; Translations: [Acute upper respiratory infection, unspecified] 05-23-2021 Episodic Spondylosis; intervertebral disc disorders; other back problems (1 source) Radiculopathy, lumbosacral region; Translations: [Radiculopathy, lumbosacral region] Onset: 11-17-2024 Episodic Thyroid disorders (16 sources) Non-toxic uninodular goiter; Translations: [Nontoxic single thyroid nodule] Onset: 11-13-2023 04-08-2024 Chronic Past or Other Problems Problem Classification Problem Date Documented Da te Episodic/Chronic Other acquired deformities (20 sources) Scoliosis deformity of spine; Translations: [Scoliosis, unspecified] Onset: 04-08-2024 Resolved: 04-08-2024 01-27-2021 Chronic Other acquired deformities (15 sources) Postural kyphosis; Translations: [Postural kyphosis, site unspecified] Onset: 09-05-2005 Resolved: 04-08-2024 04-08-2024 Chronic Other lower respiratory disease (20 sources) H/O: pneumonia; Translations: [Personal history of pneumonia (recurrent)] Onset: 04-08-2024 Resolved: 04-09-2024 05-15-2021 Episodic Other lower respiratory disease (20 sources) Hypoxemia; Translations: [Hypoxemia] Onset: 07-10-2023 Resolved: 04-08-2024 06-28-2023 Episodic Other lower respiratory disease (1 source) Shortness of breath; Translations: [SOB (shortness of breath)] Onset: 04-01-2024 Episodic Other non-traumatic joint disorders (15 sources) Arthralgia of the pelvic region and thigh; Translations: [Pain in unspecified hip] Onset: 09-05-2005 04-08-2024 Episodic Other upper respiratory disease (20 sources) Bronchospasm; Translations: [Acute bronchospasm] Onset: 04-08-2024 Resolved: 04-08-2024 07-01-2023 Episodic Other upper respiratory disease (1 source) Unspecified voice and resonance disorder; Translations: [Change in voice] Onset: 06-02-2024 Episodic Pneumonia (except that caused by tuberculosis or sexually transmitted disease) (20 sources) Pneumonia; Translations: [Pneumonia, unspecified organism] Onset: 07-10-2023 Resolved: 04-08-2024 06-28-2023 Episodic Residual codes; unclassified (20 sources) Family history of sudden cardiac ; Translations: [Family history of sudden cardiac ] Onset: 04-08-2024 01-27-2021 Episodic Urinary tract infections (1 source) Urinary tract infection, site not specified; Translations: [Urinary tract infection, site not specified] Onset: 07-08-2024 Episodic Viral infection (13 sources) Disease caused by 2019-nCoV; Translations: [COVID-19] Onset: 03-21-2020 01-27-2021 Episodic Results Test Name Value Interpretation Reference Range Facility Thyroidon 11-17-2024 [facility] [address] [place] [address] [id number] Thyroid MR#: [id number] Acct: [id number] Name: MARITZA LINDA Rep #: [id number] : 1945 F 79 From: Jerald Nolasco MD PCP: Dr. Itz Oneal MD Status: REG CLI Study: Thyroid Date of Exam: 11/17/24 Exam# [id number] Ordering Dr: Itz Oneal PROCEDURE: THYROID 11/17/2024 REASON FOR EXAM: L THYROID NODULE FU. INITIALLY SEEN ON CT AT [facility] 11/11. TECHNIQUE: THYROID COMPARISON: Thyroid ultrasound on 11/05/2023 FINDINGS: Right thyroid lobe size: 3.9 x 1.6 x 1.6 cm Left thyroid lobe size: 4.5 x 1.9 x 2.2 cm Isthmus: 0.3 cm Background parenchymal echotexture is heterogeneous Nodules: 1. Lobe: Right, Location: Mid, Size: 0.4 x 0.4 x 0.7 cm, Stability: Stable Composition: Solid or almost completely solid (+2) Echogenicity: Hypoechoic (+2) Margin: Ill-defined (+0) Shape: Wider than tall (+0) Echogenic Foci: None (+0) TI-RADS: 4 2. Lobe: Left, Location: Mid to upper, Size: 2.8 x 1.5 x 2.1 cm, Stability: Significant increase in size (a 20% or greater increase in at least two nodule dimensions and a minimum increase of 2 mm, or a 50% or greater increase in volume) Composition: Mixed cystic and solid (+1) Echogenicity: Hypoechoic (+2) Margin: Ill-defined (+0) Shape: Wider than tall (+0) Echogenic Foci: None (+0) TI-RADS: 3 3. Lobe: Isthmus, Location: N/a, Size: 0.8 x 0.4 x 0.7 cm, Stability: New Composition: Solid or almost completely solid (+2) Echogenicity: Hyper to Isoechoic (+1) Margin: Smooth (+0) Shape: Wider than tall (+0) Echogenic Foci: None (+0) TI-RADS: 3 US/Thyroid IMPRESSION: Multinodular thyroid, as detailed above. Consider FNA of the left thyroid lobe nodule (#2) per ACR TI-RADS guidelines. Reading Location: [id number] CC: Dr. Itz Oneal MD Filbert Grower: Signed [facility] 10-16-2024 [facility] Telephone ([facility]) ALEXEIMARITZA Vesta ([id number]) 1945 F Date Time Provider Department 10/16/24 ELVA GOODMAN [facility] During your visit today, we recorded the following information about you: Elva Goodman MD 10/16/2024 8:06 AM Signed Please call pt and let her know her 10/08/[address] showed pulmonary nodule is stable. On this Chest CT the radiologist also reported a thyroid nodule. She should follow up with primary care doctor with this finding. Yvonne Zavaleta RN 10/16/2024 10:57 AM Signed Spoke with patient to review results. Patient stated she will contact her PCP. All questions answered. Yvonne Zavaleta RN Allergies As of Date: 10/16/2024 Noted Allergy Reaction ADHESIVE TAPE-SILICONES 04/25/2021 9 - Itching Date Reviewed: 10/14/2024 Reviewed by: Nevaeh Cruz OCCA - Fully Assessed Reason for Visit: Results [95] Prescriptions as of 10/16/2024 - calcium carb,gluc/mag gluc,ox (CALCIUM MAGNESIUM ORAL) Take 1 tablet by mouth once daily. 400MG - montelukast (SINGULAIR) 10 mg tablet TAKE 1 TABLET BY MOUTH EVERY DAY - pantoprazole DR (PROTONIX) 40 mg tablet Take 1 tablet by mouth once daily. Please take 30-60 minutes prior to your first meal. - latanoprost (XALATAN) 0.005 % ophthalmic solution Instill 1 drop into both eyes once a day - cetirizine (ALLERGY RELIEF, CETIRIZINE,) 1 mg/mL syrup Take by mouth once daily. - phenylephrine/diphenh ydramine (ALLERGY AND SINUS RELIEF ORAL) Take 10 mg by mouth once daily. Curist Allergy Relief - Loratadine Tablets - triamcinolone acetonide (NASACORT ALLERGY NASAL) Use in the nose once daily. - bifreyxasc-fwbnbeww-g ormoterol (BREZTRI AEROSPHERE) 160-9-4.8 mcg/actuation HFA aerosol inhaler Inhale 2 Puffs as instructed two times a day. - amLODIPine (NORVASC) 10 mg tablet Take 10 mg by mouth once daily. - Ipratropium [place] (ATROVENT) 21 mcg (0.03 %) nasal spray Use 2 Sprays in the nose every 12 hours. - Cholecalciferol, Vitamin D3, (VITAMIN D-3) 25 mcg (1,000 unit) chew Take 25 tablets by mouth two times a day. - timolol maleate/latanoprost/P F (TIMOLOL-LATANOPROST, PF,) 0.5-0.005 % drop Use 1 Drop in eyes once daily. Problem List As Of Date 10/16/2024 Noted Resolved Osteoporosis [M81.0] 05/08/2023 Glaucoma [H40.9] 04/08/2024 History of pneumonia [Z87.01] 04/08/2024 04/09/2024 Hypoxemia [R09.02] 07/10/2023 04/08/2024 Idiopathic scoliosis and kyphoscoliosis [M41.20]09/05/2005 Kyphosis (acquired) (postural) [M40.00] 09/05/2005 04/08/2024 Pain in joint, pelvic region and thigh [M25.559]09/05/2005 Scoliosis [M41.9] 04/08/2024 04/08/2024 Pneumonia [J18.9] 07/10/2023 04/08/2024 Gastroesophageal reflux disease [K21.9] 04/08/2024 04/08/2024 Family history of sudden cardiac (SCD) [Z*04/08/2024 High blood pressure [I10] 04/08/2024 04/08/2024 Essential (primary) hypertension [I10] 04/08/2024 Chronic cough [R05.3] 04/08/2024 Bronchospasm [J98.01] 04/08/2024 04/08/2024 Asthma [J45.909] 04/08/2024 Nontoxic single thyroid nodule [E04.1] 11/13/2023 Encounter Status:Closed by ELVA GOODMAN on 10/16/24 [facility] 10-14-2024 [facility] Office [facility] MARITZA LINDA ([id number]) 1945 F Date Time Provider Department 10/14/24 10:00 AM ELVA GOODMAN [facility] During your visit today, we recorded the following information about you: Temperature Pulse Respiration Blood pressure 97 degrees 73/minute 17/minute 134/76 Weight Height 82.5 kg 1.588 m Elva Goodman MD 10/14/2024 1:40 PM Signed Pulmonary Patient Name: Maritza Linda DATE: 10/14/2024 CHIEF COMPLAINT: Follow up for SOB, chronic cough, asthma HISTORY OF PRESENT ILLNESS: Maritza Linda is a 79 year old female, past medical history significant for seasonal allergies, asthma and scoliosis. Also had COVID 19 infection which required hospital admission in March 2020. ZEE 06/17/2024 changed her from Arnuity to Breztri inhaler because her asthma/ chronic cough was not quite controlled. I also ordered Nasacort nasal spray. She was to continue Atrovent nasal spray and montelukast. She saw our spring winder on 04/08/2024 . Allergy testing that was unremarkable, skin testing was deferred. She also contemplated the patient could have cough hypersensitivity syndrome. Discussed pathophysiology and potential trial of neuromodulator like gabapentin or amitriptyline in the future. She also suggested that timolol/latanoprost could also be contributing to her chronic cough.Pt states her eye doctor did change her eye gtts but she is still coughing. She suggested to potentially consider methacholine challenge test to clarify the diagnosis of asthma and to check sputum for consideration nonasthmatic eosinophilic bronchitis. She saw ENT May 2024 and she had an Upper endoscopy. ENT saw some but changes that suggested acid reflux. She started pantoprazole which eliminated the cough for awhile but in the last 2 months ago the cough started coming back. She is coughing every day. It is a dry cough. She is taking the Breztri but only 1 puff twice a day. ASTHMA CONTROL TEST Date: 10/14/2024 In the last 4 weeks, how much of the time did your asthma keep you from getting as much done at work or home that you wanted to do? None of the time (5) In the last 4 weeks, how often have you had shortness of breath? Not at all (5) In the last 4 weeks, how often did your asthma symptoms (wheezing, coughing, shortness of breath, chest tightness or pain) wake you up at night or earlier than usual? Once or twice (4) In the last 4 weeks, how often have you used your rescue inhaler or nebulizer medication (such as Albuterol, Proventil, Ventolin, Maxair, Xoponex, or Primatene Mist)? Not at all (5) In the last 4 weeks, how would you rate your asthma control? Somewhat controlled (3) Total: 06/17/2024 ACT: 09/22/2023 ACT: 09/18/2023 ACT total: 24 PAST MEDICAL HISTORY Diagnosis Date Asthma (HCC) BMI 32.0-32.9,adult Essential hypertension Gastroesophageal reflux disease 04/08/2024 Glaucoma Hypoxemia 07/10/2023 Pneumonia 07/10/2023 Scoliosis Seasonal allergies PAST SURGICAL HISTORY Procedure Laterality Date APPENDECTOMY REMOVAL GALLBLADDER FAMILY HISTORY Problem Relation Age of Onset Breast Cancer Sister Hypertension Sister Hypertension Brother other (Environmental allergies) Brother Social History Tobacco Use Smoking status: Never Smokeless tobacco: Never Vaping Use Vaping status: Never Used Substance Use Topics Alcohol use: Yes Comment: occasionally Drug use: Never and lives with her 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 No pets. 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 ALLERGIES: ALLERGIES Allergen Reactions Adhesive Tape-Silic* Itching CURRENT OUTPATIENT MEDICATIONS: calcium carb,gluc/mag gluc,ox (CALCIUM MAGNESIUM ORAL) Take 1 tablet by mouth once daily. 400MG montelukast (SINGULAIR) 10 mg tablet TAKE 1 TABLET BY MOUTH EVERY DAY pantoprazole DR (PROTONIX) 40 mg tablet Take 1 tablet by mouth once daily. Please take 30-60 minutes prior to your first meal. latanoprost (XALATAN) 0.005 % ophthalmic solution Instill 1 drop into both eyes once a day triamcinolone acetonide (NASACORT ALLERGY NASAL) Use in the nose once daily. dqgteoegnx-qrmsilcw-z ormoterol (BREZTRI AEROSPHERE) 160-9-4.8 mcg/actuation HFA aerosol inhaler Inhale 2 Puffs as instructed two times a day. amLODIPine (NORVASC) 10 mg tablet Take 10 mg by mouth once daily. Cholecalciferol, Vitamin D3, (VITAMIN D-3) 25 mcg (1,000 unit) chew Take 25 tablets by mouth two times a day. cetirizine (ALLERGY RELIEF, CETIRIZINE,) 1 mg/mL syrup Take by mouth once daily. (Patient not taking: Reported on 04/08/2024) phenylephrine/diphenh ydramine (ALLERGY AND SINUS RELIEF ORAL) Take 10 mg by mouth once daily. Curist Allergy Relief - Loratadine Tablets (Patient not taking: Reported on 10/14/2024) Ipratropium [place] (ATROVENT) 21 mc (more content not included)... Normal [facility] CT CHEST WO IVCONon 10-09-[address] CHEST WO IVCON * * *Final Report* * * DATE OF EXAM: Oct 08 2024 2:30PM [facility] 0541 - CT CHEST WO IVCON / PROCEDURE REASON: Solitary pulmonary nodule * * * * Physician Interpretation * * * * EXAMINATION: CHEST CT WITHOUT CONTRAST CLINICAL HISTORY: Pulmonary nodule Technique: Spiral CT acquisition of the chest from the thoracic inlet to the upper abdomen without contrast. MQ: [id number] CT Radiation dose: Integrated Dose-length product (DLP) for this visit = 218 mGy*cm CT Dose Reduction Employed: Automated exposure control(AEC) and iterative recon Comparison: 10/04/2023 CT RESULT: Limitations: None. Lines, tubes, and devices: None. Lung parenchyma and airways: 4 mm left lung nodule on image 86. Stable. No consolidation. No developing or suspicious pulmonary nodule. The central airways are patent. Pleural space: No pleural effusion. No pleural thickening. Lower neck, lymph nodes, and mediastinum: Enlarged left thyroid lobe is again seen. No lymphadenopathy in the supraclavicular, axillary, mediastinal, or hilar regions. Heart, pericardium, and thoracic vessels: The thoracic aorta and main pulmonary artery are normal in caliber. The cardiac chambers are normal in size. Coronary artery atherosclerotic calcifications are noted, although the study is not optimized for coronary assessment. No pericardial effusion or thickening. Bones and soft tissues: Degenerative and postoperative change. Significant scoliosis. Grossly stable. Upper abdomen: Incidental right hepatic lobe cyst Localizer images: No additional findings. IMPRESSION: Left thyroid nodule. Further evaluation sonographically recommended No developing mass or adenopathy in the chest Significant scoliosis Filbert Grower: JONNY Transcribe Date/Time: Oct 15 2024 9:52A Dictated by : ELMO WEBER MD This examination was interpreted and the report reviewed and electronically signed by: ELMO WEBER MD on Oct 15 2024 9:57AM EST [id number] Normal [facility] NCS and/or EMG Patienton NCS and/or EMG Patient [facility] Pulmonary Services/Neurology [address] [place] [address] MR#: [id number] Acct: [id number] Name: MARITZA LINDA Rep #: [id number] : 1945 79 From: Delmy Miles MD Referring Dr: Gus Spencer DPNaz Status: REG C LI Location: PSN Date: 10/08/24 Sex: F C NCS and/or EMG Patient Report Ordering Doctor: Gus Spencer DATE OF SERVICE: 10/08/24 Maritza presents with complaints of left ankle swelling and weakness. She also reports pain in the left buttock. Electrodiagnostic findings: Peroneal motor nerve demonstrates normal distal latency, amplitude and conduction velocity bilaterally. Normal tibial motor response bilaterally. Sensory responses are within normal limits. Normal peroneal and tibial F???waves. Normal H???reflex bilaterally. Needle EMG testing was performed the lower limbs. All muscles tested showed no evidence of denervation with normal motor unit action potentials. Electrodiagnostic impression: This is a normal electrodiagnostic study of the lower limbs. There is no electrodiagnostic evidence for peripheral neuropathy or lumbosacral radiculopathy. Multi Select Codes Neurology Neurology Interp Codes: 24977-65 Musc test done w/n test comp (interp) (2) and 60712-38 Nrv cndj test 9-10 studies (interp) 10/08/24 1001 Date Delmy Miles MD CC: DPNaz Spencer; Dr. Delmy Miles MD; Dr. Itz Oneal MD Date Dictated: 10/08/2457 Date Transcribed: 10/08/24956 Filbert Grower: AA Signed Normal [facility] Venous duplex ultrasound rep ortOrdered By: Navid Taylor on 10-06-2024 US Vein [facility] Services [address] [place] [address] Venous Duplex US - Eduard Extrem 10/03/2407 MR#: [id number] Acct: [id number] Name: MARITZA LINDA Rep #:[id number] : 1945 79 From: Navid Singh Attending Dr: Dr. Gus Spencer, DPM Status: REG CLI Ordering Dr: Gus Spencer DPM Date: 10/03/24 Location: CVS Sex: F C Admitted: Reason For Study Reason For Study: Venous insufficiency RIGHT LEFT CFV is compressible, spontaneous, phasic, competent CFV is compressible, spontaneous, phasic, competent, and demonstrates normal augmentation. and demonstrates normal augmentation. FV is compressible, spontaneous, phasic, competent FV is compressible, spontaneous, phasic, competent and demonstrates normal augmentation. and demonstrates normal augmentation. POP V is compressible, spontaneous, phasic, competent POP V is compressible, spontaneous, phasic, competent and demonstrates normal augmentation. and demonstrates normal augmentation. T/P Trunk is compressible. T/P Trunk is compressible. PTV is compressible. PTV is compressible. RT PerV is compressible. LT PerV is compressible. SFJ is competent and measures 0.46 cm. SFJ is competent and measures 0.45 cm. GSV proximal thigh measures 0.35 x 0.36 cm. GSV proximal thigh measures 0.29 x 0.29 cm. GSV above knee is competent. GSV above kneeis competent. GSV at knee measures 0.32 x 0.34 cm. GSV at knee measures 0.19 x 0.21 cm. GSV below knee is INCOMPETENT for greater than 0.5 GSV below kneeis INCOMPETENT for greater than 0.5 seconds. seconds. ASV proximal calf is INCOMPETENT for greater than 0.5 ASV proximal thigh is INCOMPETENT for greater than seconds and measures 0.13 x 0.14 cm. 0.5 seconds and measures 0.24 x 0.28 cm. SSV mid calf is competent and measures 0.18 x 0.14 SSV at junction is competent and measures 0.26 x 0.2 cm. cm. Procedure This is a venous duplex using B-mode, color flow and spectral Doppler. Exam performed in department. Patient was scanned in reverse Trendelenburg position during reflux assessment. VL/Venous Duplex US - Eduard Extrem Interpretation Summary Deep veins of the bilateral lower extremities are patent and compressible segmentally. There is no evidence of bilateral lower extremities deep vein thrombosis. The bilateral great saphenous veins appear patent and compressible segmentally. Positive for reflux in the right great saphenous vein below the knee, accessory saphenous vein in calf. Positive for reflux in the left great saphenous vein below the knee, accessory saphenous vein in the thigh. Ordering Physician: Gus Spencer Referring Physician: Itz Oneal MD Performed By: Lora Arredondo RVT 10/06/24 1048 Date _ Navid Taylor MD CC: DPM Dr. Gus Spencer; Dr. Itz Oneal MD ~ Date Dictated: 10/03/24906 Date Transcribed: 10/06/241047 Filbert Grower: Signed [facility] Work Phone: Venous Duplex US - Eduard Extre [facility] 10-03-2024 Venous Duplex US - Eduard Extrem [facility] Cardiovascular Services [address] [place] [address] Venous Duplex US - Eduard Extrem 10/03/24906 MR#: [id number] Acct: [id number] Name: MARITZA LINDA Rep #: [id number] : 1945 79 From: Navid Taylor MD Attending Dr: Dr. Gus Spencer DPM Status: REG CLI Ordering Dr: Gus Spencer DPNaz Date: 10/03/24 Location: CVS Sex: F C Admitted: Reason For Study Reason For Study: Venous insufficiency RIGHT LEFT CFV is compressible, spontaneous, phasic, competent CFV is compressible, spontaneous, phasic, competent, and demonstrates normal augmentation. and demonstrates normal augmentation. FV is compressible, spontaneous, phasic, competent FV is compressible, spontaneous, phasic, competent and demonstrates normal augmentation. and demonstrates normal augmentation. POP V is compressible, spontaneous, phasic, competent POP V is compressible, spontaneous, phasic, competent and demonstrates normal augmentation. and demonstrates normal augmentation. T/P Trunk is compressible. T/P Trunk is compressible. PTV is compressible. PTV is compressible. RT PerV is compressible. LT PerV is compressible. SFJ is competent and measures 0.46 cm. SFJ is competent and measures 0.45 cm. GSV proximal thigh measures 0.35 x 0.36 cm. GSV proximal thigh measures 0.29 x 0.29 cm. GSV above knee is competent. GSV above knee is competent. GSV at knee measures 0.32 x 0.34 cm. GSV at knee measures 0.19 x 0.21 cm. GSV below knee is INCOMPETENT for greater than 0.5 GSV below knee is INCOMPETENT for greater than 0.5 seconds. seconds. ASV proximal calf is INCOMPETENT for greater than 0.5 ASV proximal thigh is INCOMPETENT for greater than seconds and measures 0.13 x 0.14 cm. 0.5 seconds and measures 0.24 x 0.28 cm. SSV mid calf is competent and measures 0.18 x 0.14 SSV at junction is competent and measures 0.26 x 0.2 cm. cm. Procedure This is a venous duplex using B-mode, color flow and spectral Doppler. Exam performed in department. Patient was scanned in reverse Trendelenburg position during reflux assessment. VL/Venous Duplex US - Eduard Extrem Interpretation Summary Deep veins of the bilateral lower extremities are patent and compressible segmentally. There is no evidence of bilateral lower extremities deep vein thrombosis. The bilateral great saphenous veins appear patent and compressible segmentally. Positive for reflux in the right great saphenous vein below the knee, accessory saphenous vein in calf. Positive for reflux in the left great saphenous vein below the knee, accessory saphenous vein in the thigh. Ordering Physician: Gus Spencer Referring Physician: Itz Oneal MD Performed By: Lroa Arredondo RVT 10/06/24 1048 Date Navid Taylor MD CC: DPM Dr. Gus Spencer; Dr. Itz Oneal MD Date Dictated: 10/03/24906 Date Transcribed: 10/06/24 104 Filbert Grower: Soren [facility] 07-30-2024 [facility] Telephone ([facility]) MARITZA LINDA ([id number]) 1945 F Date Time Provider Department 07/30/24 ELVA GOODMAN [facility] During your visit today, we recorded the following information about you: Allergies As of Date: 07/30/2024 Noted Allergy Reaction ADHESIVE TAPE-SILICONES 04/25/2021 9 - Itching Date Reviewed: 06/26/2024 Reviewed by: Denia Nicholas APRN.[facility] - Fully Assessed Prescriptions as of 07/30/2024 - pantoprazole DR (PROTONIX) 40 mg tablet Take 1 tablet by mouth once daily. Please take 30-60 minutes prior to your first meal. - latanoprost (XALATAN) 0.005 % ophthalmic solution Instill 1 drop into both eyes once a day - cetirizine (ALLERGY RELIEF, CETIRIZINE,) 1 mg/mL syrup Take by mouth once daily. - phenylephrine/diphenh ydramine (ALLERGY AND SINUS RELIEF ORAL) Take 10 mg by mouth once daily. Curist Allergy Relief - Loratadine Tablets - triamcinolone acetonide (NASACORT ALLERGY NASAL) Use in the nose once daily. - oraizhrbbr-urueysbv-q ormoterol (BREZTRI AEROSPHERE) 160-9-4.8 mcg/actuation HFA aerosol inhaler Inhale 2 Puffs as instructed two times a day. - montelukast (SINGULAIR) 10 mg tablet Take 1 tablet by mouth once daily. - amLODIPine (NORVASC) 10 mg tablet Take 10 mg by mouth once daily. - Ipratropium [place] (ATROVENT) 21 mcg (0.03 %) nasal spray Use 2 Sprays in the nose every 12 hours. - Cholecalciferol, Vitamin D3, (VITAMIN D-3) 25 mcg (1,000 unit) chew Take 25 tablets by mouth two times a day. - timolol maleate/latanoprost/P F (TIMOLOL-LATANOPROST, PF,) 0.5-0.005 % drop Use 1 Drop in eyes once daily. Problem List As Of Date 07/30/2024 Noted Resolved Osteoporosis [M81.0] 05/08/2023 Glaucoma [H40.9] 04/08/2024 History of pneumonia [Z87.01] 04/08/2024 04/09/2024 Hypoxemia [R09.02] 07/10/2023 04/08/2024 Idiopathic scoliosis and kyphoscoliosis [M41.20]09/05/2005 Kyphosis (acquired) (postural) [M40.00] 09/05/2005 04/08/2024 Pain in joint, pelvic region and thigh [M25.559]09/05/2005 Scoliosis [M41.9] 04/08/2024 04/08/2024 Pneumonia [J18.9] 07/10/2023 04/08/2024 Gastroesophageal reflux disease [K21.9] 04/08/2024 04/08/2024 Family history of sudden cardiac (SCD) [Z*04/08/2024 High blood pressure [I10] 04/08/2024 04/08/2024 Essential (primary) hypertension [I10] 04/08/2024 Chronic cough [R05.3] 04/08/2024 Bronchospasm [J98.01] 04/08/2024 04/08/2024 Asthma [J45.909] 04/08/2024 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 Enterococcus faecalis Eunice Count 50,000-80,000 GNR lactose senior bi developer GNR lactose senior bi developer Enterococcus faecalis: REACTION Ampicillin Islt EVGENY <=2 S Gentamicin Synergy Susc Islt SYN-R Linezolid Islt EVGENY 2 S Streptomycin High Pot Susc Islt SYN-S S Vancomycin Islt EVGENY 1 S Normal [facility] Comment on above: Performed By: #### M [id number] #### [facility] [address] [place] [address]. [place], [address] Urine cultureOrdered By: Megan Lewis on 06-19-2024 Bacteria identified Cx Nom (U) Enterococcus faecalis Abnormal [facility] Bacteria identified Cx Nom (U) GNR lactose senior bi developer Abnormal [facility] CNOVon 06-17-2024 [facility] MARITZA LINDA ([id number]) 1945 F Date Time Provider Department 06/17/24 10:00 AM ELVA GOODMAN [facility] During your visit today, we recorded the following information about you: Temperature Pulse Respiration Blood pressure 97.4 degrees 71/minute 18/minute 125/74 Weight Height 82.8 kg 1.543 m Elva Goodman MD 06/17/2024 11:00 AM Signed Chief complaint patient is Pulmonary Consult Patient Name: Maritza Linda DATE: 06/17/2024 CHIEF COMPLAINT: Follow up for SOB, chronic cough, asthma HISTORY OF PRESENT ILLNESS: Maritza Linda is a 78 year old female, past medical history significant for seasonal allergies, asthma and scoliosis. Also had COVID 19 infection which required hospital admission in March 2020. ZEE 04/01/2024 I changed her from Arnuity and montelukast to Breztri inhaler because her asthma/ cough was not quite controlled. I also ordered Nasacort nasal spray. She was to continue Atrovent nasal spray and montelukast. Since the patient complained of seasonal/environmenta l allergies I put in referral to allergy/immunology. She saw Dr Garay in Asthma. She started Protonix in May. Now that she is on protonix and Breztri she is improved. She's not convinced the Breztri is the major reason , she thinks it's the protonix. Saw allergy who recommends she see a speech therapist for chronic cough. Daughter is a speech pathologist. Voice is more hoarse. More of an effort to talk. ASTHMA CONTROL TEST Date: 06/17/2024 In the last 4 weeks, how much of the time did your asthma keep you from getting as much done at work or home that you wanted to do? None of the time (5) In the last 4 weeks, how often have you had shortness of breath? Not at all (5) In the last 4 weeks, how often did your asthma symptoms (wheezing, coughing, shortness of breath, chest tightness or pain) wake you up at night or earlier than usual? 2 or 3 nights per week (2) In the last 4 weeks, how often have you used your rescue inhaler or nebulizer medication (such as Albuterol, Proventil, Ventolin, Maxair, Xoponex, or Primatene Mist)? Once a week or less (4) In the last 4 weeks, how would you rate your asthma control? Somewhat controlled (3) Total: 09/22/2023 ACT: 22 09/18/2023 ACT total: 24 PAST MEDICAL HISTORY Diagnosis Date Asthma BMI 32.0-32.9,adult Essential hypertension Gastroesophageal reflux disease 04/08/2024 Glaucoma Hypoxemia 07/10/2023 Pneumonia 07/10/2023 Scoliosis Seasonal allergies PAST SURGICAL HISTORY Procedure Laterality Date APPENDECTOMY REMOVAL GALLBLADDER FAMILY HISTORY Problem Relation Age of Onset Breast Cancer Sister Hypertension Sister Hypertension Brother other (Environmental allergies) Brother Social History Tobacco Use Smoking status: Never Smokeless tobacco: Never Vaping Use Vaping status: Never Used Substance Use Topics Alcohol use: Yes Comment: occasionally Drug use: Never and lives with her 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 ALLERGIES: ALLERGIES Allergen Reactions Adhesive Tape-Silic* Itching CURRENT OUTPATIENT MEDICATIONS: latanoprost (XALATAN) 0.005 % ophthalmic solution Instill 1 drop into both eyes once a day pantoprazole DR (PROTONIX) 40 mg tablet Take 1 tablet by mouth once daily. Take 30-60 minutes prior to your first meal triamcinolone acetonide (NASACORT ALLERGY NASAL) Use in the nose once daily. gwhmoqauqe-oyxbtonk-q ormoterol (BREZTRI AEROSPHERE) 160-9-4.8 mcg/actuation HFA aerosol inhaler Inhale 2 Puffs as instructed two times a day. montelukast (SINGULAIR) 10 mg tablet Take 1 tablet by mouth once daily. amLODIPine (NORVASC) 10 mg tablet Take 10 mg by mouth once daily. Cholecalciferol, Vitamin D3, (VITAMIN D-3) 25 mcg (1,000 unit) chew Take 25 tablets by mouth two times a day. cetirizine (ALLERGY RELIEF, CETIRIZINE,) 1 mg/mL syrup Take by mouth once daily. (Patient not taking: Reported on 04/08/2024) phenylephrine/diphenh ydramine (ALLERGY AND SINUS RELIEF ORAL) Take 10 mg by mouth once daily. Curist Allergy Relief - Loratadine Tablets Ipratropium [place] (ATROVENT) 21 mcg (0.03 %) nasal spray Use 2 Sprays in the nose every 12 hours. (Patient not taking: Reported on 04/01/2024) timolol maleate/latanoprost/P F (TIMOLOL-LATANOPROST, PF,) 0.5-0.005 % drop Use 1 Drop in eyes once daily. (Patient not taking: Reported on 05/02/2024) REVIEW OF SYSTEMS: HEENT: Positive for postnasal drip RESPIRATORY: See HPI and ACT scores CONSTITUTIONAL: No acute distress. Denies F/C/S. Denies wt loss. CARDIOVASCULAR: Negative for chest pain, leg swelling or palpitations. GASTROINTESTINAL: Negative for abdominal discomfort, No blood in stools or black stools. Negative for GERD MU (more content not included)... Normal [facility] CNOVon 06-02-2024 CNOV Office Visit ([facility] ) MARITZA LINDA ([id number]) 1945 F Date Time Provider Department 06/02/24 11:45 AM [facility] your visit today, we recorded the following information about you: Pulse Respiration 65/minute 16/minute Minnie Unger PA-C 06/02/2024 12:28 PM Signed Continue the protonix once daily for trial of 90 days I will reach out to Laryngology for their opinion and will MyChart message you Keep appointment with Pulmonology ~~~~~~~~~~~~~~~~~~~~~ ~~~~~~~~~~~~~~~~~~~~~ ~~~~~ [facility] [place] LARYNGOPHARYNGEAL REFLUX (LPR) OR SILENT REFLUX A common cause of hoarseness or voice changes is gastroesophageal reflux disease (GERD). GERD occurs when stomach acid flows back up into the esophagus (swallowing tube). When the acid reaches the throat, it is called laryngopharyngeal reflux (LPR) or silent reflux. It is called silent because most people with LPR have no heartburn or stomach upset. Possible Signs and Symptoms: Hoarseness Chronic cough Sensation of lump in the throat Vocal fold swelling and irritation Frequent throat clearing Vocal fold lesions or ulcerations Mucous sticking in the throat Worsening of asthma Low grade sore throat Worsening of sinus drainage Lifestyle changes If you are overweight, talk with your health care provider about losing weight. If you smoke, quit! Your health care provider may have ideas to help you quit. Dietary guidelines Eat smaller, more frequent meals rather than large one. Avoid food or liquids for 2-3 hours before lying down (no bedtime snacks!) Avoid or limit the following: Caffeinated products: coffee, tea, sodas, chocolate Red sauces and salsa Fatty, fried, or greasy foods Citric juices: orange, grapefruit Spicy foods Mints: peppermint, spearmint Alcohol Physical measures Elevate the head of the bed 6 inches by placing blocks under the legs of the head of the bed. Using extra pillows is NOT a good alternative. Avoid lifting heavy objects. Avoid bending forward at the waist. Avoid wearing tight fitting clothing. PPI medications (Nexium, Prilosec, Omeprazole, etc) need to be taken on an empty stomach, 45 minutes before meals. These medications act by preventing acid production, not by neutralizing acid already present in the stomach. Minnie Unger PA-C 06/02/2024 3:35 PM Signed CC: Maritza Linda is 78 year old female who is seen at the request of Denia Nicholas for evaluation of chronic cough and dysphonia. My findings and recommendations will be communicated to the referring provider via the shared electronic medical record. Assessment and Plan: (R05.3) Chronic cough (primary encounter diagnosis) (R49.0) Dysphonia (H61.23) Bilateral impacted cerumen ~removed impacted cerumen from both ears ~flexible laryngoscopy reveals erythema/edema of arytenoids and interarytenoid mucosa. Vocal folds move normally. 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 The cough has been present since before 2018. Describes mixed episodes of intractable coughing or a few coughs at a time. Mixed wet and dry. Currently in care of Pulmonology for presumed asthma - inhalers not helpful. Seen by Allergy/Immunology with negative allergy testing. She does have significant scoliosis. Initiated on pantoprazole 2 weeks ago - takes on empty stomach. Tried nasacort for 1 month without benefit. Hoarseness started 1-2 years ago. Struggles to sing. Her voice will also become breathier and raspier intermittently. Denies fevers, unexplained weight loss, nasal congestion, rhinorrhea, dysphagia, sore throat, odynophagia, globus, or heartburn. +chronic throat clearing. ALLERGIES Allergen Reactions Adhesive Tape-Silic* Itching Current Outpatient Medications Medication Sig latanoprost (XALATAN) 0.005 % ophthalmic solution Instill 1 drop into both eyes once a day pantoprazole DR (PROTONIX) 40 mg tablet Take 1 tablet by mouth once daily. Take 30-60 minutes prior to your first meal triamcinolone acetonide (NASACORT ALLERGY NASAL) Use in the nose once daily. lnbdgdqzpg-esyikoyv-x ormoterol (BREZTRI AEROSPHERE) 160-9-4.8 mcg/actuation HFA aerosol inhaler Inhale 2 Puffs as instructed two times a day. montelukast (SINGULAIR) 10 mg tablet Take 1 tablet by mouth once daily. amLODIPine (NORVASC) 10 mg tablet Take 10 mg by mouth once daily. cetirizine (ALLERGY RELIEF, CETIRIZINE,) 1 mg/mL syrup Take by mouth once daily. (Patient not taking: Reported on 04/08/2024) phenylephrine/diphenh ydramine (ALLERGY AND SINUS RELIEF ORAL) Take 10 mg by mouth once daily. Curist Allergy Relief - Lo (more content not included)... Normal [facility] NITRIC OXIDE, EXHALEDon 12-1 Roderick Campbell RPF T 05/08/2024 11:29 AM RESPIRATORY THERAPY ORAL EXHALED NITRIC OXIDE SERVICE DATE: 05/08/2024 SERVICE TIME: 11:28 AM Oral Exhaled Nitric Oxide measurement: 10.0 (ppb) Normal: Adult <25 ppb, pediatric (<12 years) <20 ppb High Normal / Increased: Adult 25-50 ppb, pediatric (<12 years) 20-35 ppb Moderately raised exhaled Nitric Oxide may indicate underlying inflammation, but note that: Cold and influenza can raise exhaled Nitric Oxide and some patients have higher baseline exhaled Nitric Oxide levels than others. High: Adult >50 ppb, pediatric (<12 years) >35 ppb Indicative of ongoing eosinophilic inflammation. Symptomatic patient likely to respond to steroids. Possible causes (if already on steroids): Poor compliance, recent allergen exposure, steroid dose inadequate, and steroid resistance. Note that not all patients with high exhaled nitric oxide levels display symptoms. 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 No contraindications or sensitivities were noted. Meds taken: Breztri 2.5 hours before testing. 2 puffs Albuterol (180 mcg) delivered by MDI via holding chamber. HR pre = 72 /min, HR post = 72/min. PRE-BRONCHODILATOR: Current ATS/ERS acceptability and repeatability standards for spirometry met. Start of test and EOFE criteria met. Current ATS/ERS acceptability and repeatability standards for lung volumes met. Current ATS/ERS acceptability and repeatability standards for DLCO met with 2 acceptable maneuvers. POST-BRONCHODILATOR: The two largest FVCs were repeatable. The two largest FEV1s were repeatable. Cough in 1st second despite repeated efforts IMPRESSION: Spirometry indicates no obstruction. The reduced FVC could indicate restriction, recommend lung volumes for definitive determination. Negative bronchodilator response. Decrease in TLC indicates restriction. The diffusion capacity (uncorrected for hemoglobin) is normal. Electronically Signed On 05-08-2024 15:00:48 EST by Oralia Miranda MD ID: [id number] Name: MARITZA LINDA Race: White Ht: 60.75 in Wt: 181.00 lbs Age: 78 Gender: Female : 1945 Dx: Moderate persistent asthma, uncomplicated Smoking Hx: Non-smoker Doctor: DENIA NICHOLAS Test Date: 05/08/2024 Site: Tech: [facility] PRE-BRONCH POST-BRONCH Pre LLN Pred ULN %Pred Post %Pred %Chg SPIROMETRY FVC (L) 1.90 1.59 2.28 3.00 83 1.94 84 1 FEV1 (L) 1.61 1.21 1.77 2.30 90 1.61 91 0 FEV1/FVC 0.85 0.65 0.79 0.90 107 0.83 105 -1 PEF L/s (L/sec) 4.42 3.07 4.61 6.15 95 4.11 89 -6 FEF50 (L/sec) 2.68 1.07 2.68 4.28 100 2.02 75 -24 FIF50 (L/sec) 2.45 3.42 39 FEF50/FIF50 1.09 90-100 0.59 -45 FIVC (L) 1.77 1.92 8 RNS14-80 (L/sec) 2.03 0.66 1.53 2.82 132 1.84 120 -9 Time (sec) 4.26 4.27 0 FET PEF (sec) 0.10 0.08 -19 VIGNESH (L) 0.07 0.06 -17 Vol Extrap % (%) 4 3 -19 LUNG VOLUMES TGV (L) 2.00 1.75 2.61 3.47 76 ERV (L) 0.36 0.76 47 RV (Pleth) (L) 1.58 1.53 2.16 2.79 73 SVC (L) 2.00 1.59 2.28 3.00 87 IC (L) 1.64 1.52 107 TLC (Pleth) (L) 3.44 3.68 4.57 5.45 75 RV/TLC (Pleth) (%) 46 37 46 55 99 LUNG DIFFUSION DLCOunc (ml/min/mmHg) 15.32 12.28 18.45 24.62 83 VA (L) 3.16 3.43 4.53 5.63 69 DLunc/VA (ml/min/mmHg/L) 4.85 3.02 4.33 5.65 111 BHT (sec) 11.03 IVC (L) 1.92 Comments: Medications and Allergies were reviewed for possible drug interactions per policy. No contraindications or sensitivities were noted. Meds taken: Breztri 2.5 hours before testing. 2 puffs Albuterol (180 mcg) delivered by MDI via holding chamber. HR pre = 72 /min, HR post = 72/min. PRE-BRONCHODILATOR: Current ATS/ERS acceptability and repeatability standards for spirometry met. Start of test and EOFE criteria met. Current ATS/ERS acceptability and repeatability standards for lung volumes met. Current ATS/ERS acceptability and repeatability standards for DLCO met with 2 acceptable maneuvers. POST-BRONCHODILATOR: The t (more content not included)... PULMONARY FUNCTION LAB [facility] SPIROMETRY - BASELINE AND PO [facility] 05-08-2024 DLCO (ml/min/mmHg) 15.32 ml/min/mmHg [facility] DLCO LLN (ml/min/mmHg) 12.28 ml/min/mmHg [facility] DLCO PREDICTED (ml/min/mmHg) 18.45 ml/min/mmHg [facility] DLCO ULN (ml/min/mmHg) 24.62 ml/min/mmHg [facility] DLCO/VA (ml/min/mmHg/L) 4.85 ml/min/mmHg/ L [facility] DLCO/VA PREDICTED (ml/min/mmHg/L) 4.33 ml/min/mmHg/ L [facility] DLCOcor PREDICTED (ml/min/mmHg) 18.45 ml/min/mmHg [facility] ERV BOX (L) 0.36 L [facility] ERV PREDICTED (L) 0.76 L/S [facility] FEF25% POST (L/S) 3.54 L/S [facility] FEF25% PRE (L/S) 3.85 [facility] KHA20-57% LLN (L/S) 0.66 L/S [facility] RQO67-42% POST (L/S) 1.84 [facility]S [facility] JFV55-19% PRE (L/S) 2.03 L/S [facility] LYB57-04% PREDICTED (L/S) 1.53 L/S [facility] FEF75% LLN (L/S) 0.12 L/S [facility] FEF75% POST (L/S) 0.95 L/S [facility] FEF75% PRE (L/S0 0.80 L/S [facility] FEF75% PREDICTED (L/S) 0.34 L/S [facility] FEF75% ULN (L/S) 0.96 L/S [facility] FET POST (S) 4.27 S [facility] FET PRE (S) 4.26 S [facility] FEV1 LLN (L) 1.21 L [facility] FEV1 PRE (L) 1.61 L [facility] FEV1 PREDICTED (L) 1.77 L [facility] FEV1 ULN (L) 2.30 L [facility] FEV1/FVC LLN (%) 65 % [facility] FEV1/FVC POST (%) 83 % [facility] FEV1/FVC PRE (%) 85 % [facility] FEV1/FVC PREDICTED (%) 79 % [facility] FEV1_POST (L) 1.61 L [facility] FRC Box (L) 2.00 L [facility] FVC LLN (L) 1.59 L [facility] FVC POST (L) 1.94 L [facility] FVC PRE (L) 1.90 L [facility] FVC PREDICTED (L) 2.28 L [facility] FVC ULN (L) 3.00 L [facility] IC BOX (L) 1.64 L [facility] IC PREDICTED (L) 1.52 L/S [facility] PEF LLN (L/S) 3.07 L/S [facility] PEF POST (L/S) 4.11 L/S [facility] PEF PRE (L/S) 4.42 L/S [facility] PEF ULN (L/S) 6.15 L/S [facility] RV Box (L) 1.58 L [facility] RV Box PREDICTED (L) 2.16 L [facility] RV/TLC Box (%) 46 % [facility] RV/TLC Box PREDICTED (%) 46 % [facility] SVC LLN (L) 1.59 L/S [facility] SVC PREDICTED (L) 2.28 L/S [facility] SVC ULN (L) 3.00 L/S [facility] TLC Box (L) 3.44 L [facility] TLC Box PREDICTED (L) 4.57 L [facility] VA (L) 3.16 L [facility] VA PREDICTED (L) 4.53 L [facility] VC (L) BOX 2.00 L [facility] Vitamin D,25 Hydroxyon 05-08 Vitamin D 25-OH 45.5 ng/mL Normal [facility] Comment on above: Result Comment: Lindsay min D 25(OH) Status Range Deficiency <20 ng/mL (50nmol/L) Insufficiency 20 - 30 ng/mL (50 - 75 nmol/L) Sufficiency 30 - 100 ng/mL (75 - 250 nmol/L) Toxicity >100 ng/mL (>250 nmol/L) Performed By: #### L [id number], L506.1000, L500.4050, L500.4100 #### [facility] [address] [place], [address] Comprehensive Metabolic Prof ilon 05-07-2024 Albumin [Mass/Vol] 3.6 g/dL Normal 3.2-5.0 [facility] Comment on above: Performed By: #### L [id number], L506.1000, L500.4050, L500.4100 #### [facility] [address] [place], [address] Albumin/Globulin [Mass ratio] 0.9 {ratio} Normal 0.9-2.4 [facility] Comment on above: Performed By: #### L [id number], L506.1000, L500.4050, L500.4100 #### [facility] [address] [place], [address] ALK P 98 U/L Normal 45-117 [facility] Comment on above: Performed By: #### L [id number], L506.1000, L500.4050, L500.4100 #### [facility] [address] [place], [address] ALT [Catalytic activity/Vol] 29 U/L Normal 13-56 [facility] Comment on above: Performed By: #### L [id number], L506.1000, L500.4050, L500.4100 #### [facility] [address] [place], [address] AST [Catalytic activity/Vol] 20 U/L Normal 15-37 [facility] Comment on above: Performed By: #### L [id number], L506.1000, L500.4050, L500.4100 #### [facility] [address] [place], [address] Bilirubin [Mass/Vol] 0.60 mg/dL Normal 0.20-1.00 [facility] Comment on above: Result Comment: For patients on eltrombopag therapy, use of Dimension [place] TBIL is not recommended. Performed By: #### L [id number], L506.1000, L500.4050, L500.4100 #### [facility] [address] [place], [address] BUN/CRE 22.4 RATIO High 10-20 [facility] Comment on above: Performed By: #### L [id number], L506.1000, L500.4050, L500.4100 #### [facility] [address] [place], [address] CA,Total 8.9 mg/dL Normal 8.5-10.1 [facility] Comment on above: Performed By: #### L 501.9520, L506.1000, L500.4050, L500.4100 #### [facility] [address] [place], [address] Chloride [Moles/Vol] 108 mmol/L High 98-107 [facility] Comment on above: Performed By: #### L [id number], L506.1000, L500.4050, L500.4100 #### [facility] [address] [place], [address] CO2 [Moles/Vol] 29.0 mmol/L Normal 21.0-32.0 [facility] Comment on above: Performed By: #### L [id number], L506.1000, L500.4050, L500.4100 #### [facility] [address] [place], [address] Creatinine [Mass/Vol] 0.71 mg/dL Normal 0.55-1.02 [facility] Comment on above: Result Comment: The validity of the calculated GFR GFRAA in patients over 70 years has not been determined. Clinical correlation is essential. Performed By: #### L [id number], L506.1000, L500.4050, L500.4100 #### [facility] [address] [place], [address] EST GFR - AA 102 mL/min Normal >60 [facility] Comment on above: Result Comment: Afri can [place] GFR Calc Performed By: #### L 501.9520, L506.1000, L500.4050, L500.4100 #### [facility] [address] [place], [address] GAP 4 Low 5-15 [facility] Comment on above: Performed By: #### L 501.9520, L506.1000, L500.4050, L500.4100 #### [facility] [address] [place], [address] GFR/1.73 sq M.predicted among non-blacks MDRD (S/P/Bld) [Vol rate/Area] 85 mL/min/{1.73_m2} Normal >60 [facility] Comment on above: Result Comment: Non- GFR Calc Performed By: #### L 501.9520, L506.1000, L500.4050, L500.4100 #### [facility] [address] [place], [address] Globulin (S) [Mass/Vol] 3.8 g/dL Normal 2.2-4.2 [facility] Comment on above: Performed By: #### L 501.9520, L506.1000, L500.4050, L500.4100 #### [facility] [address] [place], [address] Glucose [Mass/Vol] 108 mg/dL High 74-106 [facility] Comment on above: Result Comment: Fast ing Glucose result from 100 to 125 mg/dL suggests IMPAIRED HOMEOSTASIS per A.D.A. criteria. Performed By: #### L 501.9520, L506.1000, L500.4050, L500.4100 #### [facility] [address] [place], [address] Potassium [Moles/Vol] 3.6 mmol/L Normal 3.5-5.1 [facility] Comment on above: Performed By: #### L 501.9520, L506.1000, L500.4050, L500.4100 #### [facility] [address] [place], [address] Sodium [Moles/Vol] 140 mmol/L Normal 136-145 [facility] Comment on above: Performed By: #### L 501.9520, L506.1000, L500.4050, L500.4100 #### [facility] [address] [place], [address] T PROT 7.4 g/dL Normal 6.4-8.2 [facility] Comment on above: Performed By: #### L 501.9520, L506.1000, L500.4050, L500.4100 #### [facility] [address] [place], [address] Urea nitrogen [Mass/Vol] 16 mg/dL Normal 7-18 [facility] Comment on above: Performed By: #### L 501.9520, L506.1000, L500.4050, L500.4100 #### [facility] [address] [place], [address] Lipid Profileon 05-07-2024 Cholesterol [Mass/Vol] 184 mg/dL Normal 200 [facility] Comment on above: Result Comment: <200 mg/dL Desirable 200-240 mg/dL Borderline >240 mg/dL High Risk Performed By: #### L 501.9520, L506.1000, L500.4050, L500.4100 #### [facility] [address] [place], [address] Cholesterol in HDL [Mass/Vol] 86 mg/dL Normal [facility] Comment on above: Result Comment: The drugs N-Acetylcysteine and Metamizole may falsely depress this assay. Reference Range HDL <40 mg/dL Low HDL Cholesterol HDL >or= 60 mg/dL High HDL Cholesterol Performed By: #### L 501.9520, L506.1000, L500.4050, L500.4100 #### [facility] [address] [place], [address] Cholesterol in LDL [Mass/Vol] 81 mg/dL Normal 0-130 [facility] Comment on above: Performed By: #### L 501.9520, L506.1000, L500.4050, L500.4100 #### [facility] [address] [place], [address] Cholesterol in VLDL [Mass/Vol] 17 mg/dL Normal 5-40 [facility] Comment on above: Performed By: #### L 501.9520, L506.1000, L500.4050, L500.4100 #### [facility] [address] [place], [address] Triglyceride [Mass/Vol] 84 mg/dL Normal [facility] Comment on above: Result Comment: The drugs N-Acetylcysteine and Metamizole may falsely depress this assay. Serum Triglycerides Reference Interval Normal <150 mg/dL Borderline high 150 - 199 mg/dL High 200 - 499 mg/dL Very High > or = 500 mg/dL Performed By: #### L 501.9520, L506.1000, L500.4050, L500.4100 #### [facility] [address] [place], [place], [id number] Thyroid Stim Hormone (TSH)on 05-07-2024 TSH 1.200 uIU/mL Normal 0.358-3.740 [facility] Comment on above: Performed By: #### L 501.9520, L506.1000, L500.4050, L500.4100 #### [facility] [address] [facility] [place], [place], [address] CNOVon 05-02-2024 [facility] Office Visit ([facility] ) MARITZA LINDA ([id number]) 1945 F Date Time Provider Department 05/02/24 10:00 AM DENIA NICHOLAS [facility] During your visit today, we recorded the following information about you: Temperature Pulse Respiration Blood pressure 97.3 degrees 66/minute 16/minute 131/74 Weight Height 82 kg 1.588 m Denia Nicholas APRN.CNP 05/02/2024 5:05 PM Signed Patient: Maritza Linda PCP: Itz Oneal (Inactive) CC: follow up, cough HPI: Maritza Linda is a 78 year old female never smoker with PMH significant for asthma, chronic cough, allergic rhinitis, COVID-19, HTN. Last Pulmonary Clinic visit was with Dr. Goodman on 04/01/2024. The plan from this office visit was: -Start Breztri, Nasacort - Consult to allergy - IgE - Restart Atrovent nasal spray Today, the patient feels the same since last office visit. Saw allergy who recommends she see a speech therapist for chronic cough. Daughter is a speech pathologist. Voice is more hoarse. More of an effort to talk. Isn't able to hold inhaled medication in when using her inhalers d/t coughing. Admits to a nonproductive cough. Will occasionally be productive with PND. 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 Not with typical walking on a flat surface Admits to occasional PND and rhinorrhea, but not daily. Will take nasacort when this occurs Denies wheezing, fevers, chills, nightsweats, LE edema, chest pain/tightness, sinus congestion, or GERD Current therapy: Breztri Albuterol nebulizer, hasn't used Albuterol inhaler, using once a day. Isn't sure if helping d/t coughing episodes resolving quickly Cetirizine, isn't taking this Arnuity, stopped this when started breztri Atrovent nasal spray, using as needed Singulair Nasacort, using as needed Here with ROS: See HPI PAST MEDICAL HISTORY Diagnosis Date Asthma BMI 32.0-32.9,adult Essential hypertension Gastroesophageal reflux disease 04/08/2024 Glaucoma Hypoxemia 07/10/2023 Pneumonia 07/10/2023 Scoliosis Seasonal allergies Allergies: No Known Allergies cetirizine (ALLERGY RELIEF, CETIRIZINE,) 1 mg/mL syrup Take by mouth once daily. (Patient not taking: Reported on 04/08/2024) diphenhydramine HCl (ALLERGY RELIEF ORAL) Take by mouth. phenylephrine/acetami nophn/cpm (ALLERGY RELIEF,CHLORPHEN-ACET , ORAL) Take by mouth. phenylephrine/diphenh ydramine (ALLERGY AND SINUS RELIEF ORAL) Take 10 mg by mouth once daily. Curist Allergy Relief - Loratadine Tablets triamcinolone acetonide (NASACORT ALLERGY NASAL) Use in the nose once daily. qouegyskhb-mdwsiyvs-b ormoterol (BREZTRI AEROSPHERE) 160-9-4.8 mcg/actuation HFA aerosol inhaler Inhale 2 Puffs as instructed two times a day. fluticasone furoate (ARNUITY ELLIPTA) 200 mcg/actuation inhaler Inhale 1 Puff as instructed once daily. montelukast (SINGULAIR) 10 mg tablet Take 1 tablet by mouth once daily. amLODIPine (NORVASC) 10 mg tablet Take 10 mg by mouth once daily. Ipratropium [place] (ATROVENT) 21 mcg (0.03 %) nasal spray Use 2 Sprays in the nose every 12 hours. (Patient not taking: Reported on 04/01/2024) Cholecalciferol, Vitamin D3, (VITAMIN D-3) 25 mcg (1,000 unit) chew Take 25 tablets by mouth two times a day. (Patient not taking: Reported on 04/01/2024) timolol maleate/latanoprost/P F (TIMOLOL-LATANOPROST, PF,) 0.5-0.005 % drop Use 1 Drop in eyes once daily. Social History Tobacco Use Smoking status: Never Smokeless tobacco: Never Vaping Use Vaping status: Never Used Substance Use Topics Alcohol use: Yes Drug use: Never Family History Problem Relation Age of Onset Breast Cancer Sister Hypertension Sister Hypertension Brother other (Environmental allergies) Brother PAST SURGICAL HISTORY Procedure Laterality Date APPENDECTOMY REMOVAL GALLBLADDER I reviewed the past medical history, family history, social history and surgical history with changes noted above and updated in EMR. IMMUNIZATIONS There is no immunization history on file for this patient. PHYSICAL EXAMINATION: BP 131/74 (BP Site: Left Arm, BP Position: Sitting, BP Cuff Size: Regular Adult) Pulse 66 Temp 36.3 ?C (97.3 ?F) Resp 16 Ht 158.8 cm (5' 2.5) Wt 82 kg (180 lb 11.2 oz) SpO2 97% BMI 32.52 kg/m? O2: RA Physical Exam Vitals reviewed. Constitutional: General: She is not in acute distress. Appearance: Normal appearance. She is not ill-appearing, toxic-appearing or diaphoretic. HENT: Head: Normocephalic and atraumatic. Nose: Nose normal. No congestion or rhinorrhea. Mouth/Throat: Lips: [employer]. No lesions. Mouth: Mucous membranes are moist. Tongue: No lesions. Tongue does not deviate from midline. Palate: No lesions. Pharynx: Oropharynx is clear. Uvula midline. No pharyngeal swelling, oropharyngeal exudat (more content not included)... Normal [facility] CNOVon 04-08-2024 [facility] Office Visit ([facility] ) MARITZA LINDA ([id number]) 1945 F Date Time Provider Department 04/08/24 8:30 AM MAYNOR GARAY [facility] During your visit today, we recorded the following information about you: Temperature Pulse Respiration Blood pressure 98.2 degrees 71/minute 20/minute 123/76 Weight Height 81.6 kg 1.575 m Maynor Garay DO 04/13/2024 1:13 PM Addendum Allergy and Immunology DATE OF SERVICE: 04/08/2024 REFERRING PROVIDER: Elva Goodman MD [Pulmonology] Consultation requested for an allergy/immunology evaluation. My final impression and recommendations will be communicated back to the requesting physician by way of shared medical record, fax, or US mail. CHIEF COMPLAINT: Asthma and Chronic Cough HISTORY OF PRESENT ILLNESS: Maritza Linda is a 78 year old female with kyphoscoliosis s/p rods, glaucoma, hypertension, osteoporosis, who presents today for evaluation of allergic contribution to chronic cough. Accompanied by: , Roxana Has been ongoing for 6+ years. Has seen 3 pulmonologists. In the process, has trialed various inhalers for presumed asthma, PPI trial for GERD Most recently, following with [facility] pulmonology for persistent asthma. 04/01/24 note reviewed: Was switched to Breztri from Arnuity due to issues with formulary and symptom control Referred for allergy evaluation - patient has post nasal drip and suspects poorly controlled allergic rhinitis despite nasacort and zyrtec/claritin. IgE level obtained - elevated to 129. CBC without eosinophilia CT Chest September 2023 notable for lung nodule - plan for repeat in 6 months Although symptoms preceded COVID, she believes they were likely worsened. She was in the hospital x 1 week with hyoxemia - required nasal canula Mar 2020. Admitted again with hypoxemia in Jun 2023 2/2 pneumonia and needed oxygen for a few weeks following discharge. At that time was discharged with Symbicort inhaler and atrovent nasal spray. Her cough has not improved despite trial of many different medications at this point. No tickle in throat Laughing does not trigger cough Deep inhalation does sometimes but not consistently trigger cough Does not seem to originate from the lungs but cannot pinpoint the origin of her cough to any one location Describes as dry coughing spells especially on exposure to cold air seemingly. Worse in the winter Cold drinks also trigger Does have some dyspnea with exertion but thinks she is just deconditioned. 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 does not hear much coughing at night Denies seasonal allergies, post nasal drip Tried atrovent nose spray but didn't help so hasn't used Previously tried benadry/phenylephrine , Zyrtec, nasacort MYC COLLATERAL ALLERGY HISTORY Question 04/02/2024 12:23 PM EST - Filed by Patient Do you have or have you ever been diagnosed with allergic rhinitis? No Have you ever been skin tested for allergies? No Do you have asthma? Yes Do you have or have you ever been diagnosed with eczema or atopic dermatitis? No Do you get frequent sinus infections? No Do you have nasal polyps? No Do you have or have you ever been diagnosed with urticaria / hives? No Do you have or have you ever been diagnosed with angioedema? Not Sure Do you have or have you ever been diagnosed with food allergy? No Do you have or have you ever been diagnosed with stinging insect allergy (bee, wasp, yellow jacket, hornet)? No Are you allergic to Penicillin antibiotics? No MY[facility] ASTHMA CONTROL TEST Question 04/06/2024 8:33 PM EST - Filed by Patient 04/01/2024 7:15 AM EST - Filed by Patient 10/11/2023 8:21 PM EST - Filed by Patient Keep from getting things done 4 A little of the time 5 None of the time Shortness of breath 5 Not at all 5 Not at all 5 Not at all Symptoms wake up at night or early in morning 3 Once a week 1 4 or more nights a week 4 Once or twice How often have you used inhaler/nebulizer 5 Not at all 5 Not at all 5 Not at all Rate your asthma control over past 4 weeks 3 Somewhat controlled 2 Poorly controlled 3 Somewhat controlled Asthma Control Test Score (range: 0 - 25) 20 Incomplete 22 MY[facility] SLEEP APNEA SCREENING TOOLS V2 Question 04/02/2024 12:21 PM EST - Filed by Patient Snore Loudly No Tired, fatigued or sleepy in daytime No Stop breathing or choking/gasping during sleep No High blood pressure Yes Sleep Apnea Screen V2 (range: 0 - 100) 42 (Sleep study not recommended) Immunizations: up to date 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 [facility] ALEXEIMARITZA ([id number]) 1945 F Date Time Provider Department 04/04/24 ELVA GOODMAN [facility] During your visit today, we recorded the following information about you: Elva Goodman MD 04/04/2024 11:25 AM Signed I explained to Maritza that I had to intensify her inhaler therapy because she stated on her ACT T questionnaire that she felt like her asthma was poorly controlled. So I switched her from Arnuity to Breztri so she would have additional bronchodilators. I told her if her vision becomes blurry after starting the Breztri she should stop it and I will switch her inhaler to a different 1 that will not cause that side effect. She verbalized understanding. She said she would call me if she experiences any blurry vision with the Breztri. Allergies As of Date: 04/04/2024 (No Known Allergies) Date Reviewed: 04/01/2024 Reviewed by: Lia Augustin MA - Fully Assessed Reason for Visit: Medication Problem [65] Prescriptions as of 04/04/2024 - triamcinolone acetonide (NASACORT ALLERGY NASAL) Use in the nose once daily. - muiwqtoend-ixhhjdhr-g ormoterol (BREZTRI AEROSPHERE) 160-9-4.8 mcg/actuation HFA aerosol inhaler Inhale 2 Puffs as instructed two times a day. - fluticasone furoate (ARNUITY ELLIPTA) 200 mcg/actuation inhaler Inhale 1 Puff as instructed once daily. - montelukast (SINGULAIR) 10 mg tablet Take 1 tablet by mouth once daily. - amLODIPine (NORVASC) 10 mg tablet Take 10 mg by mouth once daily. - Ipratropium [place] (ATROVENT) 21 mcg (0.03 %) nasal spray Use 2 Sprays in the nose every 12 hours. - budesonide-formoterol (SYMBICORT) 160-4.5 mcg/actuation inhaler Inhale 2 Puffs as instructed two times a day. - ascorbic acid-ascorbate sodium 500 mg chew Take by mouth. - Cholecalciferol, Vitamin D3, (VITAMIN D-3) 25 mcg (1,000 unit) chew Take 25 tablets by mouth two times a day. - timolol maleate/latanoprost/P F (TIMOLOL-LATANOPROST, PF,) 0.5-0.005 % drop Use 1 Drop in eyes once daily. Problem List As Of Date: 04/04/2024 (None) Encounter Status:Closed by ELVA GOODMAN on 04/04/24 Normal [facility] CBC W Auto Differential pane l (Bld)on 04-01-2024 Basophils (Bld) [#/Vol] 0.07 10*3/uL [facility] Basophils/100 WBC (Bld) 0.8 % [facility] Differential cell count method Nom (Bld) Auto [facility] Eosinophils (Bld) [#/Vol] 0.14 10*3/uL [facility] Eosinophils/100 WBC (Bld) 1.5 % [facility] Erythrocyte distribution width (RBC) [Ratio] 13.6 % 11.5 - 15.0 % [facility] Hematocrit (Bld) [Volume fraction] 42.5 % 36.0 - 46.0 % [facility] Hemoglobin (Bld) [Mass/Vol] 13.5 g/dL 11.5 - 15.5 g/dL [facility] Immature granulocytes (Bld) [#/Vol] 0.04 10*3/uL [facility] Immature granulocytes/100 WBC (Bld) 0.4 % [facility] Interpretation and review of laboratory results Abnormal [facility] Lymphocytes (Bld) [#/Vol] 1.84 10*3/uL [facility] Lymphocytes/100 WBC (Bld) 20.1 % [facility] MCH (RBC) [Entitic mass] 29.0 pg 26.0 - 34.0 pg [facility] MCHC (RBC) [Mass/Vol] 31.8 g/dL 30.5 - 36.0 g/dL [facility] MCV (RBC) [Entitic vol] 91.2 fL 80.0 - 100.0 fL [facility] Monocytes (Bld) [#/Vol] 0.91 10*3/uL High [facility] Monocytes/100 WBC (Bld) 9.9 % [facility] Neutrophils (Bld) [#/Vol] 6.15 10*3/uL [facility] Neutrophils/100 WBC (Bld) 67.3 % [facility] Nucleated RBC (Bld) [#/Vol] NINF [facility] Nucleated RBC/100 WBC (Bld) [Ratio] 0.0 % /100 WBC [facility] Platelet mean volume (Bld) [Entitic vol] 11.1 fL 9.0 - 12.7 fL [facility] Platelets (Bld) [#/Vol] 241 10*3/uL [facility] RBC (Bld) [#/Vol] 4.66 10*6/uL 3.90 - 5.2 0 m/uL [facility] WBC (Bld) [#/Vol] 9.15 10*3/uL [facility] Clinic Basophils (Bld) [#/Vol] 0.07 10*3/uL Normal <0.11 [facility] Comment on above: Order Comment: Speci men Type: BLOOD SPECIMEN Ordering Facility: [facility] Address: [address] [place] [address] Performed By: #### 5 7021-8 #### [facility] CLIA [id number] [address] Basophils/100 WBC (Bld) 0.8 % Normal [facility] Comment on above: Order Comment: Speci men Type: BLOOD SPECIMEN Ordering Facility: [facility] Address: [address] [place] [address] Performed By: #### 5 7021-8 #### [facility] CLIA [id number] [address] [place] Differential cell count method Nom (Bld) Auto Normal [facility] Comment on above: Order Comment: Speci men Type: BLOOD SPECIMEN Ordering Facility: [facility] Address: [address] [place] [address] Performed By: #### 5 7021-8 #### [facility] CLIA [id number] [address] OF [facility] Eosinophils (Bld) [#/Vol] 0.14 10*3/uL Normal <0.46 [facility] Comment on above: Order Comment: Speci men Type: BLOOD SPECIMEN Ordering Facility: [facility] Address: [address] [place] [address] Performed By: #### 5 7021-8 #### [facility] CLIA [id number] [address] Eosinophils/100 WBC (Bld) 1.5 % Normal [facility] Comment on above: Order Comment: Speci men Type: BLOOD SPECIMEN Ordering Facility: [facility] Address: [address] [place] [address] Performed By: #### 5 7021-8 #### [facility] CLIA [id number] [address] [place] Erythrocyte distribution width (RBC) [Ratio] 13.6 % Normal 11.5-15.0 [facility] Comment on above: Order Comment: Speci men Type: BLOOD SPECIMEN Ordering Facility: [facility] Address: [address] [place] [address] Performed By: #### 5 7021-8 #### [facility] CLIA [id number] [address] [place] Hematocrit (Bld) [Volume fraction] 42.5 % Normal 36.0-46.0 [facility] Comment on above: Order Comment: Speci men Type: BLOOD SPECIMEN Ordering Facility: [facility] Address: [address] [place] [address] Performed By: #### 5 7021-8 #### [facility] CLIA [id number] [address] [place] Hemoglobin (Bld) [Mass/Vol] 13.5 g/dL Normal 11.5-15.5 [facility] Comment on above: Order Comment: Speci men Type: BLOOD SPECIMEN Ordering Facility: [facility] Address: [address] [place] [address] Performed By: #### 5 7021-8 #### [facility] CLIA [id number] [address] [place] Immature granulocytes (Bld) [#/Vol] 0.04 10*3/uL Normal <0.10 [facility] Comment on above: Order Comment: Speci men Type: BLOOD SPECIMEN Ordering Facility: [facility] Address: [address] [place] [address] Performed By: #### 5 7021-8 #### [facility] CLIA [id number] [address] [place] Immature granulocytes/100 WBC (Bld) 0.4 % Normal [facility] Comment on above: Order Comment: Speci men Type: BLOOD SPECIMEN Ordering Facility: [facility] Address: [facility] [place] [address] Performed By: #### 5 7021-8 #### [facility] CLIA [id number] [address] [place] Lymphocytes (Bld) [#/Vol] 1.84 10*3/uL Normal 1.00-4.00 [facility] Comment on above: Order Comment: Speci men Type: BLOOD SPECIMEN Ordering Facility: [facility] Address: [address] [place] [address] Performed By: #### 5 7021-8 #### [facility] CLIA [id number] [address] Lymphocytes/100 WBC (Bld) 20.1 % Normal [facility] Comment on above: Order Comment: Speci men Type: BLOOD SPECIMEN Ordering Facility: [facility] Address: [address] [place] [address] Performed By: #### 5 7021-8 #### [facility] CLIA [id number] [address] MCH (RBC) [Entitic mass] 29.0 pg Normal 26.0-34.0 [facility] Comment on above: Order Comment: Speci men Type: BLOOD SPECIMEN Ordering Facility: [facility] Address: [address] [place] [address] Performed By: #### 5 7021-8 #### [facility] CLIA [id number] [address] MCHC (RBC) [Mass/Vol] 31.8 g/dL Normal 30.5-36.0 [facility] Comment on above: Order Comment: Speci men Type: BLOOD SPECIMEN Ordering Facility: [facility] Address: [address] [place] [address] Performed By: #### 5 7021-8 #### [facility] CLIA [id number] [address] MCV (RBC) [Entitic vol] 91.2 fL Normal 80.0-100.0 [facility] Comment on above: Order Comment: Speci men Type: BLOOD SPECIMEN Ordering Facility: [facility] Address: [address] [place] [address] Performed By: #### 5 7021-8 #### [facility] CLIA [id number] [address] Monocytes (Bld) [#/Vol] 0.91 10*3/uL High <0.87 [facility] Comment on above: Order Comment: Speci men Type: BLOOD SPECIMEN Ordering Facility: [facility] Address: [address] [place] [address] Performed By: #### 5 7021-8 #### [facility] CLIA [id number] [address] [place] Monocytes/100 WBC (Bld) 9.9 % Normal [facility] Comment on above: Order Comment: Speci men Type: BLOOD SPECIMEN Ordering Facility: [facility] Address: [address] [place] [address] Performed By: #### 5 7021-8 #### [facility] CLIA [id number] [address] [place] Neutrophils (Bld) [#/Vol] 6.15 10*3/uL Normal 1.45-7.50 [facility] Comment on above: Order Comment: Speci men Type: BLOOD SPECIMEN Ordering Facility: [facility] Address: [address] [place] [address] Performed By: #### 5 7021-8 #### [facility] CLIA [id number] [address] Neutrophils/100 WBC (Bld) 67.3 % Normal [facility] Comment on above: Order Comment: Speci men Type: BLOOD SPECIMEN Ordering Facility: [facility] Address: [address] [place] [address] Performed By: #### 5 7021-8 #### [facility] CLIA [id number] [address] [place] Nucleated RBC (Bld) [#/Vol] 10*3/uL Normal <0.01 [facility] Comment on above: Order Comment: Speci men Type: BLOOD SPECIMEN Ordering Facility: [facility] Address: [address] [place] [address] Performed By: #### 5 7021-8 #### [facility] CLIA [id number] [address] [place] Nucleated RBC/100 WBC (Bld) [Ratio] 0.0 /100 WBC Normal [facility] Comment on above: Order Comment: Speci men Type: BLOOD SPECIMEN Ordering Facility: [facility] Address: [address] [place] [address] Performed By: #### 5 7021-8 #### [facility] CLIA [id number] 1 [place] [address] [place] Platelet mean volume (Bld) [Entitic vol] 11.1 fL Normal 9.0-12.7 [facility] Comment on above: Order Comment: Speci men Type: BLOOD SPECIMEN Ordering Facility: [facility] Address: [address] [place] [address] Performed By: #### 5 7021-8 #### [facility] CLIA [id number] [address] [place] Platelets (Bld) [#/Vol] 241 10*3/uL Normal 150-400 [facility] Comment on above: Order Comment: Speci men Type: BLOOD SPECIMEN Ordering Facility: [facility] Address: [address] [place] [address] Performed By: #### 5 7021-8 #### [facility] CLIA [id number] [address] [place] RBC (Bld) [#/Vol] 4.66 10*6/uL Normal 3.90-5.20 [facility] Comment on above: Order Comment: Speci men Type: BLOOD SPECIMEN Ordering Facility: [facility] Address: [address] [place] [address] Performed By: #### 5 7021-8 #### [facility] CLIA [id number] [address] [place] WBC (Bld) [#/Vol] 9.15 10*3/uL Normal 3.70-11.00 [facility] Comment on above: Order Comment: Speci men Type: BLOOD SPECIMEN Ordering Facility: [facility] Address: [address] [place] [address] Performed By: #### 5 7021-8 #### [facility] [id number] [address] OF [facility] CNOVon 04-01-2024 CNOV Office Visit ([facility] ) MARITZA LINDA ([id number]) 1945 F Date Time Provider Department 04/01/24 8:00 AM ELVA GOODMAN [facility] During your visit today, we recorded the following information about you: Temperature Pulse Respiration Blood pressure 97.6 degrees 65/minute 16/minute 134/79 Weight Height 83 kg 1.575 m Elva Goodman MD 04/01/2024 8:38 AM Signed Chief complaint patient is Pulmonary Consult Patient Name: Maritza Linda DATE: 04/01/2024 CHIEF COMPLAINT: Follow up for SOB, chronic cough, asthma HISTORY OF PRESENT ILLNESS: Maritza Linda is a 78 year old female, past medical history significant for seasonal allergies, asthma and scoliosis. Also had COVID 19 infection which required hospital admission in March 2020. ZEE 10/12/2023 I prescribed Arnuity 20 mcg and montelukast for asthma/chronic cough Pt sates she never really quit coughing. This is her CC. Now with drainage. Cough's everyday. Drinking something cold, cold air will trigger it to. The Arnuity did help much. Arnuity also fell off her formulary She is also taking Nasacort now and Zytrec/Claritin. She is still having post nasal gtt. She is wondering if she could have environmental allergies. She does not have GERD. She is not short of breath. . ASTHMA CONTROL TEST In the last 4 weeks, how much of the time did your asthma keep you from getting as much done at work or home that you wanted to do? None of the time (5) In the last 4 weeks, how often have you had shortness of breath? Not at all (5) In the last 4 weeks, how often did your asthma symptoms (wheezing, coughing, shortness of breath, chest tightness or pain) wake you up at night or earlier than usual? 4 or more nights per week (1) In the last 4 weeks, how often have you used your rescue inhaler or nebulizer medication (such as Albuterol, Proventil, Ventolin, Maxair, Xoponex, or Primatene Mist)? Not at all (5) In the last 4 weeks, how would you rate your asthma control? Poorly controlled (2) Total: 09/22/2023 ACT: 22 09/18/2023 ACT total: 24 PAST MEDICAL HISTORY Diagnosis Date Asthma BMI 32.0-32.9,adult Essential hypertension Glaucoma Scoliosis Seasonal allergies PAST SURGICAL HISTORY Procedure Laterality Date APPENDECTOMY REMOVAL GALLBLADDER FAMILY HISTORY Problem Relation Age of Onset Breast Cancer Sister Hypertension Sister Hypertension Brother other (Environmental allergies) Brother Social History Tobacco Use Smoking status: Never Smokeless tobacco: Never Vaping Use Vaping status: Never Used Substance Use Topics Alcohol use: Yes Drug use: Never and lives with her 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 ALLERGIES: ALLERGIES No Known Allergies CURRENT OUTPATIENT MEDICATIONS: triamcinolone acetonide (NASACORT ALLERGY NASAL) Use in the nose once daily. fluticasone furoate (ARNUITY ELLIPTA) 200 mcg/actuation inhaler Inhale 1 Puff as instructed once daily. montelukast (SINGULAIR) 10 mg tablet Take 1 tablet by mouth once daily. amLODIPine (NORVASC) 10 mg tablet Take 10 mg by mouth once daily. timolol maleate/latanoprost/P F (TIMOLOL-LATANOPROST, PF,) 0.5-0.005 % drop Use 1 Drop in eyes once daily. sjklqmbstr-tizbiedo-e ormoterol (BREZTRI AEROSPHERE) 160-9-4.8 mcg/actuation HFA aerosol inhaler Inhale 2 Puffs as instructed two times a day. Ipratropium [place] (ATROVENT) 21 mcg (0.03 %) nasal spray Use 2 Sprays in the nose every 12 hours. (Patient not taking: Reported on 04/01/2024) budesonide-formoterol (SYMBICORT) 160-4.5 mcg/actuation inhaler Inhale 2 Puffs as instructed two times a day. (Patient not taking: Reported on 04/01/2024) ascorbic acid-ascorbate sodium 500 mg chew Take by mouth. (Patient not taking: Reported on 04/01/2024) Cholecalciferol, Vitamin D3, (VITAMIN D-3) 25 mcg (1,000 unit) chew Take 25 tablets by mouth two times a day. (Patient not taking: Reported on 04/01/2024) REVIEW OF SYSTEMS: HEENT: Positive for postnasal drip RESPIRATORY: See HPI and ACT scores CONSTITUTIONAL: No acute distress. Denies F/C/S. Denies wt loss. CARDIOVASCULAR: Negative for chest pain, leg swelling or palpitations. GASTROINTESTINAL: Negative for abdominal discomfort, No blood in stools or black stools. Negative for GERD MUSCULOSKELETAL: Negative for joint pain or swelling, back pain or muscle pain. NEUROLOGIC:Negative for focal numbness or weakness, headaches and dizziness or syncope. SKIN:Negative for lesions, rash, and itching. PSYCHIATRIC: Negative for sleep disturbance, mood disorder and recent psychosocial stressors HEMATOLOGIC/LYMPHATIC /IMMUNOLOGIC:Negative for cold or heat intolerance, polyuria, polydipsia and goiter. The remainder of the ROS was negative. PHYSICAL EXAM: BP 1 (more content not included)... Normal [facility] IgE SerPl-aCncon 04-01-2024 IgE Qn 129.0 kU/l High <114.0 [facility] Comment on above: Order Comment: Speci men Type: BLOOD SPECIMEN Ordering Facility: [facility] Address: [address] [place] [address] Performed By: #### 1 9113-0 #### [facility] CLIA [id number] [address] [place] [address] [place] [address] [place] Chun 10-24-2023 TARYN Telephone ([facility]) MARITZA LINDA ([id number]) 1945 F Date Time Provider Department 10/24/23 ELVA GOODMAN During your visit today, we recorded the following information about you: Camryn Seo 10/24/2023 11:[address] Oneal PCP is calling Elva Goodman MD today to request Patient Question (PCP wants to speak with Dr. Goodman please call [phone] to speak with provider directly. Dr. Oneal )patient was in the office this morning and updated provider but he wants to speak with Dr. Goodman. Patient has been identified by name and birthdate. Duration of symptoms: N/A Person calling: caregiver: PCP Dr. Oneal Call patient at: n/a [phone] (home) [phone] (cell) Was an appointment scheduled: No Closing statement: Results or non-symptom based questions: Thank you for calling [facility], your call will be returned within the next business day. Nena Collins RN 10/24/2023 11:[address] Goodman, Please see message below. Thank you, Nena Alvarado, MSN, RN Elva Goodman MD 10/24/2023 6:10 PM Signed I called patient's primary care doctor, Dr Oneal. I let him the Chest CT that I ordered showed a 3cm left thyroid nodule that will need further evaluation. He appreciated the update and he will order an U/S of the thyroid. Allergies As of Date: 10/24/2023 (No Known Allergies) Date Reviewed: 10/12/2023 Reviewed by: Trinity Ochoa MA - Fully Assessed Reason for Visit: Patient Question [[id number]] Cmt: PCP wants to speak with Dr. Goodman please call [phone] to speak with provider directly. Dr. Oneal Prescriptions as of 10/24/2023 - fluticasone furoate (ARNUITY ELLIPTA) 200 mcg/actuation inhaler Inhale 1 Puff as instructed once daily. - montelukast (SINGULAIR) 10 mg tablet Take 1 tablet by mouth once daily. - amLODIPine (NORVASC) 10 mg tablet Take 10 mg by mouth once daily. - Ipratropium [place] (ATROVENT) 21 mcg (0.03 %) nasal spray Use 2 Sprays in the nose every 12 hours. - budesonide-formoterol (SYMBICORT) 160-4.5 mcg/actuation inhaler Inhale 2 Puffs as instructed two times a day. - ascorbic acid-ascorbate sodium 500 mg chew Take by mouth. - Cholecalciferol, Vitamin D3, (VITAMIN D-3) 25 mcg (1,000 unit) chew Take 25 tablets by mouth two times a day. - timolol maleate/latanoprost/P F (TIMOLOL-LATANOPROST, PF,) 0.5-0.005 % drop Use 1 Drop in eyes once daily. Problem List As Of Date: 10/24/2023 (None) Encounter Status:Closed by ELVA GOODMAN on 10/24/23 [facility] 10-22-2023 [facility] Telephone ([facility]) MARITZA LINDA ([id number]) 1945 F Date Time Provider Department 10/22/23 ELVA GOODMAN [facility] During your visit today, we recorded the following information about you: Elva Goodman MD 10/22/2023 10:42 AM Signed Called patient back today and I actually did get to speak to her. I told her there is a spot in her thyroid. On the left side. She has an appointment with her primary care doctor coming up. She plans on seeing an certified hyperbaric technician. Allergies As of Date: 10/22/2023 (No Known Allergies) Date Reviewed: 10/12/2023 Reviewed by: Trinity Ochoa MA - Fully Assessed Reason for Visit: Results [95] Prescriptions as of 10/22/2023 - fluticasone furoate (ARNUITY ELLIPTA) 200 mcg/actuation inhaler Inhale 1 Puff as instructed once daily. - montelukast (SINGULAIR) 10 mg tablet Take 1 tablet by mouth once daily. - amLODIPine (NORVASC) 10 mg tablet Take 10 mg by mouth once daily. - Ipratropium [place] (ATROVENT) 21 mcg (0.03 %) nasal spray Use 2 Sprays in the nose every 12 hours. - budesonide-formoterol (SYMBICORT) 160-4.5 mcg/actuation inhaler Inhale 2 Puffs as instructed two times a day. - ascorbic acid-ascorbate sodium 500 mg chew Take by mouth. - Cholecalciferol, Vitamin D3, (VITAMIN D-3) 25 mcg (1,000 unit) chew Take 25 tablets by mouth two times a day. - timolol maleate/latanoprost/P F (TIMOLOL-LATANOPROST, PF,) 0.5-0.005 % drop Use 1 Drop in eyes once daily. Problem List As Of Date: 10/22/2023 (None) Encounter Status:Closed by ELVA GOODMAN on 10/22/[address] [facility] [address] CHEST WO IVCONon 10-04-19 CT CHEST WO IVCON * * *Final Report* * * DATE OF EXAM: Oct 04 2023 1:15PM [facility] 0541 - CT CHEST WO IVCON / PROCEDURE REASON: J18.9-Pneumonia of right lower lobe due to infectious organism * * * * Physician Interpretation * * * * EXAMINATION: CHEST CT WITHOUT CONTRAST CLINICAL HISTORY: Right lower lobe pneumonia. Technique: Spiral CT acquisition of the chest from the thoracic inlet to the upper abdomen without contrast. MQ: [id number] CT Radiation dose: Integrated Dose-length product (DLP) for this visit = 324 mGy*cm CT Dose Reduction Employed: Automated exposure control(AEC) and iterative recon Comparison: 06/28/2023 RESULT: Limitations: None. Lines, tubes, and devices: None. Lung parenchyma and airways: Interval clearing of consolidation from the right lower lobe. No acute consolidation. 6 mm left lower lobe nodule, 301:118, not clearly present on the prior study or a chest CT from 10/19/2020. Left base atelectasis/scar. The central airways are patent. Pleural space: No pleural effusion. No pleural thickening. Lower neck, lymph nodes, and mediastinum: Approximate 3 cm left thyroid nodule, appearing larger than the previous study from 2020. No lymphadenopathy in the supraclavicular, axillary, mediastinal, or hilar regions. Heart, pericardium, and thoracic vessels: The thoracic aorta and main pulmonary artery are normal in caliber. The cardiac chambers are normal in size. Coronary artery atherosclerotic calcifications are noted, although the study is not optimized for coronary assessment. No pericardial effusion or thickening. Bones and soft tissues: Postoperative and degenerative change in the thoracic spine. Advanced dextroscoliosis. No destructive bone lesion. Chest wall is unremarkable. Upper abdomen: 3.7 cm right hepatic lobe cyst, measuring 2.5 cm on the study from 2020. Localizer images: No additional findings. IMPRESSION: Interval clearing of the right lower lobe infiltrate 6 mm left lower lobe nodule. Dominant left thyroid nodule. Thyroid ultrasound is recommended. Benign-appearing right hepatic lobe cyst, however larger than previous Incidental Finding: Follow-up Acuity: Incidental Finding: Solid: 6-8 mm (solitary nodule) Routing Code: RI_1 Recommendation: CT Chest WO IVCON Time Frame: 6-12 months Comments: If stable on follow-up imaging, a repeat chest CT exam in 12 months (18-24 months from the initial exam) is recommended --END OF FINDING-- ACTIONABLE RESULT: FOLLOW-UP Acuity: Actionable Findings: Endocrine (thyroid) Routing Code: EMI_1 Recommendation: US THYROID/PARATHYROID Time Frame: Non-urgent, but prompt follow-up COMMUNICATION: Results will be communicated with the ordering provider via [employer] staff message or phone message by [facility] within 2 business days of report finalization. --END OF FINDING-- Filbert Grower: JONNY Transcribe Date/Time: Oct 08 2023 10:05A Dictated by : LUCIANA MELO MD This examination was interpreted and the report reviewed and electronically signed by: LUCIANA MELO MD on Oct 08 2023 10:44AM EST [id number] ACTIONABLE Invalid Interpretation Code [facility] NITRIC OXIDE, EXHALEDon 05-0 Roderick Campbell RPF T 09/20/2023 8:59 AM RESPIRATORY THERAPY ORAL EXHALED NITRIC OXIDE SERVICE DATE: 09/20/2023 SERVICE TIME: 8:59 AM Oral Exhaled Nitric Oxide measurement: 9.0 (ppb) Normal: Adult 5-20 ppb, pediatric (<12 years) 5-15 ppb High Normal / Increased: Adult 20-35 ppb, pediatric (<12 years) 15-25 ppb Moderately raised exhaled Nitric Oxide may indicate underlying inflammation, but note that: Cold and influenza can raise exhaled Nitric Oxide and some patients have higher baseline exhaled Nitric Oxide levels than others. High: Adult >35 ppb, pediatric (<12 years) >25 ppb Indicative of ongoing eosinophilic inflammation. Symptomatic patient likely to respond to steroids. Possible causes (if already on steroids): Poor compliance, recent allergen exposure, steroid dose inadequate, and steroid resistance. Note that not all patients with high exhaled nitric oxide levels display symptoms. Oral Exhaled Nitric Oxide measurement (Previous Encounters) Test Date Oral Exhaled Nitric Oxide (ppb) 09/20/2023 9.0 NAME: URIAH Horton PATIENT NAME: Maritza Linda DATE: September 20, 2023 TIME: 8:59 AM [facility] Bacteria identified Respirat ory culture Nom (Unsp spec)Ordered By: Thomas Champagne on 06-29-2023 Respiratory Culture Presumptive C albicans [facility] Basophil percentageOrdered B y: Thomas Champagne on 06-29-2023 Chloride [Moles/Vol] 107 mmol/L 98-107 [facility] Glucose [Mass/Vol] 101 mg/dL 74-106 [facility] Comment on above: Fasting Glucose resu lt from 100 to 125 mg/dL suggests IMPAIRED HOMEOSTASIS per A.D.A. criteria. Hemoglobin (Bld) [Mass/Vol] 12.8 g/dL 12.0-15.0 [facility] Potassium [Moles/Vol] 4.2 mmol/L 3.5-5.1 [facility] Sodium [Moles/Vol] 141 mmol/L 136-145 [facility] WBC (Bld) [#/Vol] 8.6 10*3/uL 4.4-11.0 [facility] Determination of erythrocyte mean corpuscular volume (MCV)Ordered By: Thomas Champagne on 06-29-2023 MCV (RBC) [Entitic vol] 86.7 fL 81-99 [facility] Erythrocyte distribution wid th ratioOrdered By: Thomas Champagne on 06-29-2023 Erythrocyte distribution width (RBC) [Ratio] 13.2 % 11.6-14.6 [facility] Erythrocyte distribution wid th standard deviationOrdered By: Thomas Champagne on 06-29-2023 Erythrocyte distribution width (RBC) [Entitic vol] 42.0 fL 35.1-43.9 [facility] Gram stain for investigation of transfusion reactionOrdered By: Thomas Champagne on 06-29-2023 Microscopic observation Gram stain Nom (Unsp spec) [facility] Hematocrit Auto (Bld) [Volum e fraction]Ordered By: Thomas Champagne on 06-29-2023 Hematocrit (Bld) [Volume fraction] 38.6 % 37-47 [facility] Laboratory - Chemistry and C hemistry - challengeOrdered By: Thomas Champagne on 06-29-2023 CO2 [Moles/Vol] 29.0 mmol/L 21.0-32.0 [facility] Urea nitrogen/Creatinine [Mass ratio] 22.3 mg/mg 10-20 [facility] Laboratory - Hematology and Cell countsOrdered By: Thomas Champagne on 06-29-2023 MCH (RBC) [Entitic mass] 28.8 pg 27.0-32.0 [facility] MCHC (RBC) [Mass/Vol] 33.2 g/dL 32-36 [facility] Platelet mean volume (Bld) [Entitic vol] 10.5 fL 6.2-12.0 [facility] Platelets (Bld) [#/Vol] 268 10*3/uL 150-450 [facility] No Panel InformationOrdered By: Thomas Champagne on 06-29-2023 Estimated Creatinine Clearance Calc 59.72 ml/min [facility] Estimated GFR (MDRD) Amer 102 mL/min >60 [facility] Comment on above: GFR Calc Estimated GFR (MDRD) Non-Af Amer 84 mL/min >60 [facility] Comment on above: Non- GFR Calc RBC Auto (Bld) [#/Vol]Ordere d By: Thomas Champagne on 06-29-2023 RBC (Bld) [#/Vol] 4.45 10*6/uL 4.2-5.4 [facility] Serum or plasma calcium malgorzata urement (mass/volume)Ordered By: Thomas Champagne on 06-29-2023 Calcium [Mass/Vol] 8.6 mg/dL 8.5-10.1 [facility] Serum or plasma creatinine m easurement (mass/volume)Ordered By: Thomas Champagne on 06-29-2023 Creatinine [Mass/Vol] 0.72 mg/dL 0.55-1.02 [facility] Comment on above: The validity of the calculated GFR & GFRAA in patients over 70 years has not been determined. Clinical correlation is essential. Serum or plasma urea nitroge n measurement (mass/volume)Ordered By: Thomas Champagne on 06-29-2023 Urea nitrogen [Mass/Vol] 16 mg/dL 7-18 [facility] Thin prep Papanicolaou smear with manual screeningOrdered By: Thomas Champagne on 06-29-2023 Thin prep Papanicolaou smear with manual screening 5 5-15 [facility] Absolute lymphocyte countOrd ered By: Jake Carmona on 06-28-2023 Lymphocytes Auto (Unsp spec) [#/Vol] 2.29 10*3/uL 0.83-4.51 [facility] Automated lymphocyte count a s percentage of total leukocytesOrdered By: Jake Carmona on 06-28-2023 Lymphocytes/100 WBC Auto (Unsp spec) 32.9 % 19-41 [facility] Basophil percentageOrdered B y: Jake Carmona on 06-28-2023 Basophils/100 WBC (Bld) 0.6 % 0-1 [facility] Chloride [Moles/Vol] 106 mmol/L 98-107 [facility] Eosinophils/100 WBC (Bld) 0.0 % 0-5 [facility] Glucose [Mass/Vol] 129 mg/dL 74-106 [facility] Comment on above: Fasting Glucose resu lt greater than or equal to 126 mg/dL suggests DIABETES MELLITUS per A.D.A. criteria. Hemoglobin (Bld) [Mass/Vol] 13.3 g/dL 12.0-15.0 [facility] Monocytes/100 WBC (Bld) 9.6 % 0-10 [facility] Neutrophils (Bld) [#/Vol] 3.9 10*3/uL 2.0-7.7 [facility] Neutrophils/100 WBC (Bld) 55.8 % 47-70 [facility] Potassium [Moles/Vol] 4.2 mmol/L 3.5-5.1 [facility] Sodium [Moles/Vol] 138 mmol/L 136-145 [facility] WBC (Bld) [#/Vol] 7.0 10*3/uL 4.4-11.0 [facility] Determination of erythrocyte mean corpuscular volume (MCV)Ordered By: Jake Carmona on 06-28-2023 MCV (RBC) [Entitic vol] 86.8 fL 81-99 [facility] Erythrocyte distribution wid th ratioOrdered By: Jake Carmona on 06-28-2023 Erythrocyte distribution width (RBC) [Ratio] 13.2 % 11.6-14.6 [facility] Erythrocyte distribution wid th standard deviationOrdered By: Jake Kristine on 06-28-2023 Erythrocyte distribution width (RBC) [Entitic vol] 42.1 fL 35.1-43.9 [facility] Hematocrit Auto (Bld) [Volum e fraction]Ordered By: Jake Carmona on 06-28-2023 Hematocrit (Bld) [Volume fraction] 40.0 % 37-47 [facility] Immature granulocytes/100 WB C Auto (Bld)Ordered By: Jake Carmona on 06-28-2023 Immature granulocytes/100 WBC (Bld) 1.100 % 0.0-0.9 [facility] Comment on above: IG% - Immature Granu locytes (promyelocytes, myelocytes and metamyelocytes) > 1% indicates that a LEFT SHIFT is Present. Laboratory - Chemistry and C hemistry - challengeOrdered By: Jake Carmona on 06-28-2023 CO2 [Moles/Vol] 29.0 mmol/L 21.0-32.0 [facility] Natriuretic peptide B (Bld) [Mass/Vol] 40.9 pg/mL 0-100 [facility] Urea nitrogen/Creatinine [Mass ratio] 32.6 mg/mg 10-20 [facility] Laboratory - Hematology and Cell countsOrdered By: Jake Carmona on 06-28-2023 MCH (RBC) [Entitic mass] 28.9 pg 27.0-32.0 [facility] MCHC (RBC) [Mass/Vol] 33.3 g/dL 32-36 [facility] Nucleated RBC/100 WBC (Bld) [Ratio] 0 % 0-5 [facility] Platelet mean volume (Bld) [Entitic vol] 10.6 fL 6.2-12.0 [facility] Platelets (Bld) [#/Vol] 256 10*3/uL 150-450 [facility] No Panel InformationOrdered By: Thomas Champagne on 06-28-2023 Streptococcus pneumoniae Antigen (M [facility] Streptococcus pneumoniae Antigen (M [facility] No Panel InformationOrdered By: Jake Carmona on 06-28-2023 Estimated Creatinine Clearance Calc 60.07 ml/min [facility] Estimated GFR (MDRD) Amer 109 mL/min >60 [facility] Comment on above: GFR Calc Estimated GFR (MDRD) Non-Af Amer 90 mL/min >60 [facility] Comment on above: Non- GFR Calc Reactive Lymphocytes 1+ [facility] Troponin I High Sensitivity 6 pg/mL 3.0-54.0 [facility] Comment on above: Please Note: New Kiersten t Units and Gender Specific Reference Ranges. For more information see Policy Stat Procedure [place] High Sensitivity Troponin (TNIH) and attachments. RBC Auto (Bld) [#/Vol]Ordere d By: Jake Carmona on 06-28-2023 RBC (Bld) [#/Vol] 4.61 10*6/uL 4.2-5.4 [facility] Serum or plasma calcium malgorzata urement (mass/volume)Ordered By: Jake Carmona on 06-28-2023 Calcium [Mass/Vol] 9.1 mg/dL 8.5-10.1 [facility] Serum or plasma creatinine m easurement (mass/volume)Ordered By: Jake Carmona on 06-28-2023 Creatinine [Mass/Vol] 0.67 mg/dL 0.55-1.02 [facility] Comment on above: The validity of the calculated GFR & GFRAA in patients over 70 years has not been determined. Clinical correlation is essential. Serum or plasma urea nitroge n measurement (mass/volume)Ordered By: Jake Carmona on 06-28-2023 Urea nitrogen [Mass/Vol] 22 mg/dL 7-18 [facility] Thin prep Papanicolaou smear with manual screeningOrdered By: Jake Carmona on 06-28-2023 Thin prep Papanicolaou smear with manual screening 3 5-15 [facility] Basophil percentageOrdered B y: Marquis Oneal on 04-30-2023 Chloride [Moles/Vol] 108 mmol/L 98-107 [facility] Cholesterol [Mass/Vol] 197 mg/dL <200 [facility] Comment on above: <200 mg/dL Desirable 200-240 mg/dL Borderline >240 mg/dL High Risk Glucose [Mass/Vol] 109 mg/dL 74-106 [facility] Comment on above: Fasting Glucose resu lt from 100 to 125 mg/dL suggests IMPAIRED HOMEOSTASIS per A.D.A. criteria. Potassium [Moles/Vol] 4.0 mmol/L 3.5-5.1 [facility] Sodium [Moles/Vol] 142 mmol/L 136-145 [facility] Triglyceride [Mass/Vol] 95 mg/dL <199 [facility] Comment on above: The drugs N-Acetylcy steine and Metamizole may falsely depress this assay.Serum Triglycerides Reference Interval Normal <150 mg/dL Borderline high 150 - 199 mg/dL High 200 - 499 mg/dL Very High > or = 500 mg/dL Laboratory - Chemistry and C hemistry - challengeOrdered By: Marquis Oneal on 04-30-2023 CO2 [Moles/Vol] 30.0 mmol/L 21.0-32.0 [facility] Urea nitrogen/Creatinine [Mass ratio] 31.2 mg/mg 10-20 [facility] No Panel InformationOrdered By: Marquis Oneal on 04-30-2023 Estimated GFR (MDRD) Amer 104 mL/min >60 [facility] Comment on above: GFR Calc Estimated GFR (MDRD) Non-Af Amer 86 mL/min >60 [facility] Comment on above: Non- GFR Calc Thyroid Stimulating Hormone (TSH) 1.48 uIU/mL 0.358-3.74 [facility] Serum or plasma calcium malgorzata urement (mass/volume)Ordered By: Marquis Oneal on 04-30-2023 Calcium [Mass/Vol] 9.2 mg/dL 8.5-10.1 [facility] Serum or plasma cholesterol in HDL measurement (mass/volume)Ordered By: Marquis Oneal on 04-30-2023 Cholesterol in HDL [Mass/Vol] 80 mg/dL >40 [facility] Comment on above: The drugs N-Acetylcy steine and Metamizole may falsely depress this assay. Reference Range HDL <40 mg/dL Low HDL Cholesterol HDL >or= 60 mg/dL High HDL Cholesterol Serum or plasma cholesterol in VLDL measurement (mass/volume)Ordered By: Marquis nOeal on 04-30-2023 Cholesterol in VLDL [Mass/Vol] 19 mg/dL 5-40 [facility] Serum or plasma creatinine m easurement (mass/volume)Ordered By: Marquis Oneal on 04-30-2023 Creatinine [Mass/Vol] 0.71 mg/dL 0.55-1.02 [facility] Comment on above: The validity of the calculated GFR & GFRAA in patients over 70 years has not been determined. Clinical correlation is essential. Serum or plasma low density lipoprotein (LDL) cholesterol measurement (mass/volume)Ordered By: Marquis Oneal on 04-30-2023 Cholesterol in LDL [Mass/Vol] 98 mg/dL 0-130 [facility] Serum or plasma urea nitroge n measurement (mass/volume)Ordered By: Marquis Oneal on 04-30-2023 Urea nitrogen [Mass/Vol] 22 mg/dL 7-18 [facility] Thin prep Papanicolaou smear with manual screeningOrdered By: Marquis Oneal on 04-30-2023 Thin prep Papanicolaou smear with manual screening 4 5-15 [facility] Whole blood hemoglobin A1c/t otal hemoglobin ratio (mass fraction)Ordered By: Marquis Oneal on 04-30-2023 HbA1c (Bld) [Mass fraction] 5.6 % 3.8-5.6 [facility] Comment on above: Normal < 5.7 % Predi abetic 5.7 - 6.4 % Diabetic >or= 6.5 % Please note range changes. Culture, urineOrdered By: Jose Telles on 09-05-2023 Bacteria identified Cx Nom (U) Escherichia coli [facility] Bacteria identified Cx Nom (U) Escherichia coli [facility] Basophil percentageOrdered B y: Dr. Oneal on 04-24-2022 Chloride [Moles/Vol] 103 mmol/L 98-107 [facility] Glucose [Mass/Vol] 84 mg/dL 74-106 [facility] Potassium [Moles/Vol] 4.3 mmol/L 3.5-5.1 [facility] Sodium [Moles/Vol] 139 mmol/L 136-145 [facility] Chocolate RASTOrdered By: Dr Johny Oneal on 04-24-2022 Chocolate IgE Qn (S) <0.10 kU/L Class 0 [facility] Comment on above: Performed at: [address] [id number] Director: Rg Wiggins MD, Phone: [phone] Laboratory - Chemistry and C hemistry - challengeOrdered By: Dr. Oneal on 04-24-2022 CO2 [Moles/Vol] 30.0 mmol/L 21.0-32.0 [facility] Urea nitrogen/Creatinine [Mass ratio] 41.8 mg/mg 10-20 [facility] Laboratory - Miscellaneous t estsOrdered By: Dr. Oneal on 04-24-2022 Service comment (Unsp spec) [Interp] Comment . [facility] Comment on above: Levels of Specific I gE Class Description of Class ----- < 0.10 0 Negative 0.10 - 0.31 0/I Equivocal/Low 0.32 - 0.55 I Low 0.56 - 1.40 II Moderate 1.41 - 3.90 III High 3.91 - 19.00 IV Very High 19.01 - 100.00 V Very High >100.00 Very High No Panel InformationOrdered By: Dr. Oneal on 04-24-2022 Estimated GFR (MDRD) Amer 120 mL/min >60 [facility] Comment on above: GFR Calc Estimated GFR (MDRD) Non-Af Amer 100 mL/min >60 [facility] Comment on above: Non- GFR Calc [employer] Allergens (RAST) Negative . [facility] Comment on above: Allergens in this mi x are: Blue mussel Fish [place] Shrimp Tuna Vitamin D 25-Hydroxy 35.9 ng/mL [facility] Comment on above: Vitamin D 25(OH) Sta tus Range Deficiency <20 ng/mL (50nmol/L) Insufficiency 20 - 30 ng/mL (50 - 75 nmol/L) Sufficiency 30 - 100 ng/mL (75 - 250 nmol/L) Toxicity >100 ng/mL (>250 nmol/L) Serum beef IgE antibody assa y (units/volume)Ordered By: Dr. Oneal on 04-24-2022 Beef IgE Qn (S) <0.10 kU/L Class 0 [facility] Serum corn IgE antibody assa y (units/volume)Ordered By: Dr. Oneal on 04-24-2022 [place] IgE Qn (S) <0.10 kU/L Class 0 [facility] Serum cow milk IgE antibody assay (units/volume)Ordered By: Dr. Oneal on 04-24-2022 Cow milk IgE Qn (S) <0.10 kU/L Class 0 [facility] Serum or plasma calcium malgorzata urement (mass/volume)Ordered By: Dr. Oneal on 04-24-2022 Calcium [Mass/Vol] 8.9 mg/dL 8.5-10.1 [facility] Serum or plasma creatinine m easurement (mass/volume)Ordered By: Dr. Oneal on 04-24-2022 Creatinine [Mass/Vol] 0.62 mg/dL 0.55-1.02 [facility] Comment on above: The validity of the calculated GFR & GFRAA in patients over 70 years has not been determined. Clinical correlation is essential. Serum or plasma urea nitroge n measurement (mass/volume)Ordered By: Dr. Oneal on 04-24-2022 Urea nitrogen [Mass/Vol] 26 mg/dL 7-18 [facility] Serum peanut IgE antibody as say (units/volume)Ordered By: Dr. Oneal on 04-24-2022 Peanut IgE Qn (S) <0.10 kU/L Class 0 [facility] Serum pork IgE antibody assa y (units/volume)Ordered By: Dr. Oneal on 04-24-2022 Pork IgE Qn (S) <0.10 kU/L Class 0 [facility] Serum soybean IgE antibody a ssay (units/volume)Ordered By: Dr. Oneal on 04-24-2022 Soybean IgE Qn (S) <0.10 kU/L Class 0 [facility] Serum wheat IgE antibody ass ay (units/volume)Ordered By: Dr. Oneal on 04-24-2022 Wheat IgE Qn (S) <0.10 kU/L Class 0 [facility] Serum whole egg IgE antibody assay (units/volume)Ordered By: Dr. Oneal on 04-24-2022 Whole Egg IgE Qn (S) <0.10 kU/L Class 0 [facility] Thin prep Papanicolaou smear with manual screeningOrdered By: Dr. Oneal on 04-24-2022 Thin prep Papanicolaou smear with manual screening 6 5-15 [facility] Culture, urine Bacteria identified Cx Nom (U) Escherichia coli [facility] Work Phone: Vital Signs Date Time Vital Sign Value Performing Clinician Faci lity 10-14-2024 09:51-0400 Body height 158.8 cm Elva Goodman MD Work Phone: [facility] 10-14-2024 09:51-0400 Body mass index (BMI) [Ratio] 32.74 kg/m2 Elva Goodman MD Work Phone: [facility] 10-14-2024 09:51-0400 Body temperature 97 [degF] Elva Goodman MD Work Phone: [facility] 10-14-2024 09:51-0400 Body weight 82.5 kg Elva Goodman MD Work Phone: [facility] 10-14-2024 09:51-0400 Diastolic blood pressure 76 mm[Hg] Elva Goodman MD Work Phone: [facility] 10-14-2024 09:51-0400 Heart rate 73 /min Elva Goodman MD Work Phone: [facility] 10-14-2024 09:51-0400 Respiratory rate 17 /min Elva Goodman MD Work Phone: [facility] 10-14-2024 09:51-0400 SaO2% (BldA) [Mass fraction] 97 % Elva Goodman MD Work Phone: [facility] 10-14-2024 09:51-0400 Systolic blood pressure 134 mm[Hg] Elva Goodman MD Work Phone: [facility] 06-17-2024 09:50-0500 Body height 154.3 cm Elva Goodman MD Work Phone: [facility] 06-17-2024 09:50-0500 Body mass index (BMI) [Ratio] 34.77 kg/m2 Elva Goodman MD Work Phone: [facility] 06-17-2024 09:50-0500 Body temperature 97.39 [degF] Elva Goodman MD Work Phone: [facility] 06-17-2024 09:50-0500 Body weight 82.78 kg Elva Goodman MD Work Phone: [facility] 06-17-2024 09:50-0500 Diastolic blood pressure 74 mm[Hg] Elva Goodman MD Work Phone: [facility] 06-17-2024 09:50-0500 Heart rate 71 /min Elva Goodman MD Work Phone: [facility] 06-17-2024 09:50-0500 Respiratory rate 18 /min Elva Goodman MD Work Phone: [facility] 06-17-2024 09:50-0500 SaO2% (BldA) [Mass fraction] 97 % Elva Goodman MD Work Phone: [facility] 06-17-2024 09:50-0500 Systolic blood pressure 125 mm[Hg] Elva Goodman MD Work Phone: [facility] 06-02-2024 11:35-0500 Heart rate 65 /min Minnie Unger PA-C Work Phone: [facility] 06-02-2024 11:35-0500 Respiratory rate 16 /min Minnie Unger PA-C Work Phone: [facility] 06-02-2024 11:35-0500 SaO2% (BldA) [Mass fraction] 97 % Minnie Unger PA-C Work Phone: [facility] 05-08-2024 11:27-0500 Body height 154.3 cm Pulm Wstr Work Phone: [facility] 05-08-2024 11:27-0500 Body mass index (BMI) [Ratio] 34.48 kg/m2 Pulm Wstr Work Phone: [facility] 05-08-2024 11:27-0500 Body weight 82.1 kg Pulm Wstr Work Phone: [facility] 05-08-2024 11:27-0500 Heart rate 72 /min Pulm Wstr Work Phone: [facility] 05-08-2024 11:27-0500 Respiratory rate 14 /min Pulm Wstr Work Phone: [facility] 05-08-2024 11:27-0500 SaO2% (BldA) [Mass fraction] 95 % Pulm Wstr Work Phone: [facility] 05-02-2024 09:59-0500 Body height 158.8 cm Denia Seabold OIL WELL SERVICE OPERATOR.BUILDING CONSTRUCTION FOREMAN Work Phone: [facility] 05-02-2024 09:59-0500 Body mass index (BMI) [Ratio] 32.52 kg/m2 Denia Seabold OIL WELL SERVICE OPERATOR.BUILDING CONSTRUCTION FOREMAN Work Phone: [facility] 05-02-2024 09:59-0500 Body temperature 97.3 [degF] Denia Seabold OIL WELL SERVICE OPERATOR.BUILDING CONSTRUCTION FOREMAN Work Phone: [facility] 05-02-2024 09:59-0500 Body weight 81.97 kg Denia Seabold OIL WELL SERVICE OPERATOR.BUILDING CONSTRUCTION FOREMAN Work Phone: [facility] 05-02-2024 09:59-0500 Diastolic blood pressure 74 mm[Hg] Denia Seabold OIL WELL SERVICE OPERATOR.BUILDING CONSTRUCTION FOREMAN Work Phone: [facility] 05-02-2024 09:59-0500 Heart rate 66 /min Denia Seabold OIL WELL SERVICE OPERATOR.BUILDING CONSTRUCTION FOREMAN Work Phone: [facility] 05-02-2024 09:59-0500 Respiratory rate 16 /min Denia Seabold OIL WELL SERVICE OPERATOR.BUILDING CONSTRUCTION FOREMAN Work Phone: [facility] 05-02-2024 09:59-0500 SaO2% (BldA) [Mass fraction] 97 % Denia Seabold OIL WELL SERVICE OPERATOR.BUILDING CONSTRUCTION FOREMAN Work Phone: [facility] 05-02-2024 09:59-0500 Systolic blood pressure 131 mm[Hg] Denia Seabold OIL WELL SERVICE OPERATOR.BUILDING CONSTRUCTION FOREMAN Work Phone: [facility] 04-08-2024 08:29-0500 Body height 157.5 cm Amudha Pazhanisamy DO Work Phone: [facility] 04-08-2024 08:29-0500 Body mass index (BMI) [Ratio] 32.92 kg/m2 Amudha Pazhanisamy DO Work Phone: [facility] 04-08-2024 08:29-0500 Body temperature 98.2 [degF] Amudha Pazhanisamy DO Work Phone: [facility] 04-08-2024 08:29-0500 Body weight 81.65 kg Amudha Pazhanisamy DO Work Phone: [facility] 04-08-2024 08:29-0500 Diastolic blood pressure 76 mm[Hg] Amudha Pazhanisamy DO Work Phone: [facility] 04-08-2024 08:29-0500 Heart rate 71 /min Amudha Pazhanisamy DO Work Phone: [facility] 04-08-2024 08:29-0500 Respiratory rate 20 /min Amudha Pazhanisamy DO Work Phone: [facility] 04-08-2024 08:29-0500 SaO2% (BldA) [Mass fraction] 95 % Amyael Valenciahanisamy DO Work Phone: [facility] 04-08-2024 08:29-0500 Systolic blood pressure 123 mm[Hg] Amrashawnjovon Markisamy DO Work Phone: [facility] 04-01-2024 07:58-0500 Body height 157.5 cm Elva Goodman MD Work Phone: [facility] 04-01-2024 07:58-0500 Body mass index (BMI) [Ratio] 33.44 kg/m2 Elva Goodman MD Work Phone: [facility] 04-01-2024 07:58-0500 Body temperature 97.59 [degF] Elva Goodman MD Work Phone: [facility] 04-01-2024 07:58-0500 Body weight 82.96 kg Elva Goodman MD Work Phone: [facility] 04-01-2024 07:58-0500 Diastolic blood pressure 79 mm[Hg] Elva Goodman MD Work Phone: [facility] 04-01-2024 07:58-0500 Heart rate 65 /min Elva Goodman MD Work Phone: [facility] 04-01-2024 07:58-0500 Respiratory rate 16 /min Elva Goodman MD Work Phone: [facility] 04-01-2024 07:58-0500 SaO2% (BldA) [Mass fraction] 97 % Elva Goodman MD Work Phone: [facility] 04-01-2024 07:58-0500 Systolic blood pressure 134 mm[Hg] Elva Goodman MD Work Phone: [facility] 10-12-2023 09:03-0400 Body height 157.5 cm Elva Goodman MD Work Phone: [facility] 10-12-2023 09:03-0400 Body mass index (BMI) [Ratio] 33.11 kg/m2 Elva Goodman MD Work Phone: [facility] 10-12-2023 09:03-0400 Body temperature 98.4 [degF] Elva Goodman MD Work Phone: [facility] 10-12-2023 09:03-0400 Body weight 82.1 kg Elva Goodman MD Work Phone: [facility] 10-12-2023 09:03-0400 Diastolic blood pressure 78 mm[Hg] Elva Goodman MD Work Phone: [facility] 10-12-2023 09:03-0400 Heart rate 69 /min Elva Goodman MD Work Phone: [facility] 10-12-2023 09:03-0400 Respiratory rate 18 /min Elva Goodman MD Work Phone: [facility] 10-12-2023 09:03-0400 SaO2% (BldA) [Mass fraction] 99 % Elva Goodman MD Work Phone: [facility] 10-12-2023 09:03-0400 Systolic blood pressure 132 mm[Hg] Elva Goodman MD Work Phone: [facility] 09-18-2023 13:58-0400 Body height 157.5 cm Elva Goodman MD Work Phone: [facility] 09-18-2023 13:58-0400 Body mass index (BMI) [Ratio] 33.29 kg/m2 Elva Goodman MD Work Phone: [facility] 09-18-2023 13:58-0400 Body temperature 98.01 [degF] Elva Goodman MD Work Phone: [facility] 09-18-2023 13:58-0400 Body weight 82.56 kg Elva Goodman MD Work Phone: [facility] 09-18-2023 13:58-0400 Diastolic blood pressure 75 mm[Hg] Elva Goodman MD Work Phone: [facility] 09-18-2023 13:58-0400 Heart rate 62 /min Elva Goodman MD Work Phone: [facility] 09-18-2023 13:58-0400 Respiratory rate 18 /min Elva Goodman MD Work Phone: [facility] 09-18-2023 13:58-0400 SaO2% (BldA) [Mass fraction] 98 % Elva Goodman MD Work Phone: [facility] 09-18-2023 13:58-0400 Systolic blood pressure 164 mm[Hg] Elva Goodman MD Work Phone: [facility] 07-01-2023 11:31-0500 Body temperature 98 [degF] Dr. Marquis Oneal Work Phone: [facility] 07-01-2023 11:31-0500 Diastolic blood pressure 69 mm[Hg] Dr. Marquis Oneal Work Phone: [facility] 07-01-2023 11:31-0500 Heart rate 70 /min Dr. Marquis Oneal Work Phone: [facility] 07-01-2023 11:31-0500 Respiratory rate 18 /min Dr. Marquis Oneal Work Phone: [facility] 07-01-2023 11:31-0500 SaO2% (BldA) [Mass fraction] 96 % Dr. Marquis Oneal Work Phone: [facility] 07-01-2023 11:31-0500 Systolic blood pressure 127 mm[Hg] Dr. Marquis Oneal Work Phone: [facility] 07-01-2023 09:31-0500 Inhaled oxygen flow rate 2 L/min Dr. Marquis Oneal Work Phone: [facility] 07-01-2023 08:53-0500 Body height [address] Marquis Oneal Work Phone: [facility] 07-01-2023 08:53-0500 Body mass index (BMI) [Ratio] 32.7 kg/m2 Dr. Marquis Oneal Work Phone: [facility] 07-01-2023 08:53-0500 Body weight 80.[address] Marquis Oneal Work Phone: [facility] 06-29-2023 13:23-0500 Body temperature 97.7 [degF] Dr. Marquis Oneal Work Phone: [facility] 06-29-2023 13:23-0500 Diastolic blood pressure 61 mm[Hg] Dr. Marquis Oneal Work Phone: [facility] 06-29-2023 13:23-0500 Heart rate 65 /min Dr. Marquis Oneal Work Phone: [facility] 06-29-2023 13:23-0500 Inhaled oxygen flow rate 2 L/min Dr. Marquis Oneal Work Phone: [facility] 06-29-2023 13:23-0500 Respiratory rate 16 /min Dr. Marquis Oneal Work Phone: [facility] 06-29-2023 13:23-0500 SaO2% (BldA) [Mass fraction] 93 % Dr. Marquis Oneal Work Phone: [facility] 06-29-2023 13:23-0500 Systolic blood pressure 127 mm[Hg] Dr. Marquis Oneal Work Phone: [facility] 06-28-2023 10:55-0500 Body mass index (BMI) [Ratio] 32.4 kg/m2 Dr. Marquis Oneal Work Phone: [facility] 06-28-2023 10:55-0500 Body weight 80.[address] Marquis Oneal Work Phone: [facility] 06-28-2023 10:07-0500 Diastolic blood pressure 63 mm[Hg] Dr. Marquis Oneal Work Phone: [facility] 06-28-2023 10:07-0500 Heart rate 61 /min Dr. Marquis Oneal Work Phone: [facility] 06-28-2023 10:07-0500 Inhaled oxygen flow rate 2 L/min Dr. Marquis Oneal Work Phone: [facility] 06-28-2023 10:07-0500 Respiratory rate 18 /min Dr. Marquis Oneal Work Phone: [facility] 06-28-2023 10:07-0500 SaO2% (BldA) [Mass fraction] 94 % Dr. Marquis Oneal Work Phone: [facility] 06-28-2023 10:07-0500 Systolic blood pressure 140 mm[Hg] Dr. Marquis Oneal Work Phone: [facility] 06-28-2023 07:29-0500 Body height 157.[address] Marquis Oneal Work Phone: [facility] 06-28-2023 07:29-0500 Body mass index (BMI) [Ratio] 32.8 kg/m2 Dr. Marquis Oneal Work Phone: [facility] 06-28-2023 07:29-0500 Body temperature 98.2 [degF] Dr. Marquis Oneal Work Phone: [facility] 06-28-2023 07:29-0500 Body weight 81.[address] Marquis Oneal Work Phone: [facility] 05-03-2023 12:57-0500 Body height 157.48 cm [facility] Encounters Encounter Date Encounter Type Care Provider Facility Start: 12-30-2024 End: 12-30-2024 Refill Denia Nicholas APRN.CNP Work Phone: Pulmonary Medicine Comment on above: Refill Request Start: 11-17-2024 End: 11-17-[address] Itz Oneal MD Work Phone: [facility] Start: 11-17-2024 End: 11-17-[address] Itz Oneal MD -Ultrasound [facility] Work Phone: Start: 11-17-2024 End: 11-17-2024 ambulatory [facility] Facility:[facility] Start: 10-16-2024 End: 10-16-2024 Telephone encounter Elva Goodman MD Work Phone: Pulmonary Medicine Comment on above: Results Start: 10-14-2024 End: 10-14-2024 Patient encounter procedure Elva Goodman MD Work Phone: Pulmonary Medicine Comment on above: Persistent asthma wi thout complication, unspecified asthma severity (HCC) (Primary Dx); Chronic cough; Lung nodule Start: 10-14-2024 End: 10-14-2024 ambulatory ELVA GOODMAN Facility:[facility] Start: 10-08-2024 ambulatory ELVA GOODMAN Facilit y:[facility] Start: 10-08-2024 ambulatory Delmy Miles Facility:[facility] Start: 10-08-2024 Non-patient / Non-visit Dr. Delmy Miles MD -[facility] Start: 10-08-2024 End: 10-08-[address] Itz Oneal MD Work Phone: [facility] Work Phone: Start: 10-08-2024 End: 10-08-[address] Gus Spencer DPM -Pulmonary Services/Neurology Work Phone: Start: 10-08-2024 End: 10-08-2024 ambulatory [facility] Facility:[facility] Start: 10-03-2024 Non-patient / Non-visit Dr. Navid Taylor MD -[facility] Start: 10-03-2024 End: 10-03-[address] Itz Oneal MD Work Phone: [facility] [facility] Work Phone: Start: 10-03-2024 End: 10-03-[address] Gus Spencer DPM -Cardiovascular Services Work Phone: Start: 10-03-2024 End: 10-03-2024 ambulatory [facility] Facility:[facility] Start: 09-28-2024 End: 09-29-2024 Refill Elva Goodman MD Work Phone: Pulmonary Medicine Comment on above: Refill Request Start: 07-30-2024 End: 07-30-2024 Telephone encounter Elva Goodman MD Work Phone: Pulmonary Medicine Start: 06-26-2024 End: 06-26-2024 Refill Denia Rodrigezgerhard OIL WELL SERVICE OPERATOR.BUILDING CONSTRUCTION FOREMAN Work Phone: Pulmonary Medicine Comment on above: Refill Request Start: 06-19-2024 End: 06-19-2024 Patient encounter procedure Erika Lewis RECTANGULAR TANK COOPER-C -Laboratory Specimen Work Phone: Start: 06-19-2024 End: 06-19-2024 ambulatory Erika Lewis Facility:[facility] Start: 06-17-2024 End: 06-17-2024 ambulatory ELVA GOODMAN Facility:[facility] Start: 06-17-2024 End: 06-17-2024 Patient encounter procedure Elva Goodman MD Work Phone: Pulmonary Medicine Comment on above: Persistent asthma wi thout complication, unspecified asthma severity (Primary Dx); Chronic cough; Allergic rhinitis due to dust mite; Lung nodule Start: 06-12-2024 Encounter for genera l adult medical examination without abnormal findings [facility] Start: 06-02-2024 End: 06-02-2024 ambulatory MINNIE UNGER Facility:[facility] Start: 06-02-2024 End: 06-02-2024 Patient encounter procedure Minnie Unger PA-C Work Phone: Otolaryngology Comment on above: Chronic cough (Prima ry Dx); Dysphonia; Bilateral impacted cerumen Start: 05-08-2024 End: 05-08-2024 ambulatory Pulm Lab [facility] Work Phone: [facility] Comment on above: Spirometry Start: 05-08-2024 End: 05-08-2024 Patient encounter procedure Pulm Lab [facility] Work Phone: [facility] Start: 05-07-2024 End: 05-07-2024 ambulatory Itz Oneal Facility:[facility] Start: 05-02-2024 End: 05-02-2024 ambulatory DENIA NICHOLAS Facility:[facility] Start: 05-02-2024 End: 05-02-2024 Patient encounter procedure Denia Nicholas ANA.BUILDING CONSTRUCTION FOREMAN Work Phone: Pulmonary Medicine Comment on above: Moderate persistent asthma without complication (Primary Dx); Chronic cough; Lung nodule; PND (post-nasal drip); Gastroesophageal reflux disease, unspecified whether esophagitis present; Change in voice Start: 04-09-2024 End: 04-10-2024 ambulatory Elva Goodman MD Work Phone: Pulmonary Medicine Comment on above: CT Scan Start: 04-08-2024 End: 04-08-2024 ambulatory AMUDHA PAZHANISAMY Facility:[facility] Start: 04-08-2024 End: 04-08-2024 Office consultation new/estab patient 80 min Amudha Pazhanisamy DO Work Phone: Allergy Comment on above: Chronic cough (Prima ry Dx); Dysphonia Start: 04-04-2024 End: 04-04-2024 Telephone encounter Elva Goodman MD Work Phone: Pulmonary Medicine Comment on above: Medication Problem Start: 04-03-2024 End: 04-04-2024 E-mail encounter from caregiver Luiz Garzon APRN.BUILDING CONSTRUCTION FOREMAN Work Phone: [facility] Start: 04-03-2024 End: 04-04-2024 Patient encounter procedure Luiz Garzon APRN.BUILDING CONSTRUCTION FOREMAN Work Phone: [facility] Comment on above: Actionable Findings - Scheduling Reminder Start: 04-01-2024 End: 04-01-2024 ambulatory ELVA GOODMAN Facility:[facility] Start: 04-01-2024 End: 04-01-2024 Patient encounter procedure Elva Goodman MD Work Phone: Pulmonary Medicine Comment on above: Persistent asthma wi thout complication, unspecified asthma severity (Primary Dx); Chronic cough; Allergic rhinitis, unspecified seasonality, unspecified trigger Start: 10-24-2023 Telephone encounter Elva Goodman MD Work Phone: Pulmonary Medicine Comment on above: Patient Question (PC P wants to speak with Dr. Goodman please call [phone] to speak with provider directly. Dr. Oneal ) Start: 10-22-2023 Telephone encounter Elva Goodman MD Work Phone: Pulmonary Medicine Comment on above: Results Start: 10-18-2023 Telephone encounter Elva Goodman MD Work Phone: Pulmonary Medicine Comment on above: Results Start: 10-12-2023 End: 10-12-2023 Patient encounter procedure Elva Goodman MD Work Phone: Pulmonary Medicine Comment on above: Chronic cough (Prima ry Dx); Persistent asthma without complication, unspecified asthma severity; Allergic rhinitis, unspecified seasonality, unspecified trigger Start: 10-04-2023 ambulatory UNKNOWN PROVIDER Facili ty:[facility] Start: 10-04-2023 End: 10-04-2023 Subsequent hospital visit by physician [facility] Radiology Comment on above: Chronic cough [R05.3 ] Start: 09-20-2023 End: 09-20-2023 ambulatory Pulm Lab [facility] Work Phone: [facility] Comment on above: Spirometry Start: 09-20-2023 End: 09-20-2023 Patient encounter procedure Pulm Lab [facility] Work Phone: [facility] Start: 09-18-2023 End: 09-18-2023 Patient encounter procedure Elva Goodman MD Work Phone: Pulmonary Medicine Comment on above: Chronic cough (Prima ry Dx); Persistent asthma without complication, unspecified asthma severity; Pneumonia of right lower lobe due to infectious organism; Scoliosis of cervical spine, unspecified scoliosis type; Moderate persistent asthma, unspecified whether complicated Start: 08-13-2023 End: 08-13-[address] Marquis Oneal Work Phone: [facility] Work Phone: Start: 08-13-2023 End: 08-13-[address] Marquis Oneal Work Phone: [facility]-Outpatient Breast Imaging Work Phone: Start: 07-01-2023 End: 07-01-2023 Emergency department patient visit Dr. Marquis Oneal Work Phone: [facility]-Emergency Department Work Phone: Start: 06-29-2023 Non-patient / Non-visit Dr. Marquis Oneal Work Phone: [facility] Work Phone: Start: 06-29-2023 Non-patient / Non-visit Dr. Marquis Oneal Work Phone: [facility] Start: 06-28-2023 End: 06-29-2023 Evaluation and management of inpatient Dr. Marquis Oneal Work Phone: [facility]-Progressive Care Unit Work Phone: Start: 06-27-2023 End: 06-27-[address] Marquis Oneal Work Phone: [facility] Radiology Start: 05-03-2023 End: 05-03-2023 ambulatory [facility] Work Phone: Start: 05-03-2023 End: 05-03-2023 Patient encounter procedure [facility]-Outpatient Bone Densitometry Work Phone: Start: 04-30-2023 End: 04-30-2023 ambulatory [facility] Work Phone: Start: 04-30-2023 End: 04-30-2023 Patient encounter procedure [facility] Start: 04-25-2023 End: 04-25-2023 ambulatory [facility] Work Phone: Start: 04-25-2023 End: 04-25-2023 Patient encounter procedure [facility]-Radiology, [place] Work Phone: Start: 01-23-2023 End: 01-23-2023 ambulatory [facility] Work Phone: Start: 01-23-2023 End: 01-23-2023 Patient encounter procedure [facility]-Laboratory, Specimen Work Phone: Start: 08-11-2022 End: 08-11-2022 ambulatory [facility] Work Phone: Start: 08-11-2022 End: 08-11-2022 Patient encounter procedure [facility]-Outpatient Breast Imaging Start: 04-24-2022 End: 04-24-2022 ambulatory [facility] Work Phone: Start: 04-24-2022 End: 04-24-2022 Patient encounter procedure [facility]-Laboratory, [facility] Start: 01-20-2022 End: 01-20-2022 ambulatory [facility] Work Phone: Start: 01-20-2022 End: 01-20-2022 Patient encounter procedure [facility]-Laboratory, Specimen Procedures Date Procedure Procedure Detail Performing Clinician Start: 11-17-2024 US scan of thyroid Dr. Itz Oneal MD Work Phone: Start: 06-19-[address] Itz Oneal MD Work Phone: Start: 05-08-2024 Nitric oxide gas determination Denia Seabold OIL WELL SERVICE OPERATOR.BUILDING CONSTRUCTION FOREMAN Work Phone: Start: 05-08-2024 Brncdilat rspse spmtry pre&post-brncdilat admn Denia Seabold OIL WELL SERVICE OPERATOR.BUILDING CONSTRUCTION FOREMAN Work Phone: Start: 09-20-2023 Nitric oxide gas determination Elva Goodman MD Work Phone: Start: 08-13-[address] Marquis calvillo Work Phone: Start: 07-01-2023 Plain chest X-ray Dr. Marquis mike Work Phone: Start: 06-29-2023 Investigation of transfusion reaction Dr. Marquis Oneal Work Phone: Start: 06-29-[address] Marquis Oneal Work Phone: Start: 06-28-2023 Streptococcus pneumoniae Antigen (M Dr. Marquis Oneal Work Phone: Start: 06-28-2023 CT angiography of chest with contrast Dr. Marquis Oneal Work Phone: Start: 06-27-2023 Plain chest X-ray Dr. Marquis mike Work Phone: Start: 05-03-2023 Dual energy X-ray absorptiometry Start: 04-25-2023 Radiography of nasal sinuses Start: 01-23-2023 Urine culture Start: 08-11-2022 Screening mammography History of appendectomy History of append ectomy History of cholecystectomy History of cholecystectomy Urine culture Plan of Treatment Date Care Activity Detail Author Start: 06-17-2025 BP Controlled (<130/80) BP Controlled (<130/80) [facility] Start: 04-08-2025 BP Controlled (<130/80) BP Controlled (<130/80) [facility] Start: 01-19-2025 Influenza vaccination [facility] Start: 11-18-2024 End: 11-18-2024 Patient encounter procedure 11/18/2024 11:30 AM EDT Office Visit Pulmonary Medicine [address] [place] [address] Mariela Dennison MD [address] [place] [id number] asthma Pulmonary Medicine Comment on above: asthma Start: 10-28-2024 End: 10-28-2024 Patient encounter procedure 10/28/2024 10:00 AM EDT Office Visit Pulmonary Medicine [address] [place], [place] [phone] Elva Goodman MD [address] [place] [id number] 4 month follow up Pulmonary Medicine Comment on above: 4 month follow up Start: 10-17-2024 End: 11-16-2024 CT Chest WO contrast [facility] Comment on above: 1 Occurrences starting 09/18/2023 until 10/17/2024 Expected: 10/17/2024 (Approximate), Expires: 11/16/2024 Start: 10-14-2024 End: 10-14-2024 Patient encounter procedure 10/14/2024 10:00 AM EDT Office Visit Pulmonary Medicine [address] [place] [address] Elva Goodman MD [address] [place] [id number] 4 month follow up Pulmonary Medicine Comment on above: 4 month follow up Start: 10-08-2024 End: 05-10-2025 CT Chest WO contrast CT CHEST WO IVCON Radiology Routine Solitary pulmonary nodule Expected: 10/08/2024, Expires: 05/10/2025 [facility] Work Phone: Comment on above: Expected: 10/08/2024, Expires: Start: 10-08-2024 End: 10-08-2024 Patient encounter procedure Cat Scan Comment on above: Solitary pulmonary nodule [R91.1] CT CHEST WO IVCON Start: 07-14-2024 End: 07-14-2024 Patient encounter procedure 07/14/2024 11:30 AM EST Office Visit [facility], and Throat (ENT) [address] [place] [phone] Adeline Rose DO [address] [place], [place] [phone] Chronic cough [facility] Ear, [facility]ose, and Throat (ENT) Comment on above: Chronic cough Start: 06-17-2024 End: 06-17-2024 Patient encounter procedure 06/17/2024 10:00 AM EST Office Visit Pulmonary Medicine [address] [place] [address] Elva Goodman MD [address] [id number] Moderate persistent asthma without complication [J45.40]; Chronic cough [R05.3] Pulmonary Medicine Comment on above: Moderate persistent asthma without compl ication [J45.40]; Chronic cough [R05.3] Start: 06-02-2024 End: 06-02-2024 Patient encounter procedure 06/02/2024 11:45 AM EST Office Visit Otolaryngology [address] [place] [address] Minnie Unger PA-C [address] [place] [address] chronic cough Otolaryngology Comment on above: chronic cough Start: 05-21-2024 Advance Directive Discussion Advance Directive Discussion [facility] Start: 05-21-2024 Medicare Advantage Annual Wellness Visit Medicare Advantage Annual Wellness Visit [facility] Start: 05-08-2024 End: 05-08-2024 ambulatory [facility] Comment on above: Moderate persistent asthma without compl ication [J45.40]; Chronic cough [R05.3] Start: 05-02-2024 End: 05-02-2024 Patient encounter procedure 05/02/2024 10:00 AM EST Office Visit Pulmonary Medicine [address] [place] [id number] Denia Nicholas APRN.BUILDING CONSTRUCTION FOREMAN [address] [place] [address] Persistent asthma without complication, unspecified asthma severity [J45.909] Pulmonary Medicine Comment on above: Persistent asthma without complication, unspecified asthma severity [J45.909] Start: 04-08-2024 End: 04-08-2024 Patient encounter procedure Allergy Comment on above: Persistent asthma without complication, unspecified asthma severity [J45.909] ?ASTHMA//Persistent asthma without complication, unspecified asthma severity [J45.909] Start: 04-01-2024 End: 07-01-2024 IgE [Units/volume] in Serum or Plasma [facility] Work Phone: Comment on above: Expected: 04/01/2024, Expires: Start: 04-01-2024 End: 04-01-2024 Patient encounter procedure 04/01/2024 8:00 AM EST Office Visit Pulmonary Medicine [address] [place], [place] [phone] Elva Goodman MD [address] [place] [phone] 6 mos follow up asthma Pulmonary Medicine Comment on above: 6 mos follow up asthma Start: 01-20-2024 Covid-19 Vaccine ( season) Covid-19 Vaccine ( season) [facility] Start: 01-20-2024 Influenza vaccination [facility] Start: 10-12-2023 End: 10-12-2023 Patient encounter procedure 10/12/2023 9:00 AM EDT Office Visit Pulmonary Medicine [address] [place] [address] Elva Goodman MD [address] [place] [phone] Follow up Pulmonary Medicine Comment on above: Follow up Start: 10-04-2023 End: 10-04-2023 Patient encounter procedure 10/04/2023 1:15 PM EDT Appointment Radiology [address] [place] [address] Pneumonia of right lower lobe due to infectious organism [J18.9] Radiology Comment on above: Pneumonia of right lower lobe due to inf ectious organism [J18.9] Start: 09-20-2023 End: 09-20-2023 ambulatory 09/20/2023 8:45 AM EDT Procedure [facility] [address] [place] [address] Wstr, Pulm Lab [facility] [address] [place] [address] Moderate persistent asthma, unspecified whether complicated [J45.40] [facility] Comment on above: Moderate persistent asthma, unspecified whether complicated [J45.40] Start: 09-18-2023 End: 12-18-2023 CBC W Auto Differential panel - Blood COMPLETE BLOOD COUNT AND DIFFERENTIAL Lab Routine Chronic cough Persistent asthma without complication, unspecified asthma severity Expected: 09/18/2023, Expires: 12/18/2023 [facility] Comment on above: Expected: 09/18/2023, Expires: 4 Start: 09-18-2023 End: 12-18-2023 IgE [Units/volume] in Serum or Plasma IMMUNOGLOBULIN E Lab Routine Chronic cough Persistent asthma without complication, unspecified asthma severity Expected: 09/18/2023, Expires: 12/18/2023 [facility] Comment on above: Expected: 09/18/2023, Expires: Start: 07-01-2023 [facility] Start: 06-29-2023 Patient discharge [facility] Start: 06-29-2023 Blood chemistry [facility] Start: 06-29-2023 Complete blood count [facility] Start: 06-28-2023 Following clinical pathway protocol [facility] Start: 06-28-2023 Ambulation without limitation [facility] Start: 06-28-2023 Assessment of risk of venous thromboembolism [facility] Start: 06-28-2023 Bacteria identified in Sputum by Culture [facility] Start: 06-28-2023 Incentive spirometry [facility] Start: 06-28-2023 Insertion of catheter into peripheral vein [facility] Start: 06-28-2023 Oxygen therapy [facility] Start: 06-28-2023 Providing care according to standard [facility] Start: 06-28-2023 Referral to occupational therapist [facility] Start: 06-28-2023 Referral to service [facility] Start: 06-28-2023 Taking nasal swab [facility] Start: 06-28-2023 [facility] Start: 06-28-2023 Legionella pneumophila Ag [Presence] in Urine [facility] Start: 06-28-2023 Streptococcus pneumoniae antigen assay [facility] Start: 06-28-2023 Respiratory pathogens DNA and RNA panel - Respiratory specimen by ANGELINA with probe detection [facility] Start: 06-28-2023 Admission procedure [facility] Start: 06-28-2023 Verification routine [facility] Start: 06-28-2023 [facility] Start: 05-21-2023 Advance Directive Discussion Advance Directive Discussion [facility] Start: 05-21-2023 Behavioral Health Screening Behavioral Health Screening [facility] Start: 01-19-2023 Covid-19 Vaccine ( season) Covid-19 Vaccine () [facility] Start: 08-26-2022 RSV Vaccine (1 - 1-dose 75+ series) RSV Vaccine (1 - 1-dose 75+ series) [facility] Start: 08-26-2012 Pneumococcal Vaccine: 65+ (1 of 1 - PCV) Pneumococcal Vaccine: 65+ (1 of 1 - PCV) [facility] Start: 08-26-2012 Screening for osteoporosis Bone Density Screening [facility] Start: 2007 RSV Vaccine (1 - 1-dose 60+ series) RSV Vaccine (1 - 1-dose 60+ series) [facility] Start: 08-26-1997 Shingrix Vaccine (1 of 2) Shingrix Vaccine (1 of 2) [facility] Start: 08-26-1992 Diabetes Screening Diabetes Screening [facility] Start: 08-26-1966 Urine microalbumin profile DTaP,Tdap,Td Vaccine (1 - Tdap) [facility] Start: 08-26-1965 Annual PCP Team Chronic Disease Visit Annual PCP Team Chronic Disease Visit [facility] Start: 08-26-1965 Anxiety Screening Anxiety Screening [facility] Start: 08-26-1965 BP Controlled (<130/80) BP Controlled (<130/80) [facility] Start: 08-26-1965 Depression Screening Depression Screening [facility] Start: 08-26-1965 Hepatitis C screening Hepatitis C Screening [facility] Start: 08-26-1965 Spirometry Spirometry [facility] Start: 08-26-1953 Pneumococcal Vaccine: 65+ (1 of 2 - PCV) Pneumococcal Vaccine: 65+ (1 of 2 - PCV) [facility] Anion gap measurement [facility] BUN/Creatinine ratio [facility] Calcium [Mass/volume ] in Serum or Plasma [facility] Carbon dioxide, tota l [Moles/volume] in Serum or Plasma [facility] Chloride [Moles/volu me] in Serum or Plasma [facility] Creatinine [Moles/volume] in Serum or Plasma [facility] CT Chest WO contrast CT CHEST WO IVCON Radiology Routine Chronic cough Pneumonia of right lower lobe due to infectious organism 10/04/2023 1:15 PM EDT [facility] Work Phone: Erythrocyte mean corpuscular volume determination [facility] Glucose [Mass/volume ] in Serum or Plasma [facility] Hematocrit [Volume Fraction] of Blood [facility] Hemoglobin [Mass/vol ume] in Blood [facility] Leukocytes [#/volume ] in Blood [facility] End: 06-01-2025 LUNG DIFFUSION CAPACITY (DLCO) LUNG DIFFUSION CAPACITY (DLCO) PFT Routine Moderate persistent asthma without complication Chronic cough 1 Occurrences starting 05/02/2024 until 06/01/2025 [facility] Comment on above: 1 Occurrences starting 05/02/2024 until 06/01/2025 End: 06-01-2025 LUNG VOLUMES LUNG VOLUMES PFT Routine Moderate persistent asthma without complication Chronic cough 1 Occurrences starting 05/02/2024 until 06/01/2025 [facility] Comment on above: 1 Occurrences starting 05/02/2024 until 06/01/2025 Mean corpuscular hemoglobin concentration determination [facility] Mean corpuscular hemoglobin determination [facility] Measurement of renal function [facility] End: 10-17-2024 NITRIC OXIDE, EXHALED NITRIC OXIDE, EXHALED PFT Routine Chronic cough Persistent asthma without complication, unspecified asthma severity 1 Occurrences starting 09/18/2023 until 10/17/2024 [facility] Work Phone: Comment on above: 1 Occurrences starting 09/18/2023 until 10/17/2024 End: 06-01-2025 NITRIC OXIDE, EXHALED NITRIC OXIDE, EXHALED PFT Routine Moderate persistent asthma without complication Chronic cough 1 Occurrences starting 05/02/2024 until 06/01/2025 [facility] Comment on above: 1 Occurrences starting 05/02/2024 until 06/01/2025 Patient Education ED Pneumonia (Adult) [facility] Work Phone: Patient referral [facility] Work Phone: Platelets [#/volume] in Blood [facility] Potassium [Moles/vol ume] in Serum or Plasma [facility] Red blood cell count [facility] Red cell distributio n width determination [facility] Sodium [Moles/volume ] in Serum or Plasma [facility] End: 06-01-2025 SPIROMETRY - BASELINE AND POST DILATOR SPIROMETRY - BASELINE AND POST DILATOR PFT Routine Moderate persistent asthma without complication Chronic cough 1 Occurrences starting 05/02/2024 until 06/01/2025 [facility] Work Phone: Comment on above: 1 Occurrences starting 05/02/2024 until 06/01/2025 Urea nitrogen [Mass/volume] in Serum or Plasma [facility] Immunizations Immunization Date Immunization Notes Care Provider Fa [facility] 05-07-2024 pneumococcal conjuga te (PCV20) vaccine, 20 valent (PREVNAR 20) Elva Goodman MD Work Phone: [facility] 04-15-2024 respiratory syncytia l virus (RSV) vaccine, adjuvanted (AREXVY) Elva Goodman MD Work Phone: [facility] 08-11-2020 zoster vaccine recombinant Elva Goodman MD Work Phone: [facility] 06-11-2020 pneumococcal polysaccharide vaccine, 23 valent Elva Goodman MD Work Phone: [facility] 02-26-2020 zoster vaccine recombinant Elva Goodman MD Work Phone: [facility] 04-28-2019 pneumococcal conjuga te vaccine, 13 valent Elva Goodman MD Work Phone: [facility] Payers Date Payer Category Payer Medicare MMO MEDICARE MMO MEDADVANTAGE HMO [id number] 2024-Present [phone] [address] [place] [address] [facility] [id number] 2024 Medicare (Managed Care) MMO YONI DVANTAGE HMO [id number] 2024 Unknown [id number] 2024 Self-pay [id number] 2023 Unknown [id number] 2023 Medicare [id number] Medicare MEDICARE PART A B [id number] Medicare MEDICARE A ONLY [id number] Medicare [employer] MEDICARE [id number] Private Health Insurance [id number] Unknown [facility] [id number] Unknown [id number] Unknown [id number] Unknown [id number] Unknown [id number] Unknown [id number] Unknown [id number] Unknown [id number] Social History Date Type Detail Facility Start: 05-27-2021 End: 05-27-2021 Tobacco smoking status NHIS Unknown if ever smoked [facility] Start: 04-09-2020 Occasional [facility] Start: 04-09-2020 None [facility] Start: 04-09-2020 Spouse/ Signif icant Other;With Family [facility] Start: 04-09-2020 Non-smoker [facility] Start: 1945 Sex Assigned At Female [facility] Start: 09-18-2023 End: 10-12-2023 Tobacco use and exposure Smokeless tobacco non-user [facility] Start: 09-18-2023 End: 10-14-2024 Alcohol intake Current drinker of alcohol (finding) [facility] Start: 09-18-2023 End: 04-08-2024 History of Social function [facility] Start: 09-18-2023 End: 04-08-2024 Tobacco use panel [facility] Start: 1945 Sex Assigned At Not on file [facility] Start: 07-01-2023 End: 10-12-2023 Tobacco smoking status NHIS Never smoked tobacco [facility] Start: 04-21-2012 National Score (1-100), lower number is lower risk 35 [facility] Start: 06-17-2024 Alcohol Comment occasionally [facility] Goals Date Patient Goal Desired Activity /State Functional Status Date Assessment Result Facility 06-29-2023 Functional status Ambulates;Bathroom Priv ilege [facility] Work Phone: Mental Status Date Assessment Result Facility 06-29-2023 Cognitive function Voice/Name [facility] Work Phone: Clinical Notes 09-18-2023 to 11-19-2024 Telephone Encounter - Yvonne Zavaleta RN - 10/16/2024 10:55 AM EDTTelephone Encounter - Yvonne Zavaleta RN - 10/16/2024 10:55 AM EDTTelephone Elva Zeng MD - 10/16/2024 7:58 AM EDT Note Date & Type Note Facility 11-19-2024 Radiology Diagnostic study note [facility] Imaging Services [address] [place] [address] Thyroid MR#: [id number] Acct: [id number] Name: MARITZA LINDA Rep #: [id number] : 1945 F 79 From: Elly Nolasco MD PCP: Dr. Itz Oneal MD Status: REG CLI Study:Thyroid Date of Exam: 11/17/24 Exam# [id number] Ordering Dr: Robert Oneal MD PROCEDURE: THYROID 11/17/2024 REASON FOR EXAM: L THYROID NODULE FU. INITIALLY SEEN ON CT AT [facility] 11/11. TECHNIQUE: THYROID COMPARISON: Thyroid ultrasound on 11/05/2023 FINDINGS: Right thyroid lobe size: 3.9 x 1.6 x 1.6 cm Left thyroid lobe size: 4.5 x 1.9 x 2.2 cm Isthmus: 0.3 cm Background parenchymal echotexture is heterogeneous Nodules: 1. Lobe: Right, Location: Mid, Size: 0.4 x 0.4 x 0.7 cm, Stability: Stable Composition: Solid or almost completely solid (+2) Echogenicity: Hypoechoic (+2) Margin: Ill-defined (+0) Shape: Wider than tall (+0) Echogenic Foci: None (+0) TI-RADS: 4 2. Lobe: Left, Location: Mid to upper, Size: 2.8 x 1.5 x 2.1 cm, Stability: Significant increase in size (a 20% or greater increase in at least two nodule dimensions and a minimum increase of 2 mm, or a 50% or greater increase in volume) Composition: Mixed cystic and solid (+1) Echogenicity: Hypoechoic (+2) Margin: Ill-defined (+0) Shape: Wider than tall (+0) Echogenic Foci: None (+0) TI-RADS: 3 3. Lobe: Isthmus, Location: N/a, Size: 0.8 x 0.4 x 0.7 cm, Stability: New Composition: Solid or almost completely solid (+2) Echogenicity: Hyper to Isoechoic (+1) Margin: Smooth (+0) Shape: Wider than tall (+0) Echogenic Foci: None (+0) TI-RADS: 3 US/Thyroid IMPRESSION: Multinodular thyroid, as detailed above. Consider FNA of the left thyroid lobe nodule (#2) per ACR TI-RADS guidelines. Reading Location: [id number] CC: Dr. Itz Oneal MD ~ Filbert Grower: Signed [facility] 10-16-2024 Telephone encounter Note Spoke with patient to review results. Patient stated she will contact her PCP. All questions answered. Yvonne Zavaleta RN [facility] 10-16-2024 Miscellaneous Notes Spoke with patient to review results. Patient stated she will contact her PCP. All questions answered. Yvonne Zavaleta RN Please call pt and let her know her 10/08/[address] showed pulmonary nodule is stable. On this Chest CT the radiologist also reported a thyroid nodule. She should follow up with primary care doctor with this finding. documented in this encounter [facility] 10-16-2024 Telephone encounter Note Please call pt and let her know her 10/08/[address] showed pulmonary nodule is stable. On this Chest CT the radiologist also reported a thyroid nodule. She should follow up with primary care doctor with this finding. [facility] 10-14-2024 History of Presen t illness Narrative Pulmonary Patient Name: Maritza Linda DATE: 10/14/2024 CHIEF COMPLAINT: Follow up for SOB, chronic cough, asthma HISTORY OF PRESENT ILLNESS: Maritza Linda is a 79 year old female, past medical history significant for seasonal allergies, asthma and scoliosis. Also had COVID 19 infection which required hospital admission in March 2020. ZEE 06/17/2024 changed her from Arnuity to Breztri inhaler because her asthma/ chronic cough was not quite controlled. I also ordered Nasacort nasal spray. She was to continue Atrovent nasal spray and montelukast. She saw our spring winder on 04/08/2024 . Allergy testing that was unremarkable, skin testing was deferred. She also contemplated the patient could have cough hypersensitivity syndrome. Discussed pathophysiology and potential trial of neuromodulator like gabapentin or amitriptyline in the future. She also suggested that timolol/latanoprost could also be contributing to her chronic cough.Pt states her eye doctor did change her eye gtts but she is still coughing. She suggested to potentially consider methacholine challenge test to clarify the diagnosis of asthma and to check sputum for consideration nonasthmatic eosinophilic bronchitis. She saw ENT May 2024 and she had an Upper endoscopy. ENT saw some but changes that suggested acid reflux. She started pantoprazole which eliminated the cough for awhile but in the last 2 months ago the cough started coming back. She is coughing every day. It is a dry cough. She is taking the Breztri but only 1 puff twice a day. ASTHMA CONTROL TEST Date: 10/14/2024 In the last 4 weeks, how much of the time did your asthma keep you from getting as much done at work or home that you wanted to do? None of the time (5) In the last 4 weeks, how often have you had shortness of breath? Not at all (5) In the last 4 weeks, how often did your asthma symptoms (wheezing, coughing, shortness of breath, chest tightness or pain) wake you up at night or earlier than usual? Once or twice (4) In the last 4 weeks, how often have you used your rescue inhaler or nebulizer medication (such as Albuterol, Proventil, Ventolin, Maxair, Xoponex, or Primatene Mist)? Not at all (5) In the last 4 weeks, how would you rate your asthma control? Somewhat controlled (3) Total: 06/17/2024 ACT: 09/22/2023 ACT: 09/18/2023 ACT total: 24 PAST MEDICAL HISTORY Diagnosis Date Asthma (HCC) BMI 32.0-32.9,adult Essential hypertension Gastroesophageal reflux disease 04/08/2024 Glaucoma Hypoxemia 07/10/2023 Pneumonia 07/10/2023 Scoliosis Seasonal allergies PAST SURGICAL HISTORY Procedure Laterality Date APPENDECTOMY REMOVAL GALLBLADDER FAMILY HISTORY Problem Relation Age of Onset Breast Cancer Sister Hypertension Sister Hypertension Brother other (Environmental allergies) Brother Social History Tobacco Use Smoking status: Never Smokeless tobacco: Never Vaping Use Vaping status: Never Used Substance Use Topics Alcohol use: Yes Comment: occasionally Drug use: Never and lives with her 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 No pets. 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 ALLERGIES: ALLERGIES Allergen Reactions Adhesive Tape-Silic* Itching CURRENT OUTPATIENT MEDICATIONS: calcium carb,gluc/mag gluc,ox (CALCIUM MAGNESIUM ORAL) Take 1 tablet by mouth once daily. 400MG montelukast (SINGULAIR) 10 mg tablet TAKE 1 TABLET BY MOUTH EVERY DAY pantoprazole DR (PROTONIX) 40 mg tablet Take 1 tablet by mouth once daily. Please take 30-60 minutes prior to your first meal. latanoprost (XALATAN) 0.005 % ophthalmic solution Instill 1 drop into both eyes once a day triamcinolone acetonide (NASACORT ALLERGY NASAL) Use in the nose once daily. liiuaweoip-fuwnljmq-trcnlexbyl (BREZTRI AEROSPHERE) 160-9-4.8 mcg/actuation HFA aerosol inhaler Inhale 2 Puffs as instructed two times a day. amLODIPine (NORVASC) 10 mg tablet Take 10 mg by mouth once daily. Cholecalciferol, Vitamin D3, (VITAMIN D-3) 25 mcg (1,000 unit) chew Take 25 tablets by mouth two times a day. cetirizine (ALLERGY RELIEF, CETIRIZINE,) 1 mg/mL syrup Take by mouth once daily. (Patient not taking: Reported on 04/08/2024) phenylephrine/diphenhydramine (ALLERGY AND SINUS RELIEF ORAL) Take 10 mg by mouth once daily. Curist Allergy Relief - Loratadine Tablets (Patient not taking: Reported on 10/14/2024) Ipratropium [place] (ATROVENT) 21 mcg (0.03 %) nasal spray Use 2 Sprays in the nose every 12 hours. (Patient not taking: Reported on 04/01/2024) timolol maleate/latanoprost/PF (TIMOLOL-LATANOPROST,PF,) 0.5-0.005 % drop Use 1 Drop in eyes once daily. (Patient not taking: Reported on 05/02/2024) REVIEW OF SYSTEMS: HEENT: Positive for postnasal drip RESPIRATORY: See HPI and ACT scores CONSTITUTIONAL: No acute distress. Denies F/C/S. Denies wt loss. CARDIOVASCULAR: Negative for chest pain, leg swelling or palpitations. GASTROINTESTINAL: Negative for abdominal discomfort, No blood in stools or black stools. Negative for GERD MUSCULOSKELETAL: Negative for joint pain or swelling, back pain or muscle pain. NEUROLOGIC:Negative for focal numbness or weakness, headaches and dizziness or syncope. SKIN:Negative for lesions, rash, and itching. PSYCHIATRIC: Negative for sleep disturbance, mood disorder and recent psychosocial stressors HEMATOLOGIC/LYMPHATIC/IMMUNOLOGI C:Negative for cold or heat intolerance, polyuria, polydipsia and goiter. The remainder of the ROS was negative. PHYSICAL EXAM: BP 134/76 Pulse 73 Temp (Src) 97 (Temporal) Resp 17 Ht 5' 2.5 (1.59m) Wt 181 lb 14.1 oz (82.5kg) SpO2 97% BMI 32.72 kg/(m^2). General appearance: Well appearing, alert, in no acute distress, well-hydrated, well nourished. Ears: External ears normal, Nose/Sinuses: No drainage Oropharynx: Lips, mucosa, and tongue normal, teeth and gums normal, oropharynx normal. No thrush. Mallampati score 2 Lungs: Lungs clear to auscultation. No wheezing, rhonchi, rales Abdomen; Obese, soft, NT, ND Heart: RRR without murmur, gallop, or rubs. No ectopy Extremities: Normal, Warm, No cyanosis, no clubbing, No edema, and Nontender Musculoskeletal: + Scoliosis DATA: Diagnostic tests reviewed for today's visit, films/specimens were personally reviewed by me: SERVICE DATE: 09/20/2023 Oral Exhaled Nitric Oxide measurement: 9.0 (ppb) 04/01/2024 IgE <114.0 kU/l 129.0 High 04/01/2024 CBC with differential WBC 9.15 Hgb 13.5 HCT 42.5 Platelets 241 Eos 1.5% Absolute eos 0.14 SERVICE DATE: 05/08/2024 Oral Exhaled Nitric Oxide measurement: 10.0 (ppb) 05/08/2024 PFTs FVC 1.90 L 83% FEV1 1.61 L 90% Ratio 0.85 No significant proving post bronchodilators TLC 3.44 L 75% RV 73% RV/TLC 99% DLCO 15.32 83% June 07, 2020 PFTs FVC 1.88 L 70% FEV1 1.46 L 73% Ratio 78 No significant improvement post bronchodilators TLC 4.11 L 93% RV 124% RV/TLC 133% DLCO 12.7 61% DLCO/VA 136% Oct [address] CHEST WO IVCON Comparison: 06/28/2023 Lung parenchyma and airways: Interval clearing of consolidation from the right lower lobe. No acute consolidation. 6 mm left lower lobe nodule, 301:118, not clearly present on the prior study or a chest CT from 10/19/2020. Left base atelectasis/scar. The central airways are patent. Pleural space: No pleural effusion. No pleural thickening. Lower neck, lymph nodes, and mediastinum: Approximate 3 cm left thyroid nodule, appearing larger than the previous study from 2020. No lymphadenopathy in the supraclavicular, axillary, mediastinal, or hilar regions. July 05, 2023 6-minute walk test SpO2 94-95% on room air 06/29/2023 Sputum Cx Negative. IMMUNIZATIONS: pneumococcal conjugate (PCV13) vaccine, 13 valent (PREVNAR 13)04/28/2019 pneumococcal conjugate (PCV20) vaccine, 20 valent (PREVNAR 20)05/07/2024 pneumococcal polysaccharide (PPV23) vaccine, 23 valent (PNEUMOVAX 23)06/11/2020 respiratory syncytial virus (RSV) vaccine, adjuvanted (AREXVY)04/15/2024 zoster (RZV) vaccine, recombinant (SHINGRIX)08/11/2020, 02/26/2020 No follow-ups on file. ASSESSMENT AND PLAN: I discussed the plan in detail with the patient ASSESSMENT/PLAN: 1. Persistent asthma without complication, unspecified asthma severity - ICD9: 493.90, ICD10: J45.909 (primary diagnosis) - NASACORT ALLERGY NASAL -Continue montelukast and pantoprazole - BREZTRI AEROSPHERE 160 MCG-9MCG-4.8MCG/ACTUATION HFA AEROSOL INHALER - Continue Atrovent nasal spray and montelukast 2. Chronic cough - ICD9: 786.2, ICD10: R05.3 -See #1 - BREZTRI AEROSPHERE 160 MCG-9MCG-4.8MCG/ACTUATION HFA AEROSOL INHALER - Long talk with patient. Could consider bronchoscopy with BAL to obtain specimen for cell count to rule out chronic eosinophilic bronchitis - May also have neurogenic cough so could consider referral to ENT for superior laryngeal nerve block 3. Lung nodule - ICD9: 793.11, ICD10: R91.1 - Chest CT official radiology reading still pending. - I told her to call the office if she is not heard from our office in regards to the results Elva Goodman MD I spent a total of 30 minutes on the date of the service which included preparing to see the patient, [id number] patient care, completing clinical documentation, obtaining and/or reviewing separately obtained history, performing a medically appropriate examination, counseling and educating the patient/family/caregiver, ordering medications, tests, or procedures, communicating with other HCPs (not separately reported), independently interpreting results (not separately reported), communicating results to the patient/family/caregiver, and care coordination (not separately reported). documented in this encounter [facility] 10-14-2024 Note HNO ID: [id number] Author: ELVA GOODMAN MD Service: ? Author Type: Physician Type: Progress Notes Filed: 10/14/2024 13:40 Note Text: Pulmonary Patient Name: Maritza Linda DATE: 10/14/2024 CHIEF COMPLAINT: Follow up for SOB, chronic cough, asthma HISTORY OF PRESENT ILLNESS: Maritza Linda is a 79 year old female, past medical history significant for seasonal allergies, asthma and scoliosis. Also had COVID 19 infection which required hospital admission in March 2020. ZEE 06/17/2024 changed her from Arnuity to Breztri inhaler because her asthma/ chronic cough was not quite controlled. I also ordered Nasacort nasal spray. She was to continue Atrovent nasal spray and montelukast. She saw our spring winder on 04/08/2024 . Allergy testing that was unremarkable, skin testing was deferred. She also contemplated the patient could have cough hypersensitivity syndrome. Discussed pathophysiology and potential trial of neuromodulator like gabapentin or amitriptyline in the future. She also suggested that timolol/latanoprost could also be contributing to her chronic cough.Pt states her eye doctor did change her eye gtts but she is still coughing. She suggested to potentially consider methacholine challenge test to clarify the diagnosis of asthma and to check sputum for consideration nonasthmatic eosinophilic bronchitis. She saw ENT May 2024 and she had an Upper endoscopy. ENT saw some but changes that suggested acid reflux. She started pantoprazole which eliminated the cough for awhile but in the last 2 months ago the cough started coming back. She is coughing every day. It is a dry cough. She is taking the Breztri but only 1 puff twice a day. ASTHMA CONTROL TEST Date: 10/14/2024 In the last 4 weeks, how much of the time did your asthma keep you from getting as much done at work or home that you wanted to do? None of the time (5) In the last 4 weeks, how often have you had shortness of breath? Not at all (5) In the last 4 weeks, how often did your asthma symptoms (wheezing, coughing, shortness of breath, chest tightness or pain) wake you up at night or earlier than usual? Once or twice (4) In the last 4 weeks, how often have you used your rescue inhaler or nebulizer medication (such as Albuterol, Proventil, Ventolin, Maxair, Xoponex, or Primatene Mist)? Not at all (5) In the last 4 weeks, how would you rate your asthma control? Somewhat controlled (3) Total: 22 06/17/2024 ACT: 19 09/22/2023 ACT: 09/18/2023 ACT total: 24 PAST MEDICAL HISTORY Diagnosis Date Asthma (HCC) BMI 32.0-32.9,adult Essential hypertension Gastroesophageal reflux disease 04/08/2024 Glaucoma Hypoxemia 07/10/2023 Pneumonia 07/10/2023 Scoliosis Seasonal allergies PAST SURGICAL HISTORY Procedure Laterality Date APPENDECTOMY REMOVAL GALLBLADDER FAMILY HISTORY Problem Relation Age of Onset Breast Cancer Sister Hypertension Sister Hypertension Brother other (Environmental allergies) Brother Social History Tobacco Use Smoking status: Never Smokeless tobacco: Never Vaping Use Vaping status: Never Used Substance Use Topics Alcohol use: Yes Comment: occasionally Drug use: Never and lives with her 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 No pets. 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 ALLERGIES: ALLERGIES Allergen Reactions Adhesive Tape-Silic* Itching CURRENT OUTPATIENT MEDICATIONS: calcium carb,gluc/mag gluc,ox (CALCIUM MAGNESIUM ORAL) Take 1 tablet by mouth once daily. 400MG montelukast (SINGULAIR) 10 mg tablet TAKE 1 TABLET BY MOUTH EVERY DAY pantoprazole DR (PROTONIX) 40 mg tablet Take 1 tablet by mouth once daily. Please take 30-60 minutes prior to your first meal. latanoprost (XALATAN) 0.005 % ophthalmic solution Instill 1 drop into both eyes once a day triamcinolone acetonide (NASACORT ALLERGY NASAL) Use in the nose once daily. znitsjlquq-udusoebl-hudicgilgd (BREZTRI AEROSPHERE) 160-9-4.8 mcg/actuation HFA aerosol inhaler Inhale 2 Puffs as instructed two times a day. amLODIPine (NORVASC) 10 mg tablet Take 10 mg by mouth once daily. Cholecalciferol, Vitamin D3, (VITAMIN D-3) 25 mcg (1,000 unit) chew Take 25 tablets by mouth two times a day. cetirizine (ALLERGY RELIEF, CETIRIZINE,) 1 mg/mL syrup Take by mouth once daily. (Patient not taking: Reported on 04/08/2024) phenylephrine/diphenhydramine (ALLERGY AND SINUS RELIEF ORAL) Take 10 mg by mouth once daily. Curist Allergy Relief - Loratadine Tablets (Patient not taking: Reported on 10/14/2024) Ipratropium [place] (ATROVENT) 21 mcg (0.03 %) nasal spray Use 2 Sprays in the nose every 12 hours. (Patient not taking: Reported on 04/01/2024) timolol maleate/latanoprost/PF (TIMOLOL-LATANOPROST,PF,) 0.5-0.005 % drop Use 1 Drop in eyes once daily. (Patient not taking: Reported on 05/02/2024) REVIEW OF SYSTEMS: HEENT: Positive for postnasal drip (more content not included)... [facility] 10-08-2024 Procedure note [facility] 06-26-2024 Telephone encounter Note 06/17/24 last office visit [facility] 06-26-2024 Miscellaneous Notes 06/17/24 last office visit documented in this encounter [facility] 06-17-2024 Instructions Elva Goodman MD - 06/17/2024 10:18 AM EST Please update your tetanus vaccine. documented in this encounter [facility] 06-17-2024 History of Presen t illness Narrative Chief complaint patient is Pulmonary Consult Patient Name: Maritza Linda DATE: 06/17/2024 CHIEF COMPLAINT: Follow up for SOB, chronic cough, asthma HISTORY OF PRESENT ILLNESS: Maritza Linda is a 78 year old female, past medical history significant for seasonal allergies, asthma and scoliosis. Also had COVID 19 infection which required hospital admission in March 2020. ZEE 04/01/2024 I changed her from Arnuity and montelukast to Breztri inhaler because her asthma/ cough was not quite controlled. I also ordered Nasacort nasal spray. She was to continue Atrovent nasal spray and montelukast. Since the patient complained of seasonal/environmental allergies I put in referral to allergy/immunology. She saw Dr Garay in Asthma. She started Protonix in May. Now that she is on protonix and Breztri she is improved. She's not convinced the Breztri is the major reason , she thinks it's the protonix. Saw allergy who recommends she see a speech therapist for chronic cough. Daughter is a speech pathologist. Voice is more hoarse. More of an effort to talk. ASTHMA CONTROL TEST Date: 06/17/2024 In the last 4 weeks, how much of the time did your asthma keep you from getting as much done at work or home that you wanted to do? None of the time (5) In the last 4 weeks, how often have you had shortness of breath? Not at all (5) In the last 4 weeks, how often did your asthma symptoms (wheezing, coughing, shortness of breath, chest tightness or pain) wake you up at night or earlier than usual? 2 or 3 nights per week (2) In the last 4 weeks, how often have you used your rescue inhaler or nebulizer medication (such as Albuterol, Proventil, Ventolin, Maxair, Xoponex, or Primatene Mist)? Once a week or less (4) In the last 4 weeks, how would you rate your asthma control? Somewhat controlled (3) Total: 09/22/2023 ACT: 22 09/18/2023 ACT total: 24 PAST MEDICAL HISTORY Diagnosis Date Asthma BMI 32.0-32.9,adult Essential hypertension Gastroesophageal reflux disease 04/08/2024 Glaucoma Hypoxemia 07/10/2023 Pneumonia 07/10/2023 Scoliosis Seasonal allergies PAST SURGICAL HISTORY Procedure Laterality Date APPENDECTOMY REMOVAL GALLBLADDER FAMILY HISTORY Problem Relation Age of Onset Breast Cancer Sister Hypertension Sister Hypertension Brother other (Environmental allergies) Brother Social History Tobacco Use Smoking status: Never Smokeless tobacco: Never Vaping Use Vaping status: Never Used Substance Use Topics Alcohol use: Yes Comment: occasionally Drug use: Never and lives with her 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 ALLERGIES: ALLERGIES Allergen Reactions Adhesive Tape-Silic* Itching CURRENT OUTPATIENT MEDICATIONS: latanoprost (XALATAN) 0.005 % ophthalmic solution Instill 1 drop into both eyes once a day pantoprazole DR (PROTONIX) 40 mg tablet Take 1 tablet by mouth once daily. Take 30-60 minutes prior to your first meal triamcinolone acetonide (NASACORT ALLERGY NASAL) Use in the nose once daily. aqkfrmmnbv-ugzkjcav-crerfbdtjs (BREZTRI AEROSPHERE) 160-9-4.8 mcg/actuation HFA aerosol inhaler Inhale 2 Puffs as instructed two times a day. montelukast (SINGULAIR) 10 mg tablet Take 1 tablet by mouth once daily. amLODIPine (NORVASC) 10 mg tablet Take 10 mg by mouth once daily. Cholecalciferol, Vitamin D3, (VITAMIN D-3) 25 mcg (1,000 unit) chew Take 25 tablets by mouth two times a day. cetirizine (ALLERGY RELIEF, CETIRIZINE,) 1 mg/mL syrup Take by mouth once daily. (Patient not taking: Reported on 04/08/2024) phenylephrine/diphenhydramine (ALLERGY AND SINUS RELIEF ORAL) Take 10 mg by mouth once daily. Curist Allergy Relief - Loratadine Tablets Ipratropium [place] (ATROVENT) 21 mcg (0.03 %) nasal spray Use 2 Sprays in the nose every 12 hours. (Patient not taking: Reported on 04/01/2024) timolol maleate/latanoprost/PF (TIMOLOL-LATANOPROST,PF,) 0.5-0.005 % drop Use 1 Drop in eyes once daily. (Patient not taking: Reported on 05/02/2024) REVIEW OF SYSTEMS: HEENT: Positive for postnasal drip RESPIRATORY: See HPI and ACT scores CONSTITUTIONAL: No acute distress. Denies F/C/S. Denies wt loss. CARDIOVASCULAR: Negative for chest pain, leg swelling or palpitations. GASTROINTESTINAL: Negative for abdominal discomfort, No blood in stools or black stools. Negative for GERD MUSCULOSKELETAL: Negative for joint pain or swelling, back pain or muscle pain. NEUROLOGIC:Negative for focal numbness or weakness, headaches and dizziness or syncope. SKIN:Negative for lesions, rash, and itching. PSYCHIATRIC: Negative for sleep disturbance, mood disorder and recent psychosocial stressors HEMATOLOGIC/LYMPHATIC/IMMUNOLOGI C:Negative for cold or heat intolerance, polyuria, polydipsia and goiter. The remainder of the ROS was negative. PHYSICAL EXAM: BP 125/74 Pulse 71 Temp (Src) 97.4 (Temporal Artery) Resp 18 Ht 5' .748 (1.54m) Wt 182 lb 8 oz (82.8kg) SpO2 97% BMI 34.77 kg/(m^2). General appearance: Well appearing, alert, in no acute distress, well-hydrated, well nourished. Ears: External ears normal, Nose/Sinuses: Nares normal. Septum midline. Mucosa normal. No drainage or sinus tenderness. Oropharynx: Lips, mucosa, and tongue normal, teeth and gums normal, oropharynx normal. No thrush. Mallampati score 2 Lungs: Lungs clear to auscultation. No wheezing, rhonchi, rales Abdomen; Obese, soft, NT, ND Heart: RRR without murmur, gallop, or rubs. No ectopy Extremities: Normal, Warm, No cyanosis, no clubbing, No edema, and Nontender Musculoskeletal: + Scoliosis DATA: Diagnostic tests reviewed for today's visit, films/specimens were personally reviewed by me: SERVICE DATE: 09/20/2023 Oral Exhaled Nitric Oxide measurement: 9.0 (ppb) 04/01/2024 IgE <114.0 kU/l 129.0 High 04/01/2024 CBC with differential WBC 9.15 Hgb 13.5 HCT 42.5 Platelets 241 Eos 1.5% Absolute eos 0.14 SERVICE DATE: 05/08/2024 Oral Exhaled Nitric Oxide measurement: 10.0 (ppb) 05/08/2024 PFTs FVC 1.90 L 83% FEV1 1.61 L 90% Ratio 0.85 No significant proving post bronchodilators TLC 3.44 L 75% RV 73% RV/TLC 99% DLCO 15.32 83% June 07, 2020 PFTs FVC 1.88 L 70% FEV1 1.46 L 73% Ratio 78 No significant improvement post bronchodilators TLC 4.11 L 93% RV 124% RV/TLC 133% DLCO 12.7 61% DLCO/VA 136% Oct [address] CHEST WO IVCON Comparison: 06/28/2023 Lung parenchyma and airways: Interval clearing of consolidation from the right lower lobe. No acute consolidation. 6 mm left lower lobe nodule, 301:118, not clearly present on the prior study or a chest CT from 10/19/2020. Left base atelectasis/scar. The central airways are patent. Pleural space: No pleural effusion. No pleural thickening. Lower neck, lymph nodes, and mediastinum: Approximate 3 cm left thyroid nodule, appearing larger than the previous study from 2020. No lymphadenopathy in the supraclavicular, axillary, mediastinal, or hilar regions. July 05, 2023 6-minute walk test SpO2 94-95% on room air 06/29/2023 Sputum Cx Negative. IMMUNIZATIONS: States she has had the pneumonia vaccine shingles vaccine. Not had the RSV vaccine. No follow-ups on file. ASSESSMENT AND PLAN: I discussed the plan in detail with the patient ASSESSMENT/PLAN: 1. Persistent asthma without complication, unspecified asthma severity - ICD9: 493.90, ICD10: J45.909 (primary diagnosis) - NASACORT ALLERGY NASAL - BREZTRI AEROSPHERE 160 MCG-9MCG-4.8MCG/ACTUATION HFA AEROSOL INHALER - CONSULT TO ALLERGY/IMMUNOLOGY - IMMUNOGLOBULIN E - restart Atrovent nasal spray 2. Chronic cough - ICD9: 786.2, ICD10: R05.3 -See #1 - BREZTRI AEROSPHERE 160 MCG-9MCG-4.8MCG/ACTUATION HFA AEROSOL INHALER 3. Allergic rhinitis, unspecified seasonality, unspecified trigger - ICD9: 477.9, ICD10: J30.9 - CONSULT TO ALLERGY/IMMUNOLOGY 4. Lung nodule - ICD9: 793.11, ICD10: R91.1 - F/U Chest in September 2024 already scheduled Elva Goodman MD I spent a total of 30 minutes on the date of the service which included preparing to see the patient, [id number] patient care, completing clinical documentation, obtaining and/or reviewing separately obtained history, performing a medically appropriate examination, counseling and educating the patient/family/caregiver, ordering medications, tests, or procedures, communicating with other HCPs (not separately reported), independently interpreting results (not separately reported), communicating results to the patient/family/caregiver, and care coordination (not separately reported). documented in this encounter [facility] 06-17-2024 Note HNO ID: [id number] Author: LEVA GOODMAN MD Service: ? Author Type: Physician Type: Progress Notes Filed: 06/17/2024 11:00 Note Text: Chief complaint patient is Pulmonary Consult Patient Name: Maritza Linda DATE: 06/17/2024 CHIEF COMPLAINT: Follow up for SOB, chronic cough, asthma HISTORY OF PRESENT ILLNESS: Maritza Linda is a 78 year old female, past medical history significant for seasonal allergies, asthma and scoliosis. Also had COVID 19 infection which required hospital admission in March 2020. ZEE 04/01/2024 I changed her from Arnuity and montelukast to Breztri inhaler because her asthma/ cough was not quite controlled. I also ordered Nasacort nasal spray. She was to continue Atrovent nasal spray and montelukast. Since the patient complained of seasonal/environmental allergies I put in referral to allergy/immunology. She saw Dr Garay in Asthma. She started Protonix in May. Now that she is on protonix and Breztri she is improved. She's not convinced the Breztri is the major reason , she thinks it's the protonix. Saw allergy who recommends she see a speech therapist for chronic cough. Daughter is a speech pathologist. Voice is more hoarse. More of an effort to talk. ASTHMA CONTROL TEST Date: 06/17/2024 In the last 4 weeks, how much of the time did your asthma keep you from getting as much done at work or home that you wanted to do? None of the time (5) In the last 4 weeks, how often have you had shortness of breath? Not at all (5) In the last 4 weeks, how often did your asthma symptoms (wheezing, coughing, shortness of breath, chest tightness or pain) wake you up at night or earlier than usual? 2 or 3 nights per week (2) In the last 4 weeks, how often have you used your rescue inhaler or nebulizer medication (such as Albuterol, Proventil, Ventolin, Maxair, Xoponex, or Primatene Mist)? Once a week or less (4) In the last 4 weeks, how would you rate your asthma control? Somewhat controlled (3) Total: 09/22/2023 ACT: 22 09/18/2023 ACT total: 24 PAST MEDICAL HISTORY Diagnosis Date Asthma BMI 32.0-32.9,adult Essential hypertension Gastroesophageal reflux disease 04/08/2024 Glaucoma Hypoxemia 07/10/2023 Pneumonia 07/10/2023 Scoliosis Seasonal allergies PAST SURGICAL HISTORY Procedure Laterality Date APPENDECTOMY REMOVAL GALLBLADDER FAMILY HISTORY Problem Relation Age of Onset Breast Cancer Sister Hypertension Sister Hypertension Brother other (Environmental allergies) Brother Social History Tobacco Use Smoking status: Never Smokeless tobacco: Never Vaping Use Vaping status: Never Used Substance Use Topics Alcohol use: Yes Comment: occasionally Drug use: Never and lives with her 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 ALLERGIES: ALLERGIES Allergen Reactions Adhesive Tape-Silic* Itching CURRENT OUTPATIENT MEDICATIONS: latanoprost (XALATAN) 0.005 % ophthalmic solution Instill 1 drop into both eyes once a day pantoprazole DR (PROTONIX) 40 mg tablet Take 1 tablet by mouth once daily. Take 30-60 minutes prior to your first meal triamcinolone acetonide (NASACORT ALLERGY NASAL) Use in the nose once daily. lfigsyrfth-upteytzt-eeymnfxonf (BREZTRI AEROSPHERE) 160-9-4.8 mcg/actuation HFA aerosol inhaler Inhale 2 Puffs as instructed two times a day. montelukast (SINGULAIR) 10 mg tablet Take 1 tablet by mouth once daily. amLODIPine (NORVASC) 10 mg tablet Take 10 mg by mouth once daily. Cholecalciferol, Vitamin D3, (VITAMIN D-3) 25 mcg (1,000 unit) chew Take 25 tablets by mouth two times a day. cetirizine (ALLERGY RELIEF, CETIRIZINE,) 1 mg/mL syrup Take by mouth once daily. (Patient not taking: Reported on 04/08/2024) phenylephrine/diphenhydramine (ALLERGY AND SINUS RELIEF ORAL) Take 10 mg by mouth once daily. Curist Allergy Relief - Loratadine Tablets Ipratropium [place] (ATROVENT) 21 mcg (0.03 %) nasal spray Use 2 Sprays in the nose every 12 hours. (Patient not taking: Reported on 04/01/2024) timolol maleate/latanoprost/PF (TIMOLOL-LATANOPROST,PF,) 0.5-0.005 % drop Use 1 Drop in eyes once daily. (Patient not taking: Reported on 05/02/2024) REVIEW OF SYSTEMS: HEENT: Positive for postnasal drip RESPIRATORY: See HPI and ACT scores CONSTITUTIONAL: No acute distress. Denies F/C/S. Denies wt loss. CARDIOVASCULAR: Negative for chest pain, leg swelling or palpitations. GASTROINTESTINAL: Negative for abdominal discomfort, No blood in stools or black stools. Negative for GERD MUSCULOSKELETAL: Negative for joint pain or swelling, back pain or muscle pain. NEUROLOGIC:Negative for focal numbness or weakness, headaches and dizziness or syncope. SKIN:Negative for lesions, rash, and itching. PSYCHIATRIC: Negative for sleep disturbance, mood disorder and recent psychosocial stressors HEMATOLOGI (more content not included)... [facility] 06-02-2024 Note HNO ID: [id number] Author: MINNIE UNGER PA-C Service: ? Author Type: Physician Supervisor Plate Pasting Type: Progress Notes Filed: 06/02/2024 15:35 Note Text: CC: Maritza Linda is 78 year old female who is seen at the request of Denia Nicholas for evaluation of chronic cough and dysphonia. My findings and recommendations will be communicated to the referring provider via the shared electronic medical record. Assessment and Plan: (R05.3) Chronic cough (primary encounter diagnosis) (R49.0) Dysphonia (H61.23) Bilateral impacted cerumen ~removed impacted cerumen from both ears ~flexible laryngoscopy reveals erythema/edema of arytenoids and interarytenoid mucosa. Vocal folds move normally. 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 The cough has been present since before 2018. Describes mixed episodes of intractable coughing or a few coughs at a time. Mixed wet and dry. Currently in care of Pulmonology for presumed asthma - inhalers not helpful. Seen by Allergy/Immunology with negative allergy testing. She does have significant scoliosis. Initiated on pantoprazole 2 weeks ago - takes on empty stomach. Tried nasacort for 1 month without benefit. Hoarseness started 1-2 years ago. Struggles to sing. Her voice will also become breathier and raspier intermittently. Denies fevers, unexplained weight loss, nasal congestion, rhinorrhea, dysphagia, sore throat, odynophagia, globus, or heartburn. +chronic throat clearing. ALLERGIES Allergen Reactions Adhesive Tape-Silic* Itching Current Outpatient Medications Medication Sig latanoprost (XALATAN) 0.005 % ophthalmic solution Instill 1 drop into both eyes once a day pantoprazole DR (PROTONIX) 40 mg tablet Take 1 tablet by mouth once daily. Take 30-60 minutes prior to your first meal triamcinolone acetonide (NASACORT ALLERGY NASAL) Use in the nose once daily. xoykaszxsk-ixwkcejh-vwhtkfianr (BREZTRI AEROSPHERE) 160-9-4.8 mcg/actuation HFA aerosol inhaler Inhale 2 Puffs as instructed two times a day. montelukast (SINGULAIR) 10 mg tablet Take 1 tablet by mouth once daily. amLODIPine (NORVASC) 10 mg tablet Take 10 mg by mouth once daily. cetirizine (ALLERGY RELIEF, CETIRIZINE,) 1 mg/mL syrup Take by mouth once daily. (Patient not taking: Reported on 04/08/2024) phenylephrine/diphenhydramine (ALLERGY AND SINUS RELIEF ORAL) Take 10 mg by mouth once daily. Curist Allergy Relief - Loratadine Tablets Ipratropium [place] (ATROVENT) 21 mcg (0.03 %) nasal spray Use 2 Sprays in the nose every 12 hours. (Patient not taking: Reported on 04/01/2024) Cholecalciferol, Vitamin D3, (VITAMIN D-3) 25 mcg (1,000 unit) chew Take 25 tablets by mouth two times a day. (Patient not taking: Reported on 06/02/2024) timolol maleate/latanoprost/PF (TIMOLOL-LATANOPROST,PF,) 0.5-0.005 % drop Use 1 Drop in eyes once daily. (Patient not taking: Reported on 05/02/2024) No current facility-administered medications for this visit. PAST MEDICAL HISTORY Diagnosis Date Asthma BMI 32.0-32.9,adult Essential hypertension Gastroesophageal reflux disease 04/08/2024 Glaucoma Hypoxemia 07/10/2023 Pneumonia 07/10/2023 Scoliosis Seasonal allergies PAST SURGICAL HISTORY Procedure Laterality Date APPENDECTOMY REMOVAL GALLBLADDER Social History: Social History Tobacco Use Smoking status: Never Smokeless tobacco: Never Vaping Use Vaping status: Never Used Substance Use Topics Alcohol use: Yes Drug use: Never FAMILY HISTORY Problem Relation Age of Onset Breast Cancer Sister Hypertension Sister Hypertension Brother other (Environmental allergies) Brother Review Of Systems GENERAL: No weight loss, malaise or fevers. HEENT: Negative for frequent or significant headaches, No changes in hearing or vision, No nasal bleeding, congestion or rhinorrhea, Mouth AND Throat Positive for hoarseness, chronic cough NECK: Negative for lumps, goiter, pain and significant neck swelling I have confirmed and edited as necessary the ROS obtained by others. Minnie Unger PA-C PHYSICAL EXAM: Pulse 65 Resp 16 SpO2 97% No weight on file for this encounter. General appearance: Well appearing, alert, in no acute distress, well-hydrated, well nourished. Cranial Nerves: III-XII: grossly intact Skin: Skin color, texture, turgor normal, no suspicious rashes or lesions Head: normocephalic, no masses, lesions, tenderness or abnormalities Ears: Bilateral external ear normal, Bilateral external auditory canal impacted with cerumen - removed with right angle and alligators, Bilateral tympanic membrane normal after cleaning. Nose/Sinuses: Nares normal. Mildly deviated caudally to right with large left septal spur. Mucosa and (more content not included)... [facility] 06-02-2024 History of Presen t illness Narrative CC: Maritza Linda is 78 year old female who is seen at the request of Denia Nicholas for evaluation of chronic cough and dysphonia. My findings and recommendations will be communicated to the referring provider via the shared electronic medical record. Assessment and Plan: (R05.3) Chronic cough (primary encounter diagnosis) (R49.0) Dysphonia (H61.23) Bilateral impacted cerumen ~removed impacted cerumen from both ears ~flexible laryngoscopy reveals erythema/edema of arytenoids and interarytenoid mucosa. Vocal folds move normally. 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 The cough has been present since before 2018. Describes mixed episodes of intractable coughing or a few coughs at a time. Mixed wet and dry. Currently in care of Pulmonology for presumed asthma - inhalers not helpful. Seen by Allergy/Immunology with negative allergy testing. She does have significant scoliosis. Initiated on pantoprazole 2 weeks ago - takes on empty stomach. Tried nasacort for 1 month without benefit. Hoarseness started 1-2 years ago. Struggles to sing. Her voice will also become breathier and raspier intermittently. Denies fevers, unexplained weight loss, nasal congestion, rhinorrhea, dysphagia, sore throat, odynophagia, globus, or heartburn. +chronic throat clearing. ALLERGIES Allergen Reactions Adhesive Tape-Silic* Itching Current Outpatient Medications Medication Sig latanoprost (XALATAN) 0.005 % ophthalmic solution Instill 1 drop into both eyes once a day pantoprazole DR (PROTONIX) 40 mg tablet Take 1 tablet by mouth once daily. Take 30-60 minutes prior to your first meal triamcinolone acetonide (NASACORT ALLERGY NASAL) Use in the nose once daily. hlzkvmdpyj-kvawtica-qhrkuenrwy (BREZTRI AEROSPHERE) 160-9-4.8 mcg/actuation HFA aerosol inhaler Inhale 2 Puffs as instructed two times a day. montelukast (SINGULAIR) 10 mg tablet Take 1 tablet by mouth once daily. amLODIPine (NORVASC) 10 mg tablet Take 10 mg by mouth once daily. cetirizine (ALLERGY RELIEF, CETIRIZINE,) 1 mg/mL syrup Take by mouth once daily. (Patient not taking: Reported on 04/08/2024) phenylephrine/diphenhydramine (ALLERGY AND SINUS RELIEF ORAL) Take 10 mg by mouth once daily. Curist Allergy Relief - Loratadine Tablets Ipratropium [place] (ATROVENT) 21 mcg (0.03 %) nasal spray Use 2 Sprays in the nose every 12 hours. (Patient not taking: Reported on 04/01/2024) Cholecalciferol, Vitamin D3, (VITAMIN D-3) 25 mcg (1,000 unit) chew Take 25 tablets by mouth two times a day. (Patient not taking: Reported on 06/02/2024) timolol maleate/latanoprost/PF (TIMOLOL-LATANOPROST,PF,) 0.5-0.005 % drop Use 1 Drop in eyes once daily. (Patient not taking: Reported on 05/02/2024) No current facility-administered medications for this visit. PAST MEDICAL HISTORY Diagnosis Date Asthma BMI 32.0-32.9,adult Essential hypertension Gastroesophageal reflux disease 04/08/2024 Glaucoma Hypoxemia 07/10/2023 Pneumonia 07/10/2023 Scoliosis Seasonal allergies PAST SURGICAL HISTORY Procedure Laterality Date APPENDECTOMY REMOVAL GALLBLADDER Social History: Social History Tobacco Use Smoking status: Never Smokeless tobacco: Never Vaping Use Vaping status: Never Used Substance Use Topics Alcohol use: Yes Drug use: Never FAMILY HISTORY Problem Relation Age of Onset Breast Cancer Sister Hypertension Sister Hypertension Brother other (Environmental allergies) Brother Review Of Systems GENERAL: No weight loss, malaise or fevers. HEENT: Negative for frequent or significant headaches, No changes in hearing or vision, No nasal bleeding, congestion or rhinorrhea, Mouth & Throat Positive for hoarseness, chronic cough NECK: Negative for lumps, goiter, pain and significant neck swelling I have confirmed and edited as necessary the ROS obtained by others. Minnie Unger PA-C PHYSICAL EXAM: Pulse 65 Resp 16 SpO2 97% No weight on file for this encounter. General appearance: Well appearing, alert, in no acute distress, well-hydrated, well nourished. Cranial Nerves: III-XII: grossly intact Skin: Skin color, texture, turgor normal, no suspicious rashes or lesions Head: normocephalic, no masses, lesions, tenderness or abnormalities Ears: Bilateral external ear normal, Bilateral external auditory canal impacted with cerumen - removed with right angle and alligators, Bilateral tympanic membrane normal after cleaning. Nose/Sinuses: Nares normal. Mildly deviated caudally to right with large left septal spur. Mucosa and the visible turbinates are normal on anterior rhinoscopy. No purulence or polyps Oral Cavity / Oropharynx: Lips, oral mucosa, hard and soft palates, tongue and posterior pharngeal wall are without lesions Neck: The neck appears symmetric without scars. On palpation, there are no masses or lymphadenopathy. The thyroid is not palpable and was free of masses. No salivary gland masses or hypertrophy is noted. Neuro: Gait normal. Mental status revealed patient to be alert and oriented. Mood is appropriate Procedure Flexible laryngoscopy was performed because of the following indication: chronic cough, dysphonia: After spraying the nose with 4% xylocaine and 0.5% oxymetazoline, the flexible scope was placed in a transnasal fashion. The nasopharynx, oropharynx, hypopharynx including the pyriform sinuses were normal. The base of tongue showed no gross lesions. The larynx itself showed erythema of the arytnoids and interarytnoid mucosa. The vocal cords moved well bilaterally. Minnie Unger PA-C Medical Decision Making: Problems: Moderate: 1+ chronic illnesses with change Data: Discussed management or test w/ external physician/QHCP/source Risk: Low: Low risk from testing/treatment Medical Decision Making Level: 4 - Moderate documented in this encounter [facility] 06-02-2024 Instructions Minnie Unger PA-C - 06/02/2024 12:28 PM EST Continue the protonix once daily for trial of 90 days I will reach out to Laryngology for their opinion and will MyChart message you Keep appointment with Pulmonology ~~~~~~~~~~~~~~~~~~~~~~~~~~~~~~~~ ~~~~~~~~~~~~~~~ [facility] Head and Neck [place] LARYNGOPHARYNGEAL REFLUX (LPR) OR SILENT REFLUX A common cause of hoarseness or voice changes is gastroesophageal reflux disease (GERD). GERD occurs when stomach acid flows back up into the esophagus (swallowing tube). When the acid reaches the throat, it is called laryngopharyngeal reflux (LPR) or silent reflux. It is called silent because most people with LPR have no heartburn or stomach upset. Possible Signs and Symptoms: Hoarseness Chronic cough Sensation of lump in the throat Vocal fold swelling and irritation Frequent throat clearing Vocal fold lesions or ulcerations Mucous sticking in the throat Worsening of asthma Low grade sore throat Worsening of sinus drainage Lifestyle changes If you are overweight, talk with your health care provider about losing weight. If you smoke, quit! Your health care provider may have ideas to help you quit. Dietary guidelines Eat smaller, more frequent meals rather than large one. Avoid food or liquids for 2-3 hours before lying down (no bedtime snacks!) Avoid or limit the following: Caffeinated products: coffee, tea, sodas, chocolate Red sauces and salsa Fatty, fried, or greasy foods Citric juices: orange, grapefruit Spicy foods Mints: peppermint, spearmint Alcohol Physical measures Elevate the head of the bed 6 inches by placing blocks under the legs of the head of the bed. Using extra pillows is NOT a good alternative. Avoid lifting heavy objects. Avoid bending forward at the waist. Avoid wearing tight fitting clothing. PPI medications (Nexium, Prilosec, Omeprazole, etc) need to be taken on an empty stomach, 45 minutes before meals. These medications act by preventing acid production, not by neutralizing acid already present in the stomach. documented in this encounter [facility] 05-08-2024 Note HNO ID: [id number] Author: RODERICK CAMPBELL RPFT Service: ? Author Type: Respiratory Therapist Type: Procedures Filed: 05/08/2024 11:29 Note Text: RESPIRATORY THERAPY ORAL EXHALED NITRIC OXIDE SERVICE DATE: 05/08/2024 SERVICE TIME: 11:28 AM Oral Exhaled Nitric Oxide measurement: 10.0 (ppb) Normal: Adult <25 ppb, pediatric (<12 years) <20 ppb High Normal / Increased: Adult 25-50 ppb, pediatric (<12 years) 20-35 ppb Moderately raised exhaled Nitric Oxide may indicate underlying inflammation, but note that: Cold and influenza can raise exhaled Nitric Oxide and some patients have higher baseline exhaled Nitric Oxide levels than others. High: Adult >50 ppb, pediatric (<12 years) >35 ppb Indicative of ongoing eosinophilic inflammation. Symptomatic patient likely to respond to steroids. Possible causes (if already on steroids): Poor compliance, recent allergen exposure, steroid dose inadequate, and steroid resistance. Note that not all patients with high exhaled nitric oxide levels display symptoms. Oral Exhaled Nitric Oxide measurement (Previous Encounters) Test Date Oral Exhaled Nitric Oxide (ppb) 05/08/2024 10.0 09/20/2023 9.0 NAME: URIAH Horton PATIENT NAME: Maritza Linda DATE: May 08, 2024 TIME: 11:28 AM [facility] 05-08-2024 Procedure note Associated Ord er(s): NITRIC OXIDE, EXHALED RESPIRATORY THERAPY ORAL EXHALED NITRIC OXIDE SERVICE DATE: 05/08/2024 SERVICE TIME: 11:28 AM Oral Exhaled Nitric Oxide measurement: 10.0 (ppb) Normal: Adult <25 ppb, pediatric (<12 years) <20 ppb High Normal / Increased: Adult 25-50 ppb, pediatric (<12 years) 20-35 ppb Moderately raised exhaled Nitric Oxide may indicate underlying inflammation, but note that: Cold and influenza can raise exhaled Nitric Oxide and some patients have higher baseline exhaled Nitric Oxide levels than others. High: Adult >50 ppb, pediatric (<12 years) >35 ppb Indicative of ongoing eosinophilic inflammation. Symptomatic patient likely to respond to steroids. Possible causes (if already on steroids): Poor compliance, recent allergen exposure, steroid dose inadequate, and steroid resistance. Note that not all patients with high exhaled nitric oxide levels display symptoms. Oral Exhaled Nitric Oxide measurement (Previous Encounters) Test Date Oral Exhaled Nitric Oxide (ppb) 05/08/2024 10.0 09/20/2023 9.0 NAME: URIAH Horton PATIENT NAME: Maritza Linda DATE: May 08, 2024 TIME: 11:28 AM [facility] 05-08-2024 Procedure note Associated Ord er(s): NITRIC OXIDE, EXHALED RESPIRATORY THERAPY ORAL EXHALED NITRIC OXIDE SERVICE DATE: 05/08/2024 SERVICE TIME: 11:28 AM Oral Exhaled Nitric Oxide measurement: 10.0 (ppb) Normal: Adult <25 ppb, pediatric (<12 years) <20 ppb High Normal / Increased: Adult 25-50 ppb, pediatric (<12 years) 20-35 ppb Moderately raised exhaled Nitric Oxide may indicate underlying inflammation, but note that: Cold and influenza can raise exhaled Nitric Oxide and some patients have higher baseline exhaled Nitric Oxide levels than others. High: Adult >50 ppb, pediatric (<12 years) >35 ppb Indicative of ongoing eosinophilic inflammation. Symptomatic patient likely to respond to steroids. Possible causes (if already on steroids): Poor compliance, recent allergen exposure, steroid dose inadequate, and steroid resistance. Note that not all patients with high exhaled nitric oxide levels display symptoms. Oral Exhaled Nitric Oxide measurement (Previous Encounters) Test Date Oral Exhaled Nitric Oxide (ppb) 05/08/2024 10.0 09/20/2023 9.0 NAME: URIAH Horton PATIENT NAME: Maritza Linda DATE: May 08, 2024 TIME: 11:28 AM documented in this encounter [facility] 05-08-2024 Note HNO ID: [id number] Author: RODERICK CAMPBELL RPFT Service: ? Author Type: Respiratory Therapist Type: Progress Notes Filed: 05/08/2024 11:29 Note Text: PULM FUNCTION: Provider: Denia Nicholas APRN.BUILDING [employer]STRUCTION [employer]EM[employer] Assisting Tech: Roderick Campbell RPFT Spirometry w/BD: 1 DLCO: 1 LV - Box: 1 Exhaled Nitric Oxide: 1 [facility] 05-08-2024 History of Presen t illness Narrative PULM FUNCTION: Provider: Denia Nicholas APRN.BUILD[employer] Assisting Tech: Roderick Campbell RPFT Spirometry w/BD: 1 DLCO: 1 LV - Box: 1 Exhaled Nitric Oxide: 1 documented in this encounter [facility] 05-02-2024 History of Presen t illness Narrative Images from the original note were not included. Patient: Maritza Linda PCP: Itz Oneal (Inactive) CC: follow up, cough HPI: Maritza Linda is a 78 year old female never smoker with PMH significant for asthma, chronic cough, allergic rhinitis, COVID-19, HTN. Last Pulmonary Clinic visit was with Dr. Goodman on 04/01/2024. The plan from this office visit was: -Start Breztri, Nasacort - Consult to allergy - IgE - Restart Atrovent nasal spray Today, the patient feels the same since last office visit. Saw allergy who recommends she see a speech therapist for chronic cough. Daughter is a speech pathologist. Voice is more hoarse. More of an effort to talk. Isn't able to hold inhaled medication in when using her inhalers d/t coughing. Admits to a nonproductive cough. Will occasionally be productive with PND. 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 Not with typical walking on a flat surface Admits to occasional PND and rhinorrhea, but not daily. Will take nasacort when this occurs Denies wheezing, fevers, chills, nightsweats, LE edema, chest pain/tightness, sinus congestion, or GERD Current therapy: Breztri Albuterol nebulizer, hasn't used Albuterol inhaler, using once a day. Isn't sure if helping d/t coughing episodes resolving quickly Cetirizine, isn't taking this Arnuity, stopped this when started breztri Atrovent nasal spray, using as needed Singulair Nasacort, using as needed Here with ROS: See HPI PAST MEDICAL HISTORY Diagnosis Date Asthma BMI 32.0-32.9,adult Essential hypertension Gastroesophageal reflux disease 04/08/2024 Glaucoma Hypoxemia 07/10/2023 Pneumonia 07/10/2023 Scoliosis Seasonal allergies Allergies: No Known Allergies cetirizine (ALLERGY RELIEF, CETIRIZINE,) 1 mg/mL syrup Take by mouth once daily. (Patient not taking: Reported on 04/08/2024) diphenhydramine HCl (ALLERGY RELIEF ORAL) Take by mouth. phenylephrine/acetaminophn/cpm (ALLERGY RELIEF,CHLORPHEN-ACET, ORAL) Take by mouth. phenylephrine/diphenhydramine (ALLERGY AND SINUS RELIEF ORAL) Take 10 mg by mouth once daily. Curist Allergy Relief - Loratadine Tablets triamcinolone acetonide (NASACORT ALLERGY NASAL) Use in the nose once daily. uwvvenrxbr-mejhotpt-rzynjzdtyt (BREZTRI AEROSPHERE) 160-9-4.8 mcg/actuation HFA aerosol inhaler Inhale 2 Puffs as instructed two times a day. fluticasone furoate (ARNUITY ELLIPTA) 200 mcg/actuation inhaler Inhale 1 Puff as instructed once daily. montelukast (SINGULAIR) 10 mg tablet Take 1 tablet by mouth once daily. amLODIPine (NORVASC) 10 mg tablet Take 10 mg by mouth once daily. Ipratropium [place] (ATROVENT) 21 mcg (0.03 %) nasal spray Use 2 Sprays in the nose every 12 hours. (Patient not taking: Reported on 04/01/2024) Cholecalciferol, Vitamin D3, (VITAMIN D-3) 25 mcg (1,000 unit) chew Take 25 tablets by mouth two times a day. (Patient not taking: Reported on 04/01/2024) timolol maleate/latanoprost/PF (TIMOLOL-LATANOPROST,PF,) 0.5-0.005 % drop Use 1 Drop in eyes once daily. Social History Tobacco Use Smoking status: Never Smokeless tobacco: Never Vaping Use Vaping status: Never Used Substance Use Topics Alcohol use: Yes Drug use: Never Family History Problem Relation Age of Onset Breast Cancer Sister Hypertension Sister Hypertension Brother other (Environmental allergies) Brother PAST SURGICAL HISTORY Procedure Laterality Date APPENDECTOMY REMOVAL GALLBLADDER I reviewed the past medical history, family history, social history and surgical history with changes noted above and updated in EMR. IMMUNIZATIONS There is no immunization history on file for this patient. PHYSICAL EXAMINATION: BP 131/74 (BP Site: Left Arm, BP Position: Sitting, BP Cuff Size: Regular Adult) Pulse 66 Temp 36.3 C (97.3 F) Resp 16 Ht 158.8 cm (5' 2.5) Wt 82 kg (180 lb 11.2 oz) SpO2 97% BMI 32.52 kg/m O2: RA Physical Exam Vitals reviewed. Constitutional: General: She is not in acute distress. Appearance: Normal appearance. She is not ill-appearing, toxic-appearing or diaphoretic. HENT: Head: Normocephalic and atraumatic. Nose: Nose normal. No congestion or rhinorrhea. Mouth/Throat: Lips: [employer]. No lesions. Mouth: Mucous membranes are moist. Tongue: No lesions. Tongue does not deviate from midline. Palate: No lesions. Pharynx: Oropharynx is clear. Uvula midline. No pharyngeal swelling, oropharyngeal exudate, posterior oropharyngeal erythema or uvula swelling. Eyes: Conjunctiva/sclera: Conjunctivae normal. Pupils: Pupils are equal, round, and reactive to light. Cardiovascular: Rate and Rhythm: Normal rate and regular rhythm. Pulses: Normal pulses. Heart sounds: Normal heart sounds. No murmur heard. No friction rub. No gallop. Pulmonary: Effort: Pulmonary effort is normal. No respiratory distress. Breath sounds: Normal breath sounds and air entry. No stridor. No decreased breath sounds, wheezing, rhonchi or rales. Musculoskeletal: Thoracic back: Scoliosis present. Right lower leg: No edema. Left lower leg: No edema. Skin: General: Skin is warm and dry. Capillary Refill: Capillary refill takes less than 2 seconds. Neurological: General: No focal deficit present. Mental Status: She is alert and oriented to person, place, and time. Mental status is at baseline. Psychiatric: Mood and Affect: Mood normal. Behavior: Behavior normal. Thought Content: Thought content normal. Judgment: Judgment normal. DATA Reviewed: I have personally reviewed and analyzed the following data: FeNO, 09/20/2023 PFTs, 06/07/20 CXR Last XR Chest - Impression Only No resulted procedures found. CT Chest CT Chest other findings: Last CT Chest - Impression Only CT CHEST WO IVCON Exam End: 10/04/2023 1:15 PM (Final result) Impression: IMPRESSION: Interval clearing of the right lower lobe infiltrate 6 mm left lower lobe nodule. Dominant left thyroid nodule. Thyroid ultrasound is recommended. Benign-appearing right hepatic lobe cyst, however larger than previous ... Echo No results found for this or any previous visit (from the past 4464 hour(s)). Arterial blood gas: No results found for: PH, PCO2, PO2, HCO3, BE, LACT Assessment/Plan ASSESSMENT/PLAN: 1. Moderate persistent asthma without complication - ICD9: 493.90, ICD10: J45.40 (primary diagnosis) -Continue Breztri (budesonide 160 mcg/glycopyrrolate 9 mcg/formoterol 4.8 mcg per actuation) two inhalations twice daily for now. Rinse mouth after use. See #2 -Continue Albuterol (Proair, Proventil, or Ventolin) MDI - 1-2 puffs every 6 hours as needed for wheezing or shortness of breath. You can also use 1-2 puffs ten minutes before exercise or exertion. Use with your spacer. Or continue Albuterol nebulizer solution - nebulize 1 vial every 6 hours as needed for wheezing or shortness of breath. You can also nebulize 1 vial prior to exertion or exercise. -Continue Montelukast (Singulair) 10 mg once daily. -Ordered updated PFTs and FeNO -States received RSV vaccine and one pneumonia vaccine in the past. Recommend she receive the flu vaccine and check to see what pneumonia vaccine she received to see if she is due for another pneumonia vaccine - SPIROMETRY - BASELINE AND POST DILATOR - LUNG DIFFUSION CAPACITY (DLCO) - LUNG VOLUMES - NITRIC OXIDE, EXHALED 2. Chronic cough - ICD9: 786.2, ICD10: R05.3 -Will treat the patient with a trial of nasacort one spray per nostril twice daily for two weeks. If cough not improving after two weeks of nasacort, start protonix ER 40mg daily 30-60 minutes prior to first meal for the next two weeks. Patient is to let me know at this point how she is doing and if cough has improved or is still the same. If cough is still not improving, will stop Breztri and start the patient on nebulized budesonide BID since the patient isn't able to hold her breath for long with this cough. Would likely benefit more from a nebulized regimen. - CONSULT TO ENT - LUNG DIFFUSION CAPACITY (DLCO) - LUNG VOLUMES - NITRIC OXIDE, EXHALED 3. Lung nodule - ICD9: 793.11, ICD10: R91.1 -10/04/2023 CT chest notes a 6mm LLL nodule and a thyroid nodule -Repeat CT chest scheduled for 10/08/24 to monitor lung nodule stability -Instructed the patient to follow up with PCP for management/workup of thyroid nodule. Patient states she did previously mention this to PCP 4. PND (post-nasal drip) - ICD9: 784.91, ICD10: R09.82 -See #2 5. Gastroesophageal reflux disease, unspecified whether esophagitis present - ICD9: 530.81, ICD10: K21.9 - Discussed lifestyle modifications including limiting caffeine, no meals three hours before sleep, and head of bed elevation -See #2 - PANTOPRAZOLE 40 MG TABLET,DELAYED RELEASE 6. Change in voice - ICD9: 784.49, ICD10: R49.9 -Consult placed to ENT for chronic cough now causing changes in voice - CONSULT TO ENT RTC in [address] Goodman I have discussed the above recommendations in detail with the patient. Patient verbalizes understanding and is in agreement with plan as stated above. I spent a total of 38 minutes on the date of the service which included preparing to see the patient, [id number] patient care, completing clinical documentation, obtaining and/or reviewing separately obtained history, performing a medically appropriate examination, counseling and educating the patient/family/caregiver, ordering medications, tests, or procedures, and communicating results to the patient/family/caregiver. Denia Nicholas APRN.RANDY Pulmonary Medicine documented in this encounter [facility] 05-02-2024 Note HNO ID: [id number] Author: DENIA NICHOLAS APRN.RANDY Service: ? Author Type: Nurse Practitioner Type: Progress Notes Filed: 05/02/2024 17:05 Note Text: Patient: Maritza Linda PCP: Itz Oneal (Inactive) CC: follow up, cough HPI: Maritza Linda is a 78 year old female never smoker with PMH significant for asthma, chronic cough, allergic rhinitis, COVID-19, HTN. Last Pulmonary Clinic visit was with Dr. Goodman on 04/01/2024. The plan from this office visit was: -Start Breztri, Nasacort - Consult to allergy - IgE - Restart Atrovent nasal spray Today, the patient feels the same since last office visit. Saw allergy who recommends she see a speech therapist for chronic cough. Daughter is a speech pathologist. Voice is more hoarse. More of an effort to talk. Isn't able to hold inhaled medication in when using her inhalers d/t coughing. Admits to a nonproductive cough. Will occasionally be productive with PND. 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 Not with typical walking on a flat surface Admits to occasional PND and rhinorrhea, but not daily. Will take nasacort when this occurs Denies wheezing, fevers, chills, nightsweats, LE edema, chest pain/tightness, sinus congestion, or GERD Current therapy: Breztri Albuterol nebulizer, hasn't used Albuterol inhaler, using once a day. Isn't sure if helping d/t coughing episodes resolving quickly Cetirizine, isn't taking this Arnuity, stopped this when started breztri Atrovent nasal spray, using as needed Singulair Nasacort, using as needed Here with ROS: See HPI PAST MEDICAL HISTORY Diagnosis Date Asthma BMI 32.0-32.9,adult Essential hypertension Gastroesophageal reflux disease 04/08/2024 Glaucoma Hypoxemia 07/10/2023 Pneumonia 07/10/2023 Scoliosis Seasonal allergies Allergies: No Known Allergies cetirizine (ALLERGY RELIEF, CETIRIZINE,) 1 mg/mL syrup Take by mouth once daily. (Patient not taking: Reported on 04/08/2024) diphenhydramine HCl (ALLERGY RELIEF ORAL) Take by mouth. phenylephrine/acetaminophn/cpm (ALLERGY RELIEF,CHLORPHEN-ACET, ORAL) Take by mouth. phenylephrine/diphenhydramine (ALLERGY AND SINUS RELIEF ORAL) Take 10 mg by mouth once daily. Curist Allergy Relief - Loratadine Tablets triamcinolone acetonide (NASACORT ALLERGY NASAL) Use in the nose once daily. emjpwzszag-zvvlemvt-kzlbfolejs (BREZTRI AEROSPHERE) 160-9-4.8 mcg/actuation HFA aerosol inhaler Inhale 2 Puffs as instructed two times a day. fluticasone furoate (ARNUITY ELLIPTA) 200 mcg/actuation inhaler Inhale 1 Puff as instructed once daily. montelukast (SINGULAIR) 10 mg tablet Take 1 tablet by mouth once daily. amLODIPine (NORVASC) 10 mg tablet Take 10 mg by mouth once daily. Ipratropium [place] (ATROVENT) 21 mcg (0.03 %) nasal spray Use 2 Sprays in the nose every 12 hours. (Patient not taking: Reported on 04/01/2024) Cholecalciferol, Vitamin D3, (VITAMIN D-3) 25 mcg (1,000 unit) chew Take 25 tablets by mouth two times a day. (Patient not taking: Reported on 04/01/2024) timolol maleate/latanoprost/PF (TIMOLOL-LATANOPROST,PF,) 0.5-0.005 % drop Use 1 Drop in eyes once daily. Social History Tobacco Use Smoking status: Never Smokeless tobacco: Never Vaping Use Vaping status: Never Used Substance Use Topics Alcohol use: Yes Drug use: Never Family History Problem Relation Age of Onset Breast Cancer Sister Hypertension Sister Hypertension Brother other (Environmental allergies) Brother PAST SURGICAL HISTORY Procedure Laterality Date APPENDECTOMY REMOVAL GALLBLADDER I reviewed the past medical history, family history, social history and surgical history with changes noted above and updated in EMR. IMMUNIZATIONS There is no immunization history on file for this patient. PHYSICAL EXAMINATION: BP 131/74 (BP Site: Left Arm, BP Position: Sitting, BP Cuff Size: Regular Adult) Pulse 66 Temp 36.3 ?C (97.3 ?F) Resp 16 Ht 158.8 cm (5' 2.5) Wt 82 kg (180 lb 11.2 oz) SpO2 97% BMI 32.52 kg/m? O2: RA Physical Exam Vitals reviewed. Constitutional: General: She is not in acute distress. Appearance: Normal appearance. She is not ill-appearing, toxic-appearing or diaphoretic. HENT: Head: Normocephalic and atraumatic. Nose: Nose normal. No congestion or rhinorrhea. Mouth/Throat: Lips: [employer]. No lesions. Mouth: Mucous membranes are moist. Tongue: No lesions. Tongue does not deviate from midline. Palate: No lesions. Pharynx: Oropharynx is clear. Uvula midline. No pharyngeal swelling, oropharyngeal exudate, posterior oropharyngeal erythema or uvula swelling. Eyes: Conjunctiva/sclera: Conjunctivae normal. Pupils: Pupils are equal, round, and reactive to light. Cardiovascular: Rate and Rhythm: Normal rate and regular rhythm. Pulses: Normal pulses. Heart sounds: Normal heart sounds. No murmur heard (more content not included)... [facility] 04-10-2024 Telephone encounter Note Since pt is of low risk for lung cancer her F/U chest CT can be one year apart. So F/U chest CT can be some time after October 04, 2023. Then F/U OV with me or RECTANGULAR TANK COOPER/PA. ASSESSMENT/PLAN: 1. Solitary pulmonary nodule - ICD9: 793.11, ICD10: R91.1 - CT CHEST WO IVCON Elva Goodman MD [facility] 04-10-2024 Miscellaneous Notes Since pt is of low risk for lung cancer her F/U chest CT can be one year apart. So F/U chest CT can be some time after October 04, 2023. Then F/U OV with me or RECTANGULAR TANK COOPER/PA. ASSESSMENT/PLAN: 1. Solitary pulmonary nodule - ICD9: 793.11, ICD10: R91.1 - CT CHEST WO ROSELYN Goodman MD documented in this encounter [facility] 04-08-2024 Note HNO ID: [id number] Author: MAYNOR GARAY, DO Service: ? Author Type: Physician Type: Progress Notes Filed: 04/13/2024 13:13 Note Text: Summary: consult for allergic contribution to chronic cough Allergy and Immunology DATE OF SERVICE: 04/08/2024 REFERRING PROVIDER: Elva Goodman MD [Pulmonology] Consultation requested for an allergy/immunology evaluation. My final impression and recommendations will be communicated back to the requesting physician by way of shared medical record, fax, or US mail. CHIEF COMPLAINT: Asthma and Chronic Cough HISTORY OF PRESENT ILLNESS: Maritza Linda is a 78 year old female with kyphoscoliosis s/p rods, glaucoma, hypertension, osteoporosis, who presents today for evaluation of allergic contribution to chronic cough. Accompanied by: , Roxana Has been ongoing for 6+ years. Has seen 3 pulmonologists. In the process, has trialed various inhalers for presumed asthma, PPI trial for GERD Most recently, following with [facility] pulmonology for persistent asthma. 04/01/24 note reviewed: Was switched to BreMicrobondstri from ArnPixable due to issues with formulary and symptom control Referred for allergy evaluation - patient has post nasal drip and suspects poorly controlled allergic rhinitis despite nasacort and zyrtec/claritin. IgE level obtained - elevated to 129. CBC without eosinophilia CT Chest September 2023 notable for lung nodule - plan for repeat in 6 months Although symptoms preceded COVID, she believes they were likely worsened. She was in the hospital x 1 week with hyoxemia - required nasal canula Mar 2020. Admitted again with hypoxemia in Jun 2023 2/2 pneumonia and needed oxygen for a few weeks following discharge. At that time was discharged with Symbicort inhaler and atrovent nasal spray. Her cough has not improved despite trial of many different medications at this point. No tickle in throat Laughing does not trigger cough Deep inhalation does sometimes but not consistently trigger cough Does not seem to originate from the lungs but cannot pinpoint the origin of her cough to any one location Describes as dry coughing spells especially on exposure to cold air seemingly. Worse in the winter Cold drinks also trigger Does have some dyspnea with exertion but thinks she is just deconditioned. 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 does not hear much coughing at night Denies seasonal allergies, post nasal drip Tried atrovent nose spray but didn't help so hasn't used Previously tried benadry/phenylephrine, Zyrtec, nasacort MYC COLLATERAL ALLERGY HISTORY Question 04/02/2024 12:23 PM EST - Filed by Patient Do you have or have you ever been diagnosed with allergic rhinitis? No Have you ever been skin tested for allergies? No Do you have asthma? Yes Do you have or have you ever been diagnosed with eczema or atopic dermatitis? No Do you get frequent sinus infections? No Do you have nasal polyps? No Do you have or have you ever been diagnosed with urticaria / hives? No Do you have or have you ever been diagnosed with angioedema? Not Sure Do you have or have you ever been diagnosed with food allergy? No Do you have or have you ever been diagnosed with stinging insect allergy (bee, wasp, yellow jacket, hornet)? No Are you allergic to Penicillin antibiotics? No MYC ASTHMA CONTROL TEST Question 04/06/2024 8:33 PM EST - Filed by Patient 04/01/2024 7:15 AM EST - Filed by Patient 10/11/2023 8:21 PM EST - Filed by Patient Keep from getting things done 4 A little of the time 5 None of the time Shortness of breath 5 Not at all 5 Not at all 5 Not at all Symptoms wake up at night or early in morning 3 Once a week 1 4 or more nights a week 4 Once or twice How often have you used inhaler/nebulizer 5 Not at all 5 Not at all 5 Not at all Rate your asthma control over past 4 weeks 3 Somewhat controlled 2 Poorly controlled 3 Somewhat controlled Asthma Control Test Score (range: 0 - 25) 20 Incomplete 22 MYC SLEEP APNEA SCREENING TOOLS V2 Question 04/02/2024 12:21 PM EST - Filed by Patient Snore Loudly No Tired, fatigued or sleepy in daytime No Stop breathing or choking/gasping during sleep No High blood pressure Yes Sleep Apnea Screen V2 (range: 0 - 100) 42 (Sleep study not recommended) Immunizations: up to date 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 [facility] 04-08-2024 History of Presen t illness Narrative Summary: consult for allergic contribution to chronic cough Images from the original note were not included. Allergy and Immunology DATE OF SERVICE: 04/08/2024 REFERRING PROVIDER: Elva Goodman MD [Pulmonology] Consultation requested for an allergy/immunology evaluation. My final impression and recommendations will be communicated back to the requesting physician by way of shared medical record, fax, or US mail. CHIEF COMPLAINT: Asthma and Chronic Cough HISTORY OF PRESENT ILLNESS: Maritza Linda is a 78 year old female with kyphoscoliosis s/p rods, glaucoma, hypertension, osteoporosis, who presents today for evaluation of allergic contribution to chronic cough. Accompanied by: , Roxana Has been ongoing for 6+ years. Has seen 3 pulmonologists. In the process, has trialed various inhalers for presumed asthma, PPI trial for GERD Most recently, following with [facility] pulmonology for persistent asthma. 04/01/24 note reviewed: Was switched to Breztri from Arnuity due to issues with formulary and symptom control Referred for allergy evaluation - patient has post nasal drip and suspects poorly controlled allergic rhinitis despite nasacort and zyrtec/claritin. IgE level obtained - elevated to 129. CBC without eosinophilia CT Chest September 2023 notable for lung nodule - plan for repeat in 6 months Although symptoms preceded COVID, she believes they were likely worsened. She was in the hospital x 1 week with hyoxemia - required nasal canula Mar 2020. Admitted again with hypoxemia in Jun 2023 2/2 pneumonia and needed oxygen for a few weeks following discharge. At that time was discharged with Symbicort inhaler and atrovent nasal spray. Her cough has not improved despite trial of many different medications at this point. No tickle in throat Laughing does not trigger cough Deep inhalation does sometimes but not consistently trigger cough Does not seem to originate from the lungs but cannot pinpoint the origin of her cough to any one location Describes as dry coughing spells especially on exposure to cold air seemingly. Worse in the winter Cold drinks also trigger Does have some dyspnea with exertion but thinks she is just deconditioned. 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 does not hear much coughing at night Denies seasonal allergies, post nasal drip Tried atrovent nose spray but didn't help so hasn't used Previously tried benadry/phenylephrine, Zyrtec, nasacort MYC COLLATERAL ALLERGY HISTORY Question 04/02/2024 12:23 PM EST - Filed by Patient Do you have or have you ever been diagnosed with allergic rhinitis? No Have you ever been skin tested for allergies? No Do you have asthma? Yes Do you have or have you ever been diagnosed with eczema or atopic dermatitis? No Do you get frequent sinus infections? No Do you have nasal polyps? No Do you have or have you ever been diagnosed with urticaria / hives? No Do you have or have you ever been diagnosed with angioedema? Not Sure Do you have or have you ever been diagnosed with food allergy? No Do you have or have you ever been diagnosed with stinging insect allergy (bee, wasp, yellow jacket, hornet)? No Are you allergic to Penicillin antibiotics? No MYC ASTHMA CONTROL TEST Question 04/06/2024 8:33 PM EST - Filed by Patient 04/01/2024 7:15 AM EST - Filed by Patient 10/11/2023 8:21 PM EST - Filed by Patient Keep from getting things done 4 A little of the time 5 None of the time Shortness of breath 5 Not at all 5 Not at all 5 Not at all Symptoms wake up at night or early in morning 3 Once a week 1 4 or more nights a week 4 Once or twice How often have you used inhaler/nebulizer 5 Not at all 5 Not at all 5 Not at all Rate your asthma control over past 4 weeks 3 Somewhat controlled 2 Poorly controlled 3 Somewhat controlled Asthma Control Test Score (range: 0 - 25) 20 Incomplete 22 MYC SLEEP APNEA SCREENING TOOLS V2 Question 04/02/2024 12:21 PM EST - Filed by Patient Snore Loudly No Tired, fatigued or sleepy in daytime No Stop breathing or choking/gasping during sleep No High blood pressure Yes Sleep Apnea Screen V2 (range: 0 - 100) 42 (Sleep study not recommended) Immunizations: up to date 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 phenylephrine/diphenhydramine (ALLERGY AND SINUS RELIEF ORAL) Take 10 mg by mouth once daily. Curist Allergy Relief - Loratadine Tablets triamcinolone acetonide (NASACORT ALLERGY NASAL) Use in the nose once daily. dlogzexire-fumyegpd-igkjczhfux (BREZTRI AEROSPHERE) 160-9-4.8 mcg/actuation HFA aerosol inhaler Inhale 2 Puffs as instructed two times a day. fluticasone furoate (ARNUITY ELLIPTA) 200 mcg/actuation inhaler Inhale 1 Puff as instructed once daily. montelukast (SINGULAIR) 10 mg tablet Take 1 tablet by mouth once daily. amLODIPine (NORVASC) 10 mg tablet Take 10 mg by mouth once daily. timolol maleate/latanoprost/PF (TIMOLOL-LATANOPROST,PF,) 0.5-0.005 % drop Use 1 Drop in eyes once daily. cetirizine (ALLERGY RELIEF, CETIRIZINE,) 1 mg/mL syrup Take by mouth once daily. (Patient not taking: Reported on 04/08/2024) phenylephrine/acetaminophn/cpm (ALLERGY RELIEF,CHLORPHEN-ACET, ORAL) Take by mouth. Ipratropium [place] (ATROVENT) 21 mcg (0.03 %) nasal spray Use 2 Sprays in the nose every 12 hours. (Patient not taking: Reported on 04/01/2024) Cholecalciferol, Vitamin D3, (VITAMIN D-3) 25 mcg (1,000 unit) chew Take 25 tablets by mouth two times a day. (Patient not taking: Reported on 04/01/2024) No current facility-administered medications for this visit. ALLERGIES No Known Allergies PHYSICAL EXAM: BP 123/76 (BP Site: Left Arm, BP Position: Sitting, BP Cuff Size: Large Adult) Pulse 71 Temp 36.8 C (98.2 F) Resp 20 Ht 157.5 cm (5' 2) Wt 81.6 kg (180 lb) SpO2 95% BMI 32.92 kg/m Physical Exam GENERAL: alert, oriented, cooperative with exam HEAD: atraumatic, normocephalic EYES: conjunctivae normal, extraocular movements in tact, pupils equal, round, and reactive, EARS: external ears normal, canals clear, TMs normal with good light reflex, NOSE: nares patent without congestion, no significant discharge, MOUTH: mucus membranes moist, oropharynx clear without erythema CV: heart sounds normal, regular rate and rhythm, cap refill normal CHEST/LUNGS: intermittent dry coughing throughout exam, also triggered by forced inhalation for exam, good air entry bilaterally, clear to auscultation with no adventitious sounds MSK: dextrothoraco kyphoscoliosis SKIN: warm, well perfused, no rashes DATA/DIAGNOSTICS: I personally reviewed and interpreted relevant prior results, notable as below: Labs: Allergy testing negative in 02/2020 - serum aeroallergens IgE Latest Ref Rng 04/01/2024 WBC 3.70 - 11.00 k/uL 9.15 RBC 3.90 - 5.20 m/uL 4.66 Hemoglobin 11.5 - 15.5 g/dL 13.5 Hematocrit 36.0 - 46.0 % 42.5 MCV 80.0 - 100.0 fL 91.2 MCH 26.0 - 34.0 pg 29.0 MCHC 30.5 - 36.0 g/dL 31.8 RDW-CV 11.5 - 15.0 % 13.6 Platelet Count 150 - 400 k/uL 241 MPV 9.0 - 12.7 fL 11.1 Neut% % 67.3 Abs Neut (ANC) 1.45 - 7.50 k/uL 6.15 Lymph% % 20.1 Abs Lymph 1.00 - 4.00 k/uL 1.84 [place]% % 9.9 Abs [place] <0.87 k/uL 0.91 (H) Eosin% % 1.5 Abs Eosin <0.46 k/uL 0.14 Baso% % 0.8 Abs Baso <0.11 k/uL 0.07 Immature Gran % % 0.4 IMMATURE GRANS (ABS) <0.10 k/uL 0.04 NRBC /100 WBC 0.0 Absolute nRBC <0.01 k/uL <0.01 DTYPE Auto IgE <114.0 kU/l 129.0 (H) Legend: (H) High Mildly elevated IgE No eosinophilia Imaging: IMPRESSION: Interval clearing of the right lower lobe infiltrate 6 mm left lower lobe nodule. Dominant left thyroid nodule. Thyroid ultrasound is recommended. Benign-appearing right hepatic lobe cyst, however larger than previous Incidental Finding: Follow-up Acuity: Incidental Finding: Solid: 6-8 mm (solitary nodule) Routing Code: RI_1 Recommendation: CT Chest WO IVCON Time Frame: 6-12 months Comments: If stable on follow-up imaging, a repeat chest CT exam in 12 months (18-24 months from the initial exam) is recommended --END OF FINDING-- 07/25/23 6 min walk test 94-95% spo2 on room air 08/07/23 Spirometry TLC 93% pred FVC 70% pred FEV1 73% pred --> 78% pred post bronchodilator FEV1/FVC 78 [id number]% 78% pred --> 115% pred post bronchodilator FRC 119% pred RV 124% pred RV/TLC 133% pred DLCO 61% pred Impression: Irreversible mild large airways obstructive ventilatory defect with a symmetric reduction diffusing capacity, resulting in air trapping. October 19, 2020 CT chest without contrast Comparison: CT chest 06/14/2020 Impression: The previously seen groundglass opacities have resolved. There is no demonstrated pleural abnormality. There are calcifications of the coronary arteries. There are multiple small lymph nodes within the mediastinum, which are normal in size and morphology most compatible with reactive lymph node hyperplasia. Normal hilar regions. Normal unenhanced pulmonary arteries. June 28, 2023 CTA CHEST Seen for exam: 72-year-old female, SOB, hypoxia, normal CXR, recent COVID . Evaluate for PE Comparison: Comparison made with prior CT October 19, 2020 Findings: There are calcifications of coronary arteries. Pulmonary embolism. Normal visualized trachea and bronchi. There is consolidation in the right lower lobe with partial collapse. Normal pleura. MEDICAL DECISION MAKING: Assessment & Plan Chronic cough Hx notable for: - dry coughing episodes x >5 years triggered by cold air/drinks - hospital admissions for hypoxemia in the setting of COVID pneumonia Mar 2020, bacterial pneumonia c/b PE and partial right lung collapse in Jun 2023 - historical findings of GGO s/p COVID now resolved - most recent CT September 2023 with incidental 6-8 mm nodule left lung and dominant left thyroid nodule - current relevant meds: Breztri, Singulair, Timolol/Latanoprost eye drops She was referred for evaluation of allergic contribution to asthma, however had fairly recent serum allergy testing that was wholly unremarkably to panel of perennial and seasonal aeroallergens. I offered to repeat with skin testing today, but together we decided this would be unlikely to reveal any new clinically relevant sensitivities particularly in the absence of classic symptoms of allergic rhinoconjunctivitis. 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 Discussed pathophysiology and potential trial of a neuromodulator like Gabapentin or Amytryptiline in the future. Of note, glaucoma medications including timolol/latanoprost can contribute to hypersensitivity of the cough receptors and bronchonstriction via nonselective beta blockade araseli passage through lacrimal ducts to the nasopharynx. The medication long preceded the chronic cough symptoms, however patient will reach out to her prescribing dairy bar manager to discuss other options. She will also empirically trial speech therapy for dysphonia, which may or may not be related. She plans to reach out to me in 2 months to follow up. In the meantime, currently being treated for presumed persistent asthma and should continue current regimen per pulmonology. The spirometry I have access to does not shows irreversible obstruction - I would consider methacholine challenge to clarify this diagnosis Would also check sputum for consideration of Nonasthmatic eosinophilic bronchitis Dysphonia Began prior to introduction of inhaled corticosteroids Denies symptoms of vocal cord dysfunction, inspiratory loop in PFTs normal Could be a symptom of Cough Hypersensitivity Syndrome Has speech therapist friend that she plans to start working with I offered referral; she will reach out if needed Follow up: with referring provider Patient advised to call or return sooner should current symptoms worsen or fail to improve or if new symptoms or problems arise. It was my pleasure to participate in the care of this patient. I spent a total of <60 minutes on the date of the service which included preparing to see the patient, [id number] patient care, completing clinical documentation, obtaining and/or reviewing separately obtained history, performing a medically appropriate examination, counseling and educating the patient/family/caregiver, and independently interpreting results (not separately reported). Maynor Garay DO Allergy and Clinical Immunology [facility] documented in this encounter [facility] 04-04-2024 Telephone encounter Note I explained to Maritza that I had to intensify her inhaler therapy because she stated on her ACT T questionnaire that she felt like her asthma was poorly controlled. So I switched her from Arnuity to Breztri so she would have additional bronchodilators. I told her if her vision becomes blurry after starting the Breztri she should stop it and I will switch her inhaler to a different 1 that will not cause that side effect. She verbalized understanding. She said she would call me if she experiences any blurry vision with the Breztri. [facility] 04-04-2024 Miscellaneous Notes I explained to Maritza that I had to intensify her inhaler therapy because she stated on her ACT T questionnaire that she felt like her asthma was poorly controlled. So I switched her from Arnuity to Breztri so she would have additional bronchodilators. I told her if her vision becomes blurry after starting the Breztri she should stop it and I will switch her inhaler to a different 1 that will not cause that side effect. She verbalized understanding. She said she would call me if she experiences any blurry vision with the Breztri. documented in this encounter [facility] 04-01-2024 Instructions Elva Goodman MD - 04/01/2024 8:25 AM EST Don't forget to get your RSV vaccine. documented in this encounter [facility] 04-01-2024 History of Presen t illness Narrative Chief complaint patient is Pulmonary Consult Patient Name: Maritza Linda DATE: 04/01/2024 CHIEF COMPLAINT: Follow up for SOB, chronic cough, asthma HISTORY OF PRESENT ILLNESS: Maritza Linda is a 78 year old female, past medical history significant for seasonal allergies, asthma and scoliosis. Also had COVID 19 infection which required hospital admission in March 2020. ZEE 10/12/2023 I prescribed Arnuity 20 mcg and montelukast for asthma/chronic cough Pt sates she never really quit coughing. This is her CC. Now with drainage. Cough's everyday. Drinking something cold, cold air will trigger it to. The Arnuity did help much. Anu also fell off her formulary She is also taking Nasacort now and Zytrec/Claritin. She is still having post nasal gtt. She is wondering if she could have environmental allergies. She does not have GERD. She is not short of breath. . ASTHMA CONTROL TEST In the last 4 weeks, how much of the time did your asthma keep you from getting as much done at work or home that you wanted to do? None of the time (5) In the last 4 weeks, how often have you had shortness of breath? Not at all (5) In the last 4 weeks, how often did your asthma symptoms (wheezing, coughing, shortness of breath, chest tightness or pain) wake you up at night or earlier than usual? 4 or more nights per week (1) In the last 4 weeks, how often have you used your rescue inhaler or nebulizer medication (such as Albuterol, Proventil, Ventolin, Maxair, Xoponex, or Primatene Mist)? Not at all (5) In the last 4 weeks, how would you rate your asthma control? Poorly controlled (2) Total: 09/22/2023 ACT: 22 09/18/2023 ACT total: 24 PAST MEDICAL HISTORY Diagnosis Date Asthma BMI 32.0-32.9,adult Essential hypertension Glaucoma Scoliosis Seasonal allergies PAST SURGICAL HISTORY Procedure Laterality Date APPENDECTOMY REMOVAL GALLBLADDER FAMILY HISTORY Problem Relation Age of Onset Breast Cancer Sister Hypertension Sister Hypertension Brother other (Environmental allergies) Brother Social History Tobacco Use Smoking status: Never Smokeless tobacco: Never Vaping Use Vaping status: Never Used Substance Use Topics Alcohol use: Yes Drug use: Never and lives with her 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 ALLERGIES: ALLERGIES No Known Allergies CURRENT OUTPATIENT MEDICATIONS: triamcinolone acetonide (NASACORT ALLERGY NASAL) Use in the nose once daily. fluticasone furoate (ARNUITY ELLIPTA) 200 mcg/actuation inhaler Inhale 1 Puff as instructed once daily. montelukast (SINGULAIR) 10 mg tablet Take 1 tablet by mouth once daily. amLODIPine (NORVASC) 10 mg tablet Take 10 mg by mouth once daily. timolol maleate/latanoprost/PF (TIMOLOL-LATANOPROST,PF,) 0.5-0.005 % drop Use 1 Drop in eyes once daily. uwqfciplfj-xpdenscn-iyxhhfgdfp (BREZTRI AEROSPHERE) 160-9-4.8 mcg/actuation HFA aerosol inhaler Inhale 2 Puffs as instructed two times a day. Ipratropium [place] (ATROVENT) 21 mcg (0.03 %) nasal spray Use 2 Sprays in the nose every 12 hours. (Patient not taking: Reported on 04/01/2024) budesonide-formoterol (SYMBICORT) 160-4.5 mcg/actuation inhaler Inhale 2 Puffs as instructed two times a day. (Patient not taking: Reported on 04/01/2024) ascorbic acid-ascorbate sodium 500 mg chew Take by mouth. (Patient not taking: Reported on 04/01/2024) Cholecalciferol, Vitamin D3, (VITAMIN D-3) 25 mcg (1,000 unit) chew Take 25 tablets by mouth two times a day. (Patient not taking: Reported on 04/01/2024) REVIEW OF SYSTEMS: HEENT: Positive for postnasal drip RESPIRATORY: See HPI and ACT scores CONSTITUTIONAL: No acute distress. Denies F/C/S. Denies wt loss. CARDIOVASCULAR: Negative for chest pain, leg swelling or palpitations. GASTROINTESTINAL: Negative for abdominal discomfort, No blood in stools or black stools. Negative for GERD MUSCULOSKELETAL: Negative for joint pain or swelling, back pain or muscle pain. NEUROLOGIC:Negative for focal numbness or weakness, headaches and dizziness or syncope. SKIN:Negative for lesions, rash, and itching. PSYCHIATRIC: Negative for sleep disturbance, mood disorder and recent psychosocial stressors HEMATOLOGIC/LYMPHATIC/IMMUNOLOGI C:Negative for cold or heat intolerance, polyuria, polydipsia and goiter. The remainder of the ROS was negative. PHYSICAL EXAM: BP 134/79 Pulse 65 Temp (Src) 97.6 (Temporal Artery) Resp 16 Ht 5' 2.008 (1.58m) Wt 182 lb 14.4 oz (83.0kg) SpO2 97% BMI 33.44 kg/(m^2). General appearance: Well appearing, alert, in no acute distress, well-hydrated, well nourished. Ears: External ears normal, Nose/Sinuses: Nares normal. Septum midline. Mucosa normal. No drainage or sinus tenderness. Oropharynx: Lips, mucosa, and tongue normal, teeth and gums normal, oropharynx normal. No thrush. Mallampati score 2 Lungs: Lungs clear to auscultation. No wheezing, rhonchi, rales Abdomen; Obese, soft, NT, ND Heart: RRR without murmur, gallop, or rubs. No ectopy Extremities: Normal, Warm, No cyanosis, no clubbing, No edema, and Nontender Musculoskeletal: + Scoliosis DATA: Diagnostic tests reviewed for today's visit, films/specimens were personally reviewed by me: SERVICE DATE: 09/20/2023 Oral Exhaled Nitric Oxide measurement: 9.0 (ppb) June 07, 2020 PFTs FVC 1.88 L 70% FEV1 1.46 L 73% Ratio 78 No significant improvement post bronchodilators TLC 4.11 L 93% RV 124% RV/TLC 133% DLCO 12.7 61% DLCO/VA 136% Oct [address] CHEST WO IVCON Comparison: 06/28/2023 Lung parenchyma and airways: Interval clearing of consolidation from the right lower lobe. No acute consolidation. 6 mm left lower lobe nodule, 301:118, not clearly present on the prior study or a chest CT from 10/19/2020. Left base atelectasis/scar. The central airways are patent. Pleural space: No pleural effusion. No pleural thickening. Lower neck, lymph nodes, and mediastinum: Approximate 3 cm left thyroid nodule, appearing larger than the previous study from 2020. No lymphadenopathy in the supraclavicular, axillary, mediastinal, or hilar regions. July 05, 2023 6-minute walk test SpO2 94-95% on room air 06/29/2023 Sputum Cx Negative. IMMUNIZATIONS: States she has had the pneumonia vaccine shingles vaccine. Not had the RSV vaccine. Return in about 1 month (around 05/01/2024) for Asthma, Cough. ASSESSMENT AND PLAN: I discussed the plan in detail with the patient ASSESSMENT/PLAN: 1. Persistent asthma without complication, unspecified asthma severity - ICD9: 493.90, ICD10: J45.909 (primary diagnosis) - NASACORT ALLERGY NASAL - BREZTRI AEROSPHERE 160 MCG-9MCG-4.8MCG/ACTUATION HFA AEROSOL INHALER - CONSULT TO ALLERGY/IMMUNOLOGY - IMMUNOGLOBULIN E - restart Atrovent nasal spray 2. Chronic cough - ICD9: 786.2, ICD10: R05.3 -See #1 - BREZTRI AEROSPHERE 160 MCG-9MCG-4.8MCG/ACTUATION HFA AEROSOL INHALER 3. Allergic rhinitis, unspecified seasonality, unspecified trigger - ICD9: 477.9, ICD10: J30.9 - CONSULT TO ALLERGY/IMMUNOLOGY Elva Goodman MD I spent a total of 30 minutes on the date of the service which included preparing to see the patient, [id number] patient care, completing clinical documentation, obtaining and/or reviewing separately obtained history, performing a medically appropriate examination, counseling and educating the patient/family/caregiver, ordering medications, tests, or procedures, communicating with other HCPs (not separately reported), independently interpreting results (not separately reported), communicating results to the patient/family/caregiver, and care coordination (not separately reported). documented in this encounter [facility] 04-01-2024 Note HNO ID: [id number] Author: ELVA GOODMAN MD Service: ? Author Type: Physician Type: Progress Notes Filed: 04/01/2024 08:38 Note Text: Chief complaint patient is Pulmonary Consult Patient Name: Maritza Linda DATE: 04/01/2024 CHIEF COMPLAINT: Follow up for SOB, chronic cough, asthma HISTORY OF PRESENT ILLNESS: Maritza Linda is a 78 year old female, past medical history significant for seasonal allergies, asthma and scoliosis. Also had COVID 19 infection which required hospital admission in March 2020. ZEE 10/12/2023 I prescribed Arnuity 20 mcg and montelukast for asthma/chronic cough Pt sates she never really quit coughing. This is her CC. Now with drainage. Cough's everyday. Drinking something cold, cold air will trigger it to. The Arnuity did help much. Arnuity also fell off her formulary She is also taking Nasacort now and Zytrec/Claritin. She is still having post nasal gtt. She is wondering if she could have environmental allergies. She does not have GERD. She is not short of breath. . ASTHMA CONTROL TEST In the last 4 weeks, how much of the time did your asthma keep you from getting as much done at work or home that you wanted to do? None of the time (5) In the last 4 weeks, how often have you had shortness of breath? Not at all (5) In the last 4 weeks, how often did your asthma symptoms (wheezing, coughing, shortness of breath, chest tightness or pain) wake you up at night or earlier than usual? 4 or more nights per week (1) In the last 4 weeks, how often have you used your rescue inhaler or nebulizer medication (such as Albuterol, Proventil, Ventolin, Maxair, Xoponex, or Primatene Mist)? Not at all (5) In the last 4 weeks, how would you rate your asthma control? Poorly controlled (2) Total: 09/22/2023 ACT: 22 09/18/2023 ACT total: 24 PAST MEDICAL HISTORY Diagnosis Date Asthma BMI 32.0-32.9,adult Essential hypertension Glaucoma Scoliosis Seasonal allergies PAST SURGICAL HISTORY Procedure Laterality Date APPENDECTOMY REMOVAL GALLBLADDER FAMILY HISTORY Problem Relation Age of Onset Breast Cancer Sister Hypertension Sister Hypertension Brother other (Environmental allergies) Brother Social History Tobacco Use Smoking status: Never Smokeless tobacco: Never Vaping Use Vaping status: Never Used Substance Use Topics Alcohol use: Yes Drug use: Never and lives with her 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 ALLERGIES: ALLERGIES No Known Allergies CURRENT OUTPATIENT MEDICATIONS: triamcinolone acetonide (NASACORT ALLERGY NASAL) Use in the nose once daily. fluticasone furoate (ARNUITY ELLIPTA) 200 mcg/actuation inhaler Inhale 1 Puff as instructed once daily. montelukast (SINGULAIR) 10 mg tablet Take 1 tablet by mouth once daily. amLODIPine (NORVASC) 10 mg tablet Take 10 mg by mouth once daily. timolol maleate/latanoprost/PF (TIMOLOL-LATANOPROST,PF,) 0.5-0.005 % drop Use 1 Drop in eyes once daily. epenpwxklh-hpyechwj-vjzgkkpyry (BREZTRI AEROSPHERE) 160-9-4.8 mcg/actuation HFA aerosol inhaler Inhale 2 Puffs as instructed two times a day. Ipratropium [place] (ATROVENT) 21 mcg (0.03 %) nasal spray Use 2 Sprays in the nose every 12 hours. (Patient not taking: Reported on 04/01/2024) budesonide-formoterol (SYMBICORT) 160-4.5 mcg/actuation inhaler Inhale 2 Puffs as instructed two times a day. (Patient not taking: Reported on 04/01/2024) ascorbic acid-ascorbate sodium 500 mg chew Take by mouth. (Patient not taking: Reported on 04/01/2024) Cholecalciferol, Vitamin D3, (VITAMIN D-3) 25 mcg (1,000 unit) chew Take 25 tablets by mouth two times a day. (Patient not taking: Reported on 04/01/2024) REVIEW OF SYSTEMS: HEENT: Positive for postnasal drip RESPIRATORY: See HPI and ACT scores CONSTITUTIONAL: No acute distress. Denies F/C/S. Denies wt loss. CARDIOVASCULAR: Negative for chest pain, leg swelling or palpitations. GASTROINTESTINAL: Negative for abdominal discomfort, No blood in stools or black stools. Negative for GERD MUSCULOSKELETAL: Negative for joint pain or swelling, back pain or muscle pain. NEUROLOGIC:Negative for focal numbness or weakness, headaches and dizziness or syncope. SKIN:Negative for lesions, rash, and itching. PSYCHIATRIC: Negative for sleep disturbance, mood disorder and recent psychosocial stressors HEMATOLOGIC/LYMPHATIC/IMMUNOLOGI C:Negative for cold or heat intolerance, polyuria, polydipsia and goiter. The remainder of the ROS was negative. PHYSICAL EXAM: BP 134/79 Pulse 65 Temp (Src) 97.6 (Temporal Artery) Resp 16 Ht 5' 2.008 (1.58m) Wt 182 lb 14.4 oz (83.0kg) SpO2 97% BMI 33.44 kg/(m2). General appearance: Well appearing, alert, in no acute distress, well-hydrated, well nourished. Ears: External ears normal, Nose/Sinuses: Nares normal. Septum midline. (more content not included)... [facility] 10-24-2023 Telephone encounter Note I called patient's primary care doctor, Dr Oneal. I let him the Chest CT that I ordered showed a 3cm left thyroid nodule that will need further evaluation. He appreciated the update and he will order an U/S of the thyroid. [facility] 10-24-2023 Miscellaneous Notes I called patient's primary care doctor, Dr Oneal. I let him the Chest CT that I ordered showed a 3cm left thyroid nodule that will need further evaluation. He appreciated the update and he will order an U/S of the thyroid. Hi Dr. Goodman, Please see message below. Thank you, QUAN Sheikh, RN Dr. Oneal PCP is calling Elva Goodman MD today to request Patient Question (PCP wants to speak with Dr. Goodman please call [phone] to speak with provider directly. Dr. Oneal )patient was in the office this morning and updated provider but he wants to speak with Dr. Goodman. Patient has been identified by name and birthdate. Duration of symptoms: N/A Person calling: caregiver: PCP Dr. Oneal Call patient at: n/a [phone] (home) [phone] (cell) Was an appointment scheduled: No Closing statement: Results or non-symptom based questions: Thank you for calling [facility], your call will be returned within the next business day. Camryn Mars documented in this encounter [facility] 10-24-2023 Telephone encounter Note Hi Dr. Goodman, Please see message below. Thank you, QUAN Sheikh, RN [facility] Work Phone: 10-24-[address] Oneal PCP is calling Elva Goodman MD today to request Patient Question (PCP wants to speak with Dr. Goodman please call [phone] to speak with provider directly. Dr. Oneal )patient was in the office this morning and updated provider but he wants to speak with Dr. Goodman. Patient has been identified by name and birthdate. Duration of symptoms: N/A Person calling: caregiver: PCP Dr. Oneal Call patient at: n/a [phone] (home) [phone] (cell) Was an appointment scheduled: No Closing statement: Results or non-symptom based questions: Thank you for calling [facility], your call will be returned within the next business day. Camryn Mars [facility] Work Phone: 10-22-2023 Telephone encounter Note Called patient back today and I actually did get to speak to her. I told her there is a spot in her thyroid. On the left side. She has an appointment with her primary care doctor coming up. She plans on seeing an certified hyperbaric technician. [facility] 10-22-2023 Miscellaneous Notes Called patient back today and I actually did get to speak to her. I told her there is a spot in her thyroid. On the left side. She has an appointment with her primary care doctor coming up. She plans on seeing an certified hyperbaric technician. documented in this encounter [facility] 10-18-2023 Telephone encounter Note Summary: CT CHEST results I Called her to give her the results of her October 04, [address] shows clearing of the right lower lobe infiltrate. But a new 6 mm nodule in the left lower lobe. This nodule was not present on Chest CT 06/28/2023. She will need a 1 year follow-up chest CT for surveillance of this new 6 mm left lower lobe nodule. ASSESSMENT/PLAN: 1. Solitary pulmonary nodule - ICD9: 793.11, ICD10: R91.1 - CT CHEST WO IVCIVAN Goodman MD After hanging up I forgot to let her know that her CAT scan also showed a spot in her thyroid which she will need to follow-up with her primary care doctor. I would anticipate her primary care doctor will refer her to a certified hyperbaric technician. [facility] 10-18-2023 Miscellaneous Notes Summary: CT CHEST results I Called her to give her the results of her October 04, [address] shows clearing of the right lower lobe infiltrate. But a new 6 mm nodule in the left lower lobe. This nodule was not present on Chest CT 06/28/2023. She will need a 1 year follow-up chest CT for surveillance of this new 6 mm left lower lobe nodule. ASSESSMENT/PLAN: 1. Solitary pulmonary nodule - ICD9: 793.11, ICD10: R91.1 - CT CHEST WO MONCHOIVAN Elva Goodman MD After hanging up I forgot to let her know that her CAT scan also showed a spot in her thyroid which she will need to follow-up with her primary care doctor. I would anticipate her primary care doctor will refer her to a certified hyperbaric technician. documented in this encounter [facility] 10-12-2023 Instructions Elva Goodman MD - 10/12/2023 9:28 AM EDT Please get your RSV vaccine and update your Tdap vaccine. documented in this encounter [facility] 10-12-2023 History of Presen t illness Narrative Chief complaint patient is Pulmonary Consult Patient Name: Maritza Linda DATE: 10/12/2023 Assessment such as PRIMARY CARE PHYSICIAN: Itz Price MD CHIEF COMPLAINT: Follow up for SOB, chronic cough HISTORY OF PRESENT ILLNESS: Maritza Linda is a 78 year old female, past medical history significant for seasonal allergies, asthma and scoliosis. Has a past medical history of having COVID 19 infection which required hospital admission in March 2020. June 2023 she came down with a cough, SOB, her Pox went as low as 88% on room air. Her PCP advised she go to the ER. She was admitted in June for 1 day to [facility] for pneumonia. She needed Oxygen for a couple of weeks following discharge. She was also DC'd w/ Symbicort inhaler 160mcg and atrovent nasal spray. She finished the Symbicort inhaler and was not Rx'd further inhalers. . ZEE 09/18/2023 Her CC was coughing episodes throughout the day. I ordered a chest CT to ensure clearing of previous pneumonia, PFTs exhaled nitric oxide, CBC and IgE. She is interested in get her lab testing done, but she did not get the Chest CT. CC today is ongoing cough. IIt is nonproductive cough. She denies any fevers chills or sweats. Sh marcia is wondering if her cough could be allergy related since when she was sitting on her porch last she started coughing. Last weekend [place] was [place] and she did not notice coughing when she was there. ASTHMA CONTROL TEST In the last 4 weeks, how much of the time did your asthma keep you from getting as much done at work or home that you wanted to do? None of the time (5) In the last 4 weeks, how often have you had shortness of breath? Not at all (5) In the last 4 weeks, how often did your asthma symptoms (wheezing, coughing, shortness of breath, chest tightness or pain) wake you up at night or earlier than usual? Once or twice (4) In the last 4 weeks, how often have you used your rescue inhaler or nebulizer medication (such as Albuterol, Proventil, Ventolin, Maxair, Xoponex, or Primatene Mist)? Not at all (5) In the last 4 weeks, how would you rate your asthma control? 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 ALLERGIES: ALLERGIES No Known Allergies CURRENT OUTPATIENT MEDICATIONS: amLODIPine (NORVASC) 10 mg tablet Take 10 mg by mouth once daily. Ipratropium [place] (ATROVENT) 21 mcg (0.03 %) nasal spray Use 2 Sprays in the nose every 12 hours. ascorbic acid-ascorbate sodium 500 mg chew Take by mouth. Cholecalciferol, Vitamin D3, (VITAMIN D-3) 25 mcg (1,000 unit) chew Take 25 tablets by mouth two times a day. budesonide-formoterol (SYMBICORT) 160-4.5 mcg/actuation inhaler Inhale 2 Puffs as instructed two times a day. timolol maleate/latanoprost/PF (TIMOLOL-LATANOPROST,PF,) 0.5-0.005 % drop Use 1 Drop in eyes once daily. REVIEW OF SYSTEMS: HEENT: Positive for postnasal drip RESPIRATORY: See HPI and ACT scores CONSTITUTIONAL: No acute distress. Denies F/C/S. Denies wt loss. CARDIOVASCULAR: Negative for chest pain, leg swelling or palpitations. GASTROINTESTINAL: Negative for abdominal discomfort, No blood in stools or black stools. Negative for GERD MUSCULOSKELETAL: Negative for joint pain or swelling, back pain or muscle pain. NEUROLOGIC:Negative for focal numbness or weakness, headaches and dizziness or syncope. SKIN:Negative for lesions, rash, and itching. PSYCHIATRIC: Negative for sleep disturbance, mood disorder and recent psychosocial stressors HEMATOLOGIC/LYMPHATIC/IMMUNOLOGI C:Negative for cold or heat intolerance, polyuria, polydipsia and goiter. The remainder of the ROS was negative. PHYSICAL EXAM: BP 132/78 Pulse 69 Temp (Src) 98.4 (Temporal) Resp 18 Ht 5' 2 (1.58m) Wt 181 lb (82.1kg) SpO2 99% BMI 33.10 kg/(m^2). General appearance: Well appearing, alert, in no acute distress, well-hydrated, well nourished. Ears: External ears normal, Nose/Sinuses: Nares normal. Septum midline. Mucosa normal. No drainage or sinus tenderness. Oropharynx: Lips, mucosa, and tongue normal, teeth and gums normal, oropharynx normal. No thrush. Mallampati score 2 Lungs: Lungs clear to auscultation. No wheezing, rhonchi, rales Abdomen; Obese, soft, NT, ND Heart: RRR without murmur, gallop, or rubs. No ectopy Extremities: Normal, Warm, No cyanosis, no clubbing, No edema, and Nontender Musculoskeletal: + Scoliosis DATA: Diagnostic tests reviewed for today's visit, films/specimens were personally reviewed by me: SERVICE DATE: 09/20/2023 SERVICE TIME: 8:59 AM Oral Exhaled Nitric Oxide measurement: 9.0 (ppb) June 07, 2020 PFTs FVC 1.88 L 70% FEV1 1.46 L 73% Ratio 78 No significant improvement post bronchodilators TLC 4.11 L 93% RV 124% RV/TLC 133% DLCO 12.7 61% DLCO/VA 136% Oct [address] CHEST WO IVCON Comparison: 06/28/2023 Lung parenchyma and airways: Interval clearing of consolidation from the right lower lobe. No acute consolidation. 6 mm left lower lobe nodule, 301:118, not clearly present on the prior study or a chest CT from 10/19/2020. Left base atelectasis/scar. The central airways are patent. Pleural space: No pleural effusion. No pleural thickening. Lower neck, lymph nodes, and mediastinum: Approximate 3 cm left thyroid nodule, appearing larger than the previous study from 2020. No lymphadenopathy in the supraclavicular, axillary, mediastinal, or hilar regions. October 19, 2020 CT chest without contrast Comparison: CT chest 06/14/2020 Impression: The previously seen groundglass opacities have resolved. There is no demonstrated pleural abnormality. There are calcifications of the coronary arteries. There are multiple small lymph nodes within the mediastinum, which are normal in size and morphology most compatible with reactive lymph node hyperplasia. Normal hilar regions. Normal unenhanced pulmonary arteries. June 28, 2023 CTA CHEST Seen for exam: 72-year-old female, SOB, hypoxia, normal CXR, recent COVID . Evaluate for PE Comparison: Comparison made with prior CT October 19, 2020 Findings: There are calcifications of coronary arteries. Pulmonary embolism. Normal visualized trachea and bronchi. There is consolidation in the right lower lobe with partial collapse. Normal pleura. July 05, 2023 6-minute walk test SpO2 94-95% on room air 07/01/2023 CXR 2 View Comparison: 06/27/2023 Impression: Mildly decreased right lower lobe pneumonia IMMUNIZATIONS: States she has had the pneumonia vaccine shingles vaccine. Not had the RSV vaccine. No follow-ups on file. ASSESSMENT AND PLAN: I discussed the plan in detail with the patient ASSESSMENT/PLAN: 1. Chronic cough - ICD9: 786.2, ICD10: R05.3 (primary diagnosis) -Suspect she has mild persistent asthma with the most prominent symptom being cough. Suspect triggered by environmental, outdoor allergies. -Will start her on ICS and montelukast. - ARNUITY ELLIPTA 200 MCG/ACTUATION POWDER FOR INHALATION - MONTELUKAST 10 MG TABLET 2. Persistent asthma without complication, unspecified asthma severity - ICD9: 493.90, ICD10: J45.909 - ARNUITY ELLIPTA 200 MCG/ACTUATION POWDER FOR INHALATION - MONTELUKAST 10 MG TABLET -Advised to get her RSV and Tdap vaccines updated 3. Allergic rhinitis, unspecified seasonality, unspecified trigger - ICD9: 477.9, ICD10: J30.9 -I told her she should get OTC nasal steroid spray like Flonase. Also consider starting OTC antihistamine. - MONTELUKAST 10 MG TABLET Elva Goodman MD I spent a total of 30 minutes on the date of the service which included preparing to see the patient, [id number] patient care, completing clinical documentation, obtaining and/or reviewing separately obtained history, performing a medically appropriate examination, counseling and educating the patient/family/caregiver, ordering medications, tests, or procedures, communicating with other HCPs (not separately reported), independently interpreting results (not separately reported), communicating results to the patient/family/caregiver, and care coordination (not separately reported). documented in this encounter [facility] 10-04-2023 Note HNO ID: [id number] Author: PATSY GOFF CT Service: Radiology Author Type: Technologist Type: Progress Notes Filed: 10/04/2023 13:11 Note Text: Radiology Service Progress Note PATIENT NAME: Maritza Linda DATE OF SERVICE: October 04, 2023 TIME: 1:10 PM PATIENT IDENTITY VERIFICATION COMPLETED USING TWO (2) IDENTIFIERS: Name and Date of confirmed by patient verbally and Name and Date of confirmed by identification band. FALL SCREENING: Has the patient had 2 falls in the last year or 1 fall with injury or currently using an Ambulatory Assistive Device (Walker, Cane, Wheelchair, Crutches, etc.)? No PATIENT GENDER DATA: Female. status: : No status: NO. PATIENT RELEVANT IMPLANT DATA REVIEWED: Not Applicable PATIENT PRESENTS WITH AN IMPLANTABLE OR ATTACHED DIPPER CLOCK AND WATCH HANDS: No RADIOLOGY DEPARTMENT: CT; Exam(s) Completed: Chest PERIPHERAL IV DATA: Not applicable SIGNED BY: MICHEL Armendariz October 04, 2023 1:10 PM [facility] 10-04-2023 History of Presen t illness Narrative Radiology Service Progress Note PATIENT NAME: Maritza Linda DATE OF SERVICE: October 04, 2023 TIME: 1:10 PM PATIENT IDENTITY VERIFICATION COMPLETED USING TWO (2) IDENTIFIERS: Name and Date of confirmed by patient verbally and Name and Date of confirmed by identification band. FALL SCREENING: Has the patient had 2 falls in the last year or 1 fall with injury or currently using an Ambulatory Assistive Device (Walker, Cane, Wheelchair, Crutches, etc.)? No PATIENT GENDER DATA: Female. status: : No status: NO. PATIENT RELEVANT IMPLANT DATA REVIEWED: Not Applicable PATIENT PRESENTS WITH AN IMPLANTABLE OR ATTACHED DIPPER CLOCK AND WATCH HANDS: No RADIOLOGY DEPARTMENT: CT; Exam(s) Completed: Chest PERIPHERAL IV DATA: Not applicable SIGNED BY: MICHEL Armendariz October 04, 2023 1:10 PM documented in this encounter [facility] 09-20-2023 Procedure note Associated Ord er(s): NITRIC OXIDE, EXHALED RESPIRATORY THERAPY ORAL EXHALED NITRIC OXIDE SERVICE DATE: 09/20/2023 SERVICE TIME: 8:59 AM Oral Exhaled Nitric Oxide measurement: 9.0 (ppb) Normal: Adult 5-20 ppb, pediatric (<12 years) 5-15 ppb High Normal / Increased: Adult 20-35 ppb, pediatric (<12 years) 15-25 ppb Moderately raised exhaled Nitric Oxide may indicate underlying inflammation, but note that: Cold and influenza can raise exhaled Nitric Oxide and some patients have higher baseline exhaled Nitric Oxide levels than others. High: Adult >35 ppb, pediatric (<12 years) >25 ppb Indicative of ongoing eosinophilic inflammation. Symptomatic patient likely to respond to steroids. Possible causes (if already on steroids): Poor compliance, recent allergen exposure, steroid dose inadequate, and steroid resistance. Note that not all patients with high exhaled nitric oxide levels display symptoms. Oral Exhaled Nitric Oxide measurement (Previous Encounters) Test Date Oral Exhaled Nitric Oxide (ppb) 09/20/2023 9.0 NAME: URIAH Horton PATIENT NAME: Maritza Linda DATE: September 20, 2023 TIME: 8:59 AM [facility] 09-20-2023 Procedure note Associated Ord er(s): NITRIC OXIDE, EXHALED RESPIRATORY THERAPY ORAL EXHALED NITRIC OXIDE SERVICE DATE: 09/20/2023 SERVICE TIME: 8:59 AM Oral Exhaled Nitric Oxide measurement: 9.0 (ppb) Normal: Adult 5-20 ppb, pediatric (<12 years) 5-15 ppb High Normal / Increased: Adult 20-35 ppb, pediatric (<12 years) 15-25 ppb Moderately raised exhaled Nitric Oxide may indicate underlying inflammation, but note that: Cold and influenza can raise exhaled Nitric Oxide and some patients have higher baseline exhaled Nitric Oxide levels than others. High: Adult >35 ppb, pediatric (<12 years) >25 ppb Indicative of ongoing eosinophilic inflammation. Symptomatic patient likely to respond to steroids. Possible causes (if already on steroids): Poor compliance, recent allergen exposure, steroid dose inadequate, and steroid resistance. Note that not all patients with high exhaled nitric oxide levels display symptoms. Oral Exhaled Nitric Oxide measurement (Previous Encounters) Test Date Oral Exhaled Nitric Oxide (ppb) 09/20/2023 9.0 NAME: URIAH Horton PATIENT NAME: Maritza Linda DATE: September 20, 2023 TIME: 8:59 AM documented in this encounter [facility] 09-20-2023 History of Presen t illness Narrative PULM FUNCTION SMARTBLOCK: Provider: Elva Goodman MD Assisting Tech: Roderick Campbell RPFT Exhaled Nitric Oxide: 1 documented in this encounter [facility] 09-18-2023 History of Presen t illness Narrative Summary: Consult for chronic cough Images from the original note were not included. Pulmonary Consult Patient Name: Maritza Linda DATE: 09/18/2023 PRIMARY CARE PHYSICIAN: Itz Price MD REASON FOR CONSULT: Chronic cough REQUESTING PHYSICIAN: Itz Price MD My final recommendations will be communicated to the requesting health care provider by way of the shared medical record for internal providers or letter via the [employer] for external providers. CHIEF COMPLAINT: SOB, chronic cough HISTORY OF PRESENT ILLNESS: Maritza Linda is a 78 year old female, past medical history significant for seasonal allergies, asthma and scoliosis. Has a past medical history of having COVID 19 infection which required hospital admission in March 2020. This past June she came down with a cough, SOB, her Pox went as low as 88% on room air. Her PCP advised she go to the ER. She was admitted in June for 1 day to [facility] for pneumonia. She needed Oxygen for a couple of weeks following discharge She was also DC'd w/ Symbicort inhaler 160mcg and atrovent nasal spray. She finished the Symbicort inhaler and was not Rx'd further inhalers. She still had the chronic cough while on the symbicort. The cough is typically unproductive. CC today is: Intermittent coughing spells. Coughs more in the winter. Not ALL the time but it is daily especially in the winter. She says she's been doing this for 10 years, but COVID made it worse. She saw 2 separate associate field service engineer in [place]. They did a full work up. See results pasted below. ASTHMA CONTROL TEST In the last 4 weeks, how much of the time did your asthma keep you from getting as much done at work or home that you wanted to do? None of the time (5) In the last 4 weeks, how often have you had shortness of breath? Not at all (5) In the last 4 weeks, how often did your asthma symptoms (wheezing, coughing, shortness of breath, chest tightness or pain) wake you up at night or earlier than usual? Not at all (5) In the last 4 weeks, how often have you used your rescue inhaler or nebulizer medication (such as Albuterol, Proventil, Ventolin, Maxair, Xoponex, or Primatene Mist)? Not at all (5) In the last 4 weeks, how would you rate your asthma control? 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 No pets. ALLERGIES: ALLERGIES No Known Allergies CURRENT OUTPATIENT MEDICATIONS: amLODIPine (NORVASC) 10 mg tablet Take 10 mg by mouth once daily. Ipratropium [place] (ATROVENT) 21 mcg (0.03 %) nasal spray Use 2 Sprays in the nose every 12 hours. budesonide-formoterol (SYMBICORT) 160-4.5 mcg/actuation inhaler Inhale 2 Puffs as instructed two times a day. ascorbic acid-ascorbate sodium 500 mg chew Take by mouth. Cholecalciferol, Vitamin D3, (VITAMIN D-3) 25 mcg (1,000 unit) chew Take 25 tablets by mouth two times a day. timolol maleate/latanoprost/PF (TIMOLOL-LATANOPROST,PF,) 0.5-0.005 % drop Use 1 Drop in eyes once daily. REVIEW OF SYSTEMS: HEENT: negative for post nasal drip. RESPIRATORY: See HPI and ACT scores CONSTITUTIONAL: No acute distress. Denies F/C/S. Denies wt loss. CARDIOVASCULAR: Negative for chest pain, leg swelling or palpitations. GASTROINTESTINAL: Negative for abdominal discomfort, No blood in stools or black stools. Negative for GERD MUSCULOSKELETAL: Negative for joint pain or swelling, back pain or muscle pain. NEUROLOGIC:Negative for focal numbness or weakness, headaches and dizziness or syncope. SKIN:Negative for lesions, rash, and itching. PSYCHIATRIC: Negative for sleep disturbance, mood disorder and recent psychosocial stressors HEMATOLOGIC/LYMPHATIC/IMMUNOLOGI C:Negative for cold or heat intolerance, polyuria, polydipsia and goiter. The remainder of the ROS was negative. PHYSICAL EXAM: BP 164/75 Pulse 62 Temp (Src) 98 (Temporal) Resp 18 Ht 5' 2 (1.58m) Wt 182 lb (82.6kg) SpO2 98% BMI 33.28 kg/(m^2). General appearance: Well appearing, alert, in no acute distress, well-hydrated, well nourished. Ears: External ears normal, Nose/Sinuses: Nares normal. Septum midline. Mucosa normal. No drainage or sinus tenderness. Oropharynx: Lips, mucosa, and tongue normal, teeth and gums normal, oropharynx normal. No thrush. Mallampati score 2 Lungs: Lungs clear to auscultation. No wheezing, rhonchi, rales Abdomen; Obese, soft, NT, ND Heart: RRR without murmur, gallop, or rubs. No ectopy Extremities: Normal, Warm, No cyanosis, no clubbing, No edema, and Nontender Musculoskeletal: + Scoliosis DATA: Diagnostic tests reviewed for today's visit, films/specimens were personally reviewed by me: June 07, 2020 PFTs FVC 1.88 L 70% FEV1 1.46 L 73% Ratio 78 No significant improvement post bronchodilators TLC 4.11 L 93% RV 124% RV/TLC 133% DLCO 12.7 61% DLCO/VA 136% October 19, 2020 CT chest without contrast Comparison: CT chest 06/14/2020 Impression: The previously seen groundglass opacities have resolved. There is no demonstrated pleural abnormality. There are calcifications of the coronary arteries. There are multiple small lymph nodes within the mediastinum, which are normal in size and morphology most compatible with reactive lymph node hyperplasia. Normal hilar regions. Normal unenhanced pulmonary arteries. June 28, 2023 CTA CHEST Seen for exam: 72-year-old female, SOB, hypoxia, normal CXR, recent COVID . Evaluate for PE Comparison: Comparison made with prior CT October 19, 2020 Findings: There are calcifications of coronary arteries. Pulmonary embolism. Normal visualized trachea and bronchi. There is consolidation in the right lower lobe with partial collapse. Normal pleura. July 05, 2023 6-minute walk test SpO2 94-95% on room air 07/01/2023 CXR 2 View Comparison: 06/27/2023 Impression: Mildly decreased right lower lobe pneumonia STOP BANG Questionnaire 1. Snoring Do you snore loudly (louder than talking or loud enough to be heard through closed doors)? Sometimes 2. Tired Do you often feel tired, fatigued, or sleepy during daytime? YES 3. Observed Has anyone observed you stop breathing during your sleep? NO 4. Blood Pressure Do you have or are you being treated for high blood pressure? YES 5. BMI BMI more than 35 kg/m2? NO 6. Age Age over 50 yr old? YES 7. Neck circumference Neck circumference greater than 40 cm? NO 8. Gender Gender male? NO * Neck circumference is measured by staff High risk of WILSON: answering yes to three or more items Low risk of WILSON: answering yes to less than three items IMMUNIZATIONS: No follow-ups on file. ASSESSMENT AND PLAN: I discussed the plan in detail with the patient ASSESSMENT/PLAN: 1. Chronic cough - ICD9: 786.2, ICD10: R05.3 (primary diagnosis) - She's had a persistent cough for years, so I am less inclined that I will get this resolved but will get the following testing and reassess. - IPRATROPIUM BROMIDE 21 MCG (0.03 %) NASAL SPRAY - NITRIC OXIDE, EXHALED - COMPLETE BLOOD COUNT AND DIFFERENTIAL - IMMUNOGLOBULIN E - CT CHEST WO IVCON 2. Persistent asthma without complication, unspecified asthma severity - ICD9: 493.90, ICD10: J45.909 - NITRIC OXIDE, EXHALED - COMPLETE BLOOD COUNT AND DIFFERENTIAL - IMMUNOGLOBULIN E - Not entirely convinced she has asthma she does not feel worse off of the Symbicort inhaler. Will reassess on next visit after looking at these results. 3. Pneumonia of right lower lobe due to infectious organism - ICD9: 486, ICD10: J18.9 - Will repeat Chest CT to make sure RLL pneumonia, consolidation is resolved. I have asked our radiology file room to get previous CAT images from [facility] for comparison. If not resolved she will need a bronchoscopy. - CT CHEST WO IVCON 4. Scoliosis of cervical spine, unspecified scoliosis type - ICD9: 737.30, ICD10: M41.9 - Fortunately it has not resulted in reduced TLC. Elva Goodman MD I spent a total of 60 minutes on the date of the service which included preparing to see the patient, [id number] patient care, completing clinical documentation, obtaining and/or reviewing separately obtained history, performing a medically appropriate examination, counseling and educating the patient/family/caregiver, ordering medications, tests, or procedures, communicating with other HCPs (not separately reported), independently interpreting results (not separately reported), communicating results to the patient/family/caregiver, and care coordination (not separately reported). documented in this encounter [facility] 09-18-2023 Instructions Elva Goodman MD - 09/18/2023 1:41 PM EDT How to Use a Metered Dose Inhaler Inhaled medications are often taken by using a device called a metered dose inhaler, or MDI. An MDI is an aerosol canister filled with medicine. It is in a plastic jama with a mouthpiece. There are two methods for using an MDI. In many cases, the preferred method is with a device called a valved holding chamber (figure 1). These devices attach to the MDI and hold the spray of medication. They make it easier to use the MDI and help get the medication into the lungs better. An MDI can also be used without a chamber (figure 2). These methods are described below. Your health director of primary care will decide which method is best for you. Priming: Priming (spraying one or more puffs into the air before use) makes sure that the inhaler is ready to use and will deliver the correct dose of medication. Priming may be different for each medication, so it is important to read the patient instructions that come with your inhaler. Using an MDI with a valved holding chamber (figure 1) Remove the cap from the MDI and chamber. Shake well for 5 seconds. Insert the MDI into the open end of the chamber (opposite the mouthpiece). Breathe out all the way. Keep your chin up. Place the mouthpiece of the chamber between your teeth and seal your lips tightly around it. Press the canister once. Breathe in slowly through your mouth to completely fill your lungs. If you hear a horn-like sound, you are breathing too quickly and need to slow down. Hold your breath for 10 seconds (count to 10 slowly) to allow the medication to reach the airways of the lung. Repeat steps 2-8 for each puff ordered by your doctor. Wait about 1 minute in between puffs. Replace the cap on your MDI when finished. If you are using a corticosteroid MDI, rinse your mouth and gargle using water or mouthwash after each use. You should always use a chamber with a steroid MDI. Using an MDI without a chamber (figure 2) Remove the cap from the MDI and shake well for [address] seconds[address]reathe out all the way. Keep your chin up. Place the mouthpiece of the inhaler between your teeth and seal your lips tightly around it. As you start to breathe in slowly, press down on the canister one time. Keep breathing in slowly to completely fill your lungs. (It should take about 5 to 7 seconds for you to completely breathe in.) Hold your breath for 10 seconds (count to 10 slowly) to allow the medication to reach the airways of the lung. Repeat the above steps for each puff ordered by your doctor. Wait about 1 minute between puffs. Replace the cap on the MDI when finished. If you are using a corticosteroid MDI, you should use a valved holding chamber as described above. Caring for your MDI and chamber For some MDIs, you can remove the canister and rinse the plastic jama with warm running water once a week to prevent the holes from getting clogged. Shake well and air dry completely. There are other medications in which the inhaler cannot be removed from the jama. These usually need to be cleaned by wiping the mouthpiece with a cloth or cleaning with a dry cotton swab. Refer to the patient instructions that come with your inhaler. Clean the chamber about once a week. Remove the soft ring at the end of the chamber. Soak both the chamber and soft ring in warm water with a mild detergent. Carefully clean, rinse in clear water, and shake well. Allow to air dry completely. Checking your MDI It is important that you know how much medication is left in your inhaler. Most inhalers have counting devices built in. Remember to watch the counter and replace the inhaler when the counter is on zero. There are a few inhalers that do not have a built-in counter. For these, you must keep track of how many puffs you have used, including priming puffs. The number of puffs contained in your MDI is printed on the side of the canister. If you use an MDI every day for control of symptoms, you can find out how long it will last by dividing the total number of puffs in the inhaler by the total puffs you use every day. For example: 2 puffs x 2 times per day = 4 total puffs per day. If there are 120 puffs, the MDI will last 30 days. If you use an inhaler only when needed, keep track of how many times you spray the inhaler. For convenience, there are counting devices that attach to the inhaler that will keep track of how often your inhaler is sprayed. If you are interested, ask your health director of primary care for more information about these devices, or how to best keep track of your medicine without an add-on device (if you prefer). References National Lung Health Education Program. Metered-Dose Inhalers (MDIs) Accessed 06/01/2014. [employer]. Inhaled Asthma Medications: Tips to Remember Accessed 06/01/2014. [employer]. Patient Education Guides. Using Your MDI: Closed- Mouth Technique Accessed 06/01/2014. [employer]. Patient Education Guides. Using Your MDI With a Spacer Accessed 06/01/2014. [employer]. Patient Education Guides. Using Your MDI With a Spacer and Mask - Pediatric Accessed 06/01/2014. Copyright 8325-8183 [facility]. All rights reserved This information is provided by the [facility] and is not intended to replace the medical advice of your doctor or health care provider. Please consult your health care provider for advice about a specific medical condition. For additional health information, please contact the [facility] Information at the [facility] or toll-free extension [phone]. If you prefer, you may visit [email or web address] or [email or web address]. This document was last reviewed on: 2014 i How to Use a Metered Dose Inhaler Inhaled medications are often taken by using a device called a metered dose inhaler, or MDI. An MDI is an aerosol canister filled with medicine. It is in a plastic jama with a mouthpiece. There are two methods for using an MDI. In many cases, the preferred method is with a device called a valved holding chamber (figure 1). These devices attach to the MDI and hold the spray of medication. They make it easier to use the MDI and help get the medication into the lungs better. An MDI can also be used without a chamber (figure 2). These methods are described below. Your health director of primary care will decide which method is best for you. Priming: Priming (spraying one or more puffs into the air before use) makes sure that the inhaler is ready to use and will deliver the correct dose of medication. Priming may be different for each medication, so it is important to read the patient instructions that come with your inhaler. Using an MDI with a valved holding chamber (figure 1) Remove the cap from the MDI and chamber. Shake well for 5 seconds. Insert the MDI into the open end of the chamber (opposite the mouthpiece). Breathe out all the way. Keep your chin up. Place the mouthpiece of the chamber between your teeth and seal your lips tightly around it. Press the canister once. Breathe in slowly through your mouth to completely fill your lungs. If you hear a horn-like sound, you are breathing too quickly and need to slow down. Hold your breath for 10 seconds (count to 10 slowly) to allow the medication to reach the airways of the lung. Repeat steps 2-8 for each puff ordered by your doctor. Wait about 1 minute in between puffs. Replace the cap on your MDI when finished. If you are using a corticosteroid MDI, rinse your mouth and gargle using water or mouthwash after each use. You should always use a chamber with a steroid MDI. Using an MDI without a chamber (figure 2) Remove the cap from the MDI and shake well for [address] seconds[address]reathe out all the way. Keep your chin up. Place the mouthpiece of the inhaler between your teeth and seal your lips tightly around it. As you start to breathe in slowly, press down on the canister one time. Keep breathing in slowly to completely fill your lungs. (It should take about 5 to 7 seconds for you to completely breathe in.) Hold your breath for 10 seconds (count to 10 slowly) to allow the medication to reach the airways of the lung. Repeat the above steps for each puff ordered by your doctor. Wait about 1 minute between puffs. Replace the cap on the MDI when finished. If you are using a corticosteroid MDI, you should use a valved holding chamber as described above. Caring for your MDI and chamber For some MDIs, you can remove the canister and rinse the plastic jama with warm running water once a week to prevent the holes from getting clogged. Shake well and air dry completely. There are other medications in which the inhaler cannot be removed from the jama. These usually need to be cleaned by wiping the mouthpiece with a cloth or cleaning with a dry cotton swab. Refer to the patient instructions that come with your inhaler. Clean the chamber about once a week. Remove the soft ring at the end of the chamber. Soak both the chamber and soft ring in warm water with a mild detergent. Carefully clean, rinse in clear water, and shake well. Allow to air dry completely. Checking your MDI It is important that you know how much medication is left in your inhaler. Most inhalers have counting devices built in. Remember to watch the counter and replace the inhaler when the counter is on zero. There are a few inhalers that do not have a built-in counter. For these, you must keep track of how many puffs you have used, including priming puffs. The number of puffs contained in your MDI is printed on the side of the canister. If you use an MDI every day for control of symptoms, you can find out how long it will last by dividing the total number of puffs in the inhaler by the total puffs you use every day. For example: 2 puffs x 2 times per day = 4 total puffs per day. If there are 120 puffs, the MDI will last 30 days. If you use an inhaler only when needed, keep track of how many times you spray the inhaler. For convenience, there are counting devices that attach to the inhaler that will keep track of how often your inhaler is sprayed. If you are interested, ask your health director of primary care for more information about these devices, or how to best keep track of your medicine without an add-on device (if you prefer). References National Lung Health Education Program. Metered-Dose Inhalers (MDIs) Accessed 06/01/2014. [place]. Inhaled Asthma Medications: Tips to Remember Accessed 06/01/2014. [employer]. Patient Education Guides. Using Your MDI: Closed- Mouth Technique Accessed 06/01/2014. [employer]. Patient Education Guides. Using Your MDI With a Spacer Accessed 06/01/2014. [employer]. Patient Education Guides. Using Your MDI With a Spacer and Mask - Pediatric Accessed 06/01/2014. Copyright 0573-5574 [facility]. All rights reserved This information is provided by the [facility] and is not intended to replace the medical advice of your doctor or health care provider. Please consult your health care provider for advice about a specific medical condition. For additional health information, please contact the [facility] Information at the [facility] or toll-free extension [phone]. If you prefer, you may visit [email or web address] or [email or web address]. This document was last reviewed on: 2014 index#[id number] documented in this encounter [facility] Evaluation note No assessment inform ation available [facility] Work Phone: Evaluation note Diagnosis Onset Date Hypoxemia acute Pneumonia acute [facility] Work Phone: Evaluation note* Diagnosis Onset Date Resolution Status Hypoxemia acute Pneumonia acute Scoliosis chronic [facility] Work Phone: Evaluation note* Diagnosis Chronic cough- Primary Cough Persistent asthma without complication, unspecified asthma severity Pneumonia of right lower lobe due to infectious organism Scoliosis of cervical spine, unspecified scoliosis type Moderate persistent asthma, unspecified whether complicated [facility] Diagnosis Chronic cough Cough Persistent asthma without complication, unspecified asthma severity [facility] Diagnosis Chronic cough Cough Pneumonia of right lower lobe due to infectious organism [facility] Diagnosis Chronic cough- Primary Cough Persistent asthma without complication, unspecified asthma severity Allergic rhinitis, unspecified seasonality, unspecified trigger [facility] Diagnosis Solitary pulmonary nodule- Primary [facility] Diagnosis Persistent asthma without complication, unspecified asthma severity- Primary Chronic cough Cough Allergic rhinitis, unspecified seasonality, unspecified trigger [facility] Diagnosis Chronic cough- Primary Cough Dysphonia Solitary pulmonary nodule- Primary [facility] Diagnosis Chronic cough- Primary Cough Dysphonia * Assessment & Plan Note - Maynor Garay DO - 04/13/2024 1:13 PM EST Associated Problem(s): Chronic cough Hx notable for: - dry coughing episodes x >5 years triggered by cold air/drinks - hospital admissions for hypoxemia in the setting of COVID pneumonia Mar 2020, bacterial pneumoniac/b PE and partial right lung collapse in Jun 2023 - historical findings of GGO s/p COVID now resolved - most recent CT September 2023 with incidental 6-8 mm nodule left lung and dominant left thyroid nodule - current relevant meds: Breztri, Singulair, Timolol/Latanoprost eye drops She was referred for evaluation of allergic contribution to asthma, however had fairly recent serumallergy testing that was wholly unremarkably to panel of perennial and seasonal aeroallergens. I offered to repeat with skin testing today, but together we decided this would be unlikely to reveal any new clinically relevant sensitivities particularly in the absence of classic symptoms of allergic rhinoconjunctivitis. 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 Discussed pathophysiology and potential trial of a neuromodulator like Gabapentin or Amytryptiline in the future. Of note, glaucoma medications including timolol/latanoprost can contribute tohypersensitivity of the cough receptors and bronchonstriction via nonselective beta blockade araseli pas lynn through lacrimal ducts to the nasopharynx. The medication long preceded the chronic cough symptoms, however patient will reach out to her prescribing dairy bar manager to discuss other options. She will also empirically trial speech therapy for dysphonia, which may or may not be related. She plans to reach out to me in 2 months to follow up. In the meantime, currently being treated for presumed persistent asthma and should continue currentregimen per pulmonology. The spirometry I have access to does not shows irreversible obstruction - I would consider methacholine challenge to clarify this diagnosis Would also check sputum for consideration of Nonasthmatic eosinophilic bronchitis [facility] Diagnosis Chronic cough- Primary Cough Dysphonia Moderate persistent asthma without complication- Primary Unspecified asthma Chronic cough Cough Lung nodule Solitary pulmonary nodule PND (post-nasal drip) Postnasal drip Gastroesophageal reflux disease, unspecified whether esophagitis present Change in voice Other voice and resonance disorders [facility] Chronic cough- Primary Cough Dysphonia Moderate persistent asthma without complication Unspecified asthma Chronic cough Cough [facility] Diagnosis Chronic cough- Primary Cough Dysphonia Moderate persistent asthma without complication Unspecified asthma Chronic cough Cough [facility] Diagnosis Chronic cough- Primary Cough Dysphonia Chronic cough- Primary Cough Dysphonia Bilateral impacted cerumen Impacted cerumen [facility] Diagnosis Chronic cough- Primary Cough Dysphonia Persistent asthma without complication, unspecified asthma severity- Primary Chronic cough Cough Allergic rhinitis due to dust mite Lung nodule Solitary pulmonary nodule [facility] Diagnosis Chronic cough- Primary Cough Dysphonia Chronic cough Cough Gastroesophageal reflux disease, unspecified whether esophagitis present [facility] Diagnosis Chronic cough- Primary Cough Dysphonia Chronic cough Cough Persistent asthma without complication, unspecified asthma severity (HCC) Allergic rhinitis, unspecified seasonality, unspecified trigger documented in this encounter [facility] note* Diagnosis Chronic cough- Primary Cough Dysphonia Persistent asthma without complication, unspecified asthma severity (HCC)- Primary Chronic cough Cough Lung nodule Solitary pulmonary nodule documented in this encounter [facility] note* Diagnosis Chronic cough- Primary Cough Dysphonia Chronic cough Cough Gastroesophageal reflux disease, unspecified whether esophagitis present documented in this encounter [facility] Discharge instructions Additional Instructions Prednisone 40 mg a day for the next 7 days. Hycodan cough syrup to help with the cough. Do not drive with it. It does have codeine in it. Nebulizer with albuterol. As needed. Follow-up with your doctor to ensure you are improving. Plenty of fluids and rest. Finish your antibiotic prescription of Levaquin. [facility] Work Phone: Reason for referral (narrative)* Outpatient Procedure (Routine) - Authorized Specialty Diagnoses / Procedures Referred By Kvng kang [facility] Diagnoses Moderate persistent asthma without complication Chronic cough Procedures NITRIC OXIDE, EXHALED NITRIC OXIDE GAS DETERMINATION Denia Nicholas APRN.CNP [address] [place] [address] [address] Referral ID Status Reason Start Date Expiration Date Visits Requested Visits Authorized [id number] Authorized Auto-Generat ed Referral 4 06/01/2025 1 1 * Outpatient Procedure (Routine) - Authorized Specialty Diagnoses / Procedures Referred By Kvng kang Referred [facility] Diagnoses Moderate persistent asthma without complication Chronic cough Procedures LUNG VOLUMES PLETHYSMOGRAPHY LUNG VOLUMES W/WO AIRWAY RESIST Denia Nicholas APRN.CNP [address] [place] [address] [address] Referral ID Status Reason Start Date Expiration Date Visits Requested Visits Authorized [id number] Authorized Auto-Generat ed Referral 4 05/20/2024 1 1 * Outpatient Procedure (Routine) - Authorized Specialty Diagnoses / Procedures Referred By Contac t Referred To Contact [facility] Diagnoses Moderate persistent asthma without complication Chronic cough Procedures LUNG DIFFUSION CAPACITY (DLCO) DIFFUSING CAPACITY Denia Nicholas APRN.BUILDING CONSTRUCTION FOREMAN [address] [place] [address] [place] [address] Referral ID Status Reason Start Date Expiration Date Visits Requested Visits Authorized [id number] Authorized Auto-Generat ed Referral 4 06/01/2025 1 1 * Outpatient Procedure (Routine) - Authorized Specialty Diagnoses / Procedures Referred By Contac t Referred To Contact [facility] Diagnoses Moderate persistent asthma without complication Chronic cough Procedures SPIROMETRY - BASELINE AND POST DILATOR BRNCDILAT RSPSE SPMTRY PRE&POST-BRNCDILAT ADMN Denia Nicholas APRN.BUILDING CONSTRUCTION FOREMAN [address] [place] [address] [place] [address] Referral ID Status Reason Start Date Expiration Date Visits Requested Visits Authorized [id number] Authorized Auto-Generat ed Referral 4 06/01/2025 1 1 * Consult, Test, Treat (Routine) - Authorized Specialty Diagnoses / Procedures Referred By Contac t Referred To Contact Ent - Otolaryngology Diagnoses Chronic cough Change in voice Procedures CONSULT TO ENT OFFICE/OUTPATIENT NEW HIGH MDM 60 MINUTES Denia Nicholas APRN.BUILDING [employer]STRUCTION FOREMAN [address] [place] [address] Referral ID Status Reason Start Date Expiration Date Visits Requested Visits Authorized [id number] Authorized PCP Requested Referral 4 05/02/2025 1 1 [facility]No reason for referral information availableWParkview Health Work Phone: Family History Relationship Condition Age at Onset Recorded Date/T glenis sister Malignant neoplasm of breast Unknown Hypertension Unknown brother Allergy Unknown Disorder of thyroid Unknown father Sudden cardiac 51 Advance Directives Advance Directive Response Recorded Date/ Time Living Will No May 15 11:19am Power of Patient Registrar No May 15, 2021 11:19am Advance Directive Response Recorded Date/ Time Living Will No May 15 10:19am Power of Patient Registrar No May 15, 2021 10:19am Advance Directive Response Recorded Date/ Time Name of Medical Power of Patient Registrar roxana (), dyan (daughter) July 01, 2023 9:09am Living Will Yes July 01 9:09am Power of Patient Registrar Yes July 01, 2023 9:09am Name of Medical Power of Patient Registrar Roxana () June 28, 2023 10:58am Advance Directive Response Recorded Date/ Time Name of Medical Power of Patient Registrar roxana (), dyan (daughter) July 01, 2023 10:09am Living Will Yes July 01 10:09am Power of Patient Registrar Yes July 01, 2023 10:09am Name of Medical Power of Patient Registrar Roxana () June 28, 2023 11:58am Chief Complaint and Reason for Visit Chief Complaint SCREENING Chief Complaint UTI Chief Complaint UTI OSTEO Chief Complaint OSTEO XRAY CAP WITH HYPOXIA Reason for Visit Hypoxemia Pneumonia Chief Complaint OSTEO XRAY CAP WITH HYPOXIA CAP WITH HYPOXIA CAP WITH HYPOXIA sob Reason for Visit Hypoxemia Pneumonia Scoliosis Chief Complaint OSTEO XRAY CAP WITH HYPOXIA CAP WITH HYPOXIA CAP WITH HYPOXIA sob Routine mammogram Reason for Visit Hypoxemia Pneumonia Chief Complaint Admit Date Venous insufficiency (chronic) (peripher al) October 03, 2024 8:57am Chief Complaint Admit Date Venous insufficiency (chronic) (peripher al) October 03, 2024 8:57am Other hereditary and idiopathic neuropat hies October 08, 2024 7:00am Other hereditary and idiopathic neuropat hies October 08, 2024 9:57am Chief Complaint Admit Date Venous insufficiency (chronic) (peripher al) October 03, 2024 8:57am Other hereditary and idiopathic neuropat hies October 08, 2024 7:00am Other hereditary and idiopathic neuropat hies October 08, 2024 9:57am L THYROID NODULE FU, INITIALLY SEEN ON C T AT [facility] November 17, 2024 4:15pm Reason for Referral Specialty Diagnoses / Procedures Referred By Contac t Referred To Contact CT IMAGING Diagnoses Chronic cough Pneumonia of right lower lobe due to infectious organism Procedures CT CHEST WO IVCON DIAGNOSTIC COMPUTED TOMOGRAPHY THORAX W/O Elva Almaguer MD [address] [place] [id number] [id number] Referral ID Status Reason Start Date Expiration Date Visits Requested Visits Authorized [id number] Pending Review Auto-Generat ed Referral 09/18/2023 10/17/2024 1 1 Specialty Diagnoses / Procedures Referred By Contac t Referred To Contact [facility] Diagnoses Chronic cough Persistent asthma without complication, unspecified asthma severity Procedures NITRIC OXIDE, EXHALED NITRIC OXIDE GAS DETERMINATION Elva Goodman MD [address] [place] [address] [address] [place] [address] [place], [place] [id number] Referral ID Status Reason Start Date Expiration Date Visits Requested Visits Authorized [id number] Pending Review Auto-Generat ed Referral 09/18/2023 10/17/2024 1 1 Specialty Diagnoses / Procedures Referred By Contac t Referred To Contact CT IMAGING Diagnoses Solitary pulmonary nodule Procedures CT CHEST WO IVCON DIAGNOSTIC COMPUTED TOMOGRAPHY THORAX W/O Elva Almaguer MD [address] [place] [address] [address] [facility] Referral ID Status Reason Start Date Expiration Date Visits Requested Visits Authorized [id number] Pending Review Auto-Generat ed Referral 10/17/2024 11/16/2024 1 1 Specialty Diagnoses / Procedures Referred By Contac t Referred To Contact Allergy Diagnoses Persistent asthma without complication, unspecified asthma severity Allergic rhinitis, unspecified seasonality, unspecified trigger Procedures CONSULT TO ALLERGY/IMMUNOLOGY OFFICE/OUTPATIENT NEW HIGH MDM 60 MINUTES Elva Goodman MD [address] [place], [place] [id number] Referral ID Status Reason Start Date Expiration Date Visits Requested Visits Authorized [id number] Authorized PCP Requested Referral 4 04/01/2025 1 1 Referral ID Status Reason Start Date Expiration Date Visits Requested Visits Authorized [id number] New Request Auto-Generat ed Referral 10/08/2024 05/10/2025 1 1 Summary Purpose Additional Source Comments Goals (unrecognized section and content) Goals may be documented in a n alternate sectionGoals may be documented in an alternate sectionGoals may be documented in an alternate sectionGoals may be documented in an alternate sectionGoals may be documented in an alternate sectionGoals may be documented in an alternate sectionGoals may be documented in an alternate sectionGoals may be documented in an alternate sectionGoals may be documented in an alternate sectionGoals may be documented in an alternate sectionGoals may be documented in an alternate section Care Teams (unrecognized sec tion and content) Team Status: Active Member Role Status Dates Dr. Marquis Oneal MD Family Provider Active Dr. Marquis Oneal MD Primary Care Provider Activ e Team Status: Inactive Member Role Status Dates Dr. Marquis Oneal MD Primary Care Provider, Atte nding Provider Active Team Status: Inactive Member Role Status Dates Dr. Marquis Oneal MD Primary Care Provider, Attending Provider, Referring Provider Active Team Status: Inactive Member Role Status Dates Dr. Marquis Oneal MD Primary Care Provider Activ e Riya Telles MD Attending Provider, Referring Provide r Active Team Status: Active Member Role Status Dates Dr. Marquis Oneal MD Primary Care Provider, Atte nding Provider Active Team Status: Inactive Member Role Status Dates Dr. Marquis Oneal MD Primary Care Provider Activ e Dr. Brock Valderrama MD Attending Provider Active Team Status: Active Member Role Status Dates Dr. Marquis Oneal MD Primary Care Provider Activ e Dr. Jake Carmona MD Emergency Provider Active Dr. Thomas Champagne DO Admit Provider, Attending Provider Active Team Status: Active Member Role Status Dates Dr. Marquis Oneal MD Primary Care Provider Activ e Dr. Jake Carmona MD Emergency Provider Active Dr. Thomas Champagne , DO Admit Provider, Other Pro vider Active Dr. Charli Gonzalez MD Other Provider Active Dr. Shawn Osorio MD Other Provider Active Dr. Cecilio Miranda DO Attending Provider, Other Provide r Active Dr. Sj Patel MD Other Provider Active Dr. Antonieta Lester MD Other Provider Active Dr. Eran Blancas MD Other Provider Active Dr. Lula Malcolm MD Other Provider Active Dr. Susie Steel MD Other Provider Active Dr. Gallo Hays MD Other Provider Active Dr. Montrell Heredia MD Other Provider Active Dr. Ritesh Lassiter MD Other Provider Active Dr. Rd Mcgee MD Other Provider Active Team Status: Active Member Role Status Dates Dr. Marquis Oneal MD Primary Care Provider Activ e Dr. Jake Carmona MD Emergency Provider Active Dr. Thomas Champagne , DO Admit Provi anita, Attending Provider, Other Provider Active Team Status: Inactive Member Role Status Dates Dr. Marquis Oneal MD Primary Care Provider Activ e Dr. Micha Pacheco MD Emergency Provider Active Team Status: Inactive Member Role Status Dates Dr. Marquis Oneal MD Primary Care Provider Activ e Dr. Jake Carmona MD Emergency Provider Active Dr. Thomas Champagne DO Admit Provider, Attending Provider Active Team Status: Active Member Role Status Dates Dr. Marquis Oneal MD Primary Care Provider Activ e Dr. Jake Carmona MD Emergency Provider Active Dr. Thomas Champagne , DO Admit Provi anita, Referring Provider, Other Provider Active Dr. Charli Gonzalez MD Other Provider Active Dr. Shawn Osorio MD Other Provider Active Dr. Cecilio Miranda , Attending Provider, Other Provide r Active Dr. Sj Patel MD Other Provider Active Dr. Antonieta Lester MD Other Provider Active Dr. Eran Blancas MD Other Provider Active Dr. Lula Malcolm MD Other Provider Active Dr. Susie Steel MD Other Provider Active Dr. Gallo Hays MD Other Provider Active Dr. Montrell Heredia MD Other Provider Active Dr. Ritesh Lassiter MD Other Provider Active Dr. Rd Mcgee MD Other Provider Active Team Status: Inactive Member Role Status Dates Dr. Maqruis Oneal MD Primary Care Provider Activ e Dr. Micha Pacheco MD Attending Provider, Emergency Pro vider Active Property Administrator Relationship Specialty Start Date End Date Kimmy Itz PCP - General 09/17/23 Property Administrator Relationship Specialty Start Date End Date Itz Oneal PCP - General 09/17/23 Property Administrator Relationship Specialty Start Date End Date Itz Oneal PCP - General 09/17/23 Property Administrator Relationship Specialty Start Date End Date JorgerajinderItz PCP - General 09/17/23 Property Administrator Relationship Specialty Start Date End Date Itz Oneal PCP - General 09/17/23 Property Administrator Relationship Specialty Start Date End Date Itz Oneal PCP - General 09/17/23 Property Administrator Relationship Specialty Start Date End Date Itz Oneal PCP - General 09/17/23 Property Administrator Relationship Specialty Start Date End Date Itz Oneal PCP - General 09/17/23 Elva Goodman MD [address] [place] [address] Pulmonary Disease 03/26/24 Property Administrator Relationship Specialty Start Date End Date Itz Oneal PCP - General 09/17/23 Elva Goodman MD [address] [place] [address] Pulmonary Disease 03/26/24 Property Administrator Relationship Specialty Start Date End Date Itz Oneal PCP - General 09/17/23 Elva Goodman MD [address] [place] [address] Pulmonary Disease 03/26/24 Property Administrator Relationship Specialty Start Date End Date Itz Oneal PCP - General 09/17/23 Elva Goodman MD [address] [place] [address] Pulmonary Disease 03/26/24 Property Administrator Relationship Specialty Start Date End Date Itz Oneal PCP - General 09/17/23 Elva Goodman MD [address] [place] [address] Pulmonary Disease 03/26/24 Team Status: Active Member Role Status Dates Dr. Marquis Oneal MD Primary Care Provider, Attending Provider, Referring Provider Active Property Administrator Relationship Specialty Start Date End Date Itz Oneal PCP - General 09/17/23 Elva Goodman MD [address] [place] [address] Pulmonary Disease 03/26/24 Property Administrator Relationship Specialty Start Date End Date Itz Oneal PCP - General 09/17/23 Elva Goodman MD [address] [place] [address] Pulmonary Disease 03/26/24 Property Administrator Relationship Specialty Start Date End Date Itz Oneal PCP - General 09/17/23 Elva Goodman MD [address] [place] [address] Pulmonary Disease 03/26/24 Property Administrator Relationship Specialty Start Date End Date Itz Oneal PCP - General 09/17/23 Elva Goodman MD [address] [place] [address] Pulmonary Disease 03/26/24 Property Administrator Relationship Specialty Start Date End Date Itz Oneal PCP - General 09/17/23 Elva Goodman MD [address] [place] [address] Pulmonary Disease 03/26/24 Team Status: Active Member Role Status Dates Dr. Itz Oneal MD Primary Care Provider Acti ve Team Status: Inactive Member Role Status Dates Dr. Itz Oneal MD Primary Care Provider Acti ve Start: June 19, 2024 End: June 19, 2024 Erika Lewis RECTANGULAR TANK COOPER, RECTANGULAR TANK COOPER-C Attending Provider Active S tart: June 19, 2024 End: June 19, 2024 Erika Lewis RECTANGULAR TANK COOPER, RECTANGULAR TANK COOPER-C Referring Provider Active S tart: June 19, 2024 End: June 19, 2024 Team Status: Inactive Member Role Status Dates Dr. Itz Oneal MD Primary Care Provider Acti ve Start: October 03, 2024 End: October 03, 2024 Dr. Gus Spencer DPM Attending Provider Active Start: October 03, 2024 End: October 03, 2024 Dr. Gus Spencer DPM Referring Provider Active Start: October 03, 2024 End: October 03, 2024 Team Status: Active Member Role Status Dates Dr. Itz Oneal MD Primary Care Provider Acti ve Start: October 03, 2024 Dr. Navid Taylor MD Attending Provider Active S tart: October 03, 2024 Team Status: Active Member Role Status Dates Dr. Itz Oneal MD Primary Care Provider Acti ve Start: October 03, 2024 Dr. Navid Taylor MD Attending Provider Active S tart: October 03, 2024 Dr. Gus Spencer DPM Referring Provider Active Start: October 03, 2024 Team Status: Inactive Member Role Status Dates Dr. Itz Oneal MD Primary Care Provider Acti ve Start: October 08, 2024 End: October 08, 2024 Dr. Gus Spencer DPM Attending Provider Active Start: October 08, 2024 End: October 08, 2024 Dr. Gus Spencer DPM Referring Provider Active Start: October 08, 2024 End: October 08, 2024 Team Status: Active Member Role Status Dates Dr. Itz Oneal MD Primary Care Provider Acti ve Start: October 08, 2024 Dr. Gus Spencer DPM Referring Provider Active Start: October 08, 2024 Dr. Gus Spencer DPM Other Provider Active Start: October 08, 2024 Dr. Delmy Miles MD Attending Provider Active S tart: May 21st, 2025 Property Administrator Relationship Specialty Start Date End Date Itz Oneal PCP - General 09/17/23 Elva Goodman MD [address] [place] [address] Pulmonary Disease 03/26/24 Property Administrator Relationship Specialty Start Date End Date Itz Oneal PCP - General 09/17/23 Elva Goodman MD [address] [place], [place] [id number] Pulmonary Disease 03/26/24 Team Status: Active Member Role/Relationship Status Dates Dr. Itz Oneal MD Primary Care Provider Acti ve Team Status: Inactive Member Role/Relationship Status Dates Dr. Itz Oneal MD Primary Care Provider Acti ve Start: October 03, 2024 End: October 03, 2024 Dr. Gus Spencer DPM Attending Provider Active Start: October 03, 2024 End: October 03, 2024 Dr. Gus Spencer DPM Referring Provider Active Start: October 03, 2024 End: October 03, 2024 Team Status: Active Member Role/Relationship Status Dates Dr. Itz Oneal MD Primary Care Provider Acti ve Start: October 03, 2024 Dr. Navid Taylor MD Attending Provider Active S tart: October 03, 2024 Dr. Gus Spencer DPM Referring Provider Active Start: October 03, 2024 Team Status: Inactive Member Role/Relationship Status Dates Dr. Itz Oneal MD Primary Care Provider Acti ve Start: October 08, 2024 End: October 08, 2024 Dr. Gus Spencer DPM Attending Provider Active Start: October 08, 2024 End: October 08, 2024 Dr. Gus Spencer DPM Referring Provider Active Start: October 08, 2024 End: October 08, 2024 Team Status: Active Member Role/Relationship Status Dates Dr. Itz Oneal MD Primary Care Provider Acti ve Start: October 08, 2024 Dr. Gus Spencer DPM Referring Provider Active Start: October 08, 2024 Dr. Gus Wunning , DPM Other Provider Active Start: October 08, 2024 Dr. Delmy Miles MD Attending Provider Active S tart: October 08, 2024 Team Status: Inactive Member Role/Relationship Status Dates Dr. Itz Oneal MD Primary Care Provider Acti ve Start: November 17, 2024 End: November 17, 2024 Dr. Itz Oneal MD Attending Provider Active Start: November 17, 2024 End: November 17, 2024 Dr. Itz Oneal MD Referring Provider Active Start: November 17, 2024 End: November 17, 2024 Property Administrator Relationship Specialty Start Date End Date Itz Oneal PCP - General 09/17/23 Elva Goodman MD [address] [place] [address] Pulmonary Disease 03/26/24 Source Comments (unrecognize d section and content) In the event this informatio n is protected by the Federal Confidentiality of Alcohol and Drug Abuse Patient Records regulations: The Federal rules restrict any use of the information to criminally investigate or prosecute any alcohol or drug abuse patient.[facility] CenterIn the event this information is protected by the Federal Confidentiality of Alcohol and Drug Abuse Patient Records regulations: The Federal rules restrict any use of the information to criminally investigate or prosecute any alcohol or drug abuse patient.[facility] CenterIn the event this information is protected by the Federal Confidentiality of Alcohol and Drug Abuse Patient Records regulations: The Federal rules restrict any use of the information to criminally investigate or prosecute any alcohol or drug abuse patient.[facility] CenterIn the event this information is protected by the Federal Confidentiality of Alcohol and Drug Abuse Patient Records regulations: The Federal rules restrict any use of the information to criminally investigate or prosecute any alcohol or drug abuse patient.[facility] CenterIn the event this information is protected by the Federal Confidentiality of Alcohol and Drug Abuse Patient Records regulations: The Federal rules restrict any use of the information to criminally investigate or prosecute any alcohol or drug abuse patient.[facility] CenterIn the event this information is protected by the Federal Confidentiality of Alcohol and Drug Abuse Patient Records regulations: The Federal rules restrict any use of the information to criminally investigate or prosecute any alcohol or drug abuse patient.[facility] CenterIn the event this information is protected by the Federal Confidentiality of Alcohol and Drug Abuse Patient Records regulations: The Federal rules restrict any use of the information to criminally investigate or prosecute any alcohol or drug abuse patient.[facility] CenterIn the event this information is protected by the Federal Confidentiality of Alcohol and Drug Abuse Patient Records regulations: The Federal rules restrict any use of the information to criminally investigate or prosecute any alcohol or drug abuse patient.[facility] CenterIn the event this information is protected by the Federal Confidentiality of Alcohol and Drug Abuse Patient Records regulations: The Federal rules restrict any use of the information to criminally investigate or prosecute any alcohol or drug abuse patient.[facility] CenterIn the event this information is protected by the Federal Confidentiality of Alcohol and Drug Abuse Patient Records regulations: The Federal rules restrict any use of the information to criminally investigate or prosecute any alcohol or drug abuse patient.[facility] CenterIn the event this information is protected by the Federal Confidentiality of Alcohol and Drug Abuse Patient Records regulations: The Federal rules restrict any use of the information to criminally investigate or prosecute any alcohol or drug abuse patient.[facility] CenterIn the event this information is protected by the Federal Confidentiality of Alcohol and Drug Abuse Patient Records regulations: The Federal rules restrict any use of the information to criminally investigate or prosecute any alcohol or drug abuse patient.[facility] CenterIn the event this information is protected by the Federal Confidentiality of Alcohol and Drug Abuse Patient Records regulations: The Federal rules restrict any use of the information to criminally investigate or prosecute any alcohol or drug abuse patient.[facility] CenterIn the event this information is protected by the Federal Confidentiality of Alcohol and Drug Abuse Patient Records regulations: The Federal rules restrict any use of the information to criminally investigate or prosecute any alcohol or drug abuse patient.[facility] CenterIn the event this information is protected by the Federal Confidentiality of Alcohol and Drug Abuse Patient Records regulations: The Federal rules restrict any use of the information to criminally investigate or prosecute any alcohol or drug abuse patient.[facility] CenterIn the event this information is protected by the Federal Confidentiality of Alcohol and Drug Abuse Patient Records regulations: The Federal rules restrict any use of the information to criminally investigate or prosecute any alcohol or drug abuse patient.[facility] CenterIn the event this information is protected by the Federal Confidentiality of Alcohol and Drug Abuse Patient Records regulations: The Federal rules restrict any use of the information to criminally investigate or prosecute any alcohol or drug abuse patient.[facility] CenterIn the event this information is protected by the Federal Confidentiality of Alcohol and Drug Abuse Patient Records regulations: The Federal rules restrict any use of the information to criminally investigate or prosecute any alcohol or drug abuse patient.[facility] CenterIn the event this information is protected by the Federal Confidentiality of Alcohol and Drug Abuse Patient Records regulations: The Federal rules restrict any use of the information to criminally investigate or prosecute any alcohol or drug abuse patient.[facility] CenterIn the event this information is protected by the Federal Confidentiality of Alcohol and Drug Abuse Patient Records regulations: The Federal rules restrict any use of the information to criminally investigate or prosecute any alcohol or drug abuse patient.[facility] CenterIn the event this information is protected by the Federal Confidentiality of Alcohol and Drug Abuse Patient Records regulations: The Federal rules restrict any use of the information to criminally investigate or prosecute any alcohol or drug abuse patient.[facility] CenterIn the event this information is protected by the Federal Confidentiality of Alcohol and Drug Abuse Patient Records regulations: The Federal rules restrict any use of the information to criminally investigate or prosecute any alcohol or drug abuse patient.[facility] CenterIn the event this information is protected by the Federal Confidentiality of Alcohol and Drug Abuse Patient Records regulations: The Federal rules restrict any use of the information to criminally investigate or prosecute any alcohol or drug abuse patient.[facility] CenterIn the event this information is protected by the Federal Confidentiality of Alcohol and Drug Abuse Patient Records regulations: The Federal rules restrict any use of the information to criminally investigate or prosecute any alcohol or drug abuse patient.[facility] CenterIn the event this information is protected by the Federal Confidentiality of Alcohol and Drug Abuse Patient Records regulations: The Federal rules restrict any use of the information to criminally investigate or prosecute any alcohol or drug abuse patient.[facility] Reason for Visit (unrecogniz ed section and content) Reason Comments Cough Reason Comments Spirometry Specialty Diagnoses / Procedures Referred By Contac t Referred To [facility] Diagnoses Chronic cough Persistent asthma without complication, unspecified asthma severity Procedures NITRIC OXIDE, EXHALED NITRIC OXIDE GAS DETERMINATION Elva Goodman MD [address] [place] [id number] [facility] [place] [address] [place] [id number] Referral ID Status Reason Start Date Expiration Date V isits Requested Visits Authorized [id number] Denied Auto-Generate d Referral 09/18/2023 10/17/2024 1 0 Specialty Diagnoses / Procedures Referred By Contac t Referred To Contact CT IMAGING Diagnoses Chronic cough Pneumonia of right lower lobe due to infectious organism Procedures CT CHEST WO IVCON DIAGNOSTIC COMPUTED TOMOGRAPHY THORAX W/O CNTRST Elva Goodman MD [address] [place], [place] [id number] Ct Imaging [facility]95 Referral ID Status Reason Start Date Expiration Date V isits Requested Visits Authorized [id number] Closed Auto-Generate d Referral 09/18/2023 10/17/2024 1 1 Reason Comments Follow Up Reason Comments Results Reason Comments Results Reason Comments Patient Question PCP wants to speak w ith Dr. Goodman please call [phone] to speak with provider directly. Dr. Oneal Reason Comments Asthma Reason Comments Medication Problem Reason Comments Asthma Chronic Cough Specialty Diagnoses / Procedures Referred By Contac t Referred To Contact Allergy Diagnoses Persistent asthma without complication, unspecified asthma severity Allergic rhinitis, unspecified seasonality, unspecified trigger Procedures CONSULT TO ALLERGY/IMMUNOLOGY OFFICE/OUTPATIENT [facility] 60 MINUTES Elva Goodman MD [address] [place] [address] Referral ID Status Reason Start Date Expiration Date V isits Requested Visits Authorized [id number] Closed PCP Requested Referral 04/01/2024 04/01/2025 1 1 Reason Comments Asthma Specialty Diagnoses / Procedures Referred By Contac t Referred To Contact [facility] Diagnoses Moderate persistent asthma without complication Chronic cough Procedures SPIROMETRY - BASELINE AND POST DILATOR BRNCDILAT RSPSE SPMTRY PRE&POST-BRNCDILAT ADMN Cosme, Denia, OIL WELL SERVICE OPERATOR.BUILDING [employer]STRUCTION [employer]EM[employer] [address] [place] [address] [address] Referral ID Status Reason Start Date Expiration Date V isits Requested Visits Authorized [id number] Closed Auto-Generate d Referral 05/02/2024 06/01/2025 1 1 Specialty Diagnoses / Procedures Referred By Contac t Referred To Contact [facility] Diagnoses Moderate persistent asthma without complication Chronic cough Procedures LUNG VOLUMES PLETHYSMOGRAPHY LUNG VOLUMES W/WO AIRWAY RESIST Denia Nicholas, OIL WELL SERVICE OPERATOR.BUILDING CONSTRUCTION FOREMAN [address] [place] [address] [address] Referral ID Status Reason Start Date Expiration Date V isits Requested Visits Authorized [id number] Closed Auto-Generate d Referral 05/02/2024 05/20/2024 1 1 Specialty Diagnoses / Procedures Referred By Contac t Referred To Contact [facility] Diagnoses Moderate persistent asthma without complication Chronic cough Procedures LUNG DIFFUSION CAPACITY (DLCO) DIFFUSING CAPACITY Denia Nicholas, OIL WELL SERVICE OPERATOR.BUILDING CONSTRUCTION FOREMAN [address] [place] [address] [address] Referral ID Status Reason Start Date Expiration Date V isits Requested Visits Authorized [id number] Closed Auto-Generate d Referral 05/02/2024 06/01/2025 1 1 Specialty Diagnoses / Procedures Referred By Contac t Referred To [facility] Diagnoses Moderate persistent asthma without complication Chronic cough Procedures NITRIC OXIDE, EXHALED NITRIC OXIDE GAS DETERMINATION Denia Nicholas, OIL WELL SERVICE OPERATOR.BUILDING CONSTRUCTION FOREMAN [address] [place] [address] [address] Referral ID Status Reason Start Date Expiration Date V isits Requested Visits Authorized [id number] Closed Auto-Generate d Referral 05/02/2024 06/01/2025 1 1 Reason Comments Consult Chronic cough dyspha ganesh Specialty Diagnoses / Procedures Referred By Contac t Referred To Contact Ent - Otolaryngology Diagnoses Chronic cough Change in voice Procedures CONSULT TO ENT OFFICE/OUTPATIENT [facility] 60 MINUTES Denia Nicholas, OIL WELL SERVICE OPERATOR.BUILDING CONSTRUCTION FOREMAN [address] [place] [address] Referral ID Status Reason Start Date Expiration Date V isits Requested Visits Authorized [id number] Closed PCP Requested Referral 05/02/2024 05/02/2025 1 1 Reason Comments Asthma Reason Comments Refill Request Reason Comments Follow Up INFORMATION SOURCE (unrecogn ized section and content) DATE CREATED AUTHOR 10/10/2023 [facility] DATE CREATED AUTHOR AUTHOR'S ORGANIZ ATION 10/18/2024 [facility] DATE CREATED AUTHOR AUTHOR'S ORGANIZ ATION 10/18/2024 [facility] DATE CREATED AUTHOR AUTHOR'S ORGANIZ ATION 11/22/2024 [facility] FOR RECORDS PERTAINING TO PATIENTS WHO ARE OR HAVE BEEN ENROLLED IN A CHEMICAL DEPENDENCY/SUBSTANCEABUSE PROGRAM, SOME INFORMATION MAY BE OMITTED. This clinical summary was aggregated from multiple sources. Caution should be exercised in using it in the provision of clinical care. This summary normalizes information from multiple sources, and as a consequence, information in this document may materially change the coding, format and clinical context of patient data. In addition, data may be omitted in some cases. CLINICAL DECISIONS SHOULD BE BASED ON THE PRIMARY CLINICAL RECORDS. [employer] provides no warranty or guarantee of the accuracy or completeness of information in this document.
[2025-01-29 08:09] LABS: T3UP 22 % (24-39)
== END | disposition home or self-care (01) ==
LOC: MFPLAB 13:48
PROVIDERS: PCP Family Medicine; Referring Provider Family Medicine; Visit Provider Family Medicine
DX: E04.1 Nontoxic single thyroid nodule (principal)
CPT/HCPCS: 36415; 84439; 84443; 84479; 84481

== ENCOUNTER → 2025-02-18 | Outpatient (CLI) | payer MEDICARE, SELFPAY ==
--- NOTE | 2025-02-18 09:45 | CYSPIN_PTH ---
PATIENT: MARITZA JOSEPH LOC: [facility] U#:[id number] AGE/SX: 79/F ROOM: RE02/18/[address]: Dr. Allan Smith MD : 1945 BED: DIS: 02/18/2025 SPEC #: [id number] RECD: 02/18/25 10:26 STATUS: MAIA REQ #: [id number] WING: 02/18/25 09:[address]: Allan Smith DEPT: CYTOLOGY RECD BY: Baldo Reyes ENTERED: 02/18/25 14:47 SP TYPE: CYSPIN FL OTHR DR: Dr. Itz Oneal MD Tissues: A - Thyroid gland, NOS Procedures: Pap Stain (control) Special Stain Group II Diff Quik Stain (control) Cytospin Fluid Cytology Other HEADER OPERATION: Fine needle aspiration of left thyroid nodule PRE-OP DIAGNOSIS: Left thyroid nodule TISSUE SUBMITTED: A- Left thyroid nodule for cytology DIAGNOSIS CYTOLOGY A. Left thyroid, nodule, FNA (cytospin, smear x4): * Benign (TBS II). CYTOLOGY STUDY Slides are reviewed. CYTOLOGY GROSS A. Received is 30 ml of pink-cloudy cytolyt with particles and 4 smears labeled with the patient's name and and designated per the requisition as Left thyroid nodule. Submitted for cytology and cytospin. Mr 02/18/2025 CPT: 83713
--- NOTE | 2025-02-18 09:45 | CYSPIN_PTH ---
PATIENT: MARITZA JOSEPH LOC: [facility] U#:[id number] AGE/SX: 79/F ROOM: RE02/18/[address]: Dr. Allan Smith MD : 1945 BED: DIS: 02/18/2025 SPEC #: [id number] RECD: 02/18/25 10:26 STATUS: MAIA REQ #: [id number] WING: 02/18/25 09:[address]: Allan Smith DEPT: CYTOLOGY RECD BY: Baldo Reyes ENTERED: 02/18/25 14:47 SP TYPE: CYSPIN FL OTHR DR: Dr. Itz Oneal MD Tissues: A - Thyroid gland, NOS Procedures: Pap Stain (control) Special Stain Group II Diff Quik Stain (control) Cytospin Fluid Cytology Other HEADER OPERATION: Fine needle aspiration of left thyroid nodule PRE-OP DIAGNOSIS: Left thyroid nodule TISSUE SUBMITTED: A- Left thyroid nodule for cytology DIAGNOSIS CYTOLOGY A. Left thyroid, nodule, FNA (cytospin, smear x4): * Benign (TBS II). CYTOLOGY STUDY Slides are reviewed. CYTOLOGY GROSS A. Received is 30 ml of pink-cloudy cytolyt with particles and 4 smears labeled with the patient's name and and designated per the requisition as Left thyroid nodule. Submitted for cytology and cytospin. Mr 02/18/2025 CPT: [id number]
== END | disposition home or self-care (01) ==
LOC: LABSPEC 10:31
PROVIDERS: PCP Family Medicine; Referring Provider Surgery; Visit Provider Surgery
DX: E04.1 Nontoxic single thyroid nodule (principal)
CPT/HCPCS: 88108; 88161; 88313